=== PATIENT | female | born 1955 | race Two or more races ===

== ENCOUNTER → 2024-01-10 | Outpatient (CLI) | payer OTHER, SELFPAY ==
[2024-01-10 11:25] LABS: Basophils % (Auto) 0 % (0-2.5); Eosinophils # (Auto) 0.1 Thou/mm3 (0.0-0.5); Eosinophils % (Auto) 1 % (0-10); Hematocrit 33.3 % (36.0-46.0); Hemoglobin 10.6 g/dL (12.0-16.0); Immature Granulocytes % (Auto) 0 % (0-0); Immature Granulocytes Auto 0.02 Thou/mm3 (0.00-0.00); Lymphocytes # (Auto) 2.1 Thou/mm3 (1.0-4.8); Lymphocytes % (Auto) 28 % (10-50); Mean Corpuscular HGB Conc 31.8 g/dl (31.0-37.0); Mean Corpuscular Volume 94 fL (80-100); Monocytes # (Auto) 0.5 Thou/mm3 (0.0-0.8); Monocytes % (Auto) 7 % (0-12); Neutrophils # (Auto) 4.8 Thou/mm3 (1.8-7.7); Neutrophils % (Auto) 64 % (37-80); Nucleated Red Blood Cell % 0 /100 WBC (0); Platelet Count 327 Thou/mm3 (140-440); RDW Standard Deviation 46.3 fL (36.4-46.3); Red Blood Count 3.53 Miln/mm3 (4.00-5.20); White Blood Count 7.5 Thou/mm3 (3.6-11.0)
[2024-01-10 11:33] LABS: Glucose Estimated Average 123 mg/dL (80-131); Hemoglobin A1C 5.9 % Hgb (4.8-6.0)
== END | disposition home or self-care (01) ==
LOC: COPL 10:07
PROVIDERS: PCP Family Medicine; Referring Provider Family Medicine; Visit Provider Family Medicine
DX: E11.9 Type 2 diabetes mellitus without complications (principal)
CPT/HCPCS: 36415; 83036; 85025

== ENCOUNTER 2024-03-04 10:50 | Inpatient (IN) | payer OTHER, MEDICARE, SELFPAY ==
[2024-03-04 12:02] VITALS: BP 102/69; PULSE 106; RESP 18; TEMP 36.5; O2SAT 99; BMI 33.4
--- NOTE | 2024-03-04 12:08 | XR_ITS ---
Examination: CT abdomen and pelvis without contrast. Coronal 3-D reconstructions. Sagittal 2-D reconstructions. Date and time of exam:March 04, 2024 at 1234 hrs. Indications: Onset generalized abdominal pain beginning 3 days ago CTDI: vol (mGy): 9.53 DLP: (mGycm): 186 Technique: Axial images of the abdomen have been obtained, 3 mm slice thickness Intravenous contrast material has not been administered. Low dose protocols were performed. One or more of the following dose reduction techniques were used; automated exposure control, adjustment of the mA and/or KV according to patient size, use of iterative reconstruction technique. Findings: No focal liver or splenic lesions No gallstones No pancreatic or adrenal mass Bilateral renal parenchymal scar formation No renal or ureteral calculi, no hydronephrosis Aortic calcification no aneurysmal dilatation 10 mm fat-containing umbilical hernia Scattered colonic diverticulosis, no diverticulitis Contracted urinary bladder No pelvic mass Normal appendix Prominent osteopenia with chronic osteoporotic compression L2 Mild rectal wall thickening Impression: Negative for gallstones, negative for pancreatitis Moderate bilateral renal parenchymal scar formation, no renal or ureteral calculi, no hydronephrosis Normal appendix Mild rectal wall thickening, differential would include proctitis, early rectal tumor not excluded, recommend elective colonoscopy follow-up
--- NOTE | 2024-03-04 12:08 | PD.EDRME ---
Rapid Medical Screening Exam RME Arrival date/time: 03/04/24 10:50 68-year-old female presents emergency department complains of generalized abdominal pain nausea vomiting and diarrhea Chief Complaint: Nausea/Vomiting/Diarrhea Time Seen by Provider: 03/04/24 10:53 Vital signs: Vital Signs Temperature 97.7 F 03/04/24 12:02 Pulse Rate 106 H 03/04/24 12:02 Respiratory Rate 18 03/04/24 12:02 Blood Pressure 102/69 03/04/24 12:02 Pulse Oximetry (%) 99 03/04/24 12:02 Oxygen Delivery Method Room Air 03/04/24 12:02
[2024-03-04] MEDS: MG HYD/AL HYD/SIME (Maalox Reg) SUSP 30 ML UDC PO (12:22)
[2024-03-04] MEDS: FAMOTIDINE 20 MG TABLET PO (12:22)
[2024-03-04] MEDS: ONDANSETRON ODT 4 MG TABRAP PO (12:22)
[2024-03-04] MEDS: LIDOCAINE VISCOUS 2% 15 ML UDC PO (12:22)
[2024-03-04 12:31] LABS: Basophils % (Auto) 0 % (0-2.5); Eosinophils # (Auto) 0.1 Thou/mm3 (0.0-0.5); Eosinophils % (Auto) 1 % (0-10); Hematocrit 34.7 % (36.0-46.0); Hemoglobin 11.8 g/dL (12.0-16.0); Immature Granulocytes % (Auto) 0 % (0-0); Immature Granulocytes Auto 0.04 Thou/mm3 (0.00-0.00); Lymphocytes # (Auto) 1.4 Thou/mm3 (1.0-4.8); Lymphocytes % (Auto) 13 % (10-50); Mean Corpuscular Hemoglobin 29.9 pg (25.0-35.0); Mean Corpuscular Volume 88 fL (80-100); Monocytes # (Auto) 0.5 Thou/mm3 (0.0-0.8); Monocytes % (Auto) 5 % (0-12); Neutrophils # (Auto) 8.5 Thou/mm3 (1.8-7.7); Neutrophils % (Auto) 81 % (37-80); Nucleated Red Blood Cell % 0 /100 WBC (0); Platelet Count 293 Thou/mm3 (140-440); Red Blood Count 3.94 Miln/mm3 (4.00-5.20); White Blood Count 10.5 Thou/mm3 (3.6-11.0)
[2024-03-04 12:50] LABS: Alanine Aminotransferase 23 U/L (10-49); Albumin, Serum 4.7 gm/dL (3.4-4.8); Albumin/Globulin Ratio 1.6 (1.2-2.2); Alkaline Phosphatase 113 U/L (46-116); Anion Gap 11 (7-16); Aspartate Amino Transferase 21 U/L (0-34); BUN/Creatinine Ratio 17 Ratio (12-20); Bilirubin,Total 0.7 mg/dL (0.3-1.2); Blood Urea Nitrogen 39 mg/dL (9-23); Carbon Dioxide 16.3 mMol/L (20.0-31.0); Chloride 100 mMol/L (98-107); Creatinine (Component) 2.3 mg/dL (0.6-1.3); Estimated Creatinine Clearance 19.8 mL/min (>60); Globulin 2.9 gm/dL (2.3-3.5); Glucose 137 mg/dL (74-106); Lipase 36 U/L (12-53); Osmolality,Calculated 266 (275-295); Potassium 4.4 mMol/L (3.4-5.1); Sodium 127 mMol/L (136-145); Total Protein 7.6 gm/dL (5.7-8.2); eGFR 23 See Note
--- NOTE | 2024-03-04 14:15 | EDNOTE_ITS ---
Nausea/Vomit./Diarrhea-RME/HPI General Chief complaint: Nausea/Vomiting/Diarrhea Stated complaint: DIARRHEA AND VOMITING X3 DAYS Time Seen by Provider: 03/04/24 10:53 Arrival date/time: 03/04/24 10:50 RME / HPI RME / HPI Narrative: 03/04/24 10:50 68-year-old female presents emergency department complains of generalized abdominal pain nausea vomiting and diarrhea DR. POSEY MAIN ED EVALUATION: 68 year old female presents to the Emergency Department with complaints of nausea, vomiting, and diarrhea onset 3 days. Symptoms are moderate to severe, about 3-4 episodes of both vomiting and diarrhea a day. Patient also reports epigastric pain; described as aching, rated moderate; no modifying factors or radiation reported at this time. Last oral intake was yesterday at 7 PM, because she states that everything she eats she vomits. 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 Hypertension and diabetes. Social Hx: No tobacco, alcohol, or substance use. Related Data Previous Rx's ?Medication ?Instructions ?Recorded diazepam 10 mg tablet (Valium) 10 mg PO BID PRN muscle spasm #20 08/07/20 tabs hydrocodone 5 mg-acetaminophen 325 1 tab PO BID PRN pain #10 tabs 11/07/21 mg tablet ibuprofen 800 mg tablet 800 mg PO TID PRN pain #30 tabs 11/07/21 Allergies Allergy/AdvReac Type Severity Reaction Status Date / Time No Known Allergies Allergy Verified 03/04/24 10:52 Review of Systems Review of Systems Systems Reviewed: All systems reviewed, normal except as documented Narrative Review of Systems: GEN: No fever, no chills, no weight loss EYES: No discharge, no visual changes, no pain HEENT: No ear pain, no congestion, no sore throat PULM: No shortness of breath, no cough, no congestion CV: No chest pain, no dyspnea on exertion, no palpitations GI: + nausea, + vomiting, + diarrhea, + epigastric pain, no constipation : No frequency, no urgency and no dysuria MUSC/SKEL: No joint pain, no back pain SKIN: No rash PSYCH: No hallucinations, no depression HEME/LYMPH: No easy bleeding or bruising tendencies NEURO: No weakness, no headache Past Medical History Past Medical History CARDIAC: Positive Hypertension ENDOCRINE: Positive Diabetes Mellitus Type 2 Social History SMOKING STATUS: Never smoker ED Exam Narrative Physical exam: GENERAL APPEARANCE: Well hydrated, well nourished, in no acute distress. VITALS: All vitals were reviewed and the pulse ox is 99% on room air which is normal according to my interpretation. HEENT: Normocephalic, atramatic, EOMI, EACs are patent. There is no bulge or retraction. Throat without erythema or exudate. Moist oromucosa. No jaundice NECK: Supple, no JVD or bruits. CARDIOVASCULAR: Heart regular without S3-S4 or murmur. No rubs or gallops. LUNGS/CHEST: Clear to auscultation bilaterally. No rales, rhonchi, or wheezing. Normal inspection. ABDOMEN: Left upper tenderness on palpation. Normal bowel sounds. No pulsatile masses. No rebound, rigidity, or guarding. No McBurney tenderness. No Mckeon's tenderness. No incarcerated hernia. EXTREMITIES: No edema, clubbing, or cyanosis. Intact CSM. Normal inspection and palpation. SKIN: Warm and dry without rashes. Normal inspection. MUSCULOSKELETAL: No gross deformity, full ROM all extremities. Normal inspection. NEURO: Alert and oriented x3. Cranial nerves II through XII grossly intact. There are no other motor or sensory deficits noted. PSYCHIATRIC: Normal mood and affect. No psychosis. Course Quality Measures none Orders Category Date Time Status Consult to Gastroenterology Stat Cons 03/04/24 14:[address] abdomen pelvis wo con Stat Exams 03/04/24 12:08 Completed CBC Stat Lab 03/04/24 12:19 Completed Comprehensive Metabolic Panel Stat Lab 03/04/24 12:19 Completed Lipase Stat Lab 03/04/24 12:19 Completed UA, C/S IF [Urinalysis, C/S if Indicated] Stat Lab 03/04/24 14:00 Received Famotidine [Pepcid] Med 03/04/24 12:08 Discontinued 20 mg PO X1 ONE Lidocaine 2% Viscous [Xylocaine 2% Viscous] Med 03/04/24 12:08 Discontinued 15 ml PO X1 ONE Ondansetron Odt [Zofran Odt] Med 03/04/24 12:08 Discontinued 4 mg PO X1 ONE Sodium Chloride 0.9% 1000 ml [Ns] 1,000 ml Med 03/04/24 14:22 Active IV 999 mls/hr mg Hyd/Al Hyd/Leeanna Susp [Maalox Susp] Med 03/04/24 12:08 Discontinued 30 ml PO X1 ONE Vital Signs Vital signs: Vital Signs Temperature 97.7 F 03/04/24 12:02 Pulse Rate 106 H 03/04/24 12:02 Respiratory Rate 18 03/04/24 12:02 Blood Pressure 102/69 03/04/24 12:02 Pulse Oximetry (%) 99 03/04/24 12:02 Oxygen Delivery Method Room Air 03/04/24 12:02 Nausea/Vomiting/Diarrhea MDM Narrative MDM Narrative:: I, Indiana Mcpherson, am scribing for and in the presence of Dr. Posey. CBC is unremarkable. Sodium 127. Bicarb of 16. BUN/creatinine 39 and 2.3. No recent BMP to compare with. But blood sugar is okay. Anion gap is negative. Lipase is negative. UA is pending. In the emergency department I gave the patient a liter normal saline bolus. CT abdomen and pelvic was reviewed by and interpreted by me as follow: No free air. No free fluid. No bowel obstruction. No stranding. 2:15 PM, I spoke to and discussed with Dr. Batres, resident on-call for , attending hospitalist on-call. She agrees to assess the patient for admission. But she wants me to call Dr. Hernandes also for consultation. 2:30 PM, I spoke to and discussed with Dr. Hernandes, GI specialist on-call. He is agreeable to consult on admission. 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 Hypertension and diabetes. How is presenting disease/condition affected by chronic disease/condition?: exacerbated by Evaluation data The following diagnostics were reviewed and interpreted by me:: lab results and radiology exam(s) Lab and/or radiology exams considered but not ordered:: none Interpretation Summary: See above under MDM narrative. RADIOLOGY Procedure(s): CT abdomen pelvis wo con Accession Number(s): [id number] cc: Loyd ([place]),Hero WESTON; Osito Liao MD~ Examination: CT abdomen and pelvis without contrast. Coronal 3-D reconstructions. Sagittal 2-D reconstructions. Date and time of exam:March 04, 2024 at 1234 hrs. Indications: Onset generalized abdominal pain beginning 3 days ago CTDI: vol (mGy): 9.53 DLP: (mGycm): 186 Technique: Axial images of the abdomen have been obtained, 3 mm slice thickness Intravenous contrast material has not been administered. Low dose protocols were performed. One or more of the following dose reduction techniques were used; automated exposure control, adjustment of the mA and/or KV according to patient size, use of iterative reconstruction technique. Findings: No focal liver or splenic lesions No gallstones No pancreatic or adrenal mass Bilateral renal parenchymal scar formation No renal or ureteral calculi, no hydronephrosis Aortic calcification no aneurysmal dilatation 10 mm fat-containing umbilical hernia Scattered colonic diverticulosis, no diverticulitis Contracted urinary bladder No pelvic mass Normal appendix Prominent osteopenia with chronic osteoporotic compression L2 Mild rectal wall thickening Impression: Negative for gallstones, negative for pancreatitis Moderate bilateral renal parenchymal scar formation, no renal or ureteral calculi, no hydronephrosis Normal appendix Mild rectal wall thickening, differential would include proctitis, early rectal tumor not excluded, recommend elective colonoscopy follow-up Dictated By: Osito Liao MD Medications / Prescriptions Medications / Prescriptions considered but not ordered:: none Medication administrations:: Medication Administration History Sodium Chloride (Ns) 1,000 mls @ 999 mls/hr IV .Q1H1M ONE Stop: 03/04/24 15:22 Discontinued Medications Al Hydrox/Mg Hydrox/Simethicone (Mg Hyd/Al Hyd/Leeanna (Maalox Reg) Susp 30 Ml Udc) 30 ml PO X1 ONE Stop: 03/04/24 12:09 Last Admin: 03/04/24 12:22 Dose: 30 ml Documented By: NALLELY Famotidine (Famotidine 20 Mg Tablet) 20 mg PO X1 ONE Stop: 03/04/24 12:09 Last Admin: 03/04/24 12:22 Dose: 20 mg Documented By: NALLELY Lidocaine HCl (Lidocaine Viscous 2% 15 Ml Udc) 15 ml PO X1 ONE Stop: 03/04/24 12:09 Last Admin: 03/04/24 12:22 Dose: 15 ml Documented By: NALLELY Ondansetron HCl (Ondansetron Odt 4 Mg Tabrap) 4 mg PO X1 ONE; Protocol Stop: 03/04/24 12:09 Last Admin: 03/04/24 12:22 Dose: 4 mg Documented By: NALLELY see above Consultations Consultation(s) initiated? (list below): Yes Consultation #1 (Physician, Specialty, Details): Discussed test HPI, PMHx, lab, radiology results and/or management with [facility]. Will admit for further evaluation and management. Accepts patient for admission. Time: 14:24 Consultation #2 (Physician, Specialty, Details): Discussed test HPI, PMHx, lab, radiology results and/or management with Dr. Hernandes. Will consult an admission to the hospitalist. Time: 14:27 Diagnosis Nausea Differential Diagnosis: gastroenteritis, dehydration and other (Acute kidney injury) Most likely diagnosis given after review of the tests above:: Acute kidney injury. Electrolyte abnormality. Metabolic acidosis. Dehydration. Gastroenteritis Admission Indicated Admission indicated?: indicated Admission Request Was there a request for admission?: Yes Admission Attestation Admission request attestation: Discussed case with [] from Hospitalist service regarding admission. Discussed patients ED course, exam findings, labs, and radiology results. The Hospitalist [agrees,declines] to accept the patient for admission. Disposition Plan Disposition Plan: Admit Discharge Plan Plan Patient Disposition: Admit Acute Care w/in Hospital Disposition Comment: Stable for admit Prescriptions/Referrals Prescriptions/Med Rec: No Action diazepam [Valium] 10 mg tablet 10 mg PO BID PRN (Reason: muscle spasm) Qty: 20 0RF ibuprofen 800 mg tablet 800 mg PO TID PRN (Reason: pain) Qty: 30 0RF hydrocodone-acetaminophen 5-325 mg tablet 1 tab PO BID MDD 10 PRN (Reason: pain) Qty: 10 0RF Problem List Clinical Impression: Dehydration, Gastroenteritis, Electrolyte abnormality, Metabolic acidosis, Acute kidney injury Patient/Caregiver Discharge Instructions Print Language: Slovenian Stand Alone Forms: Kay Award Info., Patient Portal Info Letter
[2024-03-04] MEDS: SODIUM CHLORIDE 0.9% 1000 ML 1,000 ML 999 ML IV ×3 (14:25→18:47)
[2024-03-04 14:42] VITALS: BP 95/58; PULSE 85; RESP 18; TEMP 36.7; O2SAT 100
--- NOTE | 2024-03-04 15:10 | PC.NURSE ---
resident at bedside
[2024-03-04 15:23] LABS: Lactate (Lactic Acid) 1.6 mMol/L (0.4-2.0)
--- NOTE | 2024-03-04 16:01 | ESHP_ITS ---
<Statement entered by Zohaib Caballero MD - 03/04/24 18:10> This patient is a 68-year-old female with past medical history of hypertension, hyperlipidemia, type 2 diabetes [id number] presented with chief complaint of diarrhea from past 3 days. She reported that she had food from a leftover meat after which she developed emesis. She was also complaining of pain in her abdomen and eventually ended up having intractable vomiting. She is admitted for intractable abdominal pain with vomiting with possible GI infection. In the ED patient's blood pressure was slightly soft she was tachycardic and afebrile saturating well on room air. Labs were significant for hyponatremia with DREA BUN 39 creatinine 2.3 with baseline at 1.1. White count within normal limits. CT abdomen was significant for rectal wall thickening. Patient received lidocaine patch famotidine and zofran. We Will continue with IV ciprofloxacin and Flagyl, ordered stool analysis and IV fluid resuscitation for hyponatremia. Continuing antiemetics for vomiting. Consulted Dr. Hernandes for possible rectal wall thickening. Starting her on insulin sliding scale. Home medications were reconciled. All labs and orders were reviewed. I saw and examined the patient, and I agree with current management stated by Dr Tomasa MD,PGY1. Plan of care was discussed with the attending physician and resident physician. Disclaimer: Despite multiple revisions, due to the dictation software being used, the document bellow may not be free of grammatical errors including phonetic/typographic errors. However, this does not deter from our commitment to providing health care in the patient's best interest in mind. Dr. Ada MD, PGY 2 Documentation for date of: 03/04/24 HPI History of Present Illness History of present illness: CC: diarrhea Patient is a 68-year-old female with a past medical history of hypertension, hyperlipidemia, diabetes mellitus type 2 [id number] who presented to the emergency room with a chief complaint of diarrhea over the past 3 days. Patient stated diarrhea started shortly after eating leftover meat that was left infiltrated and subsequently developed emesis several hours after consuming. Patient stated this is never happened to her before. Diarrhea has been present over the past 3 days, no change in color. Patient denied melena or hematochezia in stool. Abdominal pain 10 out of 10. Patient denied fever or chills. Patient decided to come into the emergency room because decreased urine output and abdominal pain that worsened with consumption of food. Patient was unable to keep anything down. Patient's primary doctor Dr. Calderon. Patient was scheduled with a colonoscopy with Dr. Hernandes, on March 12, 2024. Admitted on 03/04/2024 for DREA and Intractable abdominal pain w/ vomiting. ER Course: In the emergency room, patient blood pressure recorded at 102/69, heart rate tacky 106, temperature within normal limits and saturating well on room air. Noted to have hyponatremia 127. Renal function illustrating DREA BUN 39 and creatinine 2.3 elevated from previous baseline at 1.1. WBC count 10.5. Glucose 137. Osmolarity 266. CT abdomen obtained showing rectal wall thickening, 10 mm fat-containing umbilical hernia and diverticulosis negative for diverticulitis. Moderate bilateral renal parenchymal scar formation, no hydronephrosis. Lidocaine patch given, famotidine 20 mg p.o., ondansetron 40 mg p.o. x 1. 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 (patient stated beginin) Home Medication: Lisinopril 40 mg Qday Atorvastatin 10 mg qday Metformin 500 mg BID Social History: Never smoked Deneid illicit drug use or alcohol Allergies: None Code Status: Full Code Review of Systems Review of Systems Narrative Review of Systems: General appearance: NO weight change, NO fatigue, NO weakness, NO fever, NO chills, NO night sweats, No cough Skin: NO rash, NO itching, NO sores, NO moles HEENT: NO Trauma, NO nausea, NO vomiting, NO visual changes, NO blurry vision, NO double vision, NO tinnitus, NO vertigo, NO ear discharge, NO rhinorrhea, NO stuffiness, NO sneezing, NO allergy, NO epistaxis. NO Hoarseness, NO sore throat, NO swollen neck. Cardiac: NO Palpitations, NO dyspnea on exertion, NO orthopnea, NO paroxysmal nocturnal dyspnea, NO edema Respiratory: NO Shortness of Breath, NO Wheezing, NO Cough, NO Sputum, NO hemoptysis GI:decrease appetite, Yes nausea, Yes vomiting, NO dysphagia, Yes changes in bowel frequency, NO stool color, yes diarrhea, NO constipation, NO hemetemesis, NO hemorrhoids, NO melena, NO hematechezia, yes abdominal pain, NO jaundice Renal: NO frequency, NO hesitancy, NO urgency, NO hematuria, NO nocturia, NO incontinence, decrease urine output MSK: NO muscle weakness, NO gout, NO arthritis, NO muscle stiffness Neuro: NO headaches, NO tremors, NO weakness, NO paralysis, NO seizures, NO loss of consciousness, NO numbness. Hem: NO anemia, NO easy bruising/bleeding, NO petechiae, NO purpura Endo: NO heat/cold intolerance, NO excessive sweating, NO polyuria, NO polydipsia, NO polyphagia, NO thyroid problems, NO diabetes Pysch: NO mood, NO anxiety, NO depression Exam Vital Signs Temp Pulse Resp BP Pulse Ox O2 Del Method 98.0 F 85 18 95/58 L 100 Room Air 03/04/24 14:42 03/04/24 14:42 03/04/24 14:42 03/04/24 14:42 03/04/24 14:42 03/04/24 14:42 Narrative Exam General Appearance: Alert & Oriented X3, well-nourished female who is lying in bed in mild discomfort HEENT: Skull symmetrical and atraumatic. Conjunctivae pink and moist. Pupils equal, round, reactive to light and accommodation (PERRL). External ear without lesion or discharge. Straight, nares patient, mucosa pink, no discharge. No thyroid nodule appreciated. No cervical lymphadenopathy. Cardio: Normal Rate and Rhythm with S1 and S2 heart sounds.possible holosystolic murmur. No bruits on carotid auscultation. No peripheral edema or cyanosis. Lungs: Symmetric with good expansion. Chest and back non-tender. Breath sounds vesicular without crackles, wheezing or rhonchi Abdomen: diffuse tenderness, Non-distended, Normal Reactive Bowel Sounds Neuro: Alert, cooperative, oriented to person, place, and time. Speech clear. CN grossly intact. Upper motor strength 5/5 and Lower motor strength 5/5. Sensation intact. Results: Labs 03/04/24 12:19 03/04/24 12:19 Labs: Short CBC 03/04/24 Range/Units 12:19 WBC 10.5 (3.6-11.0) Thou/mm3 Hgb 11.8 L (12.0-16.0) g/dL Hct 34.7 L (36.0-46.0) % Plt Count 293 (140-440) Thou/mm3 BMP 03/04/24 12:19 Sodium 127 L Potassium 4.4 Chloride 100 Carbon Dioxide 16.3 L BUN 39 H Creatinine 2.3 H Glucose 137 H Calcium 10.0 Liver Function 03/04/24 Range/Units 12:19 Total Bilirubin 0.7 (0.3-1.2) mg/dL AST 21 (0-34) U/L ALT 23 (10-49) U/L Alkaline Phosphatase 113 (46-116) U/L Albumin 4.7 (3.4-4.8) gm/dL Urine 03/04/24 Range/Units 14:00 Urine Color Cancelled Urine Clarity Cancelled Urine pH Cancelled Ur Specific [place] Cancelled Urine Protein Cancelled Urine Glucose (UA) Cancelled Quality Measures Quality Measures none Advance care planning discussed with:: patient Medications Home Medications and Allergies Allergies Allergy/AdvReac Type Severity Reaction Status Date / Time No Known Allergies Allergy Verified 03/04/24 10:52 Visit Medications Acetaminophen (Acetaminophen 325 Mg Tablet) 650 mg PO Q6H PRN PRN Reason: Mild Pain 1-3 or Fever >100.4 Stop: 04/03/24 15:26 Hydrocodone Bitart/Acetaminophen (Hydrocodone/Apap 5/325 Tablet) 1 tab PO Q4HR PRN PRN Reason: PAIN SCALE 4-10(Mod-Sev Stop: 03/09/24 15:26 Dextrose (Dextrose 50%-Water Inj 50 Ml Syringe) 25 ml IV Q15MIN PRN PRN Reason: BG 50-70 responsive npo pt Stop: 04/03/24 15:31 Dextrose (Dextrose 50%-Water Inj 50 Ml Syringe) 50 ml IV Q15MIN PRN PRN Reason: BG <50 OR BG <70 & pt unresponsive Stop: 04/03/24 15:31 Glucagon (Glucagon Inj 1 Mg Vial) 1 mg IM Q15MIN PRN PRN Reason: BG <70, and no IV access Heparin Sodium (Porcine) (Heparin Sod Inj 5000 Unit/Ml Vial) 5,000 unit SC Q12HR SHEN Stop: 03/18/24 20:59 Hydromorphone HCl (Hydromorphone Inj 2 Mg/Ml Vial) 0.5 mg IVP Q4HR PRN PRN Reason: Pain 7-10 Stop: 03/09/24 15:46 Sodium Chloride (Ns) 1,000 mls @ 999 mls/hr IV .Q1H1M ONE Stop: 03/04/24 16:46 Sodium Chloride (Ns) 1,000 mls @ 100 mls/hr IV .Q10H [facility] Stop: 03/05/24 11:50 Ciprofloxacin/Dextrose (Cipro Ivpb) 400 mg in 200 mls @ 200 mls/hr IV QDAY [facility] Stop: 03/11/24 15:59 Metronidazole (Flagyl 500 Mg Iv) 500 mg in 100 mls @ 200 mls/hr IV Q12HR [facility] Stop: 03/11/24 20:59 Insulin Human Lispro (Insulin Lispro (Admelog) 1 Unit/0.01 Ml Unit) 0 unit SC ACHS [facility]; Protocol Stop: 04/03/24 16:59 Ondansetron HCl (Ondansetron Inj 2 Mg/Ml Inj 2 Ml) 4 mg IV Q6H PRN; Protocol PRN Reason: NAUSEA OR VOMITING Stop: 04/03/24 15:26 Pantoprazole Sodium (Pantoprazole Inj 40 Mg Vial) 40 mg IVP QDAY [facility] Stop: 04/04/24 08:59 Discontinued Medications Al Hydrox/Mg Hydrox/Simethicone (Mg Hyd/Al Hyd/Leeanna (Maalox Reg) Susp 30 Ml Udc) 30 ml PO X1 ONE Stop: 03/04/24 12:09 Last Admin: 03/04/24 12:22 Dose: 30 ml Famotidine (Famotidine 20 Mg Tablet) 20 mg PO X1 ONE Stop: 03/04/24 12:09 Last Admin: 03/04/24 12:22 Dose: 20 mg Sodium Chloride (Ns) 1,000 mls @ 999 mls/hr IV .Q1H1M ONE Stop: 03/04/24 15:22 Last Infusion: 03/04/24 15:37 Dose: Infused Sodium Chloride (Ns) 1,000 mls @ 80 mls/hr IV .[id number] [facility] Stop: 03/05/24 15:46 Lidocaine HCl (Lidocaine Viscous 2% 15 Ml Udc) 15 ml PO X1 ONE Stop: 03/04/24 12:09 Last Admin: 03/04/24 12:22 Dose: 15 ml Ondansetron HCl (Ondansetron Odt 4 Mg Tabrap) 4 mg PO X1 ONE; Protocol Stop: 03/04/24 12:09 Last Admin: 03/04/24 12:22 Dose: 4 mg Assessment & Plan Plan #Intractable Nausea and Vomiting #Diarrhea Patient reported intractable nausea and emesis over the past 3 days. Nothing seems to make symptoms better. Denied hematemesis or hemoptysis. Emesis noted to be food content mostly. Patient unable to keep food down. Diarrhea for the past 3 days denied hematochezia or melena. CT abdomen wall showed rectal wall thickening and a 10 mm fat-containing umbilical hernia and diverticulosis. Given history of consuming unrefrigerated me and then shortly after developing diarrhea and vomiting Staph aureus bacterial cannot be ruled out such as gastroenteritis. 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 pylori versus hernia. Diagnostics WBC 10.5, lipase 36, 6.1 A1c (2023), Plan -Ciprofloxacin 400 mg daily (renal dosing) 03/04/2024 -Metronidazole 500 mg every 12 hours 03/04/2024 -Pain management (Tylenol, [place], Dilaudid as needed) -Protonix 40 IV daily -Zofran as needed -Stool studies including H. pylori Legionella and norovirus stool culture WBCs and stool, Giardia, calprotectin stool, C. difficile -WBC CMP -TSH -Follow-up with electrolytes mag and phosphorus given diarrhea -Consult Dr. Hernandes, appreciate recommendations #Moderate Hyponatremia Hypo-osmolar #DREA On arrival, patient was noted to have an DREA creatinine 2.3, BUN 39. Creatinine change greater than 0.3 from previous baseline of 1. GFR 23. BUN/creatinine ratio 17 likely prerenal given loss of volume from emesis and diarrhea. DDx: Considered intrinsic failure given BUN/creatinine ratio less than 20 versus obstructive given low urine output. Diagnsotic -NS 1 X bolus -NS 1 liter 100 cc per hour -bladder scan -Renally dose medication -Avoid nephrotoxin #Diabetes Mellitus Non Insulin Dependent Past medical history of diabetes mellitus A1c on admission 6.2 with a blood glucose of 137. Home medication metformin. Currently holding given DREA and and hospitalization Plan Sliding scale Hold metformin Follow-up with morning fasting glucose #Nonanion Gap Metabolic Acidosis Non-anion gap likely secondary to RTA given negative lactic acidosis and glucose within normal range, less likely metabolic acidosis with an anion gap. Plan Treat underlying cause, diarrhea and emesis Urine electrolytes. #Essetntial Hyptertension #Hyperlipidemia Given soft blood pressure on admission and DREA currently holding home medication of lisinopril. Plan Resume atorvastatin 10 mg at bedtime Lipid panel Hold lisinopril Health Maintenance: Disp: Pt is currently admitted to floors for further management of diarrhea, awaiting improvement of sodium. FEN: Clear liquid diet DVT: on subQ heparin Code: Full code - The patient's plan was discussed with attending Dr. Cash and senior residents Dr. Ada Randolph MD PGY1 Internal Medicine Attending Provider Attestation/Addendum I attest that I was physically present for the evaluation, physical examination, lab and imaging review of the patient with the residents. I discussed the case with the residents and agree with the findings and plans of care as documented above. Patient is a 68 years old female with past medical history of hypertension and diabetes mellitus who presents to the ED with complaint of diarrhea, nausea and vomiting. Patient has been having the symptoms for 3 days. She has been having more than 4-5 episodes of loose stool and vomiting daily. She has not been able to keep food down. Today, she noticed decreased urine output, abdominal pain despite drinking water and decided to visit the ED. In the ED, she was found to have hyponatremia, hypomagnesemia, DREA and non-anion gap metabolic acidosis. Her blood pressure has been soft. Abdomen/pelvis CT shows possible proctitis. We will admit the patient for management of acute gastroenteritis, DREA, electrolyte imbalances and acidosis secondary to GI loss. We will restart her on antibiotics, aggressive IV hydration. GI on board. Teagan Godwin MD
[2024-03-04 16:02] LABS: Glucose Estimated Average 131 mg/dL (80-131); Hemoglobin A1C 6.2 % Hgb (4.8-6.0)
[2024-03-04 16:09] LABS: Magnesium 1.4 mg/dL (1.6-2.6)
[2024-03-04] MEDS: ACETAMINOPHEN 325 MG TABLET 650 MG PO (16:24)
[2024-03-04 16:28] VITALS: PULSE 87; RESP 100; RESP 18
[2024-03-04] MEDS: CIPROFLOXACIN/D5w 400 MG IVPB 400 MG/200 ML BAG 200 MG IV (16:29)
[2024-03-04 16:52] LABS: Amphetamine/Methamp Scrn,U Negative (Negative); Barbiturate Screen,Urine Negative (Negative); Benzodiazepines Screen,Urine Negative (Negative); Benzoylecgonine Screen, Ur Negative (Negative); Fentanyl Screen,Urine Negative (Negative); Opiate Screen,Urine Negative (Negative); THC Screen,Urine Negative (Negative)
[2024-03-04 17:13] LABS: Chloride,Urine Random 38.6 mMol/L (55.0-125.0); Creatinine,Random Urine 50 mg/dL (30-125); Potassium,Urine Random 12 mMol/L (12-62); Sodium,Urine Random 39.6 mMol/L (20.0-110.0)
[2024-03-04] MEDS: SODIUM CHLORIDE 0.9% 1000 ML 1,000 ML 100 ML IV (17:44)
[2024-03-04] MEDS: ONDANSETRON INJ 2 MG/ML INJ 2 ML 4 MG IV (17:47)
[2024-03-04] MEDS: HYDROmorphone INJ 2 MG/ML VIAL 0.5 MG IVP (17:52)
[2024-03-04] MEDS: Magnesium Sulfate 2 GM Ivpb 2 GM/50 ML BAG IV ×2 (17:52→20:23)
--- NOTE | 2024-03-04 17:55 | PC.CC ---
Pt Nurys Preston is a 68 yr old female admitted to hospitalist services for intractable N/V and diarrhea. Moderate hyponatremia and DREA. ASW met with pt and her Guillermo Preston [phone] at bedside to complete initial assessment. At time of encounter pt is noted to be alert and oriented to person, place and situation. Pt confirmed understanding admission orders. Pt confirmed all demographic information. Pt is from home [address] [place] [address], where she lives with her . Pt identifies her as surrogate DM. At baseline pt reports being independent with ambulation and with completing her ADLs. Pt is diabetic on oral medication for management. Pt is not on dialysis. Pt does not require supplemental O2 in the home. Pt is followed by Dr. Xena Li for primary care. At time of D/c pt will return home with family providing transport for pt. Pt expressed no further needs at this time.
[2024-03-04 18:26] VITALS: BP 98/53; PULSE 81; RESP 16; TEMP 35.6; O2SAT 93; BMI 39.3
--- NOTE | 2024-03-04 19:11 | PD.IMCONS ---
HPI Data of Consult Requesting Physician: Teagan Godwin MD Primary Care Provider: Xena Li MD Consult Narrative Reason for consult: Nausea vomiting diarrhea abnormal CTAP History of present illness: 68-year-old female presented to the emergency room with 3-day history of nausea vomiting and diarrhea started after radiating a piece of meat and eating a The diarrhea and vomiting has progressively gotten worse to a point where she has a sodium of 127 CO2 of 16.3 BUN/creatinine [address] scan of the abdomen pelvis without contrast shows rectal wall thickening no gallstones ER physician called me and patient after discussion was subsequently admitted most likely as a case of infectious enterocolitis with gross electrolyte abnormalities hyponatremia metabolic acidosis and DREA No blood in the stool Patient does have a history of essential hypertension hyperlipidemia and diabetes mellitus type 2 cc:: cc: Teagan Godwin MD Review of Systems Review of Systems Systems Reviewed: All systems reviewed, normal except as documented Past Medical History Surgical History OTHER SURGICAL HX: As in the history of present illness Meds Home Medications and Allergies Allergies Allergy/AdvReac Type Severity Reaction Status Date / Time No Known Allergies Allergy Verified 03/04/24 10:52 Exam Vital Signs Temp Pulse Resp BP Pulse Ox O2 Del Method 96.0 F L 81 16 98/53 L 93 L Room Air 03/04/24 18:26 03/04/24 18:26 03/04/24 18:26 03/04/24 18:26 03/04/24 18:26 03/04/24 18:26 Constitutional Comments: Alert oriented Routine Respiratory Exam Comments: Normal to auscultation Routine Abdominal Exam Comments: Soft generalized tenderness positive bowel sounds Results Labs 03/04/24 12:19 03/04/24 12:19 Labs: Short CBC 03/04/24 Range/Units 12:19 WBC 10.5 (3.6-11.0) Thou/mm3 Hgb 11.8 L (12.0-16.0) g/dL Hct 34.7 L (36.0-46.0) % Plt Count 293 (140-440) Thou/mm3 BMP 03/04/24 12:19 Sodium 127 L Potassium 4.4 Chloride 100 Carbon Dioxide 16.3 L BUN 39 H Creatinine 2.3 H Glucose 137 H Calcium 10.0 Liver Function 03/04/24 Range/Units 12:19 Total Bilirubin 0.7 (0.3-1.2) mg/dL AST 21 (0-34) U/L ALT 23 (10-49) U/L Alkaline Phosphatase 113 (46-116) U/L Albumin 4.7 (3.4-4.8) gm/dL Urine 03/04/24 Range/Units 14:00 Urine Color Cancelled Urine Clarity Cancelled Urine pH Cancelled Ur Specific [place] Cancelled Urine Protein Cancelled Urine Glucose (UA) Cancelled Assessment and Plan Additional Assessment & Plan Additional Plan: # Nausea vomiting # Diarrhea # Abnormal CT scan of the abdomen pelvis showing thickening of the rectal wall # Hyponatremia # Metabolic acidosis # DREA This is most likely a case of acute infectious enterocolitis unlikely inflammatory bowel disease leading to gross electrolyte abnormalities along with hyponatremia metabolic acidosis due to volume contraction and DREA Agree with getting a stool culture and IV Cipro and Flagyl Thickening of the rectal wall can be seen in infectious enterocolitis underlying proctitis and inflammatory bowel disease unlikely If the stool panel is negative I will consider doing a fibrotic colonoscopy prior to discharge if the symptoms persist Other medical problems include # Essential hypertension # Diabetes mellitus type 2 # Hyperlipidemia Thank you very much for the opportunity to participate in the care of this patient
[2024-03-04 19:30] VITALS: PULSE 81; RESP 18; RESP 98
[2024-03-04 20:00] VITALS: BP 104/60; PULSE 74; RESP 20; TEMP 36.4; O2SAT 95
[2024-03-04] MEDS: HEPARIN SOD INJ 5000 UNIT/ML VIAL SC (20:24)
[2024-03-04] MEDS: metroNIDAZOLE/NS 500 MG IVPB 500 MG/100 ML BAG 200 MG IV (21:01)
[2024-03-05] VITALS (7 sets, daily range): BP systolic 98–110; BP diastolic 55–65; PULSE 70–84; RESP 16–20; TEMP 36.2–37.1; O2SAT 96–98
[2024-03-05 05:15] LABS: Basophils % (Auto) 0 % (0-2.5); Eosinophils # (Auto) 0.1 Thou/mm3 (0.0-0.5); Eosinophils % (Auto) 2 % (0-10); Hematocrit 28.1 % (36.0-46.0); Hemoglobin 9.3 g/dL (12.0-16.0); Immature Granulocytes % (Auto) 0 % (0-0); Immature Granulocytes Auto 0.02 Thou/mm3 (0.00-0.00); Lymphocytes % (Auto) 16 % (10-50); Mean Corpuscular HGB Conc 33.1 g/dl (31.0-37.0); Mean Corpuscular Volume 91 fL (80-100); Monocytes # (Auto) 0.5 Thou/mm3 (0.0-0.8); Monocytes % (Auto) 8 % (0-12); Neutrophils # (Auto) 4.6 Thou/mm3 (1.8-7.7); Neutrophils % (Auto) 74 % (37-80); Nucleated Red Blood Cell % 0 /100 WBC (0); Platelet Count 204 Thou/mm3 (140-440); RDW Standard Deviation 43.6 fL (36.4-46.3); White Blood Count 6.2 Thou/mm3 (3.6-11.0)
[2024-03-05] MEDS: metroNIDAZOLE/NS 500 MG IVPB 500 MG/100 ML BAG 200 MG IV ×3 (05:19→21:26)
[2024-03-05] MEDS: ACETAMINOPHEN 325 MG TABLET 650 MG PO (05:19)
[2024-03-05 06:05] LABS: Alanine Aminotransferase 18 U/L (10-49); Albumin, Serum 3.6 gm/dL (3.4-4.8); Albumin/Globulin Ratio 1.6 (1.2-2.2); Alkaline Phosphatase 80 U/L (46-116); Anion Gap 9 (7-16); Aspartate Amino Transferase 16 U/L (0-34); BUN/Creatinine Ratio 18 Ratio (12-20); Bilirubin,Total 0.4 mg/dL (0.3-1.2); Blood Urea Nitrogen 22 mg/dL (9-23); Calcium 8.8 mg/dL (8.3-10.6); Calcium (Corrected) 9.1 mg/dL (8.5-10.1); Carbon Dioxide 15.9 mMol/L (20.0-31.0); Cardiac Risk Estimate 3.4 RATIO (3.7-5.6); Chloride 109 mMol/L (98-107); Cholesterol 129 mg/dL (132-200); Creatinine (Component) 1.2 mg/dL (0.6-1.3); Estimated Creatinine Clearance 37.4 mL/min (>60); Globulin 2.2 gm/dL (2.3-3.5); Glucose 100 mg/dL (74-106); HDL Cholesterol 38 mg/dL (40-60); LDL Cholesterol,Calculated 66 mg/dL (0-130); Magnesium 2.4 mg/dL (1.6-2.6); Osmolality,Calculated 271 (275-295); Phosphorous 3.1 mg/dL (2.4-5.1); Potassium 4.7 mMol/L (3.4-5.1); Sodium 134 mMol/L (136-145); Thyroid Stimulating Hormone 1.45 uIU/mL (0.55-4.78); Total Protein 5.8 gm/dL (5.7-8.2); Triglycerides 127 mg/dL (30-150); eGFR 49 See Note
[2024-03-05] MEDS: RINGERS LACTATED 1000 ML 1,000 ML 125 ML IV (08:14)
[2024-03-05] MEDS: HYDROcodone/APAP 5/325 TABLET 1 TAB PO (08:15)
[2024-03-05] MEDS: PANTOPRAZOLE INJ 40 MG VIAL IVP (08:15)
[2024-03-05] MEDS: CIPROFLOXACIN/D5w 400 MG IVPB 400 MG/200 ML BAG 200 MG IV (08:15)
[2024-03-05] MEDS: SODIUM BICARBONATE 650 MG TABLET PO ×2 (08:15→21:25)
[2024-03-05] MEDS: HEPARIN SOD INJ 5000 UNIT/ML VIAL SC ×2 (08:15→21:37)
--- NOTE | 2024-03-05 10:05 | PC.SS ---
SS follow up note; Patient is pending Stool cultures and GI Rec's.
--- NOTE | 2024-03-05 10:30 | ESPR_ITS ---
<Statement entered by Zohaib Caballero MD - 03/05/24 13:51> Patient was seen and examined at the bedside this morning. Patient reported that her diarrhea has improved. Will consult GI with they are no plans for colonoscopy. However he will evaluate the patient during hospital stay. He recommended to continue IV ciprofloxacin and Flagyl and Protonix as well. Will likely follow-up on stool culture results tomorrow. Patient's diet was advanced to low carb consistent as she is not having nausea vomiting now. A1c came at 6.2. Kidney functions are improving on fluid resuscitation. She had non-anion gap metabolic acidosis therefore bicarb was given once in the morning and once at the night. Hemoglobin remained stable. Electrolytes were unremarkable. Will continue to monitor and evaluate tomorrow morning and possible discharge her if patient remains stable. All labs and orders were reviewed. I saw and examined the patient, and I agree with current management stated by Dr Tomasa MD,PGY1. Plan of care was discussed with the attending physician and resident physician. Disclaimer: Despite multiple revisions, due to the dictation software being used, the document bellow may not be free of grammatical errors including phonetic/typographic errors. However, this does not deter from our commitment to providing health care in the patient's best interest in mind. Dr. Ada MD, PGY 2 Documentation for date of: 03/05/24 Subjective Subjective Interval history: No overnight events reported for patient. No pleuritic splint reported. Patient's diarrhea improved and last recorded episode occurred 03/04/2024 at approximately 11 PM. Clarified with the nurse this morning and FOBT has not been collected. FOBT still pending please follow-up tomorrow. Patient denied hematochezia or melena today and on admission. Patient stated symptoms improved. Pending cultures. Patient's diet advanced. Patient denied nausea or vomiting. Pending Dr. Hernandes's recommendation but patient has colonoscopy scheduled for 03/12/2024. Exam Vital Signs Temp Pulse Resp BP Pulse Ox O2 Del Method 97.8 F 75 16 99/56 L 97 Room Air 03/05/24 07:55 03/05/24 07:55 03/05/24 07:55 03/05/24 07:55 03/05/24 07:55 03/05/24 07:55 Narrative Exam General Appearance: Alert & Oriented X3, well-nourished female who is lying in bed in improved distress. HEENT: Skull symmetrical and atraumatic. Conjunctivae pin and moist. Pupils equal, round, reactive to light and accommodation (PERRL). External ear without lesion or discharge. Straight, nares patient, mucosa pink, no discharge. No thyroid nodule appreciated. No cervical lymphadenopathy. Cardio: Normal Rate and Rhythm with S1 and S2 heart sounds. No murmurs or extra heart sounds auscultated. No bruits on carotid auscultation. No peripheral edema or cyanosis. Lungs: Symmetric with good expansion. Chest and back non-tender. Breath sounds vesicular without crackles, wheezing or rhonchi Abdomen: improved tenderness, Non-distended, Normal Reactive Bowel Sounds Neuro: Alert, cooperative, oriented to person, place, and time. Speech clear. CN grossly intact. Upper motor strength 5/5 and Lower motor strength 5/5. Sensation intact. Objective Labs 03/05/24 04:22 03/05/24 04:22 Labs: Laboratory Results - last 24 hr 03/04/24 03/04/24 03/04/24 12:14 12:19 14:00 WBC 10.5 RBC 3.94 L Hgb 11.8 L Hct 34.7 L MCV 88 MCH 29.9 MCHC 34.0 RDW Std Deviation 42.0 Plt Count 293 Neut % (Auto) 81 H Lymph % (Auto) 13 [place] % (Auto) 5 Eos % (Auto) 1 Baso % (Auto) 0 Neut # (Auto) 8.5 H Lymph # (Auto) 1.4 [place] # (Auto) 0.5 Eos # (Auto) 0.1 Baso # (Auto) 0.0 Immature Gran # (Auto) 0.04 H Absolute Nucleated RBC 0.00 Immature Gran % 0 Nucleated RBC % 0 Sodium 127 L Potassium 4.4 Chloride 100 Carbon Dioxide 16.3 L Anion Gap 11 BUN 39 H Creatinine 2.3 H Estim Creat Clear Calc 19.8 L eGFR 23 L BUN/Creatinine Ratio 17 [address]ucose [address] Glu mg/dL 131 Hemoglobin A1c 6.2 H Calculated Osmolality 266 L Lactic Acid Calcium 10.0 Corrected Calcium 10.0 Phosphorus Magnesium 1.4 L Total Bilirubin 0.7 AST 21 ALT 23 Alkaline Phosphatase 113 Total Protein 7.6 Albumin 4.7 Globulin 2.9 Albumin/Globulin Ratio 1.6 Triglycerides Cholesterol LDL Cholesterol, Calc HDL Cholesterol Cholesterol/HDL Ratio Lipase 36 TSH Ur Collection Type Cancelled Urine Color Cancelled Urine Clarity Cancelled Urine pH Cancelled Ur Specific [place] Cancelled Urine Protein Cancelled Urine Glucose (UA) Cancelled Urine Ketones Cancelled Urine Blood Cancelled Urine Nitrite Cancelled Urine Bilirubin Cancelled Urine Urobilinogen (Auto) Cancelled Ur Leukocyte Esterase Cancelled Urine RBC Cancelled Urine WBC Cancelled Ur Squamous Epith Cells Cancelled Ur Transition Epith Cell Cancelled Ur Renal Epithelial Cell Cancelled Calcium Carbonate Cryst Cancelled Calcium Phosphate Cryst Cancelled Calcium Oxalate Crystal Cancelled Leucine Crystals Cancelled Cystine Crystals Cancelled Uric Acid Crystals Cancelled Triple Phos Crystals Cancelled Tyrosine Crystals Cancelled Amorphous Crystals Cancelled Urine Bacteria Cancelled Cellular Casts Cancelled Epithelial Casts Cancelled Fatty Casts Cancelled Hyaline Casts Cancelled Granular Casts Cancelled Waxy Casts Cancelled Broad Casts Cancelled RBC Casts Cancelled Urine Mucus Cancelled Urine Trichomonas Cancelled Ur Yeast w Hyphae Cancelled Urine Yeast (Budding) Cancelled Urine Sperm Cancelled Ur Oval Fat Bodies Cancelled Ur Culture Indicated? Cancelled Ur Random Creatinine Ur Random Sodium Ur Random Potassium Ur Random Chloride Urine Opiates Screen Urine Fentanyl Screen Ur Barbiturates Screen U Amphetamin/Meth Scrn U Benzodiazepines Scrn U Cocaine Metab Screen U Marijuana (THC) Screen 03/04/24 03/04/24 03/04/24 15:03 16:24 16:32 WBC RBC Hgb Hct MCV MCH MCHC RDW Std Deviation Plt Count Neut % (Auto) Lymph % (Auto) [place] % (Auto) Eos % (Auto) Baso % (Auto) Neut # (Auto) Lymph # (Auto) [place] # (Auto) Eos # (Auto) Baso # (Auto) Immature Gran # (Auto) Absolute Nucleated RBC Immature Gran % Nucleated RBC % Sodium Potassium Chloride Carbon Dioxide Anion Gap BUN Creatinine Estim Creat Clear Calc eGFR BUN/Creatinine Ratio Glucose Estimated Ave Glu mg/dL Hemoglobin A1c Calculated Osmolality Lactic Acid 1.6 Calcium Corrected Calcium Phosphorus Magnesium Total Bilirubin AST ALT Alkaline Phosphatase Total Protein Albumin Globulin Albumin/Globulin Ratio Triglycerides Cholesterol LDL Cholesterol, Calc HDL Cholesterol Cholesterol/HDL Ratio Lipase TSH Ur Collection Type Urine Color Urine Clarity Urine pH Ur Specific [place] Urine Protein Urine Glucose (UA) Urine Ketones Urine Blood Urine Nitrite Urine Bilirubin Urine Urobilinogen (Auto) Ur Leukocyte Esterase Urine RBC Urine WBC Ur Squamous Epith Cells Ur Transition Epith Cell Ur Renal Epithelial Cell Calcium Carbonate Cryst Calcium Phosphate Cryst Calcium Oxalate Crystal Leucine Crystals Cystine Crystals Uric Acid Crystals Triple Phos Crystals Tyrosine Crystals Amorphous Crystals Urine Bacteria Cellular Casts Epithelial Casts Fatty Casts Hyaline Casts Granular Casts Waxy Casts Broad Casts RBC Casts Urine Mucus Urine Trichomonas Ur Yeast w Hyphae Urine Yeast (Budding) Urine Sperm Ur Oval Fat Bodies Ur Culture Indicated? Ur Random Creatinine 50 Ur Random Sodium 39.6 Ur Random Potassium 12 Ur Random Chloride 38.6 L Urine Opiates Screen Negative Urine Fentanyl Screen Negative Ur Barbiturates Screen Negative U Amphetamin/Meth Scrn Negative U Benzodiazepines Scrn Negative U Cocaine Metab Screen Negative U Marijuana (THC) Screen Negative 03/05/24 04:22 WBC 6.2 D RBC 3.10 L Hgb 9.3 L D Hct 28.1 L MCV 91 MCH 30.0 MCHC 33.1 RDW Std Deviation 43.6 Plt Count 204 D Neut % (Auto) 74 Lymph % (Auto) 16 [place] % (Auto) 8 Eos % (Auto) 2 Baso % (Auto) 0 Neut # (Auto) 4.6 Lymph # (Auto) 1.0 [place] # (Auto) 0.5 Eos # (Auto) 0.1 Baso # (Auto) 0.0 Immature Gran # (Auto) 0.02 H Absolute Nucleated RBC 0.00 Immature Gran % 0 Nucleated RBC % 0 Sodium 134 L Potassium 4.7 Chloride 109 H Carbon Dioxide 15.9 L Anion Gap 9 BUN 22 Creatinine 1.2 D Estim Creat Clear Calc 37.4 L eGFR 49 L BUN/Creatinine Ratio [address] Glu mg/dL Hemoglobin A1c Calculated Osmolality 271 L Lactic Acid Calcium 8.8 Corrected Calcium 9.1 Phosphorus 3.1 Magnesium 2.4 Total Bilirubin 0.4 AST 16 ALT 18 Alkaline Phosphatase 80 D Total Protein 5.8 Albumin 3.6 D Globulin 2.2 L Albumin/Globulin Ratio 1.6 Triglycerides 127 Cholesterol 129 L LDL Cholesterol, Calc 66 HDL Cholesterol 38 L Cholesterol/HDL Ratio 3.4 L Lipase TSH 1.45 Ur Collection Type Urine Color Urine Clarity Urine pH Ur Specific [place] Urine Protein Urine Glucose (UA) Urine Ketones Urine Blood Urine Nitrite Urine Bilirubin Urine Urobilinogen (Auto) Ur Leukocyte Esterase Urine RBC Urine WBC Ur Squamous Epith Cells Ur Transition Epith Cell Ur Renal Epithelial Cell Calcium Carbonate Cryst Calcium Phosphate Cryst Calcium Oxalate Crystal Leucine Crystals Cystine Crystals Uric Acid Crystals Triple Phos Crystals Tyrosine Crystals Amorphous Crystals Urine Bacteria Cellular Casts Epithelial Casts Fatty Casts Hyaline Casts Granular Casts Waxy Casts Broad Casts RBC Casts Urine Mucus Urine Trichomonas Ur Yeast w Hyphae Urine Yeast (Budding) Urine Sperm Ur Oval Fat Bodies Ur Culture Indicated? Ur Random Creatinine Ur Random Sodium Ur Random Potassium Ur Random Chloride Urine Opiates Screen Urine Fentanyl Screen Ur Barbiturates Screen U Amphetamin/Meth Scrn U Benzodiazepines Scrn U Cocaine Metab Screen U Marijuana (THC) Screen Quality Measures Quality Measures none Advance care planning discussed with:: other Assessment & Plan Assessment Current Active Medications: Generic Name Dose Route Start Last Admin Trade Name Freq PRN Reason Stop Dose Admin Acetaminophen 650 mg 03/04/24 15:27 03/05/24 05:19 Acetaminophen 325 Mg Tablet PO 04/03/24 15:26 650 mg Q6H PRN Administration Mild Pain 1-3 or Fever >100.4 Hydrocodone Bitart/Acetaminophen 1 tab 03/04/24 15:27 03/05/24 08:15 Hydrocodone/Apap 5/325 Tablet PO 03/09/24 15:26 1 tab Q4HR PRN Administration PAIN SCALE 4-10(Mod-Sev Dextrose 25 ml 03/04/24 15:32 Dextrose 50%-Water Inj 50 Ml Syringe IV 04/03/24 15:31 Q15MIN PRN BG 50-70 responsive npo pt Dextrose 50 ml 03/04/24 15:32 Dextrose 50%-Water Inj 50 Ml Syringe IV 04/03/24 15:31 Q15MIN PRN BG <50 OR BG <70 & pt unresponsive Glucagon 1 mg 03/04/24 15:32 Glucagon Inj 1 Mg Vial IM Q15MIN PRN BG <70, and no IV access Heparin Sodium (Porcine) 5,000 unit 03/04/24 21:00 03/05/24 08:15 Heparin Sod Inj 5000 Unit/Ml Vial SC 03/18/24 20:59 5,000 unit Q12HR SHEN Administration Hydromorphone HCl 0.5 mg 03/04/24 15:47 03/04/24 17:52 Hydromorphone Inj 2 Mg/Ml Vial IVP 03/09/24 15:46 0.5 mg Q4HR PRN Administration Pain 7-10 Ciprofloxacin/Dextrose 400 mg in 200 mls @ 200 mls/hr 03/04/24 16:00 03/05/24 08:15 Cipro Ivpb IV 03/11/24 15:59 200 mls/hr QDAY SHEN Administration Metronidazole 500 mg in 100 mls @ 200 mls/hr 03/04/24 22:00 03/05/24 05:19 Flagyl 500 Mg Iv IV 03/11/24 21:59 200 mls/hr TID SHEN Administration Lactated Ringer's 1,000 mls @ 125 mls/hr 03/05/24 07:43 03/05/24 08:14 Lactated Ringers IV 03/05/24 15:42 125 mls/hr .Q8H ONE Administration Lactated Ringer's 1,000 mls @ 100 mls/hr 03/05/24 09:55 03/05/24 10:16 Lactated Ringers IV 04/04/24 09:54 Not Given .Q10H SHEN Insulin Human Lispro 0 unit 03/04/24 17:00 03/05/24 07:47 Insulin Lispro (Admelog) 1 Unit/0.01 Ml Unit SC 04/03/24 16:59 Not Given ACHS [facility] Protocol Ondansetron HCl 4 mg 03/04/24 15:27 03/04/24 17:47 Ondansetron Inj 2 Mg/Ml Inj 2 Ml IV 04/03/24 15:26 4 mg Q6H PRN Administration NAUSEA OR VOMITING Protocol Pantoprazole Sodium 40 mg 03/05/24 09:00 03/05/24 08:15 Pantoprazole Inj 40 Mg Vial IVP 04/04/24 08:59 40 mg QDAY SHEN Administration Sodium Bicarbonate 650 mg 03/05/24 21:00 Sodium Bicarbonate 650 Mg Tablet PO 03/05/24 21:01 X1 ONE Plan Patient is a 68-year-old female with a past medical history of hypertension, hyperlipidemia, diabetes mellitus type 2 [id number] who was admitted for intractable abdominal pain w/ emesis. #Intractable Nausea and Vomiting #Diarrhea Patient reported intractable nausea and emesis over the past 3 days. Nothing seems to make symptoms better. Denied hematemesis or hemoptysis. Emesis noted to be food content mostly. Patient unable to keep food down. Diarrhea for the past 3 days denied hematochezia or melena. CT abdomen wall showed rectal wall thickening and a 10 mm fat-containing umbilical hernia and diverticulosis. Given history of consuming unrefrigerated me and then shortly after developing diarrhea and vomiting Staph aureus bacterial cannot be ruled out such as gastroenteritis vs enterocolitis. 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 pylori versus hernia. Diagnostics WBC 10.5, lipase 36, 6.1 A1c (2023), Plan -Ciprofloxacin 400 mg daily (renal dosing) 03/04/2024 -Metronidazole 500 mg every 12 hours 03/04/2024 -Pain management (Tylenol, [place], Dilaudid as needed) -Protonix 40 IV daily -Zofran as needed -Stool studies including H. pylori Legionella and norovirus stool culture WBCs and stool, Giardia, calprotectin stool, C. difficile -WBC CMP -Follow-up with electrolytes mag and phosphorus given diarrhea -Consult Dr. Hernandes, appreciate recommendations #Moderate Hyponatremia Hypo-osmolar #DREA On arrival, patient was noted to have an DREA creatinine 2.3, BUN 39. Creatinine change greater than 0.3 from previous baseline of 1. GFR 23. BUN/creatinine ratio 17 likely prerenal given loss of volume from emesis and diarrhea. DDx: Considered intrinsic failure given BUN/creatinine ratio less than 20 versus obstructive given low urine output. Diagnsotic -LR 1 L @125 cc -bladder scan -Renally dose medication -Avoid nephrotoxin #Diabetes Mellitus Non Insulin Dependent Past medical history of diabetes mellitus A1c on admission 6.2 with a blood glucose of 137. Home medication metformin. Currently holding given DREA and and hospitalization Plan Sliding scale Hold metformin Follow-up with morning fasting glucose #Nonanion Gap Metabolic Acidosis Non-anion gap likely secondary to RTA given negative lactic acidosis and glucose within normal range, less likely metabolic acidosis with an anion gap. RTA likely, positive urine gap. Bicarbo x2 (03/05/2024). Plan Treat underlying cause, diarrhea and emesis Bicarbo X 2 #Essetntial Hyptertension #Hyperlipidemia Given soft blood pressure on admission and DREA currently holding home medication of lisinopril. Plan Resume atorvastatin 10 mg at bedtime Lipid panel Hold lisinopril Health Maintenance: Disp: Pt is currently admitted to floors for further management of diarrhea, awaiting improvement of sodium. FEN: Clear liquid diet DVT: on subQ heparin Code: Full code - The patient's plan was discussed with attending Dr. Cash and senior residents Dr. Ada Randolph MD PGY1 Internal Medicine Attending Provider Attestation/Addendum I attest that I was physically present for the evaluation, physical examination, lab and imaging review of the patient with the residents. I discussed the case with the residents and agree with the findings and plans of care as documented above. At bedside today, patient states she is feeling much better. Her abdominal pain has resolved. She did have some nausea in the morning but denies any at the time of examination. Vital signs are stable. She has stopped having loose stools. We will start her on diet and advance as tolerated. We will continue with IV antibiotics. Kidney function and electrolytes are improving. We will decrease her fluid rate. Hemoglobin dropped to 9.3 from 11.8 yesterday, patient denied any obvious bleeding, we will obtain a FOBT. Teagan Godwin MD
[2024-03-05] MEDS: INSULIN LISPRO (AdmeLOG) 1 UNIT/0.01 ML UNIT SC (17:04)
[2024-03-05 18:02] LABS: Phosphorous 2.2 mg/dL (2.4-5.1)
--- NOTE | 2024-03-05 20:12 | PD.IMPROG ---
Documentation for date of: 03/05/24 Subjective Subjective Interval history: Nausea vomiting improved diarrhea improved still has metabolic acidosis with a CO2 of 15.4. BUN/creatinine improving to 22 and 1.2 stool sample could not be obtained for [employer] Exam Vital Signs Temp Pulse Resp BP Pulse Ox O2 Del Method 98.8 F 71 16 102/64 97 Room Air 03/05/24 16:00 03/05/24 16:00 03/05/24 16:00 03/05/24 16:00 03/05/24 16:00 03/05/24 16:00 Objective Labs 03/05/24 04:22 03/05/24 04:22 Labs: Laboratory Results - last 24 hr 03/05/24 03/05/24 04:22 17:24 WBC 6.2 D RBC 3.10 L Hgb 9.3 L D Hct 28.1 L MCV 91 MCH 30.0 MCHC 33.1 RDW Std Deviation 43.6 Plt Count 204 D Neut % (Auto) 74 Lymph % (Auto) 16 [place] % (Auto) 8 Eos % (Auto) 2 Baso % (Auto) 0 Neut # (Auto) 4.6 Lymph # (Auto) 1.0 [place] # (Auto) 0.5 Eos # (Auto) 0.1 Baso # (Auto) 0.0 Immature Gran # (Auto) 0.02 H Absolute Nucleated RBC 0.00 Immature Gran % 0 Nucleated RBC % 0 Sodium 134 L Potassium 4.7 Chloride 109 H Carbon Dioxide 15.9 L Anion Gap 9 BUN 22 Creatinine 1.2 D Estim Creat Clear Calc 37.4 L eGFR 49 L BUN/Creatinine Ratio 18 Glucose 100 Calculated Osmolality 271 L Calcium 8.8 Corrected Calcium 9.1 Phosphorus 3.1 2.2 L Magnesium 2.4 Total Bilirubin 0.4 AST 16 ALT 18 Alkaline Phosphatase 80 D Total Protein 5.8 Albumin 3.6 D Globulin 2.2 L Albumin/Globulin Ratio 1.6 Triglycerides 127 Cholesterol 129 L LDL Cholesterol, Calc 66 HDL Cholesterol 38 L Cholesterol/HDL Ratio 3.4 L TSH 1.45 Impressions Impression: # Infectious enterocolitis # diarrhea improved location # nausea vomiting improved Continue current management colonoscopy as an outpatient Assessment & Plan A&P Narrative # Nausea vomiting # Diarrhea # Abnormal CT scan of the abdomen pelvis showing thickening of the rectal wall # Hyponatremia # Metabolic acidosis # DREA This is most likely a case of acute infectious enterocolitis unlikely inflammatory bowel disease leading to gross electrolyte abnormalities along with hyponatremia metabolic acidosis due to volume contraction and DREA Agree with getting a stool culture and IV Cipro and Flagyl Thickening of the rectal wall can be seen in infectious enterocolitis underlying proctitis and inflammatory bowel disease unlikely If the stool panel is negative I will consider doing a fibrotic colonoscopy prior to discharge if the symptoms persist Other medical problems include # Essential hypertension # Diabetes mellitus type 2 # Hyperlipidemia Thank you very much for the opportunity to participate in the care of this patient Time Spent With Patient Time: Total time spent is greater than 50% in coordination of care (as documented) at patient's floor/unit and/or counseling patient:
[2024-03-05] MEDS: RINGERS LACTATED 1000 ML 1,000 ML 100 ML IV (21:28)
[2024-03-06] VITALS: BP 107/71; PULSE 76; RESP 18; TEMP 36.9; O2SAT 96
[2024-03-06 03:59] VITALS: PULSE 83; RESP 16; RESP 96
[2024-03-06 04:00] VITALS: BP 121/68; PULSE 75; RESP 18; TEMP 36.8; O2SAT 96
[2024-03-06] MEDS: metroNIDAZOLE/NS 500 MG IVPB 500 MG/100 ML BAG 200 MG IV (05:31)
[2024-03-06 06:13] LABS: Basophils % (Auto) 0 % (0-2.5); Eosinophils # (Auto) 0.2 Thou/mm3 (0.0-0.5); Eosinophils % (Auto) 4 % (0-10); Hematocrit 27.5 % (36.0-46.0); Hemoglobin 9.1 g/dL (12.0-16.0); Immature Granulocytes % (Auto) 0 % (0-0); Immature Granulocytes Auto 0.01 Thou/mm3 (0.00-0.00); Lymphocytes # (Auto) 1.2 Thou/mm3 (1.0-4.8); Lymphocytes % (Auto) 27 % (10-50); Mean Corpuscular HGB Conc 33.1 g/dl (31.0-37.0); Mean Corpuscular Hemoglobin 29.4 pg (25.0-35.0); Mean Corpuscular Volume 89 fL (80-100); Monocytes # (Auto) 0.5 Thou/mm3 (0.0-0.8); Monocytes % (Auto) 10 % (0-12); Neutrophils # (Auto) 2.6 Thou/mm3 (1.8-7.7); Neutrophils % (Auto) 59 % (37-80); Nucleated Red Blood Cell % 0 /100 WBC (0); Platelet Count 228 Thou/mm3 (140-440); RDW Standard Deviation 43.2 fL (36.4-46.3); Red Blood Count 3.09 Miln/mm3 (4.00-5.20); White Blood Count 4.5 Thou/mm3 (3.6-11.0)
[2024-03-06 06:52] LABS: Alanine Aminotransferase 20 U/L (10-49); Albumin, Serum 3.7 gm/dL (3.4-4.8); Albumin/Globulin Ratio 1.7 (1.2-2.2); Alkaline Phosphatase 74 U/L (46-116); Anion Gap 10 (7-16); Aspartate Amino Transferase 16 U/L (0-34); BUN/Creatinine Ratio 10 Ratio (12-20); Bilirubin,Total 0.4 mg/dL (0.3-1.2); Blood Urea Nitrogen 9 mg/dL (9-23); Calcium 9.2 mg/dL (8.3-10.6); Calcium (Corrected) 9.4 mg/dL (8.5-10.1); Carbon Dioxide 19.3 mMol/L (20.0-31.0); Chloride 110 mMol/L (98-107); Creatinine (Component) 0.9 mg/dL (0.6-1.3); Estimated Creatinine Clearance 49.8 mL/min (>60); Globulin 2.2 gm/dL (2.3-3.5); Glucose 99 mg/dL (74-106); Magnesium 1.7 mg/dL (1.6-2.6); Osmolality,Calculated 276 (275-295); Phosphorous 2.3 mg/dL (2.4-5.1); Potassium 4.2 mMol/L (3.4-5.1); Sodium 139 mMol/L (136-145); Total Protein 5.9 gm/dL (5.7-8.2); eGFR > 60 See Note
[2024-03-06 07:58] VITALS: BP 119/78; PULSE 71; RESP 18; TEMP 36.4; O2SAT 94
[2024-03-06] MEDS: CIPROFLOXACIN/D5w 400 MG IVPB 400 MG/200 ML BAG 200 MG IV (08:09)
[2024-03-06] MEDS: HEPARIN SOD INJ 5000 UNIT/ML VIAL SC (08:09)
[2024-03-06] MEDS: PANTOPRAZOLE INJ 40 MG VIAL IVP (08:09)
[2024-03-06] MEDS: NAPH,KPH MBDB 1 PACKET (1.5 GM) PO (09:26)
[2024-03-06] MEDS: SODIUM BICARBONATE 650 MG TABLET PO (09:26)
[2024-03-06] MEDS: Magnesium Sulfate 2 GM Ivpb 2 GM/50 ML BAG IV (09:32)
[2024-03-06 11:39] VITALS: BP 134/74; PULSE 76; RESP 19; TEMP 36.3; O2SAT 96
--- NOTE | 2024-03-06 17:00 | ESDS_ITS ---
<Statement entered by Zohaib Caballero MD - 03/07/24 07:26> I saw and examined the patient, and I agree with current management stated by Dr Tomasa MD,PGY1. Plan of care was discussed with the attending physician and resident physician. Disclaimer: Despite multiple revisions, due to the dictation software being used, the document bellow may not be free of grammatical errors including phonetic/typographic errors. However, this does not deter from our commitment to providing health care in the patient's best interest in mind. Dr. Ada MD, PGY 2 Planned Discharge Date 03/06/24 DS: Providers Provider Date of admission: 03/04/24 15:25 Primary care physician: Xena Li MD Admitting Provider: Teagan Godwin MD Attending Provider on Admission: Teagan Godwin MD Consults: 03/04/24 14:27 Consult to Gastroenterology Stat Comment: Consulting Provider: Maria Esther Hernandes Attending Provider on DC: Kim Randolph MD Discharging Provider: Kim Randolph MD DS: Diagnosis Problem List Completed Was Problem List Reviewed/Reconciled?: Yes Hospital Course Hospital Course Hospital course: Summary: Patient is a 68-year-old female with a past medical history of hypertension, hyperlipidemia, diabetes mellitus type 2 [id number] who was admitted for intractable abdominal pain w/ emesis likely secondary to gastroenteritis. Continue Antibiotics for 5 additional days as outpatient. ER Course: In the emergency room, patient blood pressure recorded at 102/69, heart rate tacky 106, temperature within normal limits and saturating well on room air. Noted to have hyponatremia 127. Renal function illustrating DREA BUN 39 and creatinine 2.3 elevated from previous baseline at 1.1. WBC count 10.5. Glucose 137. Osmolarity 266. CT abdomen obtained showing rectal wall thickening, 10 mm fat-containing umbilical hernia and diverticulosis negative for diverticulitis. Moderate bilateral renal parenchymal scar formation, no hydronephrosis. Lidocaine patch given, famotidine 20 mg p.o., ondansetron 40 mg p.o. x 1. Hospital Course: In the hospital, patient was treated with protonix, zofran, and antibiotics of Ciprofloxacin and metronidazole for intractable diarrhea that was persistent 3 days prior to hospitalization. Patient was treated with Normal saline maintence fluid for DREA, likely pre-renal that improved as patient diet was advanced. GI consulted, follow up as outpatient for Colonoscopy with Dr. Hernandes. Patient's diarrhea resolved overnight after admission and patient's diet was advance. Instructions: Please continue Ciprofloxacin 500 mg oral twice daily for 5 more days for intestinal infection please continue Metronidazole 500 mg oral three times a day for 5 more days for intestinal infection Please continue 40 mg as needed for acid reflex Continue Atorvastatin 10 mg once a day for cholesterol Please hold lisinopril 10 mg take previously for blood pressure control Please stop metformin 500 mg once a day for diabetes, please follow up with your primary care provider. -Please follow up with your primary care provider within one week of discharge -If your symptoms worsen,please seek immediate medical attention and return to your nearest emergency room -If you do not have a primary care provider, you may follow up at the [facility] at [address] [place] [address] [address], [place] [address], #Intractable nasusea and vomiting, resolved #Diarrhea, resolved #Gastroenteritis, resolved #DREA, improved #Moderate Hyponatremia hypoosmolar, improved #Nonanion gap, Metabolic Acidosis, resolved #Essential Hypertension #Hyperlipidemia #DM type 2 non-insulin dependent #incidential 10 mm fat containing umbilical hernia #diverticulosis Disposition: Home - The patient's plan was discussed with attending Dr. Godwin and senior residents Dr. Ada Randolph MD PGY1 Internal Medicine Time Spent with Patient Time attestation: Total time spent providing and/or coordinating discharge services: at least 35 minutes of time and coordination Exam Vital Signs Temp Pulse Resp BP Pulse Ox O2 Del Method 97.4 F 76 19 134/74 H 96 Room Air 03/06/24 11:39 03/06/24 11:39 03/06/24 11:39 03/06/24 11:39 03/06/24 11:39 03/06/24 11:39 Narrative Exam General Appearance: Alert & Oriented X3, well-nourished female who is lying in bed in improved distress. HEENT: Skull symmetrical and atraumatic. Conjunctivae pink and moist. Pupils equal, round, reactive to light and accommodation (PERRL). External ear without lesion or discharge. Straight, nares patient, mucosa pink, no discharge. No thyroid nodule appreciated. No cervical lymphadenopathy. Cardio: Normal Rate and Rhythm with S1 and S2 heart sounds. No murmurs or extra heart sounds auscultated. No bruits on carotid auscultation. No peripheral edema or cyanosis. Lungs: Symmetric with good expansion. Chest and back non-tender. Breath sounds vesicular without crackles, wheezing or rhonchi Abdomen: resolved tenderness, Non-distended, Normal Reactive Bowel Sounds Neuro: Alert, cooperative, oriented to person, place, and time. Speech clear. CN grossly intact. Upper motor strength 5/5 and Lower motor strength 5/5. Sensation intact. Discharge Plan Plan Patient Disposition: HOME (Self Care) Disposition Comment: Stable for admit Care Plan Goals: Instrucciones: Contin?e con ciprofloxacina 500 mg por v?a oral dos veces al d?a roberth 5 d?as m?s para la nfecci?n intestinal. contin?e con metronidazol 500 mg por v?a oral sanjeev veces al d?a roberth 5 d?as m?s para la infecci?n intestinal Contin?e con 40 mg seg?n sea necesario para el reflejo ?cido. Continuar con Atorvastatina 10 mg nas vez al d?a para el colesterol. Por favor, tome lisinopril 10 mg previamente para controlar la presi?n arterial. Deje de ricco metformina 500 mg nas vez al d?a para la diabetes y niyah un seguimiento con mcleod proveedor de atenci?n primaria. -Niyah un seguimiento con mcleod proveedor de atenci?n primaria dentro de nas semana despu?s del sherman. -Si lalita s?ntomas empeoran, busque atenci?n m?dica inmediata y regrese a la kimberley de emergencias m?s cercana. -Si no tiene un proveedor de atenci?n primaria, puede realizar un seguimiento en el [facility] en [address], [place] [address], tel?fono Instructions: Please continue Ciprofloxacin 500 mg oral twice daily for 5 more days for intestinal infection please continue Metronidazole 500 mg oral three times a day for 5 more days for intestinal infection Please continue 40 mg as needed for acid reflex Continue Atorvastatin 10 mg once a day for cholesterol Please hold lisinopril 10 mg take previously for blood pressure control Please stop metformin 500 mg once a day for diabetes, please follow up with your primary care provider. -Please follow up with your primary care provider within one week of discharge -If your symptoms worsen,please seek immediate medical attention and return to your nearest emergency room -If you do not have a primary care provider, you may follow up at the [facility] at [facility] [address], [place] [address], Prescriptions/Referrals Prescriptions/Med Rec: New ciprofloxacin HCl 500 mg tablet 500 mg PO BID 5 Days Qty: 10 0RF metronidazole 500 mg tablet 500 mg PO TID 5 Days Qty: 15 0RF pantoprazole [Protonix] 40 mg tablet,delayed release (DR/EC) 40 mg PO QDAY Qty: 14 0RF Tradjenta 5 mg tablet 5 mg PO QAM Qty: 30 0RF Continued atorvastatin 10 mg Tablet 10 mg PO QDAY ferrous sulfate 325 mg (65 mg iron) Tablet 325 mg PO BID Held lisinopril 40 mg Tablet 40 mg PO QDAY Hold Instructions: Resume on 03/05/24. hold until you see your pcp Discontinued diazepam [Valium] 10 mg tablet 10 mg PO BID PRN (Reason: muscle spasm) Qty: 20 0RF ibuprofen 800 mg tablet 800 mg PO TID PRN (Reason: pain) Qty: 30 0RF hydrocodone-acetaminophen 5-325 mg tablet 1 tab PO BID MDD 10 PRN (Reason: pain) Qty: 10 0RF metformin 500 mg Tablet 500 mg PO QDAY Referrals: Xena Li MD [Primary Care Provider] - Patient/Caregiver Discharge Instructions Discharge Activity: activity as tolerated Education Materials: ED Gastroenteritis, Noninfectious Print Language: Maltese Stand Alone Forms: Kay Award Info., Patient Portal Info Letter Discharge Order Discharge Orders: Discharge (Routine); Ordered 03/06/24 Ordered By: Zohaib Caballero Quality Discharge Quality Measures VTE prophylaxis Attestestation Attestation I attest that I was physically present for the evaluation, physical examination, lab and imaging review of the patient with the residents. I discussed the case with the residents and agree with the findings and plans of care as documented above. Teagan Godwin MD
== END 2024-03-06 12:31 | disposition home or self-care (01) | DRG 392 ==
LOC: SERX 14:59 → SERHOLD 15:39 → S3NX 03-05 06:41
PROVIDERS: Nurse Practitioner Primary Care; Student in an Organized Health Care Education/Training Program; Admitting Provider Student in an Organized Health Care Education/Training Program; Emergency Provider Emergency Medicine; PCP Family Medicine; Visit Provider Student in an Organized Health Care Education/Training Program
DX: A09 Infectious gastroenteritis and colitis, unspecified (principal); E87.1 Hypo-osmolality and hyponatremia; N17.9 Acute kidney failure, unspecified; E87.20 Acidosis, unspecified; E83.42 Hypomagnesemia; K42.9 Umbilical hernia without obstruction or gangrene; K57.30 Diverticulosis of large intestine without perforation or abscess without bleeding; I10 Essential (primary) hypertension; E78.5 Hyperlipidemia, unspecified; E11.9 Type 2 diabetes mellitus without complications; Z90.49 Acquired absence of other specified parts of digestive tract; Z79.84 Long term (current) use of oral hypoglycemic drugs; Z79.899 Other long term (current) drug therapy
CPT/HCPCS: 36415; 74176; 80053; 80061; 80307; 81001; 82436; 82570; 83036; 83605; 83690; 83735; 83993; 84100; 84133; 84300; 84443; 85025; 87015; 87045; 87046; 87205; 87329; 87338; 87400; 87449; 87493; 87811; 87899; 93005; 96361; 96365; 96375; 99285; J0744; J1643; J1815; J2405; J2470; J3475; J3490; J7030; J7120; Q0162; A9270; J1836

== ENCOUNTER 2024-03-12 09:45 | Day surgery (SDC) | payer OTHER, SELFPAY ==
[2024-03-12] VITALS (8 sets, daily range): BP systolic 118–168; BP diastolic 79–103; PULSE 90–100; RESP 13–19; TEMP 36.6–37.2; O2SAT 97–100; BMI 32.1
[2024-03-12] MEDS: ONDANSETRON INJ 2 MG/ML INJ 2 ML 4 MG IV (11:44)
[2024-03-12] MEDS: DiphenhydrAMINE INJ 50 MG/ML VIAL 25 MG IV (11:45)
[2024-03-12] MEDS: MIDAZOLAM INJ 1 MG/ML VIAL 2 ML (ASD USE ONLY) 2 MG IV (11:50)
[2024-03-12] MEDS: fentaNYL CIT INJ 50 mCg/ML AMP 2ML (ASD USE ONLY) IV (11:50)
--- NOTE | 2024-03-12 12:20 | SUR.PHASEII ---
1159: Pt received for recovery. Report from Nafisa RODRÍGUEZ. Pt sleepy. Easily aroused. Resp even, unlabored. VS stable. No c/o pain, discomfort.
--- NOTE | 2024-03-12 15:06 | SUR.PHASEII ---
1230: Pt more awake, alert. VS stable. Denies pain. Sitting up tolerating po fluid with no difficulty swallowing and no n/v. 1300: Pt fully awake, oriented x3. Pt assisted to restroom. Ambulation steady. Pt and stated understanding of discharge instructions via outpatient coding specialist Ghada NELSON. Pt discharged from [facility] in stable condition.
== END 2024-03-12 13:00 | disposition home or self-care (01) ==
PROVIDERS: PCP Family Medicine; Referring Provider Specialist; Visit Provider Specialist
PROC: 0DBE8ZX Excision of Large Intestine, Via Natural or Artificial Opening Endoscopic, Diagnostic (ICD-10-PCS; CPT 45380; principal; 2024-03-12 09:30)
DX: D12.5 Benign neoplasm of sigmoid colon (principal); K64.9 Unspecified hemorrhoids; K57.30 Diverticulosis of large intestine without perforation or abscess without bleeding
CPT/HCPCS: 45385; J1200; J2250; J2405; J3010

== ENCOUNTER 2024-03-28 11:28 | Inpatient (IN) | payer OTHER, MEDICARE, SELFPAY ==
[2024-03-28 12:01] VITALS: BP 134/83; PULSE 115; RESP 18; TEMP 36.6; O2SAT 97; BMI 38.0
--- NOTE | 2024-03-28 12:12 | EKG_ITS ---
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
--- NOTE | 2024-03-28 12:12 | XR_ITS ---
Examination: Abdomen sonogram, Limited Date and time of exam: March 28, 2024 1329 hours INDICATIONS: Epigastric pain beginning 3 weeks ago Technique: Real-time snyder scale transabdominal sonographic images of the upper abdomen obtained. Findings: Normal gallbladder Normal common bile duct 0.4 cm Pancreatic head 2.5 cm Liver 13 cm fatty infiltration smooth contour no focal liver lesions Normal hepatopedal portal venous flow Patent IVC IMPRESSION: Normal gallbladder Fatty liver
--- NOTE | 2024-03-28 12:12 | XR_ITS ---
Examination: PA chest single view TECHNIQUE: Upright PA chest single view Exam date and time: March 28, 2024 1249 hours INDICATIONS: Epigastric pain today. FINDINGS: Normal heart size Lungs are clear. The osseous structures are intact IMPRESSION: No active disease
--- NOTE | 2024-03-28 12:13 | EDNOTE_ITS ---
<Statement entered by Rylie Strange MD - 03/28/24 17:30> As co-signing physician, I was present and available for consult prn. I concur with the plan and care as documented by the midlevel provider. ED Abdominal Pain RME/HPI General Chief Complaint: Abdominal Pain Stated complaint: UPPER ABD PAIN, NAUSEA, PAIN TO BACK OF NECK Time seen by provider: 03/28/24 12:02 Arrival date/time: 03/28/24 11:28 RME / HPI RME / HPI narrative: 68-year-old female patient with significant history of hypertension diabetes mellitus hypercholesterolemia, came in for evaluation regarding epigastric pain. Patient's been having epigastric pain for several weeks, pain radiates to the back, associated with nausea. Patient denies any vomiting. Patient also complained of posterior neck pain earlier this morning. Patient denies any fever denies any diarrhea denies any constipation denies any other complaints. Patient is concerned about her kidney function. Related Data Home Medications ?Medication ?Instructions ?Recorded ?Confirmed atorvastatin 10 mg tablet 10 mg PO QDAY 03/05/2403/12 ferrous sulfate 325 mg (65 mg 325 mg PO BID 03/05/24 0 03/12/24 iron) tablet lisinopril 40 mg tablet 40 mg PO QDAY 03/05/2403/12 levothyroxine 50 mcg tablet 50 mcg PO QDAY 03/12/24 meloxicam 7.5 mg tablet 7.5 mg PO QDAY 03/12/2402/15 metformin 500 mg tablet 500 mg PO QDAY 03/12/2402/15 Previous Rx's ?Medication ?Instructions ?Recorded pantoprazole 40 mg tablet,delayed 40 mg PO QDAY #14 ta bs 03/06/24 release (Protonix) Allergies Allergy/AdvReac Type Severity Reaction Status Date / Time No Known Allergies Allergy Verified 03/12/24 12:11 Review of Systems Review of Systems Narrative Review of Systems: Review of system reviewed and within normal limits except mentioned in HPI ED Exam Narrative Physical exam: VITAL SIGNS: Reviewed. GENERAL APPEARANCE: Alert and interactive, follows commands, no acute distress, HEAD AND FACE: Non-traumatic. ENT: PERRL, pink conjunctivitis, eyelid no trauma, Mucous membrane moist. NECK: Supple, nontender, no nuchal rigidity. CHEST: No tenderness, no crepitus, no paradoxical movement, no retractions. LUNGS: Clear, well ventilated, symmetric, no rales, no wheezing, no ronchi, no stridor, good breath sounds bilaterally. HEART: Regular rate, regular rhythm, no murmur, no gallops. ABDOMEN: Soft, positive bowel sounds, nondistended, no guarding, nontender, no rebound, no masses, RECTAL: Deferred. GENITAL: Deferred. NEUROLOGICAL: Gross motor function intact sensory function intact, Appropriate for age. MUSCULOSKELETAL: low back nontender, full range of motion. EXTREMITIES: Nontender, full range of motion. SKIN: Color pink, dry, no rash, no lacerations, no abrasions, no contusions. LYMPHATICS: Deferred. Course Quality Measures none Orders Category Date Time Status Admit to Inpatient Status Routine Admission 03/28/24 15:16 Active Patient Condition Routine Admission 03/28/24 15:16 Ordered Activity as Tolerated Routine Care 03/28/24 15:17 Ordered COVID-19 Screening Questionnaire NOW Care 03/28/24 13:17 Active COVID-19 Screening Questionnaire NOW Care 03/28/24 14:36 Active Decision to Admit X1 Care 03/28/24 14:36 Completed EKG (ED ONLY) *Do not use* NOW Care 03/28/24 12:12 Completed Intake and Output QSHIFT Care 03/28/24 15:30 Ordered Neuro Check Q4H Care 03/28/24 15:15 Active Notify provider NEEDED Care 03/28/24 15:16 Active Strict Intake and Output Routine Care 03/28/24 15:30 Ordered Vital Signs, Non-Routine Q2H Care 03/28/24 15:30 Ordered Vital Signs, Non-Routine Q2H Care 03/28/24 17:30 Ordered Vital Signs, Non-Routine Q2H Care 03/28/24 19:30 Ordered Vital Signs, Non-Routine Q2H Care 03/28/24 21:30 Ordered Vital Signs, Non-Routine Q2H Care 03/28/24 23:30 Ordered Consult to Nephrology Stat Cons 03/28/24 15:27 Ordered Diet Cardiac Diet 03/28/24 Dinner Active EKG (ED Only) Stat Exams 03/28/24 12:12 Draft US gall bladder Stat Exams 03/28/24 12:12 Completed XR chest 1V Stat Exams 03/28/24 12:12 Completed B-Type Natriuretic Peptide Stat Lab 03/28/24 12:32 Completed BMP [Basic Metabolic Panel] Q4HR Lab 03/28/24 15:23 Ordered BMP [Basic Metabolic Panel] Q4HR Lab 03/29/24 15:23 Ordered BMP [Basic Metabolic Panel] Q4HR Lab 03/30/24 15:23 Ordered BMP [Basic Metabolic Panel] Q4HR Lab 03/31/24 15:23 Ordered BMP [Basic Metabolic Panel] Q4HR Lab 04/01/24 15:23 Ordered BMP [Basic Metabolic Panel] Q4HR Lab 04/02/24 15:23 Ordered BMP [Basic Metabolic Panel] Q4HR Lab 04/03/24 15:23 Ordered BMP [Basic Metabolic Panel] Q4HR Lab 04/04/24 15:23 Ordered CBC AM DRAW Lab 03/29/24 05:00 Ordered CBC Stat Lab 03/28/24 12:32 Completed Comprehensive Metabolic Panel Stat Lab 03/28/24 12:32 Completed Lipase Stat Lab 03/28/24 12:32 Completed Magnesium AM DRAW Lab 03/29/24 05:00 Ordered Magnesium AM DRAW Lab 03/30/24 05:00 Ordered Magnesium AM DRAW Lab 03/31/24 05:00 Ordered Partial Thromboplastin Time Stat Lab 03/28/24 12:32 Completed Phosphorous AM DRAW Lab 03/29/24 05:00 Ordered Phosphorous AM DRAW Lab 03/30/24 05:00 Ordered Phosphorous AM DRAW Lab 03/31/24 05:00 Ordered Prothrombin Time with INR Stat Lab 03/28/24 12:32 Completed Thyroid Stimulating Hormone AM DRAW Lab 03/29/24 05:00 Ordered Troponin I Stat Lab 03/28/24 12:32 Completed Urinalysis, C/S if Indicated Stat Lab 03/28/24 12:12 Ordered Acetaminophen Tab [Tylenol Tab] Med 03/28/24 15:15 Active 650 mg PO Q6H PRN Atorvastatin Calcium [Lipitor] Med 03/29/24 21:00 Active 10 mg PO HS Enoxaparin [Lovenox] Med 03/29/24 09:00 Active 40 mg SC QDAY Ferrous Sulfate Med 03/29/24 09:00 Active 325 mg PO QDAY Levothyroxine Sodium [Synthroid] Med 03/29/24 06:00 Active 50 mcg PO ACBR Lisinopril [Prinivil] Med 03/29/24 09:00 Once 40 mg PO X1 ONE Meloxicam [Mobic] Med 03/28/24 15:24 Active 7.5 mg PO X1 PRN Metoclopramide [Reglan] Med 03/28/24 12:12 Discontinued 10 mg PO X1 ONE Ondansetron Inj [Zofran Inj] Med 03/28/24 15:15 Active 4 mg IV Q6H PRN Pantoprazole [Protonix] Med 03/28/24 12:12 Discontinued 40 mg PO X1 ONE SODIUM CHLORIDE 3%(Hypertonic) [Hypertonic Saline 3%] Med 03/28/24 15:29 Active 500 ml Pre-Mixed [Pre-mixed Bag] 1 bag IV X1 Sodium Chloride 0.9% 1000 ml [Ns] 1,000 ml Med 03/28/24 13:25 Discontinued IV 999 mls/hr Code Status Routine Oth 03/28/24 15:15 Ordered Vital Signs Vital signs: Vital Signs Temperature 97.9 F 03/28/24 12:01 Pulse Rate 115 H 03/28/24 12:01 Respiratory Rate 18 03/28/24 12:01 Blood Pressure 134/83 H 03/28/24 12:01 Pulse Oximetry (%) 97 03/28/24 12:01 Oxygen Delivery Method Room Air 03/28/24 12:01 Abdominal Pain MDM MDM Narrative MDM Narrative:: 68-year-old female patient with significant history of hypertension diabetes mellitus hypercholesterolemia, came in for evaluation regarding epigastric pain. Patient's been having epigastric pain for several weeks, getting worse for the last few days pain radiates to the back, associated with nausea and dizziness. Patient denies any vomiting. Patient also complained of posterior neck pain earlier this morning. Patient denies any fever denies any diarrhea denies any constipation denies any other complaints. Patient is concerned about her kidney function. Patient's workup today significant for hyponatremia of 121, the rest of the labs unremarkable. Ultrasound of the gallbladder came back unremarkable I personally reviewed and interpreted the x-ray of this patient. There is no acute abnormalities found, no infiltrates no pneumothorax no hemothorax normal chest x-ray. Review of other structures was without significant abnormal findings also. I additionally reviewed the radiologist report and agree with the interpretation. EKG showed sinus tachycardia, ventricular rate of 113 bpm, no ST segment elevation depression noted. Patient received IV fluids for hydration, Reglan and Protonix. Spoke with hospitalist, who admitted the patient Patient data External records reviewed:: [facility] previous records Clinical information provided by:: patient and family Social determinants that could affect healthcare access:: none Patient has the following chronic illnesses:: Diabetes hypertension How is presenting disease/condition affected by chronic disease/condition?: exacerbated by Evaluation data The following diagnostics were reviewed and interpreted by me:: lab results, radiology exam(s) and EKG tracing(s) Lab and/or radiology exams considered but not ordered:: None Interpretation Summary: See results in [facility] Medications / Prescriptions Medications or Prescriptions considered but not ordered:: None Medication administrations:: Medication Administration History Acetaminophen (Acetaminophen 325 Mg Tablet) 650 mg PO Q6H PRN PRN Reason: Fever >101.5 Stop: 04/27/24 15:14 Atorvastatin Calcium (Atorvastatin Calcium 10 Mg Tablet) 10 mg PO HS SHEN Stop: 04/28/24 20:59 Enoxaparin Sodium (Enoxaparin Sod Inj 40 Mg/0.4 Ml Syringe) 40 mg SC QDAY SHEN Stop: 04/12/24 08:59 Ferrous Sulfate (Ferrous Sulf 325 Mg Tablet) 325 mg PO QDAY SHEN Stop: 04/28/24 08:59 Sodium Chloride 500 ml/ IV (Miscellaneous Supplies) 500 mls @ 15 mls/hr IV X1 ONE Stop: 03/28/24 16:28 Levothyroxine Sodium (Levothyroxine Sodium 25 Mcg Tablet) 50 mcg PO ACBR SHEN Stop: 04/28/24 05:59 Lisinopril (Lisinopril 20 Mg Tablet) 40 mg PO X1 ONE Stop: 03/29/24 09:01 Meloxicam (Meloxicam 7.5 Mg Tablet) 7.5 mg PO X1 PRN PRN Reason: other Stop: 04/27/24 15:23 Ondansetron HCl (Ondansetron Inj 2 Mg/Ml Inj 2 Ml) 4 mg IV Q6H PRN; Protocol PRN Reason: NAUSEA OR VOMITING Stop: 04/27/24 15:14 Discontinued Medications Sodium Chloride (Ns) 1,000 mls @ 999 mls/hr IV .Q1H1M ONE Stop: 03/28/24 14:25 Last Admin: 03/28/24 15:35 Dose: 999 mls/hr Documented By: AIME Metoclopramide HCl (Metoclopramide 5 Mg Tablet) 10 mg PO X1 ONE Stop: 03/28/24 12:13 Last Admin: 03/28/24 13:08 Dose: 10 mg Documented By: ARMANDO Pantoprazole Sodium (Pantoprazole 40 Mg Tablet) 40 mg PO X1 ONE Stop: 03/28/24 12:13 Last Admin: 03/28/24 13:08 Dose: 40 mg Documented By: ARMANDO IV fluids for hydration, Reglan and Protonix Consultations Consultation(s) initiated? (list below): No Diagnosis Differential diagnosis abdominal pain: abdominal pain and other (Dizziness, neck pain, nausea, acute hyponatremia) Most likely diagnosis given after review of the tests above:: Acute hyponatremia Admission Indicated Admission indicated?: indicated Admission Request Was there a request for admission?: Yes Admission Attestation Admission request attestation: Discussed case with [Dr. Huffman] from Hospitalist service regarding admission. Discussed patients ED course, exam findings, labs, and radiology results. The Hospitalist [agrees] to accept the patient for admission. Disposition Plan Disposition Plan: Admit Discharge Plan Plan Patient Disposition: Admit Acute Care w/in Hospital Prescriptions/Referrals Prescriptions/Med Rec: No Action metformin 500 mg Tablet 500 mg PO QDAY meloxicam 7.5 mg Tablet 7.5 mg PO QDAY levothyroxine 50 mcg Tablet 50 mcg PO QDAY atorvastatin 10 mg Tablet 10 mg PO QDAY lisinopril 40 mg Tablet 40 mg PO QDAY ferrous sulfate 325 mg (65 mg iron) Tablet 325 mg PO BID pantoprazole [Protonix] 40 mg tablet,delayed release (DR/EC) 40 mg PO QDAY Qty: 14 0RF Referrals: No Primary/Family,Physician [Primary Care Provider] - In 1 week Problem List Clinical Impression: Acute hyponatremia Patient/Caregiver Discharge Instructions Print Language: Costa Rican Stand Alone Forms: Kay Award Info., Patient Portal Info Letter
[2024-03-28 12:48] LABS: Basophils % (Auto) 1 % (0-2.5); Eosinophils # (Auto) 0.1 Thou/mm3 (0.0-0.5); Eosinophils % (Auto) 1 % (0-10); Hematocrit 33.1 % (36.0-46.0); Hemoglobin 11.4 g/dL (12.0-16.0); Immature Granulocytes % (Auto) 1 % (0-0); Immature Granulocytes Auto 0.04 Thou/mm3 (0.00-0.00); Lymphocytes # (Auto) 1.8 Thou/mm3 (1.0-4.8); Lymphocytes % (Auto) 22 % (10-50); Mean Corpuscular HGB Conc 34.4 g/dl (31.0-37.0); Mean Corpuscular Hemoglobin 29.6 pg (25.0-35.0); Mean Corpuscular Volume 86 fL (80-100); Monocytes # (Auto) 0.9 Thou/mm3 (0.0-0.8); Monocytes % (Auto) 10 % (0-12); Neutrophils # (Auto) 5.7 Thou/mm3 (1.8-7.7); Neutrophils % (Auto) 66 % (37-80); Nucleated Red Blood Cell % 0 /100 WBC (0); Platelet Count 356 Thou/mm3 (140-440); RDW Standard Deviation 38.9 fL (36.4-46.3); Red Blood Count 3.85 Miln/mm3 (4.00-5.20); White Blood Count 8.5 Thou/mm3 (3.6-11.0)
[2024-03-28 13:00] LABS: Partial Thromboplastin Time 28.7 Seconds (22.0-36.0); Prothrombin Time 11.3 Seconds (9.0-12.2)
[2024-03-28 13:01] LABS: B-Type Natriuretic Peptide < 20 pg/mL (0-100)
[2024-03-28 13:03] LABS: Alanine Aminotransferase 26 U/L (10-49); Albumin, Serum 4.5 gm/dL (3.4-4.8); Albumin/Globulin Ratio 1.8 (1.2-2.2); Alkaline Phosphatase 112 U/L (46-116); Anion Gap 6 (7-16); Aspartate Amino Transferase 24 U/L (0-34); BUN/Creatinine Ratio 12 Ratio (12-20); Bilirubin,Total 0.6 mg/dL (0.3-1.2); Blood Urea Nitrogen 12 mg/dL (9-23); Carbon Dioxide 22.3 mMol/L (20.0-31.0); Chloride 93 mMol/L (98-107); Estimated Creatinine Clearance 44.1 mL/min (>60); Globulin 2.5 gm/dL (2.3-3.5); Glucose 124 mg/dL (74-106); Lipase 39 U/L (12-53); Osmolality,Calculated 244 (275-295); Potassium 4.3 mMol/L (3.4-5.1); Sodium 121 mMol/L (136-145); Troponin I < 0.020 ng/mL (0.0-0.045); eGFR > 60 See Note
[2024-03-28] MEDS: METOCLOPRAMIDE 5 MG TABLET 10 MG PO (13:08)
[2024-03-28] MEDS: PANTOPRAZOLE 40 MG TABLET PO (13:08)
--- NOTE | 2024-03-28 15:29 | ESHP_ITS ---
<Statement entered by Azul Nixon MD - 03/28/24 17:21> I discussed with and supervised my co-resident involved in the care of this patient. I agree with the assessment and plan as documented above. Patient is a 68 year old female with PMH of HTN, HLD, DM2 who presents to the ER for dizziness, nausea, vomiting and admitted for symptomatic hypo-osmolar hyponatremia. Sodium was at 122. Patient was recently discharged [address] [facility] for acute gastroenteritis with a normal sodium at that time. Patient endorses poor appetite and epigastric pain. Suspect hyponatremia due to to poor oral intake from nausea, vomiting, tea and toast diet. We will give 3% hypertonic saline and monitor sodium every 4 hours, with goal sodium 127. Urine electrolytes have been ordered. Nephrology following. For her nausea, vomiting, and epigastric pain - this is a recurrent problem as patient was recently admitted for these symptoms. Will consult manufacturing intern for their recommendations. Azul Nixon MD PGY-3 Documentation for date of: 03/28/24 HPI History of Present Illness Chief complaint: Dizziness, nausea, vomiting, abdominal pain History of present illness: This patient is a 68-year-old female with past medical history of hypertension, hyperlipidemia, type 2 diabetes [id number] presented to the ED with a complaint of dizziness, nausea, vomiting and was admitted for further treatment of acute symptomatic hypovolemic hyponatremia. Of note patient was recently discharged from hospital on 03/06 for intractable nausea and vomiting which they diagnosed as gastroenteritis. At the time she was found to have hyponatremia at 127. Since discharge patient notes she has had intractable nausea and vomiting. At first had diarrhea for 2 days but that is now resolved. She recently began experiencing abdominal pain and dizziness and has had poor p.o. intake. Presented to the ED today due to worsening symptoms. Denies fevers, chills, chest pain or shortness of breath. No one at home with the same symptoms. In the ED glucose of 110, sodium of 122, serum osmolality of 246 and negative UA. Chest x-ray negative. Abdominal ultrasound shows fatty liver. EKG shows sinus tachycardia at a rate of 113. Patient was given 1 L bolus, metoclopramide and pantoprazole. Medical history: DM type II non insulin dependent, HTN, HLD Past Surgical History:s/p colectomy secondary to tumor (patient stated beginin) Home Medication:Lisinopril 40 mg Qday, Atorvastatin 10 mg qday, Metformin 500 mg BID Social History: Never smoked, Denied illicit drug use or alcohol Allergies: None Code Status: Full Code Patient was evaluated and seen with my attending Dr. Huffman, Charles Naranjo, DO, PGY1 Review of Systems Constitutional Constitutional: Reports as per HPI Exam Vital Signs Temp Pulse Resp BP Pulse Ox O2 Del Method 97.9 F 115 H 18 134/83 H 97 Room Air 03/28/24 12:01 03/28/24 12:01 03/28/24 12:01 03/28/24 12:01 03/28/24 12:03/28/24 12:01 Narrative Exam Constitutional: Well nourished and in no acute distress Head: Normocephalic Eyes: PERRL , no conjunctival injection , symmetrical lids. ENMT: Moist Mucous Membranes CVS: RRR, S1 and S2 present, no murmurs, rubs or gallops . RESP: CTAB, no increased work of breathing, no rales, rhonchi or wheezing GI: Soft, nondistended, nontender throughout Skin: Warm to touch, Dry. No rashes or lesions. Neuro: Alert and oriented x 3, GCS 15, without difficulty, moves all limbs spontaneously Psych: Appropriate mood and affect. Results: Labs 03/29/24 04:08 03/29/24 11:40 Labs: Short CBC 03/28/24 Range/Units 12:32 WBC 8.5 (3.6-11.0) Thou/mm3 Hgb 11.4 L (12.0-16.0) g/dL Hct 33.1 L (36.0-46.0) % Plt Count 356 D (140-440) Thou/mm3 BMP 03/28/24 12:32 Sodium 121 L Potassium 4.3 Chloride 93 L Carbon Dioxide 22.3 BUN 12 Creatinine 1.0 Glucose 124 H Calcium 10.0 Cardiac Enzymes 03/28/24 Range/Units 12:32 Troponin I < 0.020 (0.0-0.045) ng/mL Liver Function 03/28/24 Range/Units 12:32 Total Bilirubin 0.6 (0.3-1.2) mg/dL AST 24 (0-34) U/L ALT 26 (10-49) U/L Alkaline Phosphatase 112 (46-116) U/L Albumin 4.5 (3.4-4.8) gm/dL Quality Measures Quality Measures VTE prophylaxis Advance care planning discussed with:: patient Medications Home Medications and Allergies Home Medications ?Medication ?Instructions ?Recorded ?Confirmed ?Type atorvastatin 10 mg tablet 10 mg PO QDAY 03/05/2403/28 History ferrous sulfate 325 mg (65 mg 325 mg PO BID 03/05/24 0 03/28/24 History iron) tablet lisinopril 40 mg tablet 40 mg PO QDAY 03/05/2403/28 History levothyroxine 50 mcg tablet 50 mcg PO QDAY 03/12/24 History meloxicam 7.5 mg tablet 7.5 mg PO QDAY 03/12/2403/17 History metformin 500 mg tablet 500 mg PO QDAY 03/12/2403/17 History Allergies Allergy/AdvReac Type Severity Reaction Status Date / Time No Known Allergies Allergy Verified 03/12/24 12:11 Visit Medications Acetaminophen (Acetaminophen 325 Mg Tablet) 650 mg PO Q6H PRN PRN Reason: Fever >101.5 Stop: 04/27/24 15:14 Atorvastatin Calcium (Atorvastatin Calcium 10 Mg Tablet) 10 mg PO QDAY [facility] Stop: 04/28/24 08:59 Enoxaparin Sodium (Enoxaparin Sod Inj 40 Mg/0.4 Ml Syringe) 40 mg SC QDAY [facility] Stop: 04/12/24 08:59 Ferrous Sulfate (Ferrous Sulf 325 Mg Tablet) 325 mg PO QDAY [facility] Stop: 04/28/24 08:59 Levothyroxine Sodium (Levothyroxine Sodium 25 Mcg Tablet) 50 mcg PO ACBR [facility] Stop: 04/28/24 05:59 Lisinopril (Lisinopril 20 Mg Tablet) 40 mg PO X1 ONE Stop: 03/29/24 09:01 Meloxicam (Meloxicam 7.5 Mg Tablet) 7.5 mg PO X1 PRN PRN Reason: other Stop: 04/27/24 15:23 Ondansetron HCl (Ondansetron Inj 2 Mg/Ml Inj 2 Ml) 4 mg IV Q6H PRN; Protocol PRN Reason: NAUSEA OR VOMITING Stop: 04/27/24 15:14 Discontinued Medications Sodium Chloride (Ns) 1,000 mls @ 999 mls/hr IV .Q1H1M ONE Stop: 03/28/24 14:25 Metoclopramide HCl (Metoclopramide 5 Mg Tablet) 10 mg PO X1 ONE Stop: 03/28/24 12:13 Last Admin: 03/28/24 13:08 Dose: 10 mg Pantoprazole Sodium (Pantoprazole 40 Mg Tablet) 40 mg PO X1 ONE Stop: 03/28/24 12:13 Last Admin: 03/28/24 13:08 Dose: 40 mg Assessment & Plan Plan This patient is a 68-year-old female with past medical history of hypertension, hyperlipidemia, type 2 diabetes [id number] presented to the ED with a complaint of dizziness, nausea, vomiting and was admitted for further treatment of acute symptomatic hyponatremia. #Dizziness #Nausea #Intractable vomiting #Abdominal pain #Acute hypovolemic symptomatic hyponatremia Sodium in the ED of 121. Per chart review previous sodium on 03/06 at 139. Serum osmolality of 246. Patient had recent admission to the hospital on 03/06 for nausea vomiting and diarrhea and at that time had a sodium of 127. Was diagnosed with gastroenteritis and followed up and had a colonoscopy done outpatient with Dr. Hernandes. Colonoscopy showed hemorrhoids and diverticulosis. Unclear at this time the etiology of patient's intractable vomiting. DDx gastroparesis, gastric outlet obstruction, hyponatremia secondary to poor p.o. intake Plan: ?BMP every 4 hours ?Strict I's and O's ?Sodium restriction ?Hypertonic saline drip at 15 cc/hr ?Neurochecks every 4 hours ?Goal sodium 127 for the next 24 hours ?Nephrology and GI consulted ?Urine electrolytes ?Reglan as needed #Diabetes Mellitus Non Insulin Dependent Past medical history of diabetes mellitus A1c on previous admission 6.2. Home medication metformin. -Sliding scale # Essential hypertension # Hyperlipidemia Resume home lisinopril 40 mg daily and atorvastatin 10 mg daily #Hypothyroidism Resume home levothyroxine 50 mcg #GERD Resume home pantoprazole 40 mg daily #Anemia Resume home ferrous sulfate 325 mg daily Health Maintenance: Disp: Admitted for treatment of acute symptomatic hyponatremia Diet: Cardiac and diabetic DVT: Lovenox 40 daily Code: Full code Patient was seen and evaluated with attending Dr. Huffman, Charles Naranjo DO, PGY1 Attending Provider Attestation/Addendum I have discussed and was present for the essential components of the history, physical examination, diagnosis, and treatment plan with the resident. I agree with the patient's care as documented by the resident and amended herein by me. Antwan Huffman DO. Although this document has been carefully reviewed, there may still be some phonetic and other typographical errors. These errors are purely grammatical due to imperfections in the software program and should not be construed in any way to compromise the substance of the patient's medical care during this visit.
[2024-03-28] MEDS: SODIUM CHLORIDE 0.9% 1000 ML 1,000 ML 999 ML IV (15:35)
[2024-03-28 15:48] LABS: Collection Type, Urine Clean Catch
[2024-03-28 16:09] LABS: Anion Gap 6 (7-16); BUN/Creatinine Ratio 13 Ratio (12-20); Blood Urea Nitrogen 12 mg/dL (9-23); Calcium 9.8 mg/dL (8.3-10.6); Carbon Dioxide 22.4 mMol/L (20.0-31.0); Chloride 94 mMol/L (98-107); Creatinine (Component) 0.9 mg/dL (0.6-1.3); Estimated Creatinine Clearance 48.9 mL/min (>60); Glucose 110 mg/dL (74-106); Osmolality,Calculated 246 (275-295); Potassium 4.2 mMol/L (3.4-5.1); Sodium 122 mMol/L (136-145); eGFR > 60 See Note
[2024-03-28 16:10] LABS: Bilirubin,Urine Negative (Negative); Blood,Urine Negative (Negative); Clarity,Urine Clear (Clear/Hazy); Color,Urine Lt-Yellow (Lt Yel-Yel); Culture Indicated,Urine Not Indicated; Glucose, Urine Negative (Negative); Hyaline Casts,Urine < 1 /hpf (0-1); Ketones,Urine Negative (Negative); Leukocyte Esterase,Urine Negative (Negative); Nitrite,Urine Negative (Negative); PH,Urine 5.5 (5.0-7.0); Protein,Urine Negative (Neg - Trace); RBC,Urine 1 /hpf (0-3); Specific Gravity,Urine 1.015 (1.001-1.035); Squamous Epithelial Cell,Urine 2 /hpf (0-5); Urobilinogen,Urine Negative mg/dL (0.0-1.0); WBC,Urine 2 /hpf (0-5)
[2024-03-28 17:03] LABS: Chloride,Urine Random 75.1 mMol/L (55.0-125.0); Potassium,Urine Random 36 mMol/L (12-62); Sodium,Urine Random 53.6 mMol/L (20.0-110.0)
[2024-03-28 18:35] VITALS: BP 131/63; PULSE 83; RESP 22; TEMP 36.7; O2SAT 97
[2024-03-28] MEDS: SODIUM CHLORIDE 3%(Hypertonic) 500 ML in PRE-MIXED 1 BAG 15 ML IV (18:48)
--- NOTE | 2024-03-28 19:31 | PC.NURSE ---
Report called by Sary. Pt taken to on monitor by RN.
[2024-03-28 19:44] VITALS: BMI 39.5
[2024-03-28 20:00] VITALS: BP 106/63; PULSE 83; RESP 18; TEMP 36.6; O2SAT 97
[2024-03-28 20:57] LABS: Sodium 124 mMol/L (136-145)
[2024-03-28 22:29] VITALS: PULSE 82
--- NOTE | 2024-03-28 23:16 | PD.IMCONS ---
HPI Data of Consult Requesting Physician: Gabe Huffman DO Primary Care Provider: Physician No Primary/Family Consult Narrative Reason for consult: Nausea vomiting History of present illness: 68 years old female being asked to evaluate for persistent nausea vomiting She presented with hyponatremia sodium 124 Initial admitting hemoglobin hematocrit 11.4 and 33.1 with a BUN 19 and creatinine of 0.9 Hemoglobin has gone down to 10.4 and 30.0 with a platelet count of 308,000 Patient was in the hospital couple weeks ago and had nausea vomiting diarrhea clinical presentation resolved on its own and no invasive GI workup was done She had diarrhea for couple of days which already according to her has resolved cc:: cc: Gabe Huffman DO Review of Systems Review of Systems Systems Reviewed: All systems reviewed, normal except as documented Past Medical History Surgical History OTHER SURGICAL HX: Essential hypertension Hypothyroidism Diabetes mellitus type 2 Meds Home Medications and Allergies Home Medications ?Medication ?Instructions ?Recorded ?Confirmed ?Type atorvastatin 10 mg tablet 10 mg PO QDAY 03/05/24 03/28/24 History ferrous sulfate 325 mg (65 mg 325 mg PO BID 03/05/24 03/28/24 History iron) tablet lisinopril 40 mg tablet 40 mg PO QDAY 03/05/24 03/28/24 History levothyroxine 50 mcg tablet 50 mcg PO QDAY 03/12/24 03/28/24 History meloxicam 7.5 mg tablet 7.5 mg PO QDAY 03/12/24 03/28/24 History metformin 500 mg tablet 500 mg PO QDAY 03/12/24 03/28/24 History Allergies Allergy/AdvReac Type Severity Reaction Status Date / Time No Known Allergies Allergy Verified 03/12/24 12:11 Exam Vital Signs Temp Pulse Resp BP Pulse Ox O2 Del Method 97.8 F 82 18 106/63 97 Room Air 03/28/24 20:00 03/28/24 22:29 03/28/24 20:00 03/28/24 20:00 03/28/24 20:00 03/28/24 20:00 Constitutional Comments: Alert oriented Routine Respiratory Exam Comments: Normal to auscultation Routine Abdominal Exam Comments: Soft nontender Results Labs 03/29/24 04:08 03/29/24 11:40 Labs: Short CBC 03/28/24 Range/Units 12:32 WBC 8.5 (3.6-11.0) Thou/mm3 Hgb 11.4 L (12.0-16.0) g/dL Hct 33.1 L (36.0-46.0) % Plt Count 356 D (140-440) Thou/mm3 BMP 03/28/24 03/28/24 03/28/24 12:32 15:42 20:31 Sodium 121 L 122 L 124 L Potassium 4.3 4.2 Chloride 93 L 94 L Carbon Dioxide 22.3 22.4 BUN 12 12 Creatinine 1.0 0.9 Glucose 124 H 110 H Calcium 10.0 9.8 Cardiac Enzymes 03/28/24 Range/Units 12:32 Troponin I < 0.020 (0.0-0.045) ng/mL Liver Function 03/28/24 Range/Units 12:32 Total Bilirubin 0.6 (0.3-1.2) mg/dL AST 24 (0-34) U/L ALT 26 (10-49) U/L Alkaline Phosphatase 112 (46-116) U/L Albumin 4.5 (3.4-4.8) gm/dL Urine 03/28/24 Range/Units 15:40 Urine Color Lt-Yellow (Lt Yel-Yel) Urine Clarity Clear (Clear/Hazy) Urine pH 5.5 (5.0-7.0) Ur Specific [place] 1.015 (1.001-1.035) Urine Protein Negative (Neg - Trace) Urine Glucose (UA) Negative (Negative) Assessment and Plan Additional Assessment & Plan Additional Plan: # Intractable nausea vomiting etiology uncertain but could be due to underlying gastric due to disorder due to diabetes mellitus Possible gastric outlet obstruction peptic ulcer disease # Hyponatremia # Diabetes mellitus type 2 # Essential hypertension # Hyperlipidemia Plan Fiberoptic esophagogastroduodenoscopy with possible biopsy possible therapeutic intervention under intravenous moderate sedation Informed consent obtained Procedure scheduled Further evaluation after above Thank you very much for the opportunity to participate in the care of this patient
[2024-03-29] VITALS (15 sets, daily range): BP systolic 99–158; BP diastolic 58–95; PULSE 76–112; RESP 15–24; TEMP 36.2–37.2; O2SAT 93–100
[2024-03-29 00:55] LABS: Sodium 126 mMol/L (136-145)
[2024-03-29 04:41] LABS: Basophils % (Auto) 0 % (0-2.5); Eosinophils # (Auto) 0.1 Thou/mm3 (0.0-0.5); Eosinophils % (Auto) 1 % (0-10); Hemoglobin 10.4 g/dL (12.0-16.0); Immature Granulocytes % (Auto) 0 % (0-0); Immature Granulocytes Auto 0.03 Thou/mm3 (0.00-0.00); Lymphocytes # (Auto) 1.9 Thou/mm3 (1.0-4.8); Lymphocytes % (Auto) 27 % (10-50); Mean Corpuscular HGB Conc 34.7 g/dl (31.0-37.0); Mean Corpuscular Hemoglobin 29.8 pg (25.0-35.0); Mean Corpuscular Volume 86 fL (80-100); Monocytes # (Auto) 0.6 Thou/mm3 (0.0-0.8); Monocytes % (Auto) 9 % (0-12); Neutrophils # (Auto) 4.3 Thou/mm3 (1.8-7.7); Neutrophils % (Auto) 63 % (37-80); Nucleated Red Blood Cell % 0 /100 WBC (0); Platelet Count 308 Thou/mm3 (140-440); RDW Standard Deviation 39.1 fL (36.4-46.3); Red Blood Count 3.49 Miln/mm3 (4.00-5.20); White Blood Count 6.9 Thou/mm3 (3.6-11.0)
[2024-03-29 05:03] LABS: Magnesium 1.3 mg/dL (1.6-2.6); Phosphorous 3.9 mg/dL (2.4-5.1); Sodium 130 mMol/L (136-145); Thyroid Stimulating Hormone 3.86 uIU/mL (0.55-4.78)
[2024-03-29] MEDS: LEVOTHYROXINE SODIUM 25 MCG TABLET 50 MCG PO (05:12)
[2024-03-29] MEDS: DEXTROSE 5%-WATER 1,000 ML 100 ML IV (06:02)
[2024-03-29 06:05] LABS: Sodium 129 mMol/L (136-145)
--- NOTE | 2024-03-29 08:46 | ESCONSULT_ITS ---
HPI Data of Consult Consult date: 03/30/24 Requesting Physician: Gabe Huffman DO Admitting Provider: Gabe Huffman DO Attending Provider: Gabe Huffman DO Primary Care Provider: Physician No Primary/Family Consult Narrative Reason for consult: Hyponatremia History of present illness: Ms. Potts is a 68-year-old female with significant past medical history Of hypertension, hyperlipidemia, type 2 diabetes mellitus presented to ED with chief complaint of dizziness, nausea and vomiting. Patient was recently discharged from hospital on 03/06/2024 for intractable nausea and vomiting secondary to gastroenteritis. During discharge her sodium level was 127. She continued to have intractable nausea and vomiting, associated with diarrhea for 2 days and recently experiencing abdominal pain and poor oral intake. She denies any fever or chills, chest pain or SOB, any leg swelling. During our evaluation, the patient's sodium level had improved from 121-129 in 18 hours, after being started on 3% hypertonic normal saline as the patient was decreased mental status, and was started on D5W by primary team, after being aggressively corrected with sodium level. Her vitals were stable, other labs were significant for hemoglobin 10.4, BUN 9, creatinine 0.9, blood sugar 120, magnesium 1.3. 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 cc:: cc: Gabe Huffman DO Review of Systems Review of Systems Systems Reviewed: All systems reviewed, normal except as documented Past Medical History Past Medical History NEUROLOGIC: Negative Neurological Disorders or Seizures CARDIAC: Positive Cardiac Disorders, Hypercholesterolemia and Hypertension; Negative Congestive Heart Failure RESPIRATORY: Negative Chronic Obstructive Pulmonary Disease (COPD) GASTROINTESTINAL: Positive Gastrointestinal Disorders ([facility] LAST WEEK) and Gastroesophageal Reflux Disease GENITOURINARY: Negative Renal Disease REPRODUCTIVE: Positive Previous Pregnancies MUSCULOSKELETAL: Positive Musculoskeletal Disorders and Arthritis ENDOCRINE: Positive Endocrine Disorders, Diabetes Mellitus Type 2 and Hypothyroidism; Negative Diabetes Mellitus Type 1 HEMATOLOGIC: Negative Blood Disorders PSYCHO/SOCIAL: Positive Anxiety OTHER HISTORY: Positive Hospitalization (february 2024 - [facility] AND VOMITING); Negative Down Syndrome, Developmental Delay, Falls, Blood Transfusions, Blood Transfusion Reaction, Anesthesia Reactions, Chicken Pox, Measles, Mumps or Cancer Surgical History SURGICAL: Positive Abdominal Surgery (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) OTHER SURGICAL HX: Essential hypertension Hypothyroidism Diabetes mellitus type 2 Social History SMOKING STATUS: Never smoker Exam Vital Signs Temp Pulse Resp BP Pulse Ox O2 Del Method 97.2 F 76 18 120/72 97 Room Air 03/29/24 04:00 03/29/24 04:00 03/29/24 04:00 03/29/24 04:00 03/29/24 04:00 03/29/24 04:00 Narrative Exam General: No acute distress, Alert and Oriented x 3 HEENT: Moist mucous membranes, oropharynx clear Neck: Supple, No masses, No JVD CVS: S1S2 Regular rate and rhythm, No murmurs, rubs or gallops Lungs: Clear to auscultation with no accessory use, no wheeze no rhonchi Abd: Soft, NT/ND, +BS, no organomegaly Ext: No edema, warm and well perfused Skin: No rash Psych: Appropriate mood and affect Results Labs 03/30/24 04:15 03/30/24 11:50 Labs: Short CBC 03/28/24 03/29/24 Range/Units 12:32 04:08 WBC 8.5 6.9 (3.6-11.0) Thou/mm3 Hgb 11.4 L 10.4 L (12.0-16.0) g/dL Hct 33.1 L 30.0 L (36.0-46.0) % Plt Count 356 D 308 D (140-440) Thou/mm3 BMP 03/28/24 03/28/24 03/28/24 12:32 15:42 20:31 Sodium 121 L 122 L 124 L Potassium 4.3 4.2 Chloride 93 L 94 L Carbon Dioxide 22.3 22.4 BUN 12 12 Creatinine 1.0 0.9 Glucose 124 H 110 H Calcium 10.0 9.8 03/29/24 03/29/24 03/29/24 00:15 04:08 05:26 Sodium 126 L 130 L 129 L Potassium Chloride Carbon Dioxide BUN Creatinine Glucose Calcium Cardiac Enzymes 03/28/24 Range/Units 12:32 Troponin I < 0.020 (0.0-0.045) ng/mL Liver Function 03/28/24 Range/Units 12:32 Total Bilirubin 0.6 (0.3-1.2) mg/dL AST 24 (0-34) U/L ALT 26 (10-49) U/L Alkaline Phosphatase 112 (46-116) U/L Albumin 4.5 (3.4-4.8) gm/dL Urine 03/28/24 Range/Units 15:40 Urine Color Lt-Yellow (Lt Yel-Yel) Urine Clarity Clear (Clear/Hazy) Urine pH 5.5 (5.0-7.0) Ur Specific [place] 1.015 (1.001-1.035) Urine Protein Negative (Neg - Trace) Urine Glucose (UA) Negative (Negative) Quality Measures Quality Measures VTE prophylaxis Advance care planning discussed with:: patient Medications Home Medications and Allergies Home Medications ?Medication ?Instructions ?Recorded ?Confirmed ?Type atorvastatin 10 mg tablet 10 mg PO QDAY 03/05/2403/28 History ferrous sulfate 325 mg (65 mg 325 mg PO BID 03/05/24 0 03/28/24 History iron) tablet lisinopril 40 mg tablet 40 mg PO QDAY 03/05/2403/28 History levothyroxine 50 mcg tablet 50 mcg PO QDAY 03/12/24 History meloxicam 7.5 mg tablet 7.5 mg PO QDAY 03/12/2403/17 History metformin 500 mg tablet 500 mg PO QDAY 03/12/2403/17 History Allergies Allergy/AdvReac Type Severity Reaction Status Date / Time No Known Allergies Allergy Verified 03/12/24 12:11 Visit Medications Acetaminophen (Acetaminophen 325 Mg Tablet) 650 mg PO Q6H PRN PRN Reason: Fever >101.5 Stop: 04/27/24 15:14 Atorvastatin Calcium (Atorvastatin Calcium 10 Mg Tablet) 10 mg PO HS SHEN Stop: 04/28/24 20:59 Dextrose (Dextrose 50%-Water Inj 50 Ml Syringe) 25 ml IV Q15MIN PRN PRN Reason: BG 50-70 responsive npo pt Stop: 04/27/24 15:48 Dextrose (Dextrose 50%-Water Inj 50 Ml Syringe) 50 ml IV Q15MIN PRN PRN Reason: BG <50 OR BG <70 & pt unresponsive Stop: 04/27/24 15:48 Enoxaparin Sodium (Enoxaparin Sod Inj 40 Mg/0.4 Ml Syringe) 40 mg SC QDAY COUNT INCLUDES [facility] Stop: 04/12/24 08:59 Ferrous Sulfate (Ferrous Sulf 325 Mg Tablet) 325 mg PO QDAY COUNT INCLUDES THE [facility] Stop: 04/28/24 08:59 Glucagon (Glucagon Inj 1 Mg Vial) 1 mg IM Q15MIN PRN PRN Reason: BG <70, and no IV access Sodium Chloride 500 ml/ IV (Miscellaneous Supplies) 500 mls @ 15 mls/hr IV X1 SHEN Stop: 04/27/24 15:28 Dextrose (D5w) 1,000 mls @ 100 mls/hr IV .Q10H SHEN Stop: 04/28/24 05:44 Last Admin: 03/29/24 06:02 Dose: 100 mls/hr Magnesium Sulfate (Magnesium Sulfate Ivpb) 4 gm in 50 mls @ 12.5 mls/hr IV X1 ONE Stop: 03/29/24 12:07 Insulin Human Lispro (Insulin Lispro (Admelog) 1 Unit/0.01 Ml Unit) 0 unit SC AC COUNT INCLUDES THE [facility]; Protocol Stop: 04/28/24 08:59 Levothyroxine Sodium (Levothyroxine Sodium 25 Mcg Tablet) 50 mcg PO ACBR [facility]EN Stop: 04/28/24 05:59 Last Admin: 03/29/24 05:12 Dose: 50 mcg Lisinopril (Lisinopril 20 Mg Tablet) 40 mg PO X1 ONE Stop: 03/29/24 09:01 Meloxicam (Meloxicam 7.5 Mg Tablet) 7.5 mg PO X1 PRN PRN Reason: other Stop: 04/27/24 15:23 Metoclopramide HCl (Metoclopramide Inj 5 Mg/Ml Vial 2 Ml) 5 mg IVP Q8HR PRN; Protocol PRN Reason: NAUSEA Stop: 04/01/24 21:59 Pantoprazole Sodium (Pantoprazole Inj 40 Mg Vial) 40 mg IV QDAY COUNT INCLUDES THE [facility] Stop: 04/28/24 08:59 Discontinued Medications Sodium Chloride (Ns) 1,000 mls @ 999 mls/hr IV .Q1H1M ONE Stop: 03/28/24 14:25 Last Infusion: 03/28/24 16:30 Dose: Infused Sodium Chloride 500 ml/ IV (Miscellaneous Supplies) 500 mls @ 15 mls/hr IV X1 ONE Stop: 03/28/24 16:28 Last Admin: 03/28/24 18:48 Dose: 15 mls/hr Insulin Glargine (Insulin Glargine (Lantus) 5 Unit/0.05 Ml (Per 5 Units)) 10 unit SC QDAY COUNT INCLUDES THE [facility] Stop: 04/28/24 08:59 Insulin Human Lispro (Insulin Lispro (Admelog) 1 Unit/0.01 Ml Unit) 0 unit SC AC SHEN; Protocol Stop: 04/27/24 16:59 Insulin Human Lispro (Insulin Lispro (Admelog) 1 Unit/0.01 Ml Unit) 3 unit SC ACHS COUNT INCLUDES THE [facility] Stop: 04/27/24 16:59 Metoclopramide HCl (Metoclopramide 5 Mg Tablet) 10 mg PO X1 ONE Stop: 03/28/24 12:13 Last Admin: 03/28/24 13:08 Dose: 10 mg Ondansetron HCl (Ondansetron Inj 2 Mg/Ml Inj 2 Ml) 4 mg IV Q6H PRN; Protocol PRN Reason: NAUSEA OR VOMITING Stop: 04/27/24 15:14 Pantoprazole Sodium (Pantoprazole 40 Mg Tablet) 40 mg PO X1 ONE Stop: 03/28/24 12:13 Last Admin: 03/28/24 13:08 Dose: 40 mg Assessment & Plan Plan The patient is a 68-year-old female with significant past medical history Of hypertension, hyperlipidemia, type 2 diabetes mellitus presented to ED with chief complaint of dizziness, nausea and vomiting. Patient was recently discharged from hospital on 03/06/2024 for intractable nausea and vomiting secondary to gastroenteritis. Nephrology consultation was done for further management of moderate symptomatic hyponatremia. #Moderate symptomatic hypovolemic hypoosmolar hyponatremia 2/2 #Intractable nausea and vomiting Further complicated by diarrhea and poor oral intake Patient was started on 3% hypertonic saline, and during our evaluation the patient's sodium level was 129 and she was started on [id number] to overcorrection. -Repeat sodium level every 4 hourly, and maintain a goal range of sodium correction up to 127 within 24-hour. -Recommended to stop D5W after sodium level is 127 and later the sodium level AutoCorrect itself #Hypomagnesemia Secondary to nutritional deficiency secondary to poor oral intake -Repleted with 4 g IV magnesium sulfate -Monitor daily a.m. magnesium level #Essential hypertension -Continue with lisinopril 40 Mg daily #Abdominal pain #Diabetes Mellitus Non Insulin Dependent # Hyperlipidemia #Hypothyroidism #GERD #Anemia -Management deferred to primary hospitalist team Thank you for your opportunity to participate nephrology team in this patient care. The patient's management plan was discussed with my attending physician MD Rancho Ham MD, PGY2 Attending Provider Attestation/Addendum Patient seen and examined with resident physician Dr. Estes. Note reviewed, agree with findings and recommendations. Patient with hyponatremia secondary to hypovolemia-decreased p.o. intake and increased appropriate ADH response from intractable nausea and vomiting. Due to her dizziness and PUBLISHING DIRECTOR changes team started the patient on 3% hypertonic saline and got overcorrected. Currently on D5W. No neurological symptoms. Agree with D5W. Close monitoring of serum sodium no more than 4 to 6 mEq in 24 hours. GI was consulted for intractable nausea, vomiting. Thank you Antwan for allowing me to participate in the care of Ms. Nuno
[2024-03-29] MEDS: Magnesium Sulfate 4 GM Ivpb 4 GM/50 ML BAG IV (09:00)
[2024-03-29 09:18] LABS: Anion Gap 8 (7-16); BUN/Creatinine Ratio 10 Ratio (12-20); Blood Urea Nitrogen 9 mg/dL (9-23); Calcium 9.7 mg/dL (8.3-10.6); Carbon Dioxide 22.9 mMol/L (20.0-31.0); Chloride 98 mMol/L (98-107); Creatinine (Component) 0.9 mg/dL (0.6-1.3); Glucose 120 mg/dL (74-106); Osmolality,Calculated 258 (275-295); Sodium 129 mMol/L (136-145); eGFR > 60 See Note
[2024-03-29] MEDS: FERROUS SULF 325 MG TABLET PO (09:50)
[2024-03-29] MEDS: Lisinopril 20 MG TABLET 40 MG PO (09:54)
[2024-03-29] MEDS: PANTOPRAZOLE INJ 40 MG VIAL IV (09:54)
--- NOTE | 2024-03-29 11:51 | ESPR_ITS ---
<Statement entered by Azul Nixon MD - 03/29/24 15:22> I discussed with and supervised my co-resident involved in the care of this patient. I agree with the assessment and plan as documented above. Patient seen and examined at bedside. Overnight, sodium improved to 127 and hypertonic saline was discontinued. Will continue to monitor sodium q4H no more than 133. Patient with some mild nausea. GI consulted, anticipate EGD. Azul Nixon MD PGY-3 Documentation for date of: 03/29/24 Subjective Subjective Interval history: Patient is doing well. No longer having dizziness, nausea or vomiting. Is able to tolerate p.o. However she is still having some mild pain in the epigastric region after eating. Dr. Hernandes will plan for EGD tonight. Exam Vital Signs Temp Pulse Resp BP Pulse Ox O2 Del Method 97.3 F 83 19 113/66 96 Room Air 03/29/24 08:00 03/29/24 09:54 03/29/24 08:00 03/29/24 09:54 03/29/24 08:00 03/29/24 08:00 Narrative Exam Constitutional: Well nourished and in no acute distress, resting in bed comfortably Head: Normocephalic Eyes: PERRL , no conjunctival injection , symmetrical lids. ENMT: Moist Mucous Membranes CVS: Regular rate and rhythm. RESP:no increased work of breathing, equal chest rise and fall, resting comfortably on room air GI: Soft, nondistended, nontender throughout Skin: Warm to touch, Dry. No rashes or lesions. Neuro: Alert and oriented x 3, GCS 15, without difficulty, moves all limbs spontaneously Psych: Appropriate mood and affect. Objective Labs 03/29/24 04:08 03/29/24 11:40 Labs: Laboratory Results - last 24 hr 03/28/24 03/28/24 03/28/24 12:32 15:40 15:42 WBC 8.5 RBC 3.85 L Hgb 11.4 L Hct 33.1 L MCV 86 MCH 29.6 MCHC 34.4 RDW Std Deviation 38.9 Plt Count 356 D Neut % (Auto) 66 Lymph % (Auto) 22 Lee % (Auto) 10 Eos % (Auto) 1 Baso % (Auto) 1 Neut # (Auto) 5.7 Lymph # (Auto) 1.8 Lee # (Auto) 0.9 H Eos # (Auto) 0.1 Baso # (Auto) 0.0 Immature Gran # (Auto) 0.04 H Absolute Nucleated RBC 0.00 Immature Gran % 1 H Nucleated RBC % 0 PT 11.3 INR 1.0 APTT 28.7 Sodium 121 L 122 L Potassium 4.3 4.2 Chloride 93 L 94 L Carbon Dioxide 22.3 22.4 Anion Gap 6 L 6 L BUN 12 12 Creatinine 1.0 0.9 Estim Creat Clear Calc 44.1 L 48.9 L eGFR > 60 > 60 BUN/Creatinine Ratio 12 13 Glucose 124 H 110 H Calculated Osmolality 244 L 246 L Calcium 10.0 9.8 Corrected Calcium 10.0 Phosphorus Magnesium Total Bilirubin 0.6 AST 24 ALT 26 Alkaline Phosphatase 112 Troponin I < 0.020 B-Natriuretic Peptide < 20 Total Protein 7.0 Albumin 4.5 Globulin 2.5 Albumin/Globulin Ratio 1.8 Lipase 39 TSH Ur Collection Type Clean Catch Urine Color Lt-Yellow Urine Clarity Clear Urine pH 5.5 Ur Specific [place] 1.015 Urine Protein Negative Urine Glucose (UA) Negative Urine Ketones Negative Urine Blood Negative Urine Nitrite Negative Urine Bilirubin Negative Urine Urobilinogen (Auto) Negative Ur Leukocyte Esterase Negative Urine RBC 1 Urine WBC 2 Ur Squamous Epith Cells 2 Urine Bacteria None Hyaline Casts < 1 Ur Culture Indicated? Not Indicated Ur Random Sodium 53.6 Ur Random Potassium 36 Ur Random Chloride 75.1 03/28/24 03/29/24 03/29/24 20:31 00:15 04:08 WBC 6.9 RBC 3.49 L Hgb 10.4 L Hct 30.0 L MCV 86 MCH 29.8 MCHC 34.7 RDW Std Deviation 39.1 Plt Count 308 D Neut % (Auto) 63 Lymph % (Auto) 27 [place] % (Auto) 9 Eos % (Auto) 1 Baso % (Auto) 0 Neut # (Auto) 4.3 Lymph # (Auto) 1.9 Lee # (Auto) 0.6 Eos # (Auto) 0.1 Baso # (Auto) 0.0 Immature Gran # (Auto) 0.03 H Absolute Nucleated RBC 0.00 Immature Gran % 0 Nucleated RBC % 0 PT INR APTT Sodium 124 L 126 L 130 L Potassium Chloride Carbon Dioxide Anion Gap BUN Creatinine Estim Creat Clear Calc eGFR BUN/Creatinine Ratio Glucose Calculated Osmolality Calcium Corrected Calcium Phosphorus 3.9 Magnesium 1.3 L Total Bilirubin AST ALT Alkaline Phosphatase Troponin I B-Natriuretic Peptide Total Protein Albumin Globulin Albumin/Globulin Ratio Lipase TSH 3.86 D Ur Collection Type Urine Color Urine Clarity Urine pH Ur Specific [place] Urine Protein Urine Glucose (UA) Urine Ketones Urine Blood Urine Nitrite Urine Bilirubin Urine Urobilinogen (Auto) Ur Leukocyte Esterase Urine RBC Urine WBC Ur Squamous Epith Cells Urine Bacteria Hyaline Casts Ur Culture Indicated? Ur Random Sodium Ur Random Potassium Ur Random Chloride 03/29/24 03/29/24 05:26 08:05 WBC RBC Hgb Hct MCV MCH MCHC RDW Std Deviation Plt Count Neut % (Auto) Lymph % (Auto) Lee % (Auto) Eos % (Auto) Baso % (Auto) Neut # (Auto) Lymph # (Auto) Lee # (Auto) Eos # (Auto) Baso # (Auto) Immature Gran # (Auto) Absolute Nucleated RBC Immature Gran % Nucleated RBC % PT INR APTT Sodium 129 L 129 L Potassium 4.0 Chloride 98 Carbon Dioxide 22.9 Anion Gap 8 BUN 9 Creatinine 0.9 Estim Creat Clear Calc 50.0 L eGFR > 60 BUN/Creatinine Ratio 10 L Glucose 120 H Calculated Osmolality 258 L Calcium 9.7 Corrected Calcium Phosphorus Magnesium Total Bilirubin AST ALT Alkaline Phosphatase Troponin I B-Natriuretic Peptide Total Protein Albumin Globulin Albumin/Globulin Ratio Lipase TSH Ur Collection Type Urine Color Urine Clarity Urine pH Ur Specific [place] Urine Protein Urine Glucose (UA) Urine Ketones Urine Blood Urine Nitrite Urine Bilirubin Urine Urobilinogen (Auto) Ur Leukocyte Esterase Urine RBC Urine WBC Ur Squamous Epith Cells Urine Bacteria Hyaline Casts Ur Culture Indicated? Ur Random Sodium Ur Random Potassium Ur Random Chloride Quality Measures Quality Measures VTE prophylaxis Advance care planning discussed with:: patient Assessment & Plan Assessment Current Active Medications: Generic Name Dose Route Start Last Admin Trade Name Freq PRN Reason Stop Dose Admin Acetaminophen 650 mg 03/28/24 15:15 Acetaminophen 325 Mg Tablet PO 04/27/24 15:14 Q6H PRN Fever >101.5 Atorvastatin Calcium 10 mg 03/29/24 21:00 Atorvastatin Calcium 10 Mg Tablet PO 04/28/24 20:59 HS SHEN Dextrose 25 ml 03/28/24 15:49 Dextrose 50%-Water Inj 50 Ml Syringe IV 04/27/24 15:48 Q15MIN PRN BG 50-70 responsive npo pt Dextrose 50 ml 03/28/24 15:49 Dextrose 50%-Water Inj 50 Ml Syringe IV 04/27/24 15:48 Q15MIN PRN BG <50 OR BG <70 & pt unresponsive Enoxaparin Sodium 40 mg 03/29/24 09:00 03/29/24 09:50 Enoxaparin Sod Inj 40 Mg/0.4 Ml Syringe SC 04/12/24 08:59 Not Given QDAY SHEN Ferrous Sulfate 325 mg 03/29/24 09:00 03/29/24 09:50 Ferrous Sulf 325 Mg Tablet PO 04/28/24 08:59 325 mg QDAY SHEN Administration Glucagon 1 mg 03/28/24 15:49 Glucagon Inj 1 Mg Vial IM Q15MIN PRN BG <70, and no IV access Dextrose 1,000 mls @ 100 mls/hr 03/29/24 05:45 03/29/24 06:02 D5w IV 04/28/24 05:44 100 mls/hr .Q10H SHEN Administration Magnesium Sulfate 4 gm in 50 mls @ 12.5 mls/hr 03/29/24 08:08 03/29/24 09:00 Magnesium Sulfate Ivpb IV 03/29/24 12:07 12.5 mls/hr X1 ONE Administration Insulin Human Lispro 0 unit 03/29/24 09:00 Insulin Lispro (Admelog) 1 Unit/0.01 Ml Unit SC 04/28/24 08:59 AC SHEN Protocol Levothyroxine Sodium 50 mcg 03/29/24 06:00 03/29/24 05:12 Levothyroxine Sodium 25 Mcg Tablet PO 04/28/24 05:59 50 mcg ACBR SHEN Administration Meloxicam 7.5 mg 03/29/24 10:14 Meloxicam 7.5 Mg Tablet PO 04/28/24 15:23 X1 PRN PAIN SCALE 4-6 (Moderate Metoclopramide HCl 5 mg 03/28/24 16:50 Metoclopramide Inj 5 Mg/Ml Vial 2 Ml IVP 04/01/24 21:59 Q8HR PRN NAUSEA Protocol Pantoprazole Sodium 40 mg 03/29/24 09:00 03/29/24 09:54 Pantoprazole Inj 40 Mg Vial IV 04/28/24 08:59 40 mg QDAY SHEN Administration Plan This patient is a 68-year-old female with past medical history of hypertension, hyperlipidemia, type 2 diabetes [id number] presented to the ED with a complaint of dizziness, nausea, vomiting and was admitted for further treatment of acute symptomatic hyponatremia. #Dizziness #Nausea #Intractable vomiting #Abdominal pain #Acute hypovolemic symptomatic hyponatremia Sodium in the ED of 121. Per chart review previous sodium on 03/06 at 139. Serum osmolality of 246. Patient had recent admission to the hospital on 03/06 for nausea vomiting and diarrhea and at that time had a sodium of 127. Was diagnosed with gastroenteritis and followed up and had a colonoscopy done outpatient with Dr. Hernandes. Colonoscopy showed hemorrhoids and diverticulosis. Unclear at this time the etiology of patient's intractable vomiting. DDx gastroparesis, gastric outlet obstruction, hyponatremia secondary to poor p.o. intake Urine electrolytes: Na 53.6, K+ 36, Cl 75.1 Sodium up trended to 129 overnight. Discontinue hypertonic saline drip at 15 cc/hr. Patient was then started on dextrose drip. Na now 128. Currently off both drips. Currently NPO for EGD this afternoon. Plan: ?BMP every 4 hours ?Strict I's and O's ?Sodium restriction ?Neurochecks every 4 hours ?Goal sodium 127 at 4pm today, 133 by 4pm 03/30 ?Nephrology and GI consulted -EGD this afternoon -Pending nephrology recommendations ?Reglan as needed #Diabetes Mellitus Non Insulin Dependent Past medical history of diabetes mellitus A1c on previous admission 6.2. Home medication metformin. -Sliding scale # Essential hypertension # Hyperlipidemia Resume home lisinopril 40 mg daily and atorvastatin 10 mg daily #Hypothyroidism Resume home levothyroxine 50 mcg #GERD Resume home pantoprazole 40 mg daily #Anemia Resume home ferrous sulfate 325 mg daily Health Maintenance: Disp: Admitted for treatment of acute symptomatic hyponatremia Diet: NPO DVT: Lovenox 40 daily Code: Full code Patient was seen and evaluated with attending Dr. Huffman, Charles Naranjo DO, PGY1 Attending Provider Attestation/Addendum I have discussed and was present for the essential components of the history, physical examination, diagnosis, and treatment plan with the resident. I agree with the patient's care as documented by the resident and amended herein by me. Antwan Huffman DO. Although this document has been carefully reviewed, there may still be some phonetic and other typographical errors. These errors are purely grammatical due to imperfections in the software program and should not be construed in any way to compromise the substance of the patient's medical care during this visit.
[2024-03-29 11:55] LABS: Sodium 128 mMol/L (136-145)
--- NOTE | 2024-03-29 13:20 | PC.SS ---
Patient Nurys Preston is a 68 yr old female admitted for Hyponatremia.SS met with pt at bedside to complete initial assessment. At time of encounter pt is noted to be alert and oriented to person, place and situation. patient confirmed all demographic information.patient identifies her as surrogate [id number]. Patient reports being independent with ambulation and with completing her ADL's. Pt is followed by Dr. Xena Li for primary care. Choice of pharmacy is [facility]. At time of discharge patient will return home, family will provide transportation. Discharge plan: Home Next of Kin: , Guillermo Preston
[2024-03-29 21:07] LABS: Sodium 131 mMol/L (136-145)
[2024-03-29] MEDS: ATORVASTATIN CALCIUM 10 MG TABLET PO (21:08)
[2024-03-30] VITALS (7 sets, daily range): BP systolic 95–149; BP diastolic 59–77; PULSE 80–97; RESP 14–18; TEMP 36.1–37.3; O2SAT 90–97
[2024-03-30] MEDS: PROMETHAZINE INJ 12.5 MG in SODIUM CHLORIDE 0.9% 50 ML 2.5 MG IV ×4 (00:09→19:00)
[2024-03-30 00:58] LABS: Sodium 130 mMol/L (136-145)
[2024-03-30] MEDS: LEVOTHYROXINE SODIUM 25 MCG TABLET 50 MCG PO (05:20)
[2024-03-30 05:46] LABS: Basophils % (Auto) 0 % (0-2.5); Eosinophils # (Auto) 0.2 Thou/mm3 (0.0-0.5); Eosinophils % (Auto) 3 % (0-10); Hematocrit 30.7 % (36.0-46.0); Hemoglobin 10.3 g/dL (12.0-16.0); Immature Granulocytes % (Auto) 1 % (0-0); Immature Granulocytes Auto 0.03 Thou/mm3 (0.00-0.00); Lymphocytes # (Auto) 1.6 Thou/mm3 (1.0-4.8); Lymphocytes % (Auto) 25 % (10-50); Mean Corpuscular HGB Conc 33.6 g/dl (31.0-37.0); Mean Corpuscular Hemoglobin 29.1 pg (25.0-35.0); Mean Corpuscular Volume 87 fL (80-100); Monocytes # (Auto) 0.8 Thou/mm3 (0.0-0.8); Monocytes % (Auto) 12 % (0-12); Neutrophils # (Auto) 3.9 Thou/mm3 (1.8-7.7); Neutrophils % (Auto) 60 % (37-80); Nucleated Red Blood Cell % 0 /100 WBC (0); Platelet Count 307 Thou/mm3 (140-440); RDW Standard Deviation 40.1 fL (36.4-46.3); Red Blood Count 3.54 Miln/mm3 (4.00-5.20); White Blood Count 6.5 Thou/mm3 (3.6-11.0)
[2024-03-30 06:23] LABS: Anion Gap 8 (7-16); BUN/Creatinine Ratio 8 Ratio (12-20); Blood Urea Nitrogen 9 mg/dL (9-23); Calcium 9.9 mg/dL (8.3-10.6); Carbon Dioxide 25.2 mMol/L (20.0-31.0); Chloride 98 mMol/L (98-107); Creatinine (Component) 1.1 mg/dL (0.6-1.3); Estimated Creatinine Clearance 40.9 mL/min (>60); Glucose 96 mg/dL (74-106); Magnesium 2.2 mg/dL (1.6-2.6); Osmolality,Calculated 261 (275-295); Phosphorous 4.2 mg/dL (2.4-5.1); Potassium 4.6 mMol/L (3.4-5.1); Sodium 131 mMol/L (136-145); eGFR 55 See Note
[2024-03-30 07:56] LABS: Sodium 130 mMol/L (136-145)
[2024-03-30] MEDS: ENOXAPARIN SOD INJ 40 MG/0.4 ML SYRINGE SC (09:28)
[2024-03-30] MEDS: Lisinopril 20 MG TABLET 40 MG PO (09:29)
[2024-03-30] MEDS: PANTOPRAZOLE INJ 40 MG VIAL IV (09:29)
[2024-03-30] MEDS: FERROUS SULF 325 MG TABLET PO (09:30)
[2024-03-30 12:49] LABS: Sodium 127 mMol/L (136-145)
[2024-03-30] MEDS: METOCLOPRAMIDE INJ 5 MG/ML VIAL 2 ML IVP ×2 (13:50→22:13)
--- NOTE | 2024-03-30 14:45 | PD.RESPRO ---
Documentation for date of: 03/30/24 Subjective Subjective Interval history: The patient is a 68-year-old female with significant past medical history Of hypertension, hyperlipidemia, type 2 diabetes mellitus presented to ED with chief complaint of dizziness, nausea and vomiting. Patient was recently discharged from hospital on 03/06/2024 for intractable nausea and vomiting secondary to gastroenteritis. During discharge her sodium level was 127. She continued to have intractable nausea and vomiting, associated with diarrhea for 2 days and recently experiencing abdominal pain and poor oral intake. She denies any fever or chills, chest pain or SOB, any leg swelling. During our evaluation, the patient's sodium level had improved from 121-129 in 18 hours, after being started on 3% hypertonic normal saline as the patient was decreased mental status, and was started on D5W by primary team, after being aggressively corrected with sodium level. Her vitals were stable, other labs were significant for hemoglobin 10.4, BUN 9, creatinine 0.9, blood sugar 120, magnesium 1.3. 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 03/30/2024: The patient was interviewed and examined at the bedside this morning. She is [place]ian speaker, and reported that she does not she has any headache, lightheadedness, chest pain, any abdominal pain, or any leg swelling. Her vitals were stable with soft blood pressure, CBC fairly at baseline, chemistry panel revealed sodium 130 this morning, that trended down to 127 around noon. We will start the patient on normal saline 70 cc/h as there is possibility of appropriate antidiuretic hormone secretion secondary to vomiting. We will continue to treat underlying intractable nausea and vomiting-which seems to be better today. Exam Vital Signs Temp Pulse Resp BP Pulse Ox O2 Del Method O2 Flow Rate 97.0 F 87 18 99/73 95 Room Air 3 03/30/24 12:00 03/30/24 12:03/30/24 12:03/30/24 12:03/30/24 12:03/30/24 12:03/29/24 19:55 Narrative Exam General: No acute distress, Alert and Oriented x 3 HEENT: Moist mucous membranes, oropharynx clear Neck: Supple, No masses, No JVD CVS: S1S2 Regular rate and rhythm, No murmurs, rubs or gallops Lungs: Clear to auscultation with no accessory use, no wheeze no rhonchi Abd: Soft, NT/ND, +BS, no organomegaly Ext: No edema, warm and well perfused Skin: No rash Psych: Appropriate mood and affect Objective Labs 03/30/24 04:15 03/30/24 11:50 Labs: Laboratory Results - last 24 hr 03/29/24 03/30/24 03/30/24 20:28 00:25 04:15 WBC 6.5 RBC 3.54 L Hgb 10.3 L Hct 30.7 L MCV 87 MCH 29.1 MCHC 33.6 RDW Std Deviation 40.1 Plt Count 307 Neut % (Auto) 60 Lymph % (Auto) 25 [place] % (Auto) 12 Eos % (Auto) 3 Baso % (Auto) 0 Neut # (Auto) 3.9 Lymph # (Auto) 1.6 [place] # (Auto) 0.8 Eos # (Auto) 0.2 Baso # (Auto) 0.0 Immature Gran # (Auto) 0.03 H Absolute Nucleated RBC 0.00 Immature Gran % 1 H Nucleated RBC % 0 Sodium 131 L 130 L 131 L Potassium 4.6 D Chloride 98 Carbon Dioxide 25.2 Anion Gap 8 BUN 9 Creatinine 1.1 Estim Creat Clear Calc 40.9 L eGFR 55 L BUN/Creatinine Ratio 8 L Glucose 96 Calculated Osmolality 261 L Calcium 9.9 Phosphorus 4.2 Magnesium 2.2 03/30/24 03/30/24 07:40 11:50 WBC RBC Hgb Hct MCV MCH MCHC RDW Std Deviation Plt Count Neut % (Auto) Lymph % (Auto) [place] % (Auto) Eos % (Auto) Baso % (Auto) Neut # (Auto) Lymph # (Auto) [place] # (Auto) Eos # (Auto) Baso # (Auto) Immature Gran # (Auto) Absolute Nucleated RBC Immature Gran % Nucleated RBC % Sodium 130 L 127 L Potassium Chloride Carbon Dioxide Anion Gap BUN Creatinine Estim Creat Clear Calc eGFR BUN/Creatinine Ratio Glucose Calculated Osmolality Calcium Phosphorus Magnesium Quality Measures Quality Measures VTE prophylaxis Advance care planning discussed with:: patient Assessment & Plan Assessment Current Active Medications: Generic Name Dose Route Start Last Admin Trade Name Edmarq PRN Reason Stop Dose Admin Acetaminophen 650 mg 03/28/24 15:15 Acetaminophen 325 Mg Tablet PO 04/27/24 15:14 Q6H PRN Fever >101.5 Atorvastatin Calcium 10 mg 03/29/24 21:00 03/29/24 21:08 Atorvastatin Calcium 10 Mg Tablet PO 04/28/24 20:59 10 mg HS SHEN Administration Dextrose 25 ml 03/28/24 15:49 Dextrose 50%-Water Inj 50 Ml Syringe IV 04/27/24 15:48 Q15MIN PRN BG 50-70 responsive npo pt Dextrose 50 ml 03/28/24 15:49 Dextrose 50%-Water Inj 50 Ml Syringe IV 04/27/24 15:48 Q15MIN PRN BG <50 OR BG <70 & pt unresponsive Enoxaparin Sodium 40 mg 03/29/24 09:00 03/30/24 09:28 Enoxaparin Sod Inj 40 Mg/0.4 Ml Syringe SC 04/12/24 08:59 40 mg QDAY SHEN Administration Ferrous Sulfate 325 mg 03/29/24 09:00 03/30/24 09:30 Ferrous Sulf 325 Mg Tablet PO 04/28/24 08:59 325 mg QDAY SHEN Administration Glucagon 1 mg 03/28/24 15:49 Glucagon Inj 1 Mg Vial IM Q15MIN PRN BG <70, and no IV access Dextrose 1,000 mls @ 100 mls/hr 03/29/24 05:45 03/29/24 06:02 D5w IV 04/28/24 05:44 100 mls/hr .Q10H SHEN Administration Promethazine HCl 12.5 mg/ 50.5 mls @ 2.5 mls/min 03/30/24 00:00 03/30/24 12:59 Sodium Chloride IV 04/29/24 00:00 2.5 mls/min Q6HR SHEN Administration Insulin Human Lispro 0 unit 03/29/24 09:00 03/30/24 11:30 Insulin Lispro (Admelog) 1 Unit/0.01 Ml Unit SC 04/28/24 08:59 Not Given AC [facility] Protocol Levothyroxine Sodium 50 mcg 03/29/24 06:00 03/30/24 05:20 Levothyroxine Sodium 25 Mcg Tablet PO 04/28/24 05:59 50 mcg ACBR SHEN Administration Lisinopril 40 mg 03/30/24 09:00 03/30/24 09:29 Lisinopril 20 Mg Tablet PO 04/29/24 08:59 40 mg QDAY SHEN Administration Meloxicam 7.5 mg 03/29/24 10:14 Meloxicam 7.5 Mg Tablet PO 04/28/24 15:23 X1 PRN PAIN SCALE 4-6 (Moderate Metoclopramide HCl 5 mg 03/30/24 14:00 03/30/24 13:50 Metoclopramide Inj 5 Mg/Ml Vial 2 Ml IVP 04/29/24 13:59 5 mg Q8HR SHEN Administration Protocol Pantoprazole Sodium 40 mg 03/29/24 09:00 03/30/24 09:29 Pantoprazole Inj 40 Mg Vial IV 04/28/24 08:59 40 mg QDAY SHEN Administration Plan The patient is a 68-year-old female with significant past medical history Of hypertension, hyperlipidemia, type 2 diabetes mellitus presented to ED with chief complaint of dizziness, nausea and vomiting. Patient was recently discharged from hospital on 03/06/2024 for intractable nausea and vomiting secondary to gastroenteritis. Nephrology consultation was done for further management of moderate symptomatic hyponatremia. #Moderate symptomatic hypovolemic hypoosmolar hyponatremia 03/18 #Intractable nausea and vomiting Further complicated by diarrhea and poor oral intake Patient was started on 3% hypertonic saline, and during our evaluation the patient's sodium level was 129 and she was started on D5W. 03/30/2024: Sodium level 130 this morning that trended down to 127. -Repeat sodium level every 4 hourly, and maintain a goal range of sodium correction up to 133 within 24-hour. #Hypomagnesemia, resolved Secondary to nutritional deficiency secondary to poor oral intake -Repleted with 4 g IV magnesium sulfate -Monitor daily a.m. magnesium level #Essential hypertension -Decreased lisinopril dose to 20 Mg daily #Abdominal pain #Diabetes Mellitus Non Insulin Dependent # Hyperlipidemia #Hypothyroidism #GERD #Anemia -Management deferred to primary hospitalist team Thank you for your opportunity to participate nephrology team in this patient care. The patient's management plan was discussed with my attending physician MD Rancho Ham MD, PGY2 Attending Provider Attestation/Addendum Patient seen and examined with resident physician Dr. Estes. Note reviewed, agree with findings and recommendations. Patient with hyponatremia secondary to hypovolemia-decreased p.o. intake and increased appropriate ADH response from intractable nausea and vomiting. Due to her dizziness and [employer]ORD[employer]ATOR changes team started the patient on 3% hypertonic saline and got overcorrected. Currently on D5W. No neurological symptoms. Agree with D5W. Close monitoring of serum sodium no more than 4 to 6 mEq in 24 hours. GI was consulted for intractable nausea, vomiting. 03/30/2024 patient currently seen in medical floor. She is feeling much better. Nausea vomiting improved. Sodium dropped to 127 from D5W. Switch to normal saline for 1 bag. If stable can be discharged (serum sodium greater than 127) Thank you Antwan for allowing me to participate in the care of Ms. Nuno
[2024-03-30] MEDS: SODIUM CHLORIDE 0.9% 500 ML 500 ML 70 ML IV (17:22)
[2024-03-30 17:36] LABS: Sodium 122 mMol/L (136-145)
--- NOTE | 2024-03-30 18:54 | ESPR_ITS ---
Documentation for date of: 03/30/24 Subjective Subjective Interval history: Patient doing well. Still having some epigastric pain. Tolerating p.o. well. Exam Vital Signs Temp Pulse Resp BP Pulse Ox O2 Del Method O2 Flow Rate 99.0 F 84 18 149/77 H 97 Room Air 3 03/30/24 16:00 03/30/24 16:00 03/30/24 16:00 03/30/24 16:00 03/30/24 16:00 03/30/24 16:03/29/24 19:55 Narrative Exam Constitutional: Well nourished and in no acute distress, resting in bed comfortably Head: Normocephalic Eyes: PERRL , no conjunctival injection , symmetrical lids. ENMT: Moist Mucous Membranes CVS: Regular rate and rhythm. RESP:no increased work of breathing, equal chest rise and fall, resting comfortably on room air GI: Soft, nondistended, nontender throughout Skin: Warm to touch, Dry. No rashes or lesions. Neuro: Alert and oriented x 3, GCS 15, without difficulty, moves all limbs spontaneously Psych: Appropriate mood and affect. Objective Labs 03/31/24 04:52 03/31/24 11:50 Labs: Laboratory Results - last 24 hr 03/29/24 03/30/24 03/30/24 20:28 00:25 04:15 WBC 6.5 RBC 3.54 L Hgb 10.3 L Hct 30.7 L MCV 87 MCH 29.1 MCHC 33.6 RDW Std Deviation 40.1 Plt Count 307 Neut % (Auto) 60 Lymph % (Auto) 25 [place] % (Auto) 12 Eos % (Auto) 3 Baso % (Auto) 0 Neut # (Auto) 3.9 Lymph # (Auto) 1.6 [place] # (Auto) 0.8 Eos # (Auto) 0.2 Baso # (Auto) 0.0 Immature Gran # (Auto) 0.03 H Absolute Nucleated RBC 0.00 Immature Gran % 1 H Nucleated RBC % 0 Sodium 131 L 130 L 131 L Potassium 4.6 D Chloride 98 Carbon Dioxide 25.2 Anion Gap 8 BUN 9 Creatinine 1.1 Estim Creat Clear Calc 40.9 L eGFR 55 L BUN/Creatinine Ratio 8 L Glucose 96 Calculated Osmolality 261 L Calcium 9.9 Phosphorus 4.2 Magnesium 2.2 03/30/24 03/30/2403/30/25 07:40 11:50 16:24 WBC RBC Hgb Hct MCV MCH MCHC RDW Std Deviation Plt Count Neut % (Auto) Lymph % (Auto) [place] % (Auto) Eos % (Auto) Baso % (Auto) Neut # (Auto) Lymph # (Auto) [place] # (Auto) Eos # (Auto) Baso # (Auto) Immature Gran # (Auto) Absolute Nucleated RBC Immature Gran % Nucleated RBC % Sodium 130 L 127 L 122 L Potassium Chloride Carbon Dioxide Anion Gap BUN Creatinine Estim Creat Clear Calc eGFR BUN/Creatinine Ratio Glucose Calculated Osmolality Calcium Phosphorus Magnesium Quality Measures Quality Measures VTE prophylaxis Advance care planning discussed with:: patient Assessment & Plan Assessment Current Active Medications: Generic Name Dose Route Start Last Admin Trade Name Freq PRN Reason Stop Dose Admin Acetaminophen 650 mg 03/28/24 15:15 Acetaminophen 325 Mg Tablet PO 04/27/24 15:14 Q6H PRN Fever >101.5 Atorvastatin Calcium 10 mg 03/29/24 21:00 03/29/24 21:08 Atorvastatin Calcium 10 Mg Tablet PO 04/28/24 20:59 10 mg HS SHEN Administration Dextrose 25 ml 03/28/24 15:49 Dextrose 50%-Water Inj 50 Ml Syringe IV 04/27/24 15:48 Q15MIN PRN BG 50-70 responsive npo pt Dextrose 50 ml 03/28/24 15:49 Dextrose 50%-Water Inj 50 Ml Syringe IV 04/27/24 15:48 Q15MIN PRN BG <50 OR BG <70 & pt unresponsive Enoxaparin Sodium 40 mg 03/29/24 09:00 03/30/24 09:28 Enoxaparin Sod Inj 40 Mg/0.4 Ml Syringe SC 04/12/24 08:59 40 mg QDAY SHEN Administration Ferrous Sulfate 325 mg 03/29/24 09:00 03/30/24 09:30 Ferrous Sulf 325 Mg Tablet PO 04/28/24 08:59 325 mg QDAY SHEN Administration Glucagon 1 mg 03/28/24 15:49 Glucagon Inj 1 Mg Vial IM Q15MIN PRN BG <70, and no IV access Dextrose 1,000 mls @ 100 mls/hr 03/29/24 05:45 03/29/24 06:02 D5w IV 04/28/24 05:44 100 mls/hr .Q10H SHEN Administration Promethazine HCl 12.5 mg/ 50.5 mls @ 2.5 mls/min 03/30/24 00:00 03/30/24 12:59 Sodium Chloride IV 04/29/24 00:00 2.5 mls/min Q6HR SHEN Administration Sodium Chloride 500 mls @ 70 mls/hr 03/30/24 15:31 03/30/24 17:22 Ns IV 03/30/24 22:39 70 mls/hr .Q7H9M ONE Administration Insulin Human Lispro 0 unit 03/29/24 09:00 03/30/24 17:00 Insulin Lispro (Admelog) 1 Unit/0.01 Ml Unit SC 04/28/24 08:59 Not Given AC SHEN Protocol Levothyroxine Sodium 50 mcg 03/29/24 06:00 03/30/24 05:20 Levothyroxine Sodium 25 Mcg Tablet PO 04/28/24 05:59 50 mcg ACBR SHEN Administration Lisinopril 20 mg 03/31/24 09:00 Lisinopril 20 Mg Tablet PO 04/30/24 08:59 QDAY SHEN Meloxicam 7.5 mg 03/29/24 10:14 Meloxicam 7.5 Mg Tablet PO 04/28/24 15:23 X1 PRN PAIN SCALE 4-6 (Moderate Metoclopramide HCl 5 mg 03/30/24 14:00 03/30/24 13:50 Metoclopramide Inj 5 Mg/Ml Vial 2 Ml IVP 04/29/24 13:59 5 mg Q8HR SHEN Administration Protocol Pantoprazole Sodium 40 mg 03/29/24 09:00 03/30/24 09:29 Pantoprazole Inj 40 Mg Vial IV 04/28/24 08:59 40 mg QDAY SHEN Administration Sodium Chloride 1 gm 03/30/24 21:00 Sodium Chloride 1 Gm Tablet PO 04/29/24 20:59 BID SHEN Plan This patient is a 68-year-old female with past medical history of hypertension, hyperlipidemia, type 2 diabetes [id number] presented to the ED with a complaint of dizziness, nausea, vomiting and was admitted for further treatment of acute symptomatic hyponatremia. #Dizziness #Nausea #Intractable vomiting #Abdominal pain #Acute hypovolemic symptomatic hyponatremia Sodium in the ED of 121. Per chart review previous sodium on 03/06 at 139. Serum osmolality of 246. Patient had recent admission to the hospital on 03/06 for nausea vomiting and diarrhea and at that time had a sodium of 127. Was diagnosed with gastroenteritis and followed up and had a colonoscopy done outpatient with Dr. Hernandes. Colonoscopy showed hemorrhoids and diverticulosis. Unclear at this time the etiology of patient's intractable vomiting. DDx gastroparesis, gastric outlet obstruction, hyponatremia secondary to poor p.o. intake Urine electrolytes: Na 53.6, K+ 36, Cl 75.1 Status post hypertonic saline drip. EGD on 03/29 shows esophagitis and gastritis. Biopsies were taken. Plan: ?BMP every 4 hours ?Strict I's and O's ?Sodium restriction ? Goal normal sodium. Sodium down trended 122 today. Started on salt tablets. ?Nephrology and GI consulted: -If stable can be discharged (serum sodium greater than 127) -Status post EGD. Giving promethazine 12.5 mg IV push every 6 hours. Continuing Reglan #Diabetes Mellitus Non Insulin Dependent Past medical history of diabetes mellitus A1c on previous admission 6.2. Home medication metformin. -Sliding scale # Essential hypertension # Hyperlipidemia Resume home lisinopril 40 mg daily and atorvastatin 10 mg daily #Hypothyroidism Resume home levothyroxine 50 mcg #GERD Resume home pantoprazole 40 mg daily #Anemia Resume home ferrous sulfate 325 mg daily Health Maintenance: Disp: Admitted for treatment of acute symptomatic hyponatremia Diet: NPO DVT: Lovenox 40 daily Code: Full code Patient was seen and evaluated with attending Charles Woodruff DO, PGY1 Attending Provider Attestation/Addendum I have discussed and was present for the essential components of the history, physical examination, diagnosis, and treatment plan with the resident. I agree with the patient's care as documented by the resident and amended herein by me. Antwan Huffman DO. Although this document has been carefully reviewed, there may still be some phonetic and other typographical errors. These errors are purely grammatical due to imperfections in the software program and should not be construed in any way to compromise the substance of the patient's medical care during this visit.
[2024-03-30] MEDS: ATORVASTATIN CALCIUM 10 MG TABLET PO (20:27)
[2024-03-30] MEDS: SODIUM CHLORIDE 1 GM TABLET PO (20:27)
--- NOTE | 2024-03-30 20:55 | ESPR_ITS ---
Documentation for date of: 03/30/24 Subjective Subjective Interval history: Patient evaluated upper endoscopy showed gastritis and esophagitis Exam Vital Signs Temp Pulse Resp BP Pulse Ox O2 Del Method O2 Flow Rate 99.0 F 84 18 149/77 H 97 Room Air 3 03/30/24 16:00 03/30/24 16:00 03/30/24 16:00 03/30/24 16:00 03/30/24 16:00 03/30/24 16:00 03/29/24 19:55 Objective Labs 03/30/24 04:15 03/30/24 16:24 Labs: Laboratory Results - last 24 hr 03/29/24 03/30/24 03/30/24 20:28 00:25 04:15 WBC 6.5 RBC 3.54 L Hgb 10.3 L Hct 30.7 L MCV 87 MCH 29.1 MCHC 33.6 RDW Std Deviation 40.1 Plt Count 307 Neut % (Auto) 60 Lymph % (Auto) 25 [place] % (Auto) 12 Eos % (Auto) 3 Baso % (Auto) 0 Neut # (Auto) 3.9 Lymph # (Auto) 1.6 [place] # (Auto) 0.8 Eos # (Auto) 0.2 Baso # (Auto) 0.0 Immature Gran # (Auto) 0.03 H Absolute Nucleated RBC 0.00 Immature Gran % 1 H Nucleated RBC % 0 Sodium 131 L 130 L 131 L Potassium 4.6 D Chloride 98 Carbon Dioxide 25.2 Anion Gap 8 BUN 9 Creatinine 1.1 Estim Creat Clear Calc 40.9 L eGFR 55 L BUN/Creatinine Ratio 8 L Glucose 96 Calculated Osmolality 261 L Calcium 9.9 Phosphorus 4.2 Magnesium 2.2 03/30/24 03/30/24 03/30/24 07:40 11:50 16:24 WBC RBC Hgb Hct MCV MCH MCHC RDW Std Deviation Plt Count Neut % (Auto) Lymph % (Auto) [place] % (Auto) Eos % (Auto) Baso % (Auto) Neut # (Auto) Lymph # (Auto) [place] # (Auto) Eos # (Auto) Baso # (Auto) Immature Gran # (Auto) Absolute Nucleated RBC Immature Gran % Nucleated RBC % Sodium 130 L 127 L 122 L Potassium Chloride Carbon Dioxide Anion Gap BUN Creatinine Estim Creat Clear Calc eGFR BUN/Creatinine Ratio Glucose Calculated Osmolality Calcium Phosphorus Magnesium Impressions Impression: Gastritis Esophagitis continue current management Assessment & Plan A&P Narrative # Intractable nausea vomiting etiology uncertain but could be due to underlying gastric due to disorder due to diabetes mellitus Possible gastric outlet obstruction peptic ulcer disease # Hyponatremia # Diabetes mellitus type 2 # Essential hypertension # Hyperlipidemia Plan Fiberoptic esophagogastroduodenoscopy with possible biopsy possible therapeutic intervention under intravenous moderate sedation Informed consent obtained Procedure scheduled Further evaluation after above Thank you very much for the opportunity to participate in the care of this patient Time Spent With Patient Time: Total time spent is greater than 50% in coordination of care (as documented) at patient's floor/unit and/or counseling patient:
[2024-03-30 22:16] LABS: Sodium 126 mMol/L (136-145)
[2024-03-31] VITALS: BP 113/76; PULSE 95; PULSE 96; RESP 18; TEMP 36.1; O2SAT 95
[2024-03-31] MEDS: PROMETHAZINE INJ 12.5 MG in SODIUM CHLORIDE 0.9% 50 ML 2.5 MG IV ×2 (00:24→05:12)
[2024-03-31 01:10] LABS: Sodium 127 mMol/L (136-145)
[2024-03-31 04:00] VITALS: BP 104/71; PULSE 77; PULSE 88; RESP 18; TEMP 36.7; O2SAT 98
[2024-03-31] MEDS: LEVOTHYROXINE SODIUM 25 MCG TABLET 50 MCG PO (05:10)
[2024-03-31] MEDS: METOCLOPRAMIDE INJ 5 MG/ML VIAL 2 ML IVP (05:11)
[2024-03-31 05:49] LABS: Basophils % (Auto) 1 % (0-2.5); Eosinophils # (Auto) 0.2 Thou/mm3 (0.0-0.5); Eosinophils % (Auto) 3 % (0-10); Hematocrit 27.8 % (36.0-46.0); Hemoglobin 9.5 g/dL (12.0-16.0); Immature Granulocytes % (Auto) 1 % (0-0); Immature Granulocytes Auto 0.03 Thou/mm3 (0.00-0.00); Lymphocytes # (Auto) 1.5 Thou/mm3 (1.0-4.8); Lymphocytes % (Auto) 30 % (10-50); Mean Corpuscular HGB Conc 34.2 g/dl (31.0-37.0); Mean Corpuscular Hemoglobin 29.6 pg (25.0-35.0); Mean Corpuscular Volume 87 fL (80-100); Monocytes # (Auto) 0.6 Thou/mm3 (0.0-0.8); Monocytes % (Auto) 11 % (0-12); Neutrophils # (Auto) 2.8 Thou/mm3 (1.8-7.7); Neutrophils % (Auto) 55 % (37-80); Nucleated Red Blood Cell % 0 /100 WBC (0); Platelet Count 264 Thou/mm3 (140-440); RDW Standard Deviation 39.6 fL (36.4-46.3); Red Blood Count 3.21 Miln/mm3 (4.00-5.20)
[2024-03-31 06:29] LABS: Anion Gap 6 (7-16); BUN/Creatinine Ratio 5 Ratio (12-20); Blood Urea Nitrogen 5 mg/dL (9-23); Calcium 9.5 mg/dL (8.3-10.6); Chloride 98 mMol/L (98-107); Glucose 100 mg/dL (74-106); Magnesium 1.6 mg/dL (1.6-2.6); Osmolality,Calculated 250 (275-295); Phosphorous 3.7 mg/dL (2.4-5.1); Potassium 3.9 mMol/L (3.4-5.1); Sodium 126 mMol/L (136-145); eGFR > 60 See Note
[2024-03-31 08:00] VITALS: BP 114/62; PULSE 82; RESP 18; TEMP 36.6; O2SAT 98
[2024-03-31 08:20] LABS: Sodium 127 mMol/L (136-145)
[2024-03-31 09:25] VITALS: BP 114/62; PULSE 82
[2024-03-31] MEDS: Lisinopril 20 MG TABLET PO (09:25)
[2024-03-31] MEDS: ENOXAPARIN SOD INJ 40 MG/0.4 ML SYRINGE SC (09:25)
[2024-03-31] MEDS: SODIUM CHLORIDE 1 GM TABLET PO (09:26)
[2024-03-31] MEDS: FERROUS SULF 325 MG TABLET PO (09:26)
[2024-03-31] MEDS: PANTOPRAZOLE INJ 40 MG VIAL IV (09:27)
[2024-03-31] MEDS: MELOXICAM 7.5 MG TABLET PO (10:22)
--- NOTE | 2024-03-31 10:58 | ESDS_ITS ---
Planned Discharge Date 03/31/24 DS: Providers Provider Date of admission: 03/28/24 15:16 Primary care physician: Physician No Primary/Family Admitting Provider: Gabe Huffman DO Attending Provider on Admission: Gabe Huffman DO Consults: 03/28/24 15:27 Consult to Nephrology Stat Comment: Consulting Provider: Lonnie Benson 03/28/24 16:26 Consult to Gastroenterology Routine Comment: Consulting Provider: Maria Esther Hernandes 03/28/24 19:58 [facility] Referral - Knowledge Deficit Routine Comment: Positive screening for knowledge deficit needs. [facility] Referral - Nutrition Routine Comment: Positive screening for nutrition needs. [facility] Referral - Transportation Routine Comment: Positive screening for transportation needs. [facility] Referral - Utilities Routine Comment: Positive screening for utility assistance needs. Attending Provider on DC: Gabe Huffman DO Discharging Provider: Charles Naranjo DO DS: Diagnosis Problem List Completed Was Problem List Reviewed/Reconciled?: Yes Hospital Course Hospital Course Hospital course: Discharge summary: Patient is a 68 year old female with PMH of HTN, HLD, DM2 who presents to the ER for dizziness, nausea, vomiting and admitted for symptomatic hypo-osmolar hyponatremia. Sodium was at 122. Of note patient was recently discharged 3 weeks ago from [facility] for acute gastroenteritis with a normal sodium at that time. Patient endorses poor appetite and epigastric pain. Suspect hyponatremia due to to poor oral intake from nausea, vomiting, tea and toast diet. S/p 3% hypertonic saline, repeat serial sodiums every 4 hours. Discharge sodium of 127, patient feeling well and without symptoms at that time. Nephrology followed. Patient was placed on salt tablets twice daily for 2 weeks and will follow-up with nephrology outpatient with repeat renal panel. For her nausea, vomiting, and epigastric pain GI was consulted and patient had endoscopy which showed gastritis and esophagitis. Biopsies taken. Patient was continued on her home pantoprazole. At time of discharge patient was tolerating p.o. well and symptoms have improved. Discharge instructions: We have prescribed you salt tablets please take these twice a day for 2 weeks. Follow-up with your primary care in the next week and have a renal panel (complete metabolic panel) done outpatient Follow-up with Dr. Lazcano (director counseling bureau) in 1 to 2 weeks once you have your blood work done. Please call their clinic at to schedule an appointment. Discharge diagnosis: #Dizziness #Nausea #Intractable vomiting #Abdominal pain #Acute hypovolemic symptomatic hyponatremia #Diabetes Mellitus Non Insulin Dependent # Essential hypertension # Hyperlipidemia #Hypothyroidism #GERD #Anemia Patient was evaluated and seen by my attending Dr. Huffman, Charles Naranjo, DO, PGY1 Time Spent with Patient Time attestation: Total time spent providing and/or coordinating discharge services: Exam Vital Signs Temp Pulse Resp BP Pulse Ox O2 Del Method O2 Flow Rate 97.8 F 82 18 114/62 98 Room Air 3 03/31/24 08:00 03/31/24 09:25 03/31/24 08:00 03/31/24 09:25 03/31/24 08:00 03/31/24 08:00 03/29/24 19:55 Narrative Exam Constitutional: Well nourished and in no acute distress, resting in bed comfortably Head: Normocephalic Eyes: PERRL , no conjunctival injection , symmetrical lids. ENMT: Moist Mucous Membranes CVS: Regular rate and rhythm. RESP:no increased work of breathing, equal chest rise and fall, resting comfortably on room air GI: Soft, nondistended, nontender throughout Skin: Warm to touch, Dry. No rashes or lesions. Neuro: Alert and oriented x 3, GCS 15, without difficulty, moves all limbs spontaneously Psych: Appropriate mood and affect. Discharge Plan Plan Patient Disposition: HOME (Self Care) Prescriptions/Referrals Prescriptions/Med Rec: New sodium chloride 1,000 mg Tablet,Soluble 1,000 mg PO BID Qty: 60 0RF No Action metformin 500 mg Tablet 500 mg PO QDAY meloxicam 7.5 mg Tablet 7.5 mg PO QDAY levothyroxine 50 mcg Tablet 50 mcg PO QDAY atorvastatin 10 mg Tablet 10 mg PO QDAY lisinopril 40 mg Tablet 40 mg PO QDAY ferrous sulfate 325 mg (65 mg iron) Tablet 325 mg PO BID pantoprazole [Protonix] 40 mg tablet,delayed release (DR/EC) 40 mg PO QDAY Qty: 14 0RF Referrals: No Primary/Family,Physician [Primary Care Provider] - Patient/Caregiver Discharge Instructions Other Discharge Activity Instructions:: We have prescribed you salt tablets please take these twice a day for 2 weeks. Follow-up with your primary care in the next week and have a renal panel (complete metabolic panel) done outpatient Please take half tablets of lisinopril 40mg until you see Dr. Benson in 1-2 weeks. Follow-up with Dr. Lazcano (director counseling bureau) in 1 to 2 weeks once you have your blood work done. Please call their clinic at to schedule an appointment. Education Materials: Hyponatremia Dc Print Language: Yoruba Stand Alone Forms: Kay Award Info., Patient Portal Info Letter Discharge Order Discharge Orders: Discharge (Routine); Ordered 03/31/24 Ordered By: Gabe Huffman Quality Discharge Quality Measures VTE prophylaxis Attestestation Attestation I have discussed and was present for the essential components of the discharge history, physical examination, diagnosis, and discharge treatment plan with the resident. I agree with the patient's discharge care as documented by the resident and amended herein by me. Antwan Huffman, DO. The patient understood all discharge instructions, all questions were answered satisfactorily. The patient was instructed to return to the Emergency Department is symptoms worsened or persisted. Per nephrology, patient cleared for discharge, will discharge on sodium chloride tablets, 1 g twice daily. Patient will need to follow-up closely with her primary care provider and with director counseling bureau, Dr. Anguiano within 1 to 2 weeks of discharge. Patient was stable, afebrile, tolerating p.o. intake and ambulatory at time of discharge. Although this document has been carefully reviewed, there may still be some phonetic and other typographical errors. These errors are purely grammatical due to imperfections in the software program and should not be construed in any way to compromise the substance of the patient's medical care during this visit.
--- NOTE | 2024-03-31 11:06 | PC.NURSE ---
Patient has discharge order. MD notified as patient still on full liquid diet. Regular diet ordered for lunch, if able to tolerate will discharge patient. MD aware.
[2024-03-31 12:00] VITALS: BP 116/78; PULSE 80; PULSE 81; RESP 17; TEMP 36.1; O2SAT 95
[2024-03-31 12:27] LABS: Sodium 127 mMol/L (136-145)
--- NOTE | 2024-03-31 13:49 | PD.RESPRO ---
Documentation for date of: 03/31/24 Subjective Subjective Interval history: The patient is a 68-year-old female with significant past medical history Of hypertension, hyperlipidemia, type 2 diabetes mellitus presented to ED with chief complaint of dizziness, nausea and vomiting. Patient was recently discharged from hospital on 03/06/2024 for intractable nausea and vomiting secondary to gastroenteritis. During discharge her sodium level was 127. She continued to have intractable nausea and vomiting, associated with diarrhea for 2 days and recently experiencing abdominal pain and poor oral intake. She denies any fever or chills, chest pain or SOB, any leg swelling. During our evaluation, the patient's sodium level had improved from 121-129 in 18 hours, after being started on 3% hypertonic normal saline as the patient was decreased mental status, and was started on D5W by primary team, after being aggressively corrected with sodium level. Her vitals were stable, other labs were significant for hemoglobin 10.4, BUN 9, creatinine 0.9, blood sugar 120, magnesium 1.3. 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 03/30/2024: The patient was interviewed and examined at the bedside this morning. She is [place] speaker, and reported that she does not she has any headache, lightheadedness, chest pain, any abdominal pain, or any leg swelling. Her vitals were stable with soft blood pressure, CBC fairly at baseline, chemistry panel revealed sodium 130 this morning, that trended down to 127 around noon. We will start the patient on normal saline 70 cc/h as there is possibility of appropriate antidiuretic hormone secretion secondary to vomiting. We will continue to treat underlying intractable nausea and vomiting-which seems to be better today. 03/31/2024: The patient was interviewed and examined at the bedside this morning. She reported doing well. She denied any chest pain, SOB, and reported that her nausea and vomiting has been improved. Her vitals were fairly stable, sodium level trended down to 127, and was started on 1 g sodium tablet twice daily. The patient is okay to be discharged home with 1 g twice daily sodium tablets, with further treatment for intractable nausea and vomiting as recommended by GI Dr. Hernandes. Recommended to follow-up with junior account manager Dr. Benson within 1 to 2-week of discharge with renal panel. Exam Vital Signs Temp Pulse Resp BP Pulse Ox O2 Del Method O2 Flow Rate 96.9 F 80 17 116/78 95 Room Air 3 03/31/24 12:00 03/31/24 12:00 03/31/24 12:00 03/31/24 12:00 03/31/24 12:03/31/24 12:03/29/24 19:55 Narrative Exam General: No acute distress, Alert and Oriented x 3 HEENT: Moist mucous membranes, oropharynx clear Neck: Supple, No masses, No JVD CVS: S1S2 Regular rate and rhythm, No murmurs, rubs or gallops Lungs: Clear to auscultation with no accessory use, no wheeze no rhonchi Abd: Soft, NT/ND, +BS, no organomegaly Ext: No edema, warm and well perfused Skin: No rash Psych: Appropriate mood and affect Objective Labs 03/31/24 04:52 03/31/24 11:50 Labs: Laboratory Results - last 24 hr 03/30/24 03/30/24 03/31/24 16:24 21:23 00:34 WBC RBC Hgb Hct MCV MCH MCHC RDW Std Deviation Plt Count Neut % (Auto) Lymph % (Auto) [place] % (Auto) Eos % (Auto) Baso % (Auto) Neut # (Auto) Lymph # (Auto) [place] # (Auto) Eos # (Auto) Baso # (Auto) Immature Gran # (Auto) Absolute Nucleated RBC Immature Gran % Nucleated RBC % Sodium 122 L 126 L 127 L Potassium Chloride Carbon Dioxide Anion Gap BUN Creatinine Estim Creat Clear Calc eGFR BUN/Creatinine Ratio Glucose Calculated Osmolality Calcium Phosphorus Magnesium 03/31/24 03/31/24 03/31/24 04:52 07:40 11:50 WBC 5.0 RBC 3.21 L Hgb 9.5 L Hct 27.8 L MCV 87 MCH 29.6 MCHC 34.2 RDW Std Deviation 39.6 Plt Count 264 D Neut % (Auto) 55 Lymph % (Auto) 30 [place] % (Auto) 11 Eos % (Auto) 3 Baso % (Auto) 1 Neut # (Auto) 2.8 Lymph # (Auto) 1.5 [place] # (Auto) 0.6 Eos # (Auto) 0.2 Baso # (Auto) 0.0 Immature Gran # (Auto) 0.03 H Absolute Nucleated RBC 0.00 Immature Gran % 1 H Nucleated RBC % 0 Sodium 126 L 127 L 127 L Potassium 3.9 D Chloride 98 Carbon Dioxide 22.0 Anion Gap 6 L BUN 5 L Creatinine 1.0 Estim Creat Clear Calc 45.0 L eGFR > 60 BUN/Creatinine Ratio 5 L Glucose 100 Calculated Osmolality 250 L Calcium 9.5 Phosphorus 3.7 Magnesium 1.6 Quality Measures Quality Measures VTE prophylaxis Advance care planning discussed with:: patient and child Assessment & Plan Assessment Current Active Medications: Generic Name Dose Route Start Last Admin Trade Name Freq PRN Reason Stop Dose Admin Acetaminophen 650 mg 03/28/24 15:15 Acetaminophen 325 Mg Tablet PO 04/27/24 15:14 Q6H PRN Fever >101.5 Atorvastatin Calcium 10 mg 03/29/24 21:00 03/30/24 20:27 Atorvastatin Calcium 10 Mg Tablet PO 04/28/24 20:59 10 mg HS SHEN Administration Dextrose 25 ml 03/28/24 15:49 Dextrose 50%-Water Inj 50 Ml Syringe IV 04/27/24 15:48 Q15MIN PRN BG 50-70 responsive npo pt Dextrose 50 ml 03/28/24 15:49 Dextrose 50%-Water Inj 50 Ml Syringe IV 04/27/24 15:48 Q15MIN PRN BG <50 OR BG <70 & pt unresponsive Enoxaparin Sodium 40 mg 03/29/24 09:00 03/31/24 09:25 Enoxaparin Sod Inj 40 Mg/0.4 Ml Syringe SC 04/12/24 08:59 40 mg QDAY SHEN Administration Ferrous Sulfate 325 mg 03/29/24 09:00 03/31/24 09:26 Ferrous Sulf 325 Mg Tablet PO 04/28/24 08:59 325 mg QDAY SHEN Administration Glucagon 1 mg 03/28/24 15:49 Glucagon Inj 1 Mg Vial IM Q15MIN PRN BG <70, and no IV access Dextrose 1,000 mls @ 100 mls/hr 03/29/24 05:45 03/29/24 06:02 D5w IV 04/28/24 05:44 100 mls/hr .Q10H SHEN Administration Promethazine HCl 12.5 mg/ 50.5 mls @ 2.5 mls/min 03/30/24 00:00 03/31/24 13:09 Sodium Chloride IV 04/29/24 00:00 Not Given Q6HR SHEN Insulin Human Lispro 0 unit 03/29/24 09:00 03/31/24 12:18 Insulin Lispro (Admelog) 1 Unit/0.01 Ml Unit SC 04/28/24 08:59 Not Given AC SHEN Protocol Levothyroxine Sodium 50 mcg 03/29/24 06:00 03/31/24 05:10 Levothyroxine Sodium 25 Mcg Tablet PO 04/28/24 05:59 50 mcg ACBR SHEN Administration Lisinopril 20 mg 03/31/24 09:00 03/31/24 09:25 Lisinopril 20 Mg Tablet PO 04/30/24 08:59 20 mg QDAY SHEN Administration Metoclopramide HCl 5 mg 03/30/24 14:00 03/31/24 13:46 Metoclopramide Inj 5 Mg/Ml Vial 2 Ml IVP 04/29/24 13:59 Not Given Q8HR SHEN Protocol Pantoprazole Sodium 40 mg 03/29/24 09:00 03/31/24 09:27 Pantoprazole Inj 40 Mg Vial IV 04/28/24 08:59 40 mg QDAY SHEN Administration Sodium Chloride 1 gm 03/30/24 21:00 03/31/24 09:26 Sodium Chloride 1 Gm Tablet PO 04/29/24 20:59 1 gm BID SHEN Administration Plan The patient is a 68-year-old female with significant past medical history Of hypertension, hyperlipidemia, type 2 diabetes mellitus presented to ED with chief complaint of dizziness, nausea and vomiting. Patient was recently discharged from hospital on 03/06/2024 for intractable nausea and vomiting secondary to gastroenteritis. Nephrology consultation was done for further management of moderate symptomatic hyponatremia. #Moderate symptomatic hypovolemic hypoosmolar hyponatremia / #Intractable nausea and vomiting Further complicated by diarrhea and poor oral intake Patient was started on 3% hypertonic saline, and during our evaluation the patient's sodium level was 129 and she was started on D5W. 03/30/2024: Sodium level 130 this morning that trended down to 127. 03/31/2024: Sodium level 127 -Sodium level trended down to 127, and was started on 1 g sodium tablet twice daily. The patient is okay to be discharged home with 1 g twice daily sodium tablets, with further treatment for intractable nausea and vomiting as recommended by GI Dr. Hernandes. Recommended to follow-up with junior account manager Dr. Benson within 1 to 2-week of discharge with renal panel. #Hypomagnesemia, resolved Secondary to nutritional deficiency secondary to poor oral intake -Repleted with 4 g IV magnesium sulfate -Monitor daily a.m. magnesium level #Essential hypertension -Decreased lisinopril dose to 20 Mg daily #Abdominal pain #Diabetes Mellitus Non Insulin Dependent # Hyperlipidemia #Hypothyroidism #GERD #Anemia -Management deferred to primary hospitalist team Thank you for your opportunity to participate nephrology team in this patient care. The patient's management plan was discussed with my attending physician MD Rancho Ham MD, PGY2 Attending Provider Attestation/Addendum Patient seen and examined with resident physician Dr. Estes. Note reviewed, agree with findings and recommendations. Sodium seems to be much better. She is going to be discharged on salt tablets for 1 week and follow-up with me in 1 to 2 weeks.
--- NOTE | 2024-03-31 14:53 | PD.IMPROG ---
Documentation for date of: 03/31/24 Subjective Subjective Interval history: Late entry for the note Case discussed with the internal medicine team Okay to discharge the patient home Exam Vital Signs Temp Pulse Resp BP Pulse Ox O2 Del Method O2 Flow Rate 96.9 F 80 17 116/78 95 Room Air 3 03/31/24 12:00 03/31/24 12:00 03/31/24 12:00 03/31/24 12:00 03/31/24 12:00 03/31/24 12:00 03/29/24 19:55 Objective Labs 03/31/24 04:52 03/31/24 11:50 Labs: Laboratory Results - last 24 hr 03/30/24 03/30/24 03/31/24 16:24 21:23 00:34 WBC RBC Hgb Hct MCV MCH MCHC RDW Std Deviation Plt Count Neut % (Auto) Lymph % (Auto) [place] % (Auto) Eos % (Auto) Baso % (Auto) Neut # (Auto) Lymph # (Auto) [place] # (Auto) Eos # (Auto) Baso # (Auto) Immature Gran # (Auto) Absolute Nucleated RBC Immature Gran % Nucleated RBC % Sodium 122 L 126 L 127 L Potassium Chloride Carbon Dioxide Anion Gap BUN Creatinine Estim Creat Clear Calc eGFR BUN/Creatinine Ratio Glucose Calculated Osmolality Calcium Phosphorus Magnesium 03/31/24 03/31/24 03/31/24 04:52 07:40 11:50 WBC 5.0 RBC 3.21 L Hgb 9.5 L Hct 27.8 L MCV 87 MCH 29.6 MCHC 34.2 RDW Std Deviation 39.6 Plt Count 264 D Neut % (Auto) 55 Lymph % (Auto) 30 [place] % (Auto) 11 Eos % (Auto) 3 Baso % (Auto) 1 Neut # (Auto) 2.8 Lymph # (Auto) 1.5 [place] # (Auto) 0.6 Eos # (Auto) 0.2 Baso # (Auto) 0.0 Immature Gran # (Auto) 0.03 H Absolute Nucleated RBC 0.00 Immature Gran % 1 H Nucleated RBC % 0 Sodium 126 L 127 L 127 L Potassium 3.9 D Chloride 98 Carbon Dioxide 22.0 Anion Gap 6 L BUN 5 L Creatinine 1.0 Estim Creat Clear Calc 45.0 L eGFR > 60 BUN/Creatinine Ratio 5 L Glucose 100 Calculated Osmolality 250 L Calcium 9.5 Phosphorus 3.7 Magnesium 1.6 Impressions Impression: # Gastritis # Esophagitis okay to discharge patient home to be followed by The PCP Assessment & Plan A&P Narrative # Intractable nausea vomiting etiology uncertain but could be due to underlying gastric due to disorder due to diabetes mellitus Possible gastric outlet obstruction peptic ulcer disease # Hyponatremia # Diabetes mellitus type 2 # Essential hypertension # Hyperlipidemia Plan Fiberoptic esophagogastroduodenoscopy with possible biopsy possible therapeutic intervention under intravenous moderate sedation Informed consent obtained Procedure scheduled Further evaluation after above Thank you very much for the opportunity to participate in the care of this patient Time Spent With Patient Time: Total time spent is greater than 50% in coordination of care (as documented) at patient's floor/unit and/or counseling patient:
--- NOTE | 2024-03-31 16:19 | PC.SS ---
SS went over medicare information with Jamila, nurse translated; papework provided to pt in [place] language
== END 2024-03-31 14:35 | disposition home or self-care (01) | DRG 392 ==
LOC: SERX 15:46 → SERHOLD 16:06 → S3SX 19:38
PROVIDERS: Nurse Practitioner Family; Specialist; Student in an Organized Health Care Education/Training Program; Admitting Provider Student in an Organized Health Care Education/Training Program; Emergency Provider Emergency Medicine; Visit Provider Student in an Organized Health Care Education/Training Program
PROC: (CPT 43239; principal; 2024-03-29 19:30)
DX: K29.70 Gastritis, unspecified, without bleeding (principal); E87.1 Hypo-osmolality and hyponatremia; I47.20 Ventricular tachycardia, unspecified; K21.00 Gastro-esophageal reflux disease with esophagitis, without bleeding; I10 Essential (primary) hypertension; E78.00 Pure hypercholesterolemia, unspecified; E83.42 Hypomagnesemia; E11.9 Type 2 diabetes mellitus without complications; E03.9 Hypothyroidism, unspecified; E63.9 Nutritional deficiency, unspecified; E86.1 Hypovolemia; D64.9 Anemia, unspecified; K76.0 Fatty (change of) liver, not elsewhere classified; Z90.49 Acquired absence of other specified parts of digestive tract; Z79.84 Long term (current) use of oral hypoglycemic drugs; Z79.899 Other long term (current) drug therapy; Z79.4 Long term (current) use of insulin; M54.2 Cervicalgia
CPT/HCPCS: 36415; 71045; 76705; 80048; 80053; 81001; 82436; 83690; 83735; 83880; 84100; 84133; 84295; 84300; 84443; 84484; 85025; 85610; 85730; 87081; 93005; 93225; 96360; 99285; A4649; J1200; J1650; J2250; J2470; J2550; J2765; J3010; J3475; J7030; J7040; J7070; J7131; A9270

== ENCOUNTER → 2024-04-05 | Outpatient (CLI) | payer OTHER, SELFPAY ==
[2024-04-05 14:36] LABS: Anion Gap 10 (7-16); BUN/Creatinine Ratio 6 Ratio (12-20); Blood Urea Nitrogen 6 mg/dL (9-23); Calcium 9.9 mg/dL (8.3-10.6); Carbon Dioxide 22.7 mMol/L (20.0-31.0); Chloride 87 mMol/L (98-107); Glucose 110 mg/dL (74-106); Osmolality,Calculated 240 (275-295); Sodium 120 mMol/L (136-145); eGFR > 60 See Note
== END | disposition home or self-care (01) ==
PROVIDERS: PCP Family Medicine; Referring Provider Family Medicine; Visit Provider Family Medicine
DX: R11.2 Nausea with vomiting, unspecified (principal)
CPT/HCPCS: 36415; 80048

== ENCOUNTER 2024-04-07 09:34 | Inpatient (IN) | payer OTHER, MEDICARE, SELFPAY ==
[2024-04-07] VITALS (7 sets, daily range): BP systolic 113–137; BP diastolic 57–80; PULSE 76–105; RESP 16–100; TEMP 36.5–36.9; O2SAT 96–100; BMI 31.8
--- NOTE | 2024-04-07 10:13 | PD.EDRME ---
Rapid Medical Screening Exam RME Arrival date/time: 04/07/24 09:34 This is a 68-year-old female who presents to the emergency department with complaints of chronic nausea for 4 days and a headache. She was recently discharged for hyponatremia. I have greeted and performed a focused initial assessment of this patient. Initial appropriate labs ordered at this time. A comprehensive ED assessment and evaluation of the patient and analysis of all test and completion of medical decision making process will be conducted by additional ED provider. Chief Complaint: Nausea/Vomiting/Diarrhea Time Seen by Provider: 04/07/24 09:49 Vital signs: Vital Signs Temperature 98.2 F 04/07/24 09:57 Pulse Rate 105 H 04/07/24 09:57 Respiratory Rate 16 04/07/24 09:57 Blood Pressure 113/63 04/07/24 09:57 Pulse Oximetry (%) 98 04/07/24 09:57 Oxygen Delivery Method Room Air 04/07/24 09:57
[2024-04-07 10:33] LABS: Basophils % (Auto) 0 % (0-2.5); Eosinophils # (Auto) 0.1 Thou/mm3 (0.0-0.5); Eosinophils % (Auto) 2 % (0-10); Hematocrit 31.3 % (36.0-46.0); Hemoglobin 10.8 g/dL (12.0-16.0); Immature Granulocytes % (Auto) 1 % (0-0); Immature Granulocytes Auto 0.03 Thou/mm3 (0.00-0.00); Lymphocytes # (Auto) 1.6 Thou/mm3 (1.0-4.8); Lymphocytes % (Auto) 27 % (10-50); Mean Corpuscular HGB Conc 34.5 g/dl (31.0-37.0); Mean Corpuscular Volume 84 fL (80-100); Monocytes # (Auto) 0.6 Thou/mm3 (0.0-0.8); Monocytes % (Auto) 11 % (0-12); Neutrophils # (Auto) 3.5 Thou/mm3 (1.8-7.7); Neutrophils % (Auto) 60 % (37-80); Nucleated Red Blood Cell % 0 /100 WBC (0); Platelet Count 340 Thou/mm3 (140-440); RDW Standard Deviation 37.7 fL (36.4-46.3); Red Blood Count 3.72 Miln/mm3 (4.00-5.20); White Blood Count 5.9 Thou/mm3 (3.6-11.0)
[2024-04-07] MEDS: METOCLOPRAMIDE 5 MG TABLET 10 MG PO (10:45)
[2024-04-07 10:49] LABS: Alanine Aminotransferase 35 U/L (10-49); Albumin, Serum 4.4 gm/dL (3.4-4.8); Albumin/Globulin Ratio 1.9 (1.2-2.2); Alkaline Phosphatase 93 U/L (46-116); Anion Gap 11 (7-16); Aspartate Amino Transferase 29 U/L (0-34); BUN/Creatinine Ratio 5 Ratio (12-20); Bilirubin,Total 0.4 mg/dL (0.3-1.2); Blood Urea Nitrogen 6 mg/dL (9-23); Calcium 9.8 mg/dL (8.3-10.6); Calcium (Corrected) 9.8 mg/dL (8.5-10.1); Carbon Dioxide 22.2 mMol/L (20.0-31.0); Chloride 86 mMol/L (98-107); Creatinine (Component) 1.1 mg/dL (0.6-1.3); Estimated Creatinine Clearance 42.2 mL/min (>60); Globulin 2.3 gm/dL (2.3-3.5); Glucose 135 mg/dL (74-106); Lipase 42 U/L (12-53); Osmolality,Calculated 239 (275-295); Potassium 4.6 mMol/L (3.4-5.1); Total Protein 6.7 gm/dL (5.7-8.2); eGFR 55 See Note
[2024-04-07 10:57] LABS: Sodium 119 mMol/L (136-145)
--- NOTE | 2024-04-07 13:00 | XR_ITS ---
Examination: CT abdomen with intravenous contrast CT pelvis with intravenous contrast 2-D coronal reconstructions 2-D sagittal reconstructions Date and time of exam:April 07, 2024 1435 hrs. Comparison March 04, 2024 Indications: Generalized abdominal pain and vomiting beginning one week ago. CTDI: vol (mGy) 7.64 DLP: (mGycm) 394 Technique: Multiple axial sections of the abdomen and pelvis have been obtained. 64 slice high-resolution scanner used. 3 mm axial sections have been obtained, post intravenous injection 60 cc [id number] 2-D sagittal, coronal reconstructions obtained. Low dose protocols were performed. One or more of the following dose reduction techniques were used; automated exposure control, adjustment of the mA and/or KV according to patient size, use of iterative reconstruction technique. Findings: Diffuse fatty infiltration throughout the liver No gallstones No pancreatic mass or peripancreatic edema Normal adrenal glands Moderate bilateral renal parenchymal scar formation No renal or ureteral calculi, no hydronephrosis Aorta normal size No pericecal inflammatory change No bowel obstruction Colonic diverticulosis, no diverticulitis Urinary bladder intact Absent uterus No pelvic mass Prominent osteopenia with mild chronic osteoporotic compression L2 Impression: Fatty liver Negative for cholelithiasis, negative for cholecystitis No renal or ureteral calculi, no hydronephrosis No CT findings of appendicitis bowel obstruction or diverticulitis
--- NOTE | 2024-04-07 13:01 | PD.EDNV ---
Nausea/Vomit./Diarrhea-RME/HPI General Chief complaint: Nausea/Vomiting/Diarrhea Stated complaint: NAUSEA FOR THE PAST WEEK Time Seen by Provider: 04/07/24 09:49 Arrival date/time: 04/07/24 09:34 RME / HPI RME / HPI Narrative: 68-year-old female patient with significant history of diabetes mellitus hypertension, came in for evaluation regarding nausea and vomiting. Patient's been having nausea and vomiting since 5 days ago, cannot take anything down due to vomiting, however patient told me that he is still drinking water. Patient was admitted here and discharge 7 days ago for symptomatic hyperosmolar hyponatremia. Was sent home on sodium salt however patient so and follow-up with her PCP last Tuesday, Dr Li, and was advised to stop taking salt. Last intake was Tuesday. Patient denies any chest pain. Denies any cough denies any headache. Patient also complained of epigastric pain. Describes dull ache, severity mild. Related Data Home Medications ?Medication ?Instructions ?Recorded ?Confirmed atorvastatin 10 mg tablet 10 mg PO QDAY 03/05/24 03/28/24 ferrous sulfate 325 mg (65 mg 325 mg PO BID 03/05/24 03/28/24 iron) tablet lisinopril 40 mg tablet 40 mg PO QDAY 03/05/24 03/28/24 levothyroxine 50 mcg tablet 50 mcg PO QDAY 03/12/24 03/28/24 meloxicam 7.5 mg tablet 7.5 mg PO QDAY 03/12/24 03/28/24 metformin 500 mg tablet 500 mg PO QDAY 03/12/24 03/28/24 Previous Rx's ?Medication ?Instructions ?Recorded pantoprazole 40 mg tablet,delayed 40 mg PO QDAY #14 tabs 03/06/24 release (Protonix) sodium chloride 1,000 mg soluble 1,000 mg PO BID #60 tabs 03/31/24 tablet Allergies Allergy/AdvReac Type Severity Reaction Status Date / Time No Known Allergies Allergy Verified 04/07/24 09:35 Review of Systems Review of Systems Narrative Review of Systems: Review of system reviewed and within normal limits except mentioned in HPI ED Exam Narrative Physical exam: VITAL SIGNS: Reviewed. GENERAL APPEARANCE: Alert and interactive, follows commands, no acute distress, HEAD AND FACE: Non-traumatic. ENT: PERRL, pink conjunctivitis, eyelid no trauma, Mucous membrane moist. NECK: Supple, nontender, no nuchal rigidity. CHEST: No tenderness, no crepitus, no paradoxical movement, no retractions. LUNGS: Clear, well ventilated, symmetric, no rales, no wheezing, no ronchi, no stridor, good breath sounds bilaterally. HEART: Regular rate, regular rhythm, no murmur, no gallops. ABDOMEN: Soft, positive bowel sounds, nondistended, no guarding, epigastric tenderness, no rebound, no masses, RECTAL: Deferred. GENITAL: Deferred. NEUROLOGICAL: Gross motor function intact sensory function intact, Appropriate for age. MUSCULOSKELETAL: low back nontender, full range of motion. EXTREMITIES: Nontender, full range of motion. SKIN: Color pink, dry, no rash, no lacerations, no abrasions, no contusions. LYMPHATICS: Deferred. Course Quality Measures none Orders Category Date Time Status COVID-19 Screening Questionnaire NOW Care 04/07/24 16:[address] Screening NOW Care 04/07/24 13:00 Active Decision to Admit X1 Care 04/07/24 16:33 Completed EKG (ED ONLY) *Do not use* NOW Care 04/07/24 12:[address] abdomen pelvis w con Stat Exams 04/07/24 13:[address] head/brain wo con Stat Exams 04/07/24 13:35 Completed EKG (ED Only) Stat Exams 04/07/24 12:48 Ordered CBC Stat Lab 04/07/24 10:18 Completed CMP [Comprehensive Metabolic Panel] Stat Lab 04/07/24 10:18 Completed Lipase Stat Lab 04/07/24 10:18 Completed Magnesium Stat Lab 04/07/24 10:18 Completed Famotidine Inj [Pepcid Inj] Med 04/07/24 13:00 Discontinued 20 mg IVP X1 ONE Magnesium Sulfate 2 GM Ivpb [Magnesium Sulfate Ivpb] Med 04/07/24 13:14 Discontinued 2 gm in 50 ml IV X1 Metoclopramide Inj [Reglan Inj] Med 04/07/24 12:49 Discontinued 10 mg IVP X1 ONE Metoclopramide [Reglan] Med 04/07/24 10:12 Discontinued 10 mg PO X1 ONE Sodium Chloride 0.9% 1000 ml [Ns] 1,000 ml Med 04/07/24 12:49 Discontinued IV 999 mls/hr Vital Signs Vital signs: Vital Signs Temperature 98.2 F 04/07/24 09:57 Pulse Rate 105 H 04/07/24 09:57 Respiratory Rate 16 04/07/24 09:57 Blood Pressure 113/63 04/07/24 09:57 Pulse Oximetry (%) 98 04/07/24 09:57 Oxygen Delivery Method Room Air 04/07/24 09:57 Nausea/Vomiting/Diarrhea MDM Narrative MDM Narrative:: 68-year-old female patient with significant history of diabetes mellitus hypertension, came in for evaluation regarding nausea and vomiting. Patient's been having nausea and vomiting since 5 days ago, cannot take anything down due to vomiting, however patient told me that he is still drinking water. Patient was admitted here and discharge 7 days ago for symptomatic hyperosmolar hyponatremia. Was sent home on sodium salt however patient so and follow-up with her PCP last Tuesday, Dr Li, and was advised to stop taking salt. Last intake was Tuesday. Patient denies any chest pain. Denies any cough denies any headache. Patient also complained of epigastric pain. Describes dull ache, severity mild. Patient sodium today was noted to be 119. Magnesium was also noted to be 1.4 patient chloride 86. Patient received 1 L of IV NS, Pepcid, magnesium sulfate Reglan with significant progress symptoms. Case discussed with hospitalist, who admitted the patient. Patient data External records reviewed:: None Clinical information provided by:: patient Social determinants that could affect healthcare access:: none Patient has the following chronic illnesses:: Hypertension diabetes mellitus How is presenting disease/condition affected by chronic disease/condition?: exacerbated by Evaluation data The following diagnostics were reviewed and interpreted by me:: lab results and radiology exam(s) Lab and/or radiology exams considered but not ordered:: None Interpretation Summary: Laboratory workup was noted to be significant for sodium 119, chloride of 86. The rest of the labs unremarkable. CT scan of the head came back unremarkable CT scan of the abdomen also came back normal. Medications / Prescriptions Medications / Prescriptions considered but not ordered:: None Medication administrations:: Medication Administration History Discontinued Medications Famotidine (Famotidine Inj 10 Mg/Ml Vial 2 Ml) 20 mg IVP X1 ONE Stop: 04/07/24 13:01 Last Admin: 04/07/24 14:17 Dose: 20 mg Documented By: ROZINA Sodium Chloride (Ns) 1,000 mls @ 999 mls/hr IV .Q1H1M ONE Stop: 04/07/24 13:49 Last Infusion: 04/07/24 16:06 Dose: Infused Documented By: Admin: 04/07/24 14:22 Dose: 999 mls/hr Documented By: ROZINA Magnesium Sulfate (Magnesium Sulfate Ivpb) 2 gm in 50 mls @ 25 mls/hr IV X1 ONE Stop: 04/07/24 15:13 Last Admin: 04/07/24 14:58 Dose: 25 mls/hr Documented By: MANUEL Metoclopramide HCl (Metoclopramide 5 Mg Tablet) 10 mg PO X1 ONE Stop: 04/07/24 10:13 Last Admin: 04/07/24 10:45 Dose: 10 mg Documented By: ROZINA Metoclopramide HCl (Metoclopramide Inj 5 Mg/Ml Vial 2 Ml) 10 mg IVP X1 ONE; Protocol Stop: 04/07/24 12:50 Last Admin: 04/07/24 15:50 Dose: Not Given Documented By: ROZINA Non-Admin Reason: Cancelled by Provider IV fluids, Reglan, IV magnesium IV and Pepcid IV Consultations Consultation(s) initiated? (list below): No Diagnosis Nausea Differential Diagnosis: traveler's diarrhea, food poisoning and drug-induced nausea and vomiting Most likely diagnosis given after review of the tests above:: Hyponatremia, nausea vomiting Admission Indicated Admission indicated?: not indicated Admission Request Was there a request for admission?: Yes Admission Attestation Admission request attestation: Discussed case with [Dr. Mccord] from Hospitalist service regarding admission. Discussed patients ED course, exam findings, labs, and radiology results. The Hospitalist [agrees to accept the patient for admission. Disposition Plan Disposition Plan: Admit Discharge Plan Plan Patient Disposition: Admit Acute Care w/in Hospital Prescriptions/Referrals Prescriptions/Med Rec: No Action metformin 500 mg Tablet 500 mg PO QDAY meloxicam 7.5 mg Tablet 7.5 mg PO QDAY levothyroxine 50 mcg Tablet 50 mcg PO QDAY sodium chloride 1,000 mg Tablet,Soluble 1,000 mg PO BID Qty: 60 0RF atorvastatin 10 mg Tablet 10 mg PO QDAY lisinopril 40 mg Tablet 40 mg PO QDAY ferrous sulfate 325 mg (65 mg iron) Tablet 325 mg PO BID pantoprazole [Protonix] 40 mg tablet,delayed release (DR/EC) 40 mg PO QDAY Qty: 14 0RF Referrals: Xena Li MD [Primary Care Provider] - In 1 week Problem List Clinical Impression: Hyponatremia, Nausea & vomiting Patient/Caregiver Discharge Instructions Print Language: Stateless Stand Alone Forms: Kay Award Info., Patient Portal Info Letter
[2024-04-07 13:08] LABS: Magnesium 1.4 mg/dL (1.6-2.6)
--- NOTE | 2024-04-07 13:35 | XR_ITS ---
Examination: CT brain head without contrast. 2-D sagittal coronal reconstructions Date and time of exam:April 07, 2024 1450 hrs. Indications: Onset severe head pain and dizziness today CTDI: vol (mGy):48.6 DLP: (mGycm):940 Technique: Multiple CT axial sections of the brain have been obtained, 5 mm slice thickness. Contrast has not been administered. 2-D sagittal, coronal reconstructions have been obtained Low dose protocols were performed. One or more of the following dose reduction techniques were used; automated exposure control, adjustment of the mA and/or KV according to patient size, use of iterative reconstruction technique. Findings: No significant ventricular enlargement. Intra-axial or extra-axial hemorrhage density is not seen. No mass effect or midline shift Basal cisterns are not remarkable. Fourth ventricle is midline. Cranial vault intact. Impression: Negative for acute hemorrhage, mass effect or midline shift If symptoms persist, consider brain MRI MRA without contrast follow-up
[2024-04-07] MEDS: FAMOTIDINE INJ 10 MG/ML VIAL 2 ML 20 MG IVP (14:17)
[2024-04-07] MEDS: SODIUM CHLORIDE 0.9% 1000 ML 1,000 ML 999 ML IV (14:22)
--- NOTE | 2024-04-07 14:24 | PC.NURSE ---
Patient gone to ct via wheelchair.
[2024-04-07] MEDS: Magnesium Sulfate 2 GM Ivpb 2 GM/50 ML BAG IV (14:58)
--- NOTE | 2024-04-07 18:13 | ESHP_ITS ---
<Statement entered by Anni Garcia MD - 04/14/24 07:43> I reviewed above note and agree with findings and plans. I have also personally examined the patient with medicine team and went over assessment and plan with medical team including athletic training internship and resident physician. Documentation for date of: 04/07/24 HPI History of Present Illness Chief complaint: nausea History of present illness: Nurys Wallace is 68 yr female with PMH of hypertension, hyperlipidemia, iron deficiency, jnv-epsdiij-uenfixsik type 2 diabetes, GERD who is presenting to the ED today due to nausea. Patient was recently discharged on 03/31/2024 due to similar symptoms and labs showing hyponatremia. Patient was discharged with sodium tablets after appropriate correction. She was to follow-up with PCP and repeat labs. However it seems that the sodium tablets were preemptively stopped before getting labs. ED workup showed patient to have reoccurring hyponatremia. She endorses nausea and vomiting with most recent episode last night. States that she has poor oral intake and not able to eat much food. Forces herself to have some sort of nutritional intake. Last thing she had was the oatmeal yesterday before emesis episode. She denies any abdominal pain, diarrhea, constipation, fever, dizziness, hematemesis. Patient is still able to drink some water. In ED, vitals were stable. Labs showed anemia Hb 10.8, sodium 119, potassium 4.6, creatinine 1.1, osmolarity 239, mag 1.4. CT abdomen pelvis negative for gallstones, renal calculi, bowel obstruction. CT head was negative for any hemorrhage, mass effect, midline shift. She received 1 L IV NS, metoclopramide 10 mg x 1, 2 g mag. Patient admitted for management of hypoosmolar hyponatremia. 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 stated benign) Family Hx: Mother and father with history of diabetes and high cholesterol Home Medication:Lisinopril 40 mg Qday, Atorvastatin 10 mg qday, Metformin 500 mg BID Social History: Never smoked, Denied illicit drug use or alcohol Allergies: None Review of Systems Review of Systems Systems Reviewed: All systems reviewed, normal except as documented Exam Vital Signs Temp Pulse Resp BP Pulse Ox O2 Del Method 98.2 F 96 16 120/80 100 Room Air 04/07/24 17:00 04/07/24 17:00 04/07/24 18:07 04/07/24 17:00 04/07/24 17:00 04/07/24 17:00 Narrative Exam General: Elderly lady, obese, no acute distress, cooperative HEENT: NCAT, No JVD noted. Mucosa moist. Pupils are equal and reactive to light bilaterally Cardiovascular: Normal S1 and S2. Regular rate and rhythm. Respiratory: Lungs are clear to auscultation bilaterally. No wheezing or crackles heard. Abdomen: Soft, distended, nontender, hypoactive bowel sounds, no guarding Skin: Warm to touch, dry, no rashes noted Musculoskeletal: No gross injuries. Able to move all 4 extremities. No pitting edema Neuro: Alert and oriented x3. No focal neuro deficits. Psych: Normal affect and mood Results: Labs 04/07/24 10:18 04/07/24 10:18 Labs: Short CBC 04/07/24 Range/Units 10:18 WBC 5.9 (3.6-11.0) Thou/mm3 Hgb 10.8 L (12.0-16.0) g/dL Hct 31.3 L (36.0-46.0) % Plt Count 340 D (140-440) Thou/mm3 BMP 04/07/24 10:18 Sodium 119 L* Potassium 4.6 Chloride 86 L Carbon Dioxide 22.2 BUN 6 L Creatinine 1.1 Glucose 135 H Calcium 9.8 Liver Function 04/07/24 Range/Units 10:18 Total Bilirubin 0.4 (0.3-1.2) mg/dL AST 29 (0-34) U/L ALT 35 (10-49) U/L Alkaline Phosphatase 93 (46-116) U/L Albumin 4.4 (3.4-4.8) gm/dL Quality Measures Quality Measures none Advance care planning discussed with:: patient Medications Home Medications and Allergies Home Medications ?Medication ?Instructions ?Recorded ?Confirmed ?Type atorvastatin 10 mg tablet 10 mg PO QDAY 03/05/2403/28 History ferrous sulfate 325 mg (65 mg 325 mg PO BID 03/05/24 0 03/28/24 History iron) tablet lisinopril 40 mg tablet 40 mg PO QDAY 03/05/2403/28 History levothyroxine 50 mcg tablet 50 mcg PO QDAY 03/12/24 History meloxicam 7.5 mg tablet 7.5 mg PO QDAY 03/12/2403/17 History metformin 500 mg tablet 500 mg PO QDAY 03/12/2403/17 History Allergies Allergy/AdvReac Type Severity Reaction Status Date / Time No Known Allergies Allergy Verified 04/07/24 09:35 Visit Medications Acetaminophen (Acetaminophen 325 Mg Tablet) 650 mg PO Q6H PRN PRN Reason: Fever >100.3 or pain Stop: 05/07/24 18:00 Enoxaparin Sodium (Enoxaparin Sod Inj 40 Mg/0.4 Ml Syringe) 40 mg SC QDAY SHEN Stop: 04/21/24 18:14 Sodium Chloride (Ns) 1,000 mls @ 100 mls/hr IV .Q10H ONE Stop: 04/08/24 04:06 Metoclopramide HCl (Metoclopramide Inj 5 Mg/Ml Vial 2 Ml) 10 mg IVP Q6H PRN; Protocol PRN Reason: NAUSEA OR VOMITING Stop: 05/07/24 18:00 Sennosides (Senna Tablet) 1 tab PO QDAY PRN; Protocol PRN Reason: constipation Stop: 05/07/24 18:00 Discontinued Medications Famotidine (Famotidine Inj 10 Mg/Ml Vial 2 Ml) 20 mg IVP X1 ONE Stop: 04/07/24 13:01 Last Admin: 04/07/24 14:17 Dose: 20 mg Sodium Chloride (Ns) 1,000 mls @ 999 mls/hr IV .Q1H1M ONE Stop: 04/07/24 13:49 Last Infusion: 04/07/24 16:06 Dose: Infused Magnesium Sulfate (Magnesium Sulfate Ivpb) 2 gm in 50 mls @ 25 mls/hr IV X1 ONE Stop: 04/07/24 15:13 Last Infusion: 04/07/24 17:00 Dose: Infused Metoclopramide HCl (Metoclopramide 5 Mg Tablet) 10 mg PO X1 ONE Stop: 04/07/24 10:13 Last Admin: 04/07/24 10:45 Dose: 10 mg Metoclopramide HCl (Metoclopramide Inj 5 Mg/Ml Vial 2 Ml) 10 mg IVP X1 ONE; Protocol Stop: 04/07/24 12:50 Last Admin: 04/07/24 15:50 Dose: Not Given Assessment & Plan Plan Nurys Wallace is 68 yr female with PMH of hypertension, hyperlipidemia, iron deficiency, jtk-hafnkff-qeggmhlln type 2 diabetes, GERD who is presenting to the ED today due to nausea. Patient was recently discharged on 03/31/2024 due to similar symptoms and endings of hyponatremia. Patient was discharged with sodium tablets. However unaware why PCP has discontinued them. Patient admitted for management of hypoosmolar hyponatremia. #Hypoosmolar hyponatremia #Nausea with vomiting #Electrolyte abnormalities Likely due to poor oral intake in setting of her nausea and vomiting. Patient was to continue sodium tablets after previous discharge. She is unaware why her PCP has stopped them. Currently asymptomatic, AOx3. CT abdomen pelvis negative for gallstones, renal calculi, bowel obstruction. CT head was negative for any hemorrhage, mass effect, midline shift. Admission labs sodium 119, osmolarity 239. -Follow-up with stat renal panel -Started patient on normal saline maintenance fluid at 100 cc/h ? [id number] to check sodium ?Goal sodium is 125?126 over next 24 hours -Slow the maintenance rate if sodium over correcting ?Replete other electrolytes as needed -IV Zofran 4 mg as needed -Started clear liquid diet, advance as tolerated #Hx Diabetes Mellitus Non Insulin Dependent On admission initial glucose . Last A1c 6.2 on 03/04/2024. Patient takes metformin 500 mg daily for diabetes at home. -Held home medications -Bedside blood glucose checks ACHS -Insulin lispro sliding scale # Hx Essential hypertension #Hx Hyperlipidemia ?Hold home lisinopril 40 mg daily -resumed atorvastatin 10 mg daily #Hypothyroidism -Resumed home levothyroxine 50 mcg #GERD -Resumed pantoprazole 40 mg daily #Anemia -Resumed home ferrous sulfate 325 mg daily Health Maintenance: Disp: tele, treatment of hyponatremia Diet: NPO DVT: Lovenox 40 daily Code: Full code GI: Pantoprazole 40mg daily The patient's management plan was discussed with my attending physician Dr. Garcia. Kaelyn De La Garza, PGY-1
[2024-04-07] MEDS: SODIUM CHLORIDE 0.9% 1000 ML 1,000 ML 100 ML IV (18:24)
[2024-04-07] MEDS: ENOXAPARIN SOD INJ 40 MG/0.4 ML SYRINGE SC (18:29)
[2024-04-07 18:57] LABS: Anion Gap 10 (7-16); BUN/Creatinine Ratio 6 Ratio (12-20); Blood Urea Nitrogen 5 mg/dL (9-23); Calcium 9.4 mg/dL (8.3-10.6); Calcium (Corrected) 9.4 mg/dL (8.5-10.1); Carbon Dioxide 21.1 mMol/L (20.0-31.0); Chloride 91 mMol/L (98-107); Creatinine (Component) 0.9 mg/dL (0.6-1.3); Estimated Creatinine Clearance 51.6 mL/min (>60); Glucose 105 mg/dL (74-106); Osmolality,Calculated 243 (275-295); Phosphorous 3.1 mg/dL (2.4-5.1); Potassium 4.7 mMol/L (3.4-5.1); Sodium 122 mMol/L (136-145); eGFR > 60 See Note
[2024-04-07 20:37] LABS: Sodium 122 mMol/L (136-145)
[2024-04-08] VITALS (8 sets, daily range): BP systolic 105–126; BP diastolic 59–74; PULSE 71–96; RESP 14–100; TEMP 36.3–36.8; O2SAT 96–99; BMI 31.4
[2024-04-08 00:51] LABS: Sodium 124 mMol/L (136-145)
[2024-04-08 05:56] LABS: Basophils % (Auto) 0 % (0-2.5); Eosinophils # (Auto) 0.1 Thou/mm3 (0.0-0.5); Eosinophils % (Auto) 1 % (0-10); Hematocrit 26.8 % (36.0-46.0); Hemoglobin 9.3 g/dL (12.0-16.0); Immature Granulocytes % (Auto) 0 % (0-0); Immature Granulocytes Auto 0.02 Thou/mm3 (0.00-0.00); Lymphocytes # (Auto) 1.2 Thou/mm3 (1.0-4.8); Lymphocytes % (Auto) 23 % (10-50); Mean Corpuscular HGB Conc 34.7 g/dl (31.0-37.0); Mean Corpuscular Hemoglobin 29.2 pg (25.0-35.0); Mean Corpuscular Volume 84 fL (80-100); Monocytes # (Auto) 0.6 Thou/mm3 (0.0-0.8); Monocytes % (Auto) 11 % (0-12); Neutrophils # (Auto) 3.2 Thou/mm3 (1.8-7.7); Neutrophils % (Auto) 64 % (37-80); Nucleated Red Blood Cell % 0 /100 WBC (0); Platelet Count 305 Thou/mm3 (140-440); RDW Standard Deviation 38.5 fL (36.4-46.3); Red Blood Count 3.18 Miln/mm3 (4.00-5.20); White Blood Count 5.1 Thou/mm3 (3.6-11.0)
[2024-04-08 06:26] LABS: Alanine Aminotransferase 29 U/L (10-49); Albumin, Serum 3.7 gm/dL (3.4-4.8); Albumin/Globulin Ratio 1.9 (1.2-2.2); Alkaline Phosphatase 75 U/L (46-116); Anion Gap 9 (7-16); Aspartate Amino Transferase 31 U/L (0-34); BUN/Creatinine Ratio 6 Ratio (12-20); Bilirubin,Total 0.3 mg/dL (0.3-1.2); Blood Urea Nitrogen < 5 mg/dL (9-23); Calcium 9.1 mg/dL (8.3-10.6); Calcium (Corrected) 9.3 mg/dL (8.5-10.1); Carbon Dioxide 22.4 mMol/L (20.0-31.0); Chloride 96 mMol/L (98-107); Creatinine (Component) 0.9 mg/dL (0.6-1.3); Estimated Creatinine Clearance 51.2 mL/min (>60); Globulin 1.9 gm/dL (2.3-3.5); Glucose 91 mg/dL (74-106); Osmolality,Calculated 252 (275-295); Phosphorous 3.7 mg/dL (2.4-5.1); Potassium 4.7 mMol/L (3.4-5.1); Sodium 127 mMol/L (136-145); Total Protein 5.6 gm/dL (5.7-8.2); eGFR > 60 See Note
[2024-04-08] MEDS: FERROUS SULF 325 MG TABLET PO (08:39)
[2024-04-08] MEDS: LEVOTHYROXINE SODIUM 25 MCG TABLET 50 MCG PO (08:39)
[2024-04-08] MEDS: SODIUM CHLORIDE 1 GM TABLET PO (08:39)
[2024-04-08] MEDS: ENOXAPARIN SOD INJ 40 MG/0.4 ML SYRINGE SC (08:39)
[2024-04-08] MEDS: ATORVASTATIN CALCIUM 10 MG TABLET PO (08:40)
[2024-04-08] MEDS: PANTOPRAZOLE 40 MG TABLET PO (08:40)
[2024-04-08 08:41] LABS: Sodium 126 mMol/L (136-145)
[2024-04-08] MEDS: ERYTHROMYCIN E-SUCC SUSP 200 MG/5 ML PO ×3 (10:00→22:10)
--- NOTE | 2024-04-08 10:40 | PC.SS ---
This is 68-year-old, , female who presented to the ED due to suffering from nausea and vomiting. Patient appeared alert and oriented to self, place and situation. Patient was pleasant, her mood and behavior were ordinary. Patient's thought process was logical and linear. Patient reported that she resides at home with her . Patient is independent with all ADLs, no DME use. Patient assigned her , Guillermo as her emergency contact. Patient's PCP is Dr. Li. When medically clear, patient will return home, no transportation needed. Discharge plan: return home, no transportation is needed.
[2024-04-08 11:17] LABS: Sodium 127 mMol/L (136-145)
--- NOTE | 2024-04-08 12:40 | ESPR_ITS ---
<Statement entered by Anni Garcia MD - 04/14/24 07:44> I reviewed above note and agree with findings and plans. I have also personally examined the patient with medicine team and went over assessment and plan with medical team including information technology internship and resident physician. Documentation for date of: 04/08/24 Subjective Subjective Interval history: Patient was seen at bedside this morning. No overnight events. Patient's sodium last night was 124 therefore discontinue IV fluids. This morning patient is sodium was 126 and was = 127 at 11 AM. Goal correction of the first 24 hours was achieved. Will continue to monitor sodium closely. Start patient on sodium tablets daily. Concerning the patient's nausea, vomiting signing erythromycin as there can be a component of gastroparesis given her history of diabetes. Also start the patient on clear liquid diet today and will advance the diet as tolerated. No other complaints at this time. Exam Vital Signs Temp Pulse Resp BP Pulse Ox O2 Del Method 98.1 F 81 20 111/70 97 Room Air 04/08/24 12:00 04/08/24 12:00 04/08/24 12:00 04/08/24 12:00 04/08/24 12:00 04/08/24 12:00 Narrative Exam General: A/O x3, no acute distress, well-nourished, well-developed Eyes: PERRL, EOMI. Anicteric, vision grossly intact. Ears: No ear pain, no ear discharge, Hearing grossly intact. Nose: No nasal discharge. Mouth/Throat: Moist mucous membranes, no redness, no lesions. Neck: Neck supple, non-tender, no cervical lymphadenopathy. Lungs: Clear JORGE to auscultation and percussion, No accessory muscle use. Cardio: Normal S1/S2, regular rhythm, no murmurs, no JVD Abdomen: Soft, non-tender, no palpable masses, peristalsis present, no guarding or rebound. Extremities: Symmetrical, no significant deformities, no peripheral edema , non-tender, peripheral pulses presents. Skin: No rashes, no lesions, warm to touch. Neuro: No focal neurological deficits. motor and sensory intact Psych: Cooperative, appropriate mood and effect. Objective Labs 04/08/24 04:58 04/08/24 12:10 Labs: Laboratory Results - last 24 hr 04/07/24 04/07/24 04/07/24 10:18 18:13 20:03 WBC RBC Hgb Hct MCV MCH MCHC RDW Std Deviation Plt Count Neut % (Auto) Lymph % (Auto) [place] % (Auto) Eos % (Auto) Baso % (Auto) Neut # (Auto) Lymph # (Auto) [place] # (Auto) Eos # (Auto) Baso # (Auto) Immature Gran # (Auto) Absolute Nucleated RBC Immature Gran % Nucleated RBC % Sodium 122 L 122 L Potassium 4.7 Chloride 91 L Carbon Dioxide 21.1 Anion Gap 10 BUN 5 L Creatinine 0.9 Estim Creat Clear Calc 51.6 L eGFR > 60 BUN/Creatinine Ratio 6 L Glucose 105 Calculated Osmolality 243 L Calcium 9.4 Corrected Calcium 9.4 Phosphorus 3.1 Magnesium 1.4 L Total Bilirubin AST ALT Alkaline Phosphatase Total Protein Albumin 4.0 Globulin Albumin/Globulin Ratio 04/08/24 04/08/24 04/08/24 00:24 04:58 07:54 WBC 5.1 RBC 3.18 L Hgb 9.3 L Hct 26.8 L MCV 84 MCH 29.2 MCHC 34.7 RDW Std Deviation 38.5 Plt Count 305 D Neut % (Auto) 64 Lymph % (Auto) 23 [place] % (Auto) 11 Eos % (Auto) 1 Baso % (Auto) 0 Neut # (Auto) 3.2 Lymph # (Auto) 1.2 [place] # (Auto) 0.6 Eos # (Auto) 0.1 Baso # (Auto) 0.0 Immature Gran # (Auto) 0.02 H Absolute Nucleated RBC 0.00 Immature Gran % 0 Nucleated RBC % 0 Sodium 124 L 127 L 126 L Potassium 4.7 Chloride 96 L Carbon Dioxide 22.4 Anion Gap 9 BUN < 5 L Creatinine 0.9 Estim Creat Clear Calc 51.2 L eGFR > 60 BUN/Creatinine Ratio 6 L Glucose 91 Calculated Osmolality 252 L Calcium 9.1 Corrected Calcium 9.3 Phosphorus 3.7 Magnesium 2.0 Total Bilirubin 0.3 AST 31 ALT 29 Alkaline Phosphatase 75 Total Protein 5.6 L Albumin 3.7 Globulin 1.9 L Albumin/Globulin Ratio 1.9 04/08/24 10:56 WBC RBC Hgb Hct MCV MCH MCHC RDW Std Deviation Plt Count Neut % (Auto) Lymph % (Auto) [place] % (Auto) Eos % (Auto) Baso % (Auto) Neut # (Auto) Lymph # (Auto) [place] # (Auto) Eos # (Auto) Baso # (Auto) Immature Gran # (Auto) Absolute Nucleated RBC Immature Gran % Nucleated RBC % Sodium 127 L Potassium Chloride Carbon Dioxide Anion Gap BUN Creatinine Estim Creat Clear Calc eGFR BUN/Creatinine Ratio Glucose Calculated Osmolality Calcium Corrected Calcium Phosphorus Magnesium Total Bilirubin AST ALT Alkaline Phosphatase Total Protein Albumin Globulin Albumin/Globulin Ratio Quality Measures Quality Measures none Advance care planning discussed with:: patient Assessment & Plan Assessment Current Active Medications: Generic Name Dose Route Start Last Admin Trade Name Freq PRN Reason Stop Dose Admin Acetaminophen 650 mg 04/07/24 18:01 Acetaminophen 325 Mg Tablet PO 05/07/24 18:00 Q6H PRN Fever >100.3 or pain Atorvastatin Calcium 10 mg 04/08/24 09:00 04/08/24 08:40 Atorvastatin Calcium 10 Mg Tablet PO 05/08/24 08:59 10 mg DAILY SHEN Administration Dextrose 25 ml 04/07/24 18:08 Dextrose 50%-Water Inj 50 Ml Syringe IV 05/07/24 18:07 Q15MIN PRN BG 50-70 responsive npo pt Dextrose 50 ml 04/07/24 18:08 Dextrose 50%-Water Inj 50 Ml Syringe IV 05/07/24 18:07 Q15MIN PRN BG <50 OR BG <70 & pt unresponsive Enoxaparin Sodium 40 mg 04/07/24 18:15 04/08/24 08:39 Enoxaparin Sod Inj 40 Mg/0.4 Ml Syringe SC 04/21/24 18:14 40 mg QDAY SHEN Administration Erythromycin Ethylsuccinate 200 mg 04/08/24 15:00 Erythromycin E-Succ Susp 200 Mg/5 Ml PO 04/15/24 14:59 Q8H SHEN Ferrous Sulfate 325 mg 04/08/24 09:00 04/08/24 08:39 Ferrous Sulf 325 Mg Tablet PO 05/08/24 08:59 325 mg DAILY SHEN Administration Glucagon 1 mg 04/07/24 18:08 Glucagon Inj 1 Mg Vial IM Q15MIN PRN BG <70, and no IV access Insulin Human Lispro 0 unit 04/08/24 07:30 04/08/24 08:41 Insulin Lispro (Admelog) 1 Unit/0.01 Ml Unit SC 05/08/24 07:29 Not Given AC [facility] Protocol Levothyroxine Sodium 50 mcg 04/08/24 07:30 04/08/24 08:39 Levothyroxine Sodium 25 Mcg Tablet PO 05/08/24 08:59 50 mcg ACBR SHEN Administration Metoclopramide HCl 10 mg 04/07/24 18:01 Metoclopramide Inj 5 Mg/Ml Vial 2 Ml IVP 05/07/24 18:00 Q6H PRN NAUSEA OR VOMITING Protocol Pantoprazole Sodium 40 mg 04/08/24 09:00 04/08/24 08:40 Pantoprazole 40 Mg Tablet PO 05/08/24 08:59 40 mg DAILY SHEN Administration Sennosides 1 tab 04/07/24 18:01 Senna Tablet PO 05/07/24 18:00 QDAY PRN constipation Protocol Sodium Chloride 1 gm 04/08/24 09:00 04/08/24 08:39 Sodium Chloride 1 Gm Tablet PO 05/08/24 08:59 1 gm QDAY SHEN Administration Plan 68-year-old female with past medical history hypertension, hyperlipidemia, iron deficiency anemia, NIDDM, and GERD was admitted to the hospital on 04/07/2024 due to nausea and vomiting as well as hyponatremia. #Hypoosmolar hyponatremia #Nausea with vomiting #Gastroparesis? #Electrolyte imbalance Likely due to poor oral intake in setting of her nausea and vomiting. Patient was to continue sodium tablets after previous discharge. She is unaware why her PCP has stopped them. Currently asymptomatic, AOx3. CT abdomen pelvis negative for gallstones, renal calculi, bowel obstruction. CT head was negative for any hemorrhage, mass effect, midline shift. Admission labs sodium 119, osmolarity 239. -Sodium checks q2hr -Discontinue IV fluids ? Na tablets 1gm qday ?Goal sodium is 133-134 in next 24 hrs ?Replete other electrolytes as needed -Started Erythromycin 200mg TID before meals -IV Reglan 4 mg as needed -Started clear liquid diet, advance as tolerated #Hx Diabetes Mellitus Non Insulin Dependent On admission initial glucose . Last A1c 6.2 on 03/04/2024. Patient takes metformin 500 mg daily for diabetes at home. -Bedside blood glucose checks ACHS -Insulin lispro sliding scale # Hx Essential hypertension #Hx Hyperlipidemia ?Hold home lisinopril 40 mg daily -continue atorvastatin 10 mg daily #Hypothyroidism -continune home levothyroxine 50 mcg #GERD -Continue pantoprazole 40 mg daily #Iron deficiency Anemia -Continue home ferrous sulfate 325 mg daily Disposition: Patient admitted to telemetry. Diet: Carb consistent low GI prophylaxis: protonix DVT prophylaxis: Lovenox Code: full code Case disclosed with Attending Dr. Jose Decker PGY1
[2024-04-08 12:54] LABS: Sodium 127 mMol/L (136-145)
[2024-04-08 14:34] LABS: Sodium 126 mMol/L (136-145)
[2024-04-08] MEDS: MELATONIN 3 MG TABLET 6 MG PO (22:26)
[2024-04-09] VITALS: BP 121/57; PULSE 69; PULSE 89; RESP 19; TEMP 36.2; O2SAT 97
[2024-04-09 04:00] VITALS: BP 148/74; PULSE 105; PULSE 74; RESP 18; TEMP 36.5; O2SAT 98
[2024-04-09] MEDS: LEVOTHYROXINE SODIUM 25 MCG TABLET 50 MCG PO (05:28)
[2024-04-09 05:56] VITALS: BMI 31.8
[2024-04-09 06:10] LABS: Basophils % (Auto) 0 % (0-2.5); Eosinophils # (Auto) 0.1 Thou/mm3 (0.0-0.5); Eosinophils % (Auto) 3 % (0-10); Hematocrit 28.7 % (36.0-46.0); Immature Granulocytes % (Auto) 0 % (0-0); Immature Granulocytes Auto 0.02 Thou/mm3 (0.00-0.00); Lymphocytes # (Auto) 1.6 Thou/mm3 (1.0-4.8); Lymphocytes % (Auto) 32 % (10-50); Mean Corpuscular HGB Conc 34.8 g/dl (31.0-37.0); Mean Corpuscular Hemoglobin 29.7 pg (25.0-35.0); Mean Corpuscular Volume 85 fL (80-100); Monocytes # (Auto) 0.7 Thou/mm3 (0.0-0.8); Monocytes % (Auto) 14 % (0-12); Neutrophils # (Auto) 2.5 Thou/mm3 (1.8-7.7); Neutrophils % (Auto) 50 % (37-80); Nucleated Red Blood Cell % 0 /100 WBC (0); Platelet Count 321 Thou/mm3 (140-440); Red Blood Count 3.37 Miln/mm3 (4.00-5.20)
[2024-04-09 06:26] LABS: Alanine Aminotransferase 30 U/L (10-49); Albumin/Globulin Ratio 1.9 (1.2-2.2); Alkaline Phosphatase 84 U/L (46-116); Anion Gap 10 (7-16); Aspartate Amino Transferase 30 U/L (0-34); BUN/Creatinine Ratio 6 Ratio (12-20); Bilirubin,Total 0.5 mg/dL (0.3-1.2); Blood Urea Nitrogen < 5 mg/dL (9-23); Calcium 9.5 mg/dL (8.3-10.6); Calcium (Corrected) 9.5 mg/dL (8.5-10.1); Carbon Dioxide 21.5 mMol/L (20.0-31.0); Chloride 95 mMol/L (98-107); Creatinine (Component) 0.8 mg/dL (0.6-1.3); Estimated Creatinine Clearance 57.9 mL/min (>60); Globulin 2.1 gm/dL (2.3-3.5); Glucose 106 mg/dL (74-106); Osmolality,Calculated 250 (275-295); Potassium 4.2 mMol/L (3.4-5.1); Sodium 126 mMol/L (136-145); Total Protein 6.1 gm/dL (5.7-8.2); eGFR > 60 See Note
[2024-04-09] MEDS: ERYTHROMYCIN E-SUCC SUSP 200 MG/5 ML PO ×2 (06:28→13:44)
[2024-04-09 07:41] VITALS: PULSE 87; RESP 21; RESP 97
[2024-04-09 08:00] VITALS: BP 130/78; PULSE 67; PULSE 96; RESP 15; TEMP 36.1; O2SAT 97
[2024-04-09] MEDS: ENOXAPARIN SOD INJ 40 MG/0.4 ML SYRINGE SC (09:13)
[2024-04-09] MEDS: ATORVASTATIN CALCIUM 10 MG TABLET PO (09:13)
[2024-04-09] MEDS: SODIUM CHLORIDE 1 GM TABLET PO (09:14)
[2024-04-09] MEDS: FERROUS SULF 325 MG TABLET PO (09:14)
[2024-04-09] MEDS: PANTOPRAZOLE 40 MG TABLET PO (09:14)
[2024-04-09] MEDS: ACETAMINOPHEN 325 MG TABLET 650 MG PO (09:21)
--- NOTE | 2024-04-09 11:35 | ESDS_ITS ---
<Statement entered by Anni Garcia MD - 04/14/24 07:46> I reviewed above note and agree with findings and plans. I have also personally examined the patient with medicine team and went over assessment and plan with medical team including architecture internship and resident physician. Planned Discharge Date 04/09/24 DS: Providers Provider Date of admission: 04/07/24 18:01 Primary care physician: Xena Li MD Admitting Provider: Anni Garcia MD Attending Provider on Admission: Anni Garcia MD Attending Provider on DC: Anni Garcia MD Discharging Provider: Anni Garcia MD DS: Diagnosis Problem List Completed Was Problem List Reviewed/Reconciled?: Yes Hospital Course Hospital Course Hospital course: Reason for hospitalization: nausea, vomiting, hyponatremia Nurys Wallace is 68 yr female with PMH of hypertension, hyperlipidemia, iron deficiency, vrb-uumasth-vswswliqo type 2 diabetes, GERD who presented to [facility] ED on 04/07/24 due to nausea. Further workup in the ED showed sodium to be 119, osmolarity 239. Patient was admitted for management of nausea, vomiting, and hyponatremia. She was recently discharged from [facility] on 03/31/2024 due to similar symptoms. She was discharged with sodium tablets which were to be continued until follow-up with PCP. However it seems that the sodium tablets were preemptively stopped before getting any labs. She continues to have poor oral intake not able to eat much food but still able to drink some water. CT abdomen pelvis negative for gallstones, renal calculi, bowel obstruction. CT head was negative for any hemorrhage, mass effect, midline shift. Patient remained asymptomatic otherwise during hospitalization. Sodium was corrected at a proper rate with fluids. Sodium before discharge is now 126. She is to continue sodium tablets 1 g twice a day until renal panel is repeated with PCP. Patient was also started on erythromycin as a promotility agent along with Reglan for antinausea. Patient's symptoms did improve and was able to advance diet. She was encouraged to continue these medications outpatient as well. Patient is now in stable condition and ready for discharge. Recommendations were given as below. Discharge Recommendations: Continue taking sodium chloride tablets 1 g twice a day. Continue erythromycin ethyl succinate 3 times a day to promote stomach motility. Continue metoclopramide 5 mg once a day to prevent nausea. Follow-up with your PCP in 1-2 weeks to repeat renal panel to check for sodium levels. Do not stop taking sodium tablets ahead of time. Patient would benefit from gastric emptying study due to longstanding nausea and vomiting. Return to ED if symptoms worsen. Hospital Diagnoses: #Hypoosmolar hyponatremia #Nausea with vomiting #Gastroparesis? #Electrolyte imbalance #Hx Diabetes Mellitus Non Insulin Dependent # Hx Essential hypertension #Hx Hyperlipidemia #Hypothyroidism #GERD #Iron deficiency Anemia The patient's management plan was discussed with my attending physician Dr. Garcia. Kaelyn De La Garza MD, PGY-1 Time Spent with Patient Time attestation: Total time spent providing and/or coordinating discharge services: Time spent: Greater than 30 minutes Exam Vital Signs Temp Pulse Resp BP Pulse Ox O2 Del Method 97.0 F 67 15 130/78 97 Room Air 04/09/24 08:00 04/09/24 08:00 04/09/24 08:00 04/09/24 08:00 04/09/24 08:00 04/09/24 08:00 Narrative Exam General: Elderly lady, obese, no acute distress, cooperative HEENT: NCAT, No JVD noted. Mucosa moist. Pupils are equal and reactive to light bilaterally Cardiovascular: Normal S1 and S2. Regular rate and rhythm. Respiratory: Lungs are clear to auscultation bilaterally. No wheezing or crackles heard. Abdomen: Soft, distended, nontender, hypoactive bowel sounds, no guarding Skin: Warm to touch, dry, no rashes noted Musculoskeletal: No gross injuries. Able to move all 4 extremities. No pitting edema Neuro: Alert and oriented x3. No focal neuro deficits. Psych: Normal affect and mood Discharge Plan Plan Patient Disposition: HOME (Self Care) Patient condition on transfer: Stable Prescriptions/Referrals Prescriptions/Med Rec: New erythromycin ethylsuccinate 200 mg/5 mL Suspension For Reconstitution 200 mg PO TID@0700,1400,2200 Qty: 200 0RF metoclopramide HCl 5 mg tablet 5 mg PO QDAY Qty: 30 0RF Continued metformin 500 mg Tablet 500 mg PO QDAY levothyroxine 50 mcg Tablet 50 mcg PO QDAY sodium chloride 1,000 mg Tablet,Soluble 1,000 mg PO BID Qty: 60 0RF atorvastatin 10 mg Tablet 10 mg PO QDAY lisinopril 40 mg Tablet 40 mg PO QDAY ferrous sulfate 325 mg (65 mg iron) Tablet 325 mg PO BID pantoprazole [Protonix] 40 mg tablet,delayed release (DR/EC) 40 mg PO QDAY Qty: 14 0RF No Action meloxicam 7.5 mg Tablet 7.5 mg PO QDAY Referrals: Xena Li MD [Primary Care Provider] - Patient/Caregiver Discharge Instructions Other Discharge Activity Instructions:: Continue taking sodium chloride tablets 1 g twice a day. Continue erythromycin ethyl succinate 3 times a day to promote stomach motility. Continue metoclopramide 5 mg once a day to prevent nausea. Follow-up with your PCP in 1-2 weeks to repeat renal panel to check for sodium levels. Do not stop taking sodium tablets ahead of time. Patient would benefit from gastric emptying study due to longstanding nausea and vomiting. Return to ED if symptoms worsen. Education Materials: Gastroparesis Print Language: Wolof Stand Alone Forms: Kay Award Info., Patient Portal Info Letter Discharge Order Discharge Orders: Discharge (Routine); Ordered 04/09/24 Ordered By: Azul Nixon Quality Discharge Quality Measures VTE prophylaxis
[2024-04-09 12:00] VITALS: BP 120/71; PULSE 79; PULSE 92; RESP 17; TEMP 36.2; O2SAT 98
--- NOTE | 2024-04-10 09:08 | PC.CC ---
PA approved for erythromycin suspension. Updated [employer] @ [employer] who received paid claim. PA uploaded to EMR.
== END 2024-04-09 13:45 | disposition home or self-care (01) | DRG 641 ==
LOC: SERX 16:36 → SERHOLD 18:28 → S2NX 22:05
PROVIDERS: Nurse Practitioner Family; Nurse Practitioner Primary Care; Admitting Provider Internal Medicine; Emergency Provider Emergency Medicine; PCP Family Medicine; Visit Provider Internal Medicine
DX: E87.1 Hypo-osmolality and hyponatremia (principal); E78.5 Hyperlipidemia, unspecified; I10 Essential (primary) hypertension; D50.9 Iron deficiency anemia, unspecified; K21.9 Gastro-esophageal reflux disease without esophagitis; E03.9 Hypothyroidism, unspecified; E11.43 Type 2 diabetes mellitus with diabetic autonomic (poly)neuropathy; K31.84 Gastroparesis; Z79.84 Long term (current) use of oral hypoglycemic drugs; Z90.49 Acquired absence of other specified parts of digestive tract; Z79.899 Other long term (current) drug therapy
CPT/HCPCS: 36415; 70450; 74177; 80048; 80053; 80069; 83690; 83735; 84100; 84295; 85025; 87081; 93005; 96361; 96365; 96366; 96375; 99285; A4649; J1650; J3475; J3490; J7030; Q9967; A9270

== ENCOUNTER → 2024-04-20 | Outpatient (CLI) | payer OTHER, SELFPAY ==
[2024-04-20 12:15] LABS: Anion Gap 10 (7-16); BUN/Creatinine Ratio 8 Ratio (12-20); Blood Urea Nitrogen 8 mg/dL (9-23); Calcium 10.6 mg/dL (8.3-10.6); Chloride 104 mMol/L (98-107); Glucose 97 mg/dL (74-106); Osmolality,Calculated 275 (275-295); Potassium 4.9 mMol/L (3.4-5.1); Sodium 139 mMol/L (136-145); eGFR > 60 See Note
== END | disposition home or self-care (01) ==
LOC: COPL 11:01
PROVIDERS: PCP Family Medicine; Referring Provider Family Medicine; Visit Provider Family Medicine
DX: E87.1 Hypo-osmolality and hyponatremia (principal)
CPT/HCPCS: 36415; 80048

== ENCOUNTER → 2024-05-10 | Outpatient (CLI) | payer OTHER, SELFPAY ==
--- NOTE | 2024-05-10 | XR_ITS ---
Examination: Knee, left , 3 views Technique: Knee AP, lateral, oblique 3 views Date and time of exam: May 10, 2024 1124 hours INDICATIONS: Left knee pain beginning 3 months ago. FINDINGS: Significant osteopenia Moderate tricompartment osteoarthritis,. No fracture No dislocation IMPRESSION: Moderate tricompartment osteoarthritis
[2024-05-10 12:28] LABS: Anion Gap 10 (7-16); BUN/Creatinine Ratio 18 Ratio (12-20); Blood Urea Nitrogen 20 mg/dL (9-23); Calcium 10.2 mg/dL (8.3-10.6); Carbon Dioxide 22.8 mMol/L (20.0-31.0); Chloride 105 mMol/L (98-107); Creatinine (Component) 1.1 mg/dL (0.6-1.3); Glucose 93 mg/dL (74-106); Osmolality,Calculated 278 (275-295); Potassium 5.4 mMol/L (3.4-5.1); Sodium 138 mMol/L (136-145); eGFR 55 See Note
== END | disposition home or self-care (01) ==
LOC: CDIM 10:48 → COPL 11:40
PROVIDERS: PCP Family Medicine; Referring Provider Family Medicine; Visit Provider Family Medicine
DX: M17.12 Unilateral primary osteoarthritis, left knee (principal); E87.1 Hypo-osmolality and hyponatremia
CPT/HCPCS: 36415; 73562; 80048

== ENCOUNTER → 2024-06-18 | Outpatient (CLI) | payer OTHER, SELFPAY ==
[2024-06-18 11:18] LABS: Basophils % (Auto) 0 % (0-2.5); Eosinophils # (Auto) 0.1 Thou/mm3 (0.0-0.5); Eosinophils % (Auto) 2 % (0-10); Immature Granulocytes % (Auto) 0 % (0-0); Immature Granulocytes Auto 0.02 Thou/mm3 (0.00-0.00); Lymphocytes # (Auto) 2.7 Thou/mm3 (1.0-4.8); Lymphocytes % (Auto) 39 % (10-50); Mean Corpuscular HGB Conc 33.3 g/dl (31.0-37.0); Mean Corpuscular Hemoglobin 29.6 pg (25.0-35.0); Mean Corpuscular Volume 89 fL (80-100); Monocytes # (Auto) 0.5 Thou/mm3 (0.0-0.8); Monocytes % (Auto) 7 % (0-12); Neutrophils # (Auto) 3.5 Thou/mm3 (1.8-7.7); Neutrophils % (Auto) 51 % (37-80); Nucleated Red Blood Cell % 0 /100 WBC (0); Platelet Count 346 Thou/mm3 (140-440); RDW Standard Deviation 46.8 fL (36.4-46.3); Red Blood Count 3.71 Miln/mm3 (4.00-5.20); White Blood Count 6.8 Thou/mm3 (3.6-11.0)
[2024-06-18 11:41] LABS: Vitamin B12 424 pg/mL (211-911)
[2024-06-18 11:42] LABS: Iron 48 mcg/dL (50-170)
== END | disposition home or self-care (01) ==
LOC: COPL 10:14
PROVIDERS: PCP Family Medicine; Referring Provider Family Medicine; Visit Provider Family Medicine
DX: D50.8 Other iron deficiency anemias (principal)
CPT/HCPCS: 36415; 82607; 83540; 85025

== ENCOUNTER → 2024-08-10 | Outpatient (CLI) | payer OTHER, SELFPAY ==
[2024-08-10 10:28] LABS: Glucose Estimated Average 123 mg/dL (80-131); Hemoglobin A1C 5.9 % Hgb (4.8-6.0)
[2024-08-10 10:38] LABS: Anion Gap 8 (7-16); BUN/Creatinine Ratio 20 Ratio (12-20); Blood Urea Nitrogen 20 mg/dL (9-23); Calcium 9.3 mg/dL (8.3-10.6); Carbon Dioxide 22.8 mMol/L (20.0-31.0); Chloride 110 mMol/L (98-107); Glucose 85 mg/dL (74-106); Osmolality,Calculated 282 (275-295); Potassium 4.8 mMol/L (3.4-5.1); Sodium 141 mMol/L (136-145); eGFR > 60 See Note
== END | disposition home or self-care (01) ==
LOC: COPL 08:51
PROVIDERS: PCP Family Medicine; Referring Provider Family Medicine; Visit Provider Family Medicine
DX: E11.9 Type 2 diabetes mellitus without complications (principal)
CPT/HCPCS: 36415; 80048; 83036

== ENCOUNTER 2024-11-09 13:37 | Observation (INO) | payer OTHER, SELFPAY ==
[2024-11-09] VITALS (10 sets, daily range): BP systolic 109–141; BP diastolic 61–82; PULSE 79–106; RESP 18–95; TEMP 36.2–36.9; O2SAT 95–100; BMI 26.1
--- NOTE | 2024-11-09 13:56 | XR_ITS ---
Examination: Abdomen sonogram, Limited Date and time of exam: November 09, 2024, 1523 hours INDICATIONS: Epigastric pain beginning 4 days ago Technique: Real-time snyder scale transabdominal sonographic images of the upper abdomen obtained. Findings: Normal gallbladder Normal common bile duct 0.4 cm Pancreatic head 2.5 cm Liver 13.7 cm with fatty infiltration Normal hepatopedal portal venous venous flow, Patent IVC IMPRESSION: Normal gallbladder Normal common bile duct
--- NOTE | 2024-11-09 14:24 | PD.EDRME ---
Rapid Medical Screening Exam RME Arrival date/time: 11/09/24 13:37 69-year-old female with a history of hyperlipidemia, hypothyroidism, hypertension, type 2 diabetes, presents to the emergency room with a chief complaint of 7 out of 10 epigastric pain and dysuria x 3 days I have greeted and performed a focused initial assessment of this patient. A comprehensive ED assessment and evaluation of the patient, analysis of all test results, and completion of the medical decision making process will be conducted by additional ED providers. Chief Complaint: Urogenital-Female Time Seen by Provider: 11/09/24 13:46 Vital signs: Vital Signs Temperature 98.3 F 11/09/24 13:46 Pulse Rate 106 H 11/09/24 13:46 Respiratory Rate 18 11/09/24 13:46 Blood Pressure 118/77 11/09/24 13:46 Pulse Oximetry (%) 97 11/09/24 13:46 Oxygen Delivery Method Room Air 11/09/24 13:46 Vital signs reviewed by provider: Yes
[2024-11-09 15:01] LABS: Basophils # (Auto) 0.0 Thou/mm3 (0.0-0.2); Basophils % (Auto) 0 % (0-2.5); Eosinophils # (Auto) 0.2 Thou/mm3 (0.0-0.5); Eosinophils % (Auto) 3 % (0-10); Hematocrit 35.5 % (36.0-46.0); Hemoglobin 11.5 g/dL (12.0-16.0); Immature Granulocytes Auto 0.02 Thou/mm3 (0.00-0.00); Lymphocytes # (Auto) 1.0 Thou/mm3 (1.0-4.8); Lymphocytes % (Auto) 11 % (10-50); Mean Corpuscular HGB Conc 32.4 g/dl (31.0-37.0); Mean Corpuscular Hemoglobin 30.2 pg (25.0-35.0); Mean Corpuscular Volume 93 fL (80-100); Monocytes # (Auto) 0.7 Thou/mm3 (0.0-0.8); Monocytes % (Auto) 8 % (0-12); Neutrophils # (Auto) 6.7 Thou/mm3 (1.8-7.7); Neutrophils % (Auto) 78 % (37-80); Nucleated Red Blood Cell # 0.00 Thou/mm3 (0.00-0.00); Nucleated Red Blood Cell % 0 /100 WBC (0); Platelet Count 305 Thou/mm3 (140-440); RDW Standard Deviation 44.6 fL (36.4-46.3); Red Blood Count 3.81 Miln/mm3 (4.00-5.20); White Blood Count 8.5 Thou/mm3 (3.6-11.0)
[2024-11-09 15:23] LABS: Alanine Aminotransferase 32 U/L (10-49); Albumin, Serum 4.6 gm/dL (3.4-4.8); Albumin/Globulin Ratio 1.9 (1.2-2.2); Alkaline Phosphatase 108 U/L (46-116); Anion Gap 7 (7-16); Aspartate Amino Transferase 28 U/L (0-34); BUN/Creatinine Ratio 12 Ratio (12-20); Bilirubin,Total 0.4 mg/dL (0.3-1.2); Blood Urea Nitrogen 15 mg/dL (9-23); Calcium 10.4 mg/dL (8.3-10.6); Calcium (Corrected) 10.4 mg/dL (8.5-10.1); Carbon Dioxide 25.9 mMol/L (20.0-31.0); Chloride 100 mMol/L (98-107); Creatinine (Component) 1.3 mg/dL (0.6-1.3); Estimated Creatinine Clearance 40.4 mL/min (>60); Globulin 2.4 gm/dL (2.3-3.5); Glucose 112 mg/dL (74-106); Lipase 32 U/L (12-53); Osmolality,Calculated 268 (275-295); Sodium 133 mMol/L (136-145); Total Protein 7.0 gm/dL (5.7-8.2); eGFR 45 See Note
[2024-11-09 15:26] LABS: Potassium 6.2 mMol/L (3.4-5.1)
--- NOTE | 2024-11-09 15:47 | PD.EDFMALE ---
ED Female Urogenital RME/HPI General Chief complaint: Urogenital-Female Stated complaint: VICENTE, can't eat, nausea, burning with urination Time Seen by Provider: 11/09/24 13:46 Arrival date/time: 11/09/24 13:37 Limitations: no limitations RME / HPI RME / HPI Narrative: 11/09/24 13:37 69-year-old female with a history of hyperlipidemia, hypothyroidism, hypertension, type 2 diabetes, presents to the emergency room with a chief complaint of 7 out of 10 epigastric pain and dysuria x 3 days I have greeted and performed a focused initial assessment of this patient. A comprehensive ED assessment and evaluation of the patient, analysis of all test results, and completion of the medical decision making process will be conducted by additional ED providers. DR. ROSA MAIN ED EVALUATION 69 year old female with history of hypertension, diabetes, hyperlipidemia, hypothyroidism presents to the ED for evaluation of epigastric abdominal pain and nausea that began yesterday. She describes the pain as a dull, aching sensation rated 7/10 in severity. She reports associated nausea that has persisted for the past three days. Vomiting occurred initially but resolved yesterday; however, the nausea remains. Denies chest pain, shortness of breath, cough, diarrhea, constipation, or urinary symptoms. No fevers, chills, or recent dietary changes reported. Related Data Home Medications ?Medication ?Instructions ?Recorded ?Confirmed atorvastatin 10 mg tablet 10 mg PO QDAY 03/05/24 11/09/24 ferrous sulfate 325 mg (65 mg 325 mg PO BID 03/05/24 11/09/24 iron) tablet lisinopril 40 mg tablet 40 mg PO QDAY 03/05/24 11/09/24 levothyroxine 50 mcg tablet 50 mcg PO QDAY 03/12/24 11/09/24 metformin 500 mg tablet 500 mg PO QDAY 03/12/24 11/09/24 Previous Rx's ?Medication ?Instructions ?Recorded pantoprazole 40 mg tablet,delayed 40 mg PO QDAY #14 tabs 03/06/24 release (Protonix) metoclopramide HCl 5 mg tablet 5 mg PO QDAY #30 tabs 04/09/24 Allergies Allergy/AdvReac Type Severity Reaction Status Date / Time No Known Allergies Allergy Verified 11/09/24 13:42 Review of Systems Review of Systems Systems Reviewed: All systems reviewed, normal except as documented Past Medical History Past Medical History CARDIAC: Positive Hypercholesterolemia and Hypertension GASTROINTESTINAL: Positive Gastrointestinal Disorders and Gastroesophageal Reflux Disease REPRODUCTIVE: Positive Previous Pregnancies MUSCULOSKELETAL: Positive Musculoskeletal Disorders and Arthritis ENDOCRINE: Positive Endocrine Disorders, Diabetes Mellitus Type 2 and Hypothyroidism PSYCHO/SOCIAL: Positive Anxiety OTHER HISTORY: Positive Hospitalization Surgical History SURGICAL: Positive Abdominal Surgery Social History SMOKING STATUS: Never smoker ED Exam General Limitations: Present no limitations General appearance: Present alert and in no apparent distress Head Head exam: Present atraumatic Eye Eye exam: Present normal appearance, PERRL and EOMI ENT ENT exam: Present normal exam, normal oropharynx and mucous membranes moist Neck Neck exam: Present normal inspection, full ROM and trachea midline Chest Chest inspection: Present normal inspection and symmetric chest wall rise Respiratory Respiratory exam: Present normal lung sounds bilaterally Cardiovascular Cardiovascular exam: Present regular rate, normal rhythm and normal heart sounds Abdominal Exam Abdominal exam: Present soft, tenderness (mild epigastric ttp) and normal bowel sounds; Absent guarding, rebound or rigidity Extremities Exam Extremities exam: Present normal inspection and full ROM Back Exam Back exam: Present normal inspection and full ROM Neurological Exam Neurological exam: Present alert, oriented X3 and CN II-XII intact Psychiatric Psychiatric exam: Present normal affect and normal mood Skin Skin exam: Present warm, dry, intact and normal color Course Quality Measures none Orders Category Date Time Status Patient Condition Routine Admission 11/09/24 17:[address] in Observation Status Routine Admission 11/09/24 17:49 Active Activity as Tolerated Routine Care 11/09/24 17:49 Ordered EKG (ED ONLY) *Do not use* NOW Care 11/09/24 15:49 Completed Insert IV NOW Care 11/09/24 17:09 Active Intake and Output QSHIFT Care 11/09/24 18:00 Ordered Notify provider NEEDED Care 11/09/24 17:49 Active Obtain weight X1 Care 11/09/24 17:49 Active Vital Signs, Non-Routine Q4H Care 11/09/24 18:00 Ordered Vital Signs, Non-Routine Q4H Care 11/09/24 22:00 Ordered Consult to Nephrology Stat Cons 11/09/24 17:18 Ordered Diet Regular Diet 11/09/24 Dinner Active EKG (ED Only) Stat Exams 11/09/24 15:49 Draft US gall bladder Stat Exams 11/09/24 13:56 Completed A1C [Glycohemoglobin w (eAG)] Stat Lab 11/09/24 14:32 Completed Basic Metabolic Panel AM DRAW Lab 11/10/24 05:00 Ordered Basic Metabolic Panel AM DRAW Lab 11/11/24 05:00 Ordered Basic Metabolic Panel AM DRAW Lab 11/12/24 05:00 Ordered CBC AM DRAW Lab 11/10/24 05:00 Ordered CBC AM DRAW Lab 11/11/24 05:00 Ordered CBC AM DRAW Lab 11/12/24 05:00 Ordered CBC Stat Lab 11/09/24 14:28 Completed CMP [Comprehensive Metabolic Panel] Stat Lab 11/09/24 14:28 Completed CMP [Comprehensive Metabolic Panel] Stat Lab 11/09/24 16:08 Completed Creatinine,Random Urine Stat Lab 11/09/24 16:57 Completed Electrolytes, Urine Random Stat Lab 11/09/24 16:57 Completed Lipase Stat Lab 11/09/24 14:28 Completed PTH [Parathyroid Hormone Intact] Stat Lab 11/09/24 14:32 Completed Potassium Q4HR Lab 11/09/24 20:00 Ordered Potassium Q4HR Lab 11/10/24 20:00 Ordered Protein Total, Random Urine Stat Lab 11/09/24 16:57 Completed Thyroid Stimulating Hormone AM DRAW Lab 11/10/24 05:00 Ordered Troponin I Stat Lab 11/09/24 16:08 Completed UA, C/S IF [Urinalysis, C/S if Indicated] Stat Lab 11/09/24 16:57 Completed Urine Culture Stat Lab 11/09/24 16:57 Received ALBUTEROL RT 0.5ml [Proventil Rt 0.5ml] Med 11/09/24 17:14 Discontinued 2.5 mg INH X1 ONE Acetaminophen Tab [Tylenol Tab] Med 11/09/24 17:49 Active 650 mg PO Q6H PRN Acetaminophen Tab [Tylenol Tab] Med 11/09/24 17:49 Active 650 mg PO Q6H PRN Calcium Gluconate 10% Inj Med 11/09/24 15:48 Discontinued 1 gm IV X1 ONE Dextrose 50% Syr [D50w Syringe Abboject] Med 11/09/24 17:14 Discontinued 50 ml IVP X1 ONE Docusate Sod [Colace] Med 11/09/24 17:49 Active 100 mg PO QDAY PRN Furosemide [Lasix Inj] Med 11/09/24 17:14 Discontinued 20 mg IVP X1 ONE Heparin Inj Med 11/09/24 21:00 Active 5,000 unit SC Q12HR Insulin Regular Med 11/09/24 17:14 Discontinued 5 unit IV X1 ONE Levothyroxine Sodium [Synthroid] Med 11/10/24 06:00 Active 50 mcg PO ACBR Metoclopramide [Reglan] Med 11/09/24 17:49 Active 10 mg PO Q6H PRN Pantoprazole Inj [Protonix Inj] Med 11/10/24 09:00 Active 40 mg IVP QDAY Sodium Chloride 0.9% 1000 ml [Ns] 1,000 ml Med 11/09/24 18:28 Active IV 75 mls/hr Sodium Chloride Rt Leslie 0.9% [NS Rt Leslie 0.9%] Med 11/09/24 17:14 Active 3 ml INH PRN PRN Code Status Routine Oth 11/09/24 17:49 Ordered Oxygen Delivery DAILY RT 11/09/24 17:50 Active Vital Signs Vital signs: Vital Signs Temperature 98.3 F 11/09/24 13:46 Pulse Rate 106 H 11/09/24 13:46 Respiratory Rate 18 11/09/24 13:46 Blood Pressure 118/77 11/09/24 13:46 Pulse Oximetry (%) 97 11/09/24 13:46 Oxygen Delivery Method Room Air 11/09/24 13:46 Pulse ox is 97% on room air which is adequate. Urogenital - Female MDM Narrative MDM Narrative:: Labs with evidence of microcytic anemia hemoglobin 11.5. Patient's sodium 133 potassium 6.2 chloride normal, normal creatinine normal anion gap no other transaminitis. 5:16p I spoke with forms examiner Dr. Ordonez and recommends giving the patient Albuterol, Calcium gluconate, D50, Docusate, and Lasix. I spoke with hospitalist Dr. Huffman. Discussed patients PMHx, HPI, ED course, exam findings, labs, and radiology results. The hospitalist agree to accept the patient for admission. Patient data External records reviewed:: [facility] previous records Clinical information provided by:: patient Social determinants that could affect healthcare access:: none Patient has the following chronic illnesses:: HTN, DM. HLD, hypothyroidism How is presenting disease/condition affected by chronic disease/condition?: exacerbated by Evaluation data The following diagnostics were reviewed and interpreted by me:: lab results, radiology exam(s) and EKG tracing(s) Lab and/or radiology exams considered but not ordered:: None Interpretation Summary: See MDM Medications / Prescriptions Medications or Prescriptions considered but not ordered:: None Medication administrations:: Medication Administration History Acetaminophen (Acetaminophen 325 Mg Tablet) 650 mg PO Q6H PRN PRN Reason: Fever >101.5 Stop: 12/09/24 17:48 Acetaminophen (Acetaminophen 325 Mg Tablet) 650 mg PO Q6H PRN PRN Reason: PAIN SCALE 1-3 (mild Stop: 12/09/24 17:48 Docusate Sodium (Docusate Sod 100 Mg Capsule) 100 mg PO QDAY PRN; Protocol PRN Reason: CONSTIPATION Stop: 12/09/24 17:48 Heparin Sodium (Porcine) (Heparin Sod Inj 5000 Unit/Ml Vial) 5,000 unit SC Q12HR SHEN Stop: 11/23/24 20:59 Sodium Chloride (Ns) 1,000 mls @ 75 mls/hr IV .[id number] SHEN Stop: 12/09/24 18:27 Last Admin: 11/09/24 18:52 Dose: 75 mls/hr Documented By: ARMANDO Levothyroxine Sodium (Levothyroxine Sodium 25 Mcg Tablet) 50 mcg PO ACBR SHEN Stop: 12/10/24 05:59 Metoclopramide HCl (Metoclopramide 5 Mg Tablet) 10 mg PO Q6H PRN PRN Reason: NAUSEA OR VOMITING Stop: 12/09/24 17:48 Pantoprazole Sodium (Pantoprazole Inj 40 Mg Vial) 40 mg IVP QDAY SHEN Stop: 12/10/24 08:59 Sodium Chloride (Sodium Chloride Rt Leslie 0.9% 3 Ml Nebu) 3 ml INH PRN PRN PRN Reason: SOLN Stop: 12/09/24 17:13 Last Admin: 11/09/24 17:33 Dose: 3 ml Documented By: DAX Discontinued Medications Albuterol (Albuterol Rt 2.5 Mg/0.5 Ml Nebu) 2.5 mg INH X1 ONE Stop: 11/09/24 17:15 Last Admin: 11/09/24 17:33 Dose: 2.5 mg Documented By: DAX Calcium Gluconate (Calcium Gluconate 10% Inj 1 Gm/10 Ml Vial) 1 gm IV X1 ONE Stop: 11/09/24 15:49 Last Admin: 11/09/24 17:09 Dose: 1 gm Documented By: ARMANDO Dextrose (Dextrose 50%-Water Inj 50 Ml Syringe) 50 ml IVP X1 ONE Stop: 11/09/24 17:15 Last Admin: 11/09/24 17:27 Dose: 50 ml Documented By: ARMANDO Furosemide (Furosemide Inj 10 Mg/Ml Vial 2 Ml) 20 mg IVP X1 ONE Stop: 11/09/24 17:15 Last Admin: 11/09/24 17:25 Dose: 20 mg Documented By: ARMANDO Insulin Human Regular (Insulin Hum Regular 1 Unit/0.01 Ml (Per Unit)) 5 unit IV X1 ONE Stop: 11/09/24 17:15 Last Admin: 11/09/24 17:28 Dose: 5 unit Documented By: ARMANDO Co-signed By: NALLELY See above Consultations Consultation(s) initiated? (list below): Yes Consultation #1 (Physician, Specialty, Details): see mdm Diagnosis Urogenital Female Differential Diagnosis: other (see mdm ) Admission Indicated Admission indicated?: indicated Admission Request Was there a request for admission?: Yes Admission Attestation Admission request attestation: Discussed case with [] from Hospitalist service regarding admission. Discussed patients ED course, exam findings, labs, and radiology results. The Hospitalist [agrees,declines] to accept the patient for admission. Disposition Plan Disposition Plan: Admit Critical Care Time Critical Care Time Critical Care Time: Yes Total Critical Care Time (min.): 35 Attestation: The high probability of sudden, clinically significant deterioration in the patient's condition required the highest level of my preparedness to intervene urgently. The services I provided to this patient were to treat and/or prevent clinically significant deterioration. Services included the following: chart data review, reviewing nursing notes and/or old charts, documentation time, business process consultant collaboration regarding findings and treatment options, medication orders and management, direct patient care, vital sign assessments and ordering, interpreting and reviewing diagnostic studies and lab tests. Aggregate critical care time includes only time during which I was engaged in work directly related to the patient's care, as described above, whether at bedside or elsewhere in the Emergency Department. It did not include time spent performing other reported procedures or the services of residents, students, nurses or physician assistants. Discharge Plan Prescriptions/Referrals Prescriptions/Med Rec: No Action metformin 500 mg Tablet 500 mg PO QDAY levothyroxine 50 mcg Tablet 50 mcg PO QDAY atorvastatin 10 mg Tablet 10 mg PO QDAY lisinopril 40 mg Tablet 40 mg PO QDAY ferrous sulfate 325 mg (65 mg iron) Tablet 325 mg PO BID pantoprazole [Protonix] 40 mg tablet,delayed release (DR/EC) 40 mg PO QDAY Qty: 14 0RF metoclopramide HCl 5 mg tablet 5 mg PO QDAY Qty: 30 0RF Referrals: Xena Li MD [Primary Care Provider, Family Practice] - In 1 week Patient/Caregiver Discharge Instructions Print Language: Indian
--- NOTE | 2024-11-09 15:49 | EKG_ITS ---
[facility] Test Date: 2024-11-09 Pat Name: JADE DIAZ Department: Room: - Gender: Female Ophthalmic Pathologist: : 1955 Requested By: Xena Johnson Order Number: [id number] Reading MD: Xena Johnson Measurements Intervals Nora Rate: 83 P: 48 [place]: 166 QRS: -35 QRSD: 77 T: 44 QT: 360 QTc: 423 Interpretive Statements SINUS RHYTHM LEFT AXIS DEVIATION [QRS AXIS < -30] PATTERN CONSISTENT WITH PULMONARY DISEASE Compared to ECG 03/28/2024 12:20:09 Sinus tachycardia no longer present Myocardial infarct finding no longer present /store/S0/[id number]/ecg/[id number].pdf
[2024-11-09 16:50] LABS: Alanine Aminotransferase 34 U/L (10-49); Albumin, Serum 4.7 gm/dL (3.4-4.8); Albumin/Globulin Ratio 1.9 (1.2-2.2); Alkaline Phosphatase 109 U/L (46-116); Anion Gap 8 (7-16); Aspartate Amino Transferase 34 U/L (0-34); BUN/Creatinine Ratio 17 Ratio (12-20); Bilirubin,Total 0.4 mg/dL (0.3-1.2); Blood Urea Nitrogen 15 mg/dL (9-23); Calcium 10.4 mg/dL (8.3-10.6); Calcium (Corrected) 10.4 mg/dL (8.5-10.1); Carbon Dioxide 23.6 mMol/L (20.0-31.0); Chloride 101 mMol/L (98-107); Creatinine (Component) 0.9 mg/dL (0.6-1.3); Estimated Creatinine Clearance 58.4 mL/min (>60); Globulin 2.5 gm/dL (2.3-3.5); Glucose 108 mg/dL (74-106); Osmolality,Calculated 268 (275-295); Potassium 6.0 mMol/L (3.4-5.1); Sodium 133 mMol/L (136-145); Total Protein 7.2 gm/dL (5.7-8.2); Troponin I < 0.020 ng/mL (0.0-0.045); eGFR > 60 See Note
[2024-11-09 17:09] LABS: Collection Type, Urine Clean Catch
[2024-11-09] MEDS: CALCIUM GLUCONATE 10% INJ 1 GM/10 ML VIAL IV (17:09)
[2024-11-09 17:19] LABS: Bilirubin,Urine Negative (Negative); Blood,Urine Negative (Negative); Clarity,Urine Clear (Clear/Hazy); Color,Urine Lt-Yellow (Lt Yel-Yel); Culture Indicated,Urine Not Indicated; Glucose, Urine Negative (Negative); Ketones,Urine Negative (Negative); Leukocyte Esterase,Urine Positive (Negative); Nitrite,Urine Negative (Negative); PH,Urine 5.5 (5.0-7.0); Protein,Urine Negative (Neg - Trace); RBC,Urine 1 /hpf (0-3); Specific Gravity,Urine 1.009 (1.001-1.035); Squamous Epithelial Cell,Urine 1 /hpf (0-5); Urobilinogen,Urine Negative mg/dL (0.0-1.0); WBC,Urine 2 /hpf (0-5)
[2024-11-09] MEDS: FUROSEMIDE INJ 10 MG/ML VIAL 2 ML 20 MG IVP (17:25)
[2024-11-09] MEDS: DEXTROSE 50%-WATER INJ 50 ML SYRINGE IVP (17:27)
[2024-11-09] MEDS: INSULIN HUM REGULAR 1 UNIT/0.01 ML (PER UNIT) 5 UNIT IV (17:28)
[2024-11-09] MEDS: SODIUM CHLORIDE RT SOL 0.9% 3 ML NEBU INH (17:33)
[2024-11-09] MEDS: ALBUTEROL RT 2.5 MG/0.5 ML NEBU INH (17:33)
--- NOTE | 2024-11-09 18:15 | PD.HHHP ---
Documentation for date of: 11/09/24 HPI - Hospitalist History of Present Illness History of present illness: CC: Nausea, vomiting and abdominal pain HPI: The patient is a 69-year-old female with a past medical history as listed below, presented to the ED with complaints of abdominal pain, rated as a 6 out of 10, dysuria for the past 3 to 4 days, nausea and vomiting also for the past several days prior to admission. The patient has had similar episodes of abdominal pain, nausea and vomiting during previous admission earlier this year, thought to be possibly secondary to gastroparesis. On arrival, the patient's potassium was also shown to be elevated to 6.2 however the patient denied any chest pain or palpitations. She also denied any episodes of diarrhea. Subjectively at time of bedside visit she endorsed headache however stated her abdominal pain had subsided, she also denied any nausea at time of bedside visit. In the ED,, vital signs were stable, the patient was afebrile, significant labs include a hemoglobin of 11.5, sodium 133, potassium 6.2 initially however did downtrend to 6.0, corrected calcium 10.4. All other labs largely unremarkable. A gallbladder ultrasound was also ordered and unremarkable, EKG demonstrated NSR with no signs of peaked T waves. For the patient's hyperkalemia she was given albuterol, insulin, D50, Lasix and calcium gluconate. ROS: As stated in HPI PAST MEDICAL HISTORY: Essential hypertension Iron deficiency anemia GERD Hypothyroidism on Synthroid Hyperlipidemia NIDDM Possible gastroparesis Hyponatremia on salt tabs in the past Esophagitis/gastritis Hemorrhoids Diverticulosis Fatty liver disease Osteopenia PAST SURGICAL HISTORY: Osteopenia ALLERGIES NKDA, food or seasonal allergies reported MEDICATIONS: Lisinopril 40 mg daily Ferrous sulfate 325 mg p.o. twice daily Atorvastatin 10 mg p.o. daily Levothyroxine 50 mcg daily Metformin 500 mg daily Pantoprazole 40 mg p.o. daily FAMILY HISTORY: Noncontributory SOCIAL HISTORY: Denies any EtOH, drug or tobacco use Meds Home Medications and Allergies Home Medications ?Medication ?Instructions ?Recorded ?Confirmed ?Type atorvastatin 10 mg tablet 10 mg PO QDAY 03/05/24 11/09/24 History ferrous sulfate 325 mg (65 mg 325 mg PO BID 03/05/24 11/09/24 History iron) tablet lisinopril 40 mg tablet 40 mg PO QDAY 03/05/24 11/09/24 History levothyroxine 50 mcg tablet 50 mcg PO QDAY 03/12/24 11/09/24 History metformin 500 mg tablet 500 mg PO QDAY 03/12/24 11/09/24 History Allergies Allergy/AdvReac Type Severity Reaction Status Date / Time No Known Allergies Allergy Verified 11/09/24 13:42 Exam Vital Signs Temp Pulse Resp BP Pulse Ox O2 Del Method 98.5 F 84 19 141/74 H 100 Room Air 11/09/24 17:05 11/09/24 17:34 11/09/24 17:34 11/09/24 17:25 11/09/24 17:34 11/09/24 17:05 Narrative GENERAL APPEARANCE: NAD, resting comfortably HEENT: Normocephalic, atraumatic, extraocular movements intact. Pupils: Equal reacting to light and accommodation NECK: Supple, no JVD or bruits. CARDIOVASULAR: NSR, S1, S2 heard without S3-S4 or murmur no rubs or gallops. LUNGS/CHEST: CTA bilaterally, no wheezing, rhonchi or rales heard ABDOMEN: Soft, nontender, with normal bowel sounds. No pulsatile masses. No rebound, rigidity, or guarding. EXTREMITIES: Normal inspection and palpation. No edema, clubbing or cyanosis. SKIN: Warm and dry without rashes. Normal inspection. MUSCULOSKELETAL: No cervical, thoracic, lumbar or midline bony tenderness. Normal inspection. NEURO: Alert, awake and oriented x3. Cranial nerves: II through XII grossly intact. Moves all 4 extremities, no focal deficit noted PSYCHIATRIC: Mood and affect normal Results - Hospitalist Labs Diagrams: 11/09/24 14:28 11/09/24 16:08 Labs: Short CBC 11/09/24 Range/Units 14:28 WBC 8.5 (3.6-11.0) Thou/mm3 Hgb 11.5 L (12.0-16.0) g/dL Hct 35.5 L (36.0-46.0) % Plt Count 305 (140-440) Thou/mm3 [facility] 11/09/24 11/09/24 14:28 16:08 Sodium 133 L 133 L Potassium 6.2 H* 6.0 H Chloride 100 101 Carbon Dioxide 25.9 23.6 BUN 15 15 Creatinine 1.3 0.9 Glucose 112 H 108 H Calcium 10.4 10.4 Cardiac Enzymes 11/09/24 Range/Units 16:08 Troponin I < 0.020 (0.0-0.045) ng/mL Liver Function 11/09/24 11/09/24 Range/Units 14:28 16:08 Total Bilirubin 0.4 0.4 (0.3-1.2) mg/dL AST 28 34 (0-34) U/L ALT 32 34 (10-49) U/L Alkaline Phosphatase 108 109 (46-116) U/L Albumin 4.6 4.7 (3.4-4.8) gm/dL Urine 11/09/24 Range/Units 16:57 Urine Color Lt-Yellow (Lt Yel-Yel) Urine Clarity Clear (Clear/Hazy) Urine pH 5.5 (5.0-7.0) Ur Specific [place] 1.009 (1.001-1.035) Urine Protein Negative (Neg - Trace) Urine Glucose (UA) Negative (Negative) Assessment & Plan -Hospitalist Patient Synopsis In short, patient is a 69-year-old female with a significant past medical history of possible gastroparesis, hypertension, EMEKA, GERD, hypothyroidism, HLD, NIDDM, hyponatremia who presented to the ED with complaints of abdominal pain, nausea and vomiting which presented approximately 3 to 4 days prior to admission. ASSESSMENT: #Hyperkalemia, potassium 6.2 at admission, no T wave changes on EKG, unknown etiology. #Hyponatremia, mild sodium 133 on arrival #Hypercalcemia, calcium 10.4 on arrival may be secondary to dehydration in setting of vomiting #?Gastroparesis likely secondary to diabetes #Abdominal pain likely secondary to vomiting #Nausea, vomiting, possibly secondary to gastroparesis Chronic: #Iron deficiency anemia #GERD on PPI #Essential hypertension on lisinopril 40 mg daily #HLD on atorvastatin 10 mg daily #NIDDM on metformin 500 mg daily #History of possible gastroparesis as documented #History of hyponatremia previously on salt tabs #Esophagitis/gastritis per EGD performed in 2024 #Hemorrhoids #Diverticulosis #Fatty liver disease PLAN: - Potassium checks every 4 hours for now, will continue to temporize as necessary - Nephrology consulted, appreciate recommendations - Urine electrolytes ordered - A1c, TSH ordered - Urine culture ordered in the ED, will follow-up - PTH ordered in setting of hypercalcemia although likely from dehydration - Daily labs - Reglan on board - Replete electrolytes as needed - Will restart levothyroxine for now and hold other home meds in setting of possible vomiting Antimicrobials: None Fluids: NS 75 mL/h Feeding: Regular Analgesic: Tylenol Sedation: None Thromboprophylaxis: Heparin 5000u q12 Ulcer PPx: Protonix 40 mg daily Glycemic Cntrl: None Bowel Regime: Colace Indwelling Catheter: None CODE STAUS: FULL DISPO: Likely discharge home in 1 to 2 days pending clinical improvement and specialist recommendations Quality Measures Quality Measures VTE prophylaxis Advance care planning discussed with:: patient
[2024-11-09] MEDS: SODIUM CHLORIDE 0.9% 1000 ML 1,000 ML 75 ML IV (18:52)
[2024-11-09 18:57] LABS: Glucose Estimated Average 126 mg/dL (80-131); Hemoglobin A1C 6.0 % Hgb (4.8-6.0); Parathyroid Hormone Intact 61.8 pg/ml (18.5-88.0)
[2024-11-09 19:02] LABS: Chloride,Urine Random 52.4 mMol/L (55.0-125.0); Creatinine,Random Urine 70 mg/dL (30-125); Potassium,Urine Random 47 mMol/L (12-62); Protein Total, Random Urine < 6 mg/dL (1-14); Sodium,Urine Random 27.1 mMol/L (20.0-110.0)
[2024-11-09 20:14] LABS: Potassium 5.4 mMol/L (3.4-5.1)
--- NOTE | 2024-11-09 20:15 | PC.NURSE ---
REPORT GIVEN TO FLOOR NURSE MIKE
[2024-11-10] VITALS: BP 118/72; PULSE 100; PULSE 92; RESP 22; TEMP 36.3; O2SAT 96
[2024-11-10 04:00] VITALS: BP 111/69; PULSE 88; PULSE 92; RESP 24; TEMP 36.2; O2SAT 96
[2024-11-10] MEDS: LEVOTHYROXINE SODIUM 25 MCG TABLET 50 MCG PO (05:11)
[2024-11-10 06:10] LABS: Basophils # (Auto) 0.0 Thou/mm3 (0.0-0.2); Basophils % (Auto) 1 % (0-2.5); Eosinophils # (Auto) 0.2 Thou/mm3 (0.0-0.5); Eosinophils % (Auto) 3 % (0-10); Hematocrit 32.9 % (36.0-46.0); Hemoglobin 10.6 g/dL (12.0-16.0); Immature Granulocytes Auto 0.02 Thou/mm3 (0.00-0.00); Lymphocytes # (Auto) 1.5 Thou/mm3 (1.0-4.8); Lymphocytes % (Auto) 25 % (10-50); Mean Corpuscular HGB Conc 32.2 g/dl (31.0-37.0); Mean Corpuscular Hemoglobin 30.5 pg (25.0-35.0); Mean Corpuscular Volume 95 fL (80-100); Monocytes # (Auto) 0.6 Thou/mm3 (0.0-0.8); Monocytes % (Auto) 10 % (0-12); Neutrophils # (Auto) 3.6 Thou/mm3 (1.8-7.7); Neutrophils % (Auto) 61 % (37-80); Nucleated Red Blood Cell # 0.00 Thou/mm3 (0.00-0.00); Nucleated Red Blood Cell % 0 /100 WBC (0); Platelet Count 253 Thou/mm3 (140-440); RDW Standard Deviation 45.3 fL (36.4-46.3); Red Blood Count 3.47 Miln/mm3 (4.00-5.20); White Blood Count 5.9 Thou/mm3 (3.6-11.0)
[2024-11-10 06:12] VITALS: PULSE 89; RESP 14; RESP 99
[2024-11-10 06:59] LABS: Anion Gap 7 (7-16); Calcium 9.9 mg/dL (8.3-10.6); Carbon Dioxide 23.3 mMol/L (20.0-31.0); Chloride 105 mMol/L (98-107); Potassium 5.2 mMol/L (3.4-5.1); Sodium 135 mMol/L (136-145); Thyroid Stimulating Hormone 3.08 uIU/mL (0.55-4.78)
[2024-11-10 07:03] LABS: BUN/Creatinine Ratio 9 Ratio (12-20); Blood Urea Nitrogen 9 mg/dL (9-23); Creatinine (Component) 1.0 mg/dL (0.6-1.3); Estimated Creatinine Clearance 52.2 mL/min (>60); Glucose 99 mg/dL (74-106); Osmolality,Calculated 268 (275-295); eGFR > 60 See Note
[2024-11-10 08:00] VITALS: BP 109/66; PULSE 83; PULSE 89; RESP 21; TEMP 36.2; O2SAT 96
[2024-11-10] MEDS: SODIUM CHLORIDE 0.9% 1000 ML 1,000 ML 75 ML IV (09:23)
[2024-11-10] MEDS: HEPARIN SOD INJ 5000 UNIT/ML VIAL SC (09:23)
[2024-11-10 12:00] VITALS: BP 125/69; PULSE 86; PULSE 90; RESP 19; TEMP 36.8; O2SAT 96
--- NOTE | 2024-11-10 12:08 | ESDS_ITS ---
Planned Discharge Date 11/10/24 DS: Providers Provider Date of admission: 11/09/24 17:49 Primary care physician: Xena Li MD Admitting Provider: Gabe Huffman DO Attending Provider on Admission: Gabe Huffman DO Consults: 11/09/24 17:18 Consult to Nephrology Stat Comment: Consulting Provider: Omar Ordonez Attending Provider on DC: Reynold Moreno MD Discharging Provider: Reynold Moreno MD DS: Diagnosis Problem List Completed Was Problem List Reviewed/Reconciled?: Yes Hospital Course Hospital Course Hospital course: 69-year-old female with past medical history of hypertension, hypothyroidism, fvk-xdyejor-zfoubvyqu type 2 diabetes presenting to the ED on 11/09 with intractable nausea/vomiting associated with abdominal pain. In the ED, patient's vitals were stable and pertinent lab findings include a potassium of 6.2 which downtrended on repeat laboratory. Patient was admitted and treated for symptomatic and intractable nausea/vomiting along with nephrology consultation for the patient's hyperkalemia. Patient was also started on IV antiemetics and prokinetics which improved patient's symptomology; moreover, nephrology recommended discontinuing lisinopril which is believed to be likely agent causing patient's hyperkalemia. Patient symptomatically improved and will be discharged with the following strict instructions. Please take metoclopramide 5 mg tablet three times a day with meals for delayed gastric emptying/gastroparesis Stop taking lisinopril as this medication can cause your potassium to be high Continue all other home medications as prescribed Please follow-up with Dr. Ordonez (nephrology) in 2 weeks for high potassium Please follow-up with your PCP within 1 week after discharge or follow-up at the [facility] [address] [place] [address] If your symptoms worsen or if you develop new chest pain, shortness of breath, diarrhea or severe abdominal pain - please come back to the ED immediately Hospital Diagnosis: #Intractable nausea, vomiting, possibly secondary to gastroparesis #Hyperkalemia, potassium 6.2 at admission, no T wave changes on EKG, unknown etiology. #Fci-uvpsdtj-ydgegbzlj type 2 diabetes #Hypothyroidism #GERD #Hyponatremia, mild sodium 133 on arrival #Hypercalcemia, calcium 10.4 on arrival may be secondary to dehydration in setting of vomiting #Gastroparesis likely secondary to diabetes #Abdominal pain likely secondary to vomiting Reynold Moreno DO PGY-2 Internal Medicine - [facility] Status at Discharge Overall status at discharge: patient is progressing back to baseline Time Spent with Patient Time attestation: Total time spent providing and/or coordinating discharge services: 45 minutes Time spent: Greater than 30 minutes Exam Vital Signs Temp Pulse Resp BP Pulse Ox O2 Del Method 97.1 F 90 21 H 109/66 96 Room Air 11/10/24 08:00 11/10/24 12:00 11/10/24 08:00 11/10/24 08:00 11/10/24 08:00 11/10/24 08:00 Narrative Exam Physical exam: GENERAL: NAD, resting comfortably HEENT: Normocephalic, atraumatic, extraocular movements intact. Pupils: Equal reacting to light and accommodation NECK: Supple, no JVD or bruits. CARDIOVASULAR: NSR, S1, S2 heard without S3-S4 or murmur no rubs or gallops. LUNGS/CHEST: CTA bilaterally, no wheezing, rhonchi or rales heard ABDOMEN: Soft, nontender, with normal bowel sounds. No pulsatile masses. No rebound, rigidity, or guarding. EXTREMITIES: Normal inspection and palpation. No edema, clubbing or cyanosis. SKIN: Warm and dry without rashes. Normal inspection. MUSCULOSKELETAL: No cervical, thoracic, lumbar or midline bony tenderness. Normal inspection. NEURO: Alert, awake and oriented x3. Cranial nerves: II through XII grossly intact. Moves all 4 extremities, no focal deficit noted Discharge Plan Plan Patient Disposition: HOME (Self Care) Patient condition on transfer: Stable Care Plan Goals: Please take metoclopramide 5 mg tablet three times a day with meals for delayed gastric emptying/gastroparesis Stop taking lisinopril as this medication can cause your potassium to be high Continue all other home medications as prescribed Please follow-up with Dr. Ordonez (nephrology) in 2 weeks for high potassium Please follow-up with your PCP within 1 week after discharge or follow-up at the [facility] [address] [place] [address] If your symptoms worsen or if you develop new chest pain, shortness of breath, diarrhea or severe abdominal pain - please come back to the ED immediately Prescriptions/Referrals Prescriptions/Med Rec: New metoclopramide HCl 5 mg tablet 5 mg PO TIDWM 30 Days Qty: 90 0RF Continued metformin 500 mg Tablet 500 mg PO QDAY levothyroxine 50 mcg Tablet 50 mcg PO QDAY atorvastatin 10 mg Tablet 10 mg PO QDAY ferrous sulfate 325 mg (65 mg iron) Tablet 325 mg PO BID pantoprazole [Protonix] 40 mg tablet,delayed release (DR/EC) 40 mg PO QDAY Qty: 14 0RF Discontinued lisinopril 40 mg Tablet 40 mg PO QDAY Referrals: Omar Ordonez MD [Physician, Nephrology] Xena Li MD [Primary Care Provider, Family Practice] Patient/Caregiver Discharge Instructions Education Materials: Gastroparesis, Diabetes: The Benefits of Exercise, Delayed Gastric Emptying Print Language: Setswana Stand Alone Forms: Kay Award Info., Patient Portal Info Letter, Work/Release Restrictions Discharge Order Discharge Orders: Discharge (Routine); Ordered 11/10/24 Ordered By: Reynold Moreno Quality Discharge Quality Measures VTE prophylaxis MD Attestestation MD Attestation I have discussed and was present for the essential components of the discharge history, physical examination, diagnosis, and discharge treatment plan with the resident. I agree with the patient's discharge care as documented by the resident and amended herein by me. Antwan Huffman DO. The patient understood all discharge instructions, all questions were answered satisfactorily. The patient was instructed to return to the Emergency Department is symptoms worsened or persisted. Patient's potassium had down so trended satisfactorily, per nephrology, will discontinue the patient's lisinopril for now until follow-up appointments. Patient also discharged with Reglan for nausea and possible gastroparesis, however was stable, afebrile, tolerating p.o. intake and ambulatory times discharge home. Her symptoms were resolved at time of discharge. Although this document has been carefully reviewed, there may still be some phonetic and other typographical errors. These errors are purely grammatical due to imperfections in the software program and should not be construed in any way to compromise the substance of the patient's medical care during this visit.
--- NOTE | 2024-11-10 12:19 | PC.NURSE ---
MD ORDER ERYTHROMYCIN 200 MG PO X1, COORDINATED CARE WITH PHARMACY THEY WILL BRING UP MEDICATION. DISCHARGE ORDER PLACED AND STILL PENDING D/T ON GOING MD ORDERS.
[2024-11-10] MEDS: ERYTHROMYCIN E-SUCC SUSP 200 MG/5 ML PO (12:28)
--- NOTE | 2024-11-10 13:00 | PC.SS ---
69YO female, reason for visit: TYPE 2 DIABETES MELLITUS. ? SS met with patient at bedside to complete initial assessment. Role and purpose of today?s contact was explained to patient. Patient is Bulgarian speaking. Patient confirmed her demographic information. Patient stated her son Ruperto Preston [phone] is her surrogate medical decision maker. Patient stated she is independent with both ADL completion and ambulation as well. PHAMACY: Laila. PCP: Dr. Li, last appt. was September 2024. Discharge plan discussed with patient, she is requesting to discharge home when medically clear. Next of Kin: Son Ruperto Preston [phone] ?Discharge plan: Home, spouse to provide transportation. ???
--- NOTE | 2024-11-10 13:39 | PC.NURSE ---
PATIENT WAITING FOR HER RIDE.
== END 2024-11-10 14:54 | disposition home or self-care (01) ==
LOC: SERX 15:53 → SERHOLD 20:40 → S3NX 21:45 → SERHOLD 11-13 08:23
PROVIDERS: Nurse Practitioner Family; Admitting Provider Student in an Organized Health Care Education/Training Program; Emergency Provider Emergency Medicine; PCP Family Medicine; Visit Provider Student in an Organized Health Care Education/Training Program
DX: E11.43 Type 2 diabetes mellitus with diabetic autonomic (poly)neuropathy (principal); R11.2 Nausea with vomiting, unspecified; E03.9 Hypothyroidism, unspecified; E87.5 Hyperkalemia; E87.1 Hypo-osmolality and hyponatremia; E83.52 Hypercalcemia; K31.84 Gastroparesis; I10 Essential (primary) hypertension; K21.9 Gastro-esophageal reflux disease without esophagitis; E78.5 Hyperlipidemia, unspecified
CPT/HCPCS: 36415; 76705; 80048; 80053; 81001; 82436; 82570; 83036; 83690; 83970; 84132; 84133; 84156; 84300; 84443; 84484; 85025; 87086; 93005; 94640; 96361; 96372; 96374; 96375; 99284; G0378; J0612; J1644; J1815; J1938; J2470; J7030; A9270

== ENCOUNTER → 2024-11-12 | Outpatient (CLI) | payer OTHER, SELFPAY ==
[2024-11-12 10:38] LABS: Cardiac Risk Estimate 4.1 RATIO (3.7-5.6); Cholesterol 194 mg/dL (132-200); Free T4 (Free Thyroxine) 1.56 ng/dL (0.89-1.76); HDL Cholesterol 47 mg/dL (40-60); LDL Cholesterol,Calculated 106 mg/dL (0-130); Thyroid Stimulating Hormone 3.74 uIU/mL (0.55-4.78); Triglycerides 205 mg/dL (30-150)
[2024-11-12 11:24] LABS: Glucose Estimated Average 126 mg/dL (80-131); Hemoglobin A1C 6.0 % Hgb (4.8-6.0)
== END | disposition home or self-care (01) ==
LOC: COPL 09:17
PROVIDERS: PCP Family Medicine; Referring Provider Family Medicine; Visit Provider Family Medicine
DX: E03.9 Hypothyroidism, unspecified (principal); E11.9 Type 2 diabetes mellitus without complications; I10 Essential (primary) hypertension
CPT/HCPCS: 36415; 80061; 83036; 84439; 84443

== ENCOUNTER 2024-11-16 18:54 | Emergency (ER) | payer OTHER, SELFPAY ==
--- NOTE | 2024-11-16 19:07 | PD.EDADULT ---
ED General RME/HPI General Chief complaint: Headache Stated complaint: HEADACHE AND NAUSEA Time Seen by Provider: 11/16/24 19:07 Arrival date/time: 11/16/24 18:54 RME / HPI RME / HPI narrative: 69 y/o female with PMHx hypertension, hypothyroidism, qur-lltlzfh-zeulosmzb type 2 diabetes who comes to the ED for an evaluation of a worsening headache that started on Tuesday and has been progressively worsening with no associated photophobia, nausea or vomiting, rated as 10 out of pain. Patient reports that she was recently discharged from hospital for nausea and vomiting, and notes that she has been developing a headache shortly thereafter since. She denies no changes to dietary habits, no recent travel or anyone around her feeling like this. She denies a history of strokes, migraines. Denies a family history of strokes. Says that she has been trying to use Tylenol but has not helped her much. Does not take any blood thinners at home. She has not been sick recently. No other complaints at this time. Related Data Home Medications ?Medication ?Instructions ?Recorded ?Confirmed atorvastatin 10 mg tablet 10 mg PO QDAY 03/05/24 11/09/24 ferrous sulfate 325 mg (65 mg 325 mg PO BID 03/05/24 11/09/24 iron) tablet levothyroxine 50 mcg tablet 50 mcg PO QDAY 03/12/24 11/09/24 metformin 500 mg tablet 500 mg PO QDAY 03/12/24 11/09/24 Previous Rx's ?Medication ?Instructions ?Recorded pantoprazole 40 mg tablet,delayed 40 mg PO QDAY #14 tabs 03/06/24 release (Protonix) metoclopramide HCl 5 mg tablet 5 mg PO TIDWM 1 month #90 tabs 11/10/24 ciprofloxacin HCl 250 mg tablet 250 mg PO BID 2 days #4 tabs 11/16/24 Allergies Allergy/AdvReac Type Severity Reaction Status Date / Time No Known Allergies Allergy Verified 11/16/24 18:55 Review of Systems Review of Systems Narrative Review of Systems: Constitutional: No fever, chills, fatigue, weakness, weight loss HEENT: No eye pain, vision loss, ear pain, hearing loss, dysphagia, Cardiovascular: No chest pain, palpitations, edema, pain with walking Respiratory: No cough, shortness of breath, wheezing GI: No NVD, abdominal pain, constipation, blood in stool, loss of appetite, heartburn Extremities: No presence of pitting edema MSK: No back pain, joint pain, joint swelling Neuro: No dizziness, numbness, weakness, +headache, no seizures, tremors Psych: No anxiety, depression ED Exam Narrative Physical exam: General: AAOx3, NAD, tajik speaking female, obese, wearing glasses HEENT: Moist mucous membranes, conjunctiva clear, EOMI, PERRLA, Cardiovascular: S1, S2, radial pulses +2 bilat, RRR Pulmonary: CTAB bilat no cough, no wheezing GI: No tenderness to light or deep palpitation, no guarding, rigidity, rebound tenderness or distension Extremities: No presence of trace or pitting edema in lower extremities bilaterally, dorsalis pedis pulses +2 bilaterally Neuro: AAOx3, no focal motor or sensory deficits in the UE or LE bilat Psych: Good judgement, thought and behavior Course Quality Measures none Orders Category Date Time Status Bedside COVID-19 Antigen Test NOW Care 11/16/24 19:28 Active Bedside Influenza A&B Antigen Test NOW Care 11/16/24 19:28 Completed EKG (ED ONLY) *Do not use* NOW Care 11/16/24 19:28 Completed Insert IV NOW Care 11/16/24 19:28 Active Vital Signs, Non-Routine Q4H Care 11/16/24 19:15 Ordered Vital Signs, Non-Routine Q4H Care 11/16/24 23:[address] head/brain wo con Stat Exams 11/16/24 19:27 Completed EKG (ED Only) Stat Exams 11/16/24 19:28 Draft CBC Stat Lab 11/16/24 19:48 Completed CMP [Comprehensive Metabolic Panel] Stat Lab 11/16/24 19:48 Completed Drug Screen,Urine Stat Lab 11/16/24 20:30 Completed Mag [Magnesium] Stat Lab 11/16/24 19:48 Completed TSH [Thyroid Stimulating Hormone] Stat Lab 11/16/24 19:48 Completed Troponin I Stat Lab 11/16/24 19:48 Completed UA, C/S IF [Urinalysis, C/S if Indicated] Stat Lab 11/16/24 20:30 Completed Urine Culture Stat Lab 11/16/24 20:30 Received DiphenhydrAMINE INJ [Benadryl Inj] Med 11/16/24 19:27 Discontinued 25 mg IVP X1 ONE Magnesium Sulfate 1 gm Ivpb [Magnesium Sulfate Ivpb] Med 11/16/24 21:10 Active 1 gm in 100 ml IV X1 Metoclopramide Inj [Reglan Inj] Med 11/16/24 19:27 Discontinued 10 mg IVP X1 ONE cefTRIAXone/D5w 1gm IV premix [Rocephin/D5w 1gm IV Med 11/16/24 21:20 Active premix] 1 gm in 50 ml IV X1 Vital Signs Vital signs: Vital Signs Temperature 97.8 F 11/16/24 19:09 Pulse Rate 79 11/16/24 19:09 Respiratory Rate 19 11/16/24 19:09 Blood Pressure 190/19 H 11/16/24 19:09 Pulse Oximetry (%) 100 11/16/24 19:09 Oxygen Delivery Method Room Air 11/16/24 19:09 Discharge Plan Plan Patient Disposition: HOME (Self Care) Patient condition on transfer: Stable Health Concerns: Discharge instructions Follow-up with your PCP within 1 week Take your antibiotic, Ciprofloxacin, as prescribed Use Metoclopramide as needed for headache, this was previously prescribed to you on last visit Return to ED if your symptoms worsen or return Instrucciones para el sherman: Visite [facility] m?dico de cabecera dentro de nas semana. [place] [facility] antibi?lawanda, ciprofloxacino, seg?n lo prescrito. Use metoclopramida seg?n sea necesario para el dolor de altagracia; se lo recetaron en [facility] ?ltima visita. Regrese a urgencias si lalita s?ntomas empeoran o regresan. Prescriptions/Referrals Prescriptions/Med Rec: New ciprofloxacin HCl 250 mg tablet 250 mg PO BID 2 Days Qty: 4 0RF Rx Instructions: Take one tablet by mouth twice a day No Action metformin 500 mg Tablet 500 mg PO QDAY levothyroxine 50 mcg Tablet 50 mcg PO QDAY atorvastatin 10 mg Tablet 10 mg PO QDAY ferrous sulfate 325 mg (65 mg iron) Tablet 325 mg PO BID pantoprazole [Protonix] 40 mg tablet,delayed release (DR/EC) 40 mg PO QDAY Qty: 14 0RF metoclopramide HCl 5 mg tablet 5 mg PO TIDWM 30 Days Qty: 90 0RF Referrals: Xena Li MD [Primary Care Provider, [facility]] - In 1 week Problem List Clinical Impression: Migraine, Cystitis Patient/Caregiver Discharge Instructions Discharge Activity: activity as tolerated Print Language: Cook Islander Stand Alone Forms: Kay Award Info., Patient Portal Info Letter [facility] Medical Records reviewed Medical Records additional comments: 1926: Ordered migraine cocktail including Benadryl and Reglan, ordered head CT, and ordered basic labs and urine analysis 2126: Reevaluated patient who reports that her headache has improved with the migraine cocktail, magnesium level reviewed at 1.4. Low suspicion for stroke at this time, will hold off on further stroke workup at this time. Patient found to have urinary tract infection in which she received 1 dose of Rocephin for and will be discharged with outpatient antibiotic. Patient medically cleared for discharge. EKG Interpretation EKG #1: EKG Interpretation: Sinus rhythm, heart rate 70, no STEMI, QTc 388, no QRS widening Medication Administration(s) Medication Administration History Magnesium Sulfate/Dextrose (Magnesium Sulfate Ivpb) 1 gm in 100 mls @ 100 mls/hr IV X1 ONE Stop: 11/16/24 22:09 Ceftriaxone Sodium/Dextrose (Rocephin/D5w 1gm Iv Premix) 1 gm in 50 mls @ 100 mls/hr IV X1 ONE Stop: 11/16/24 21:49 Discontinued Medications Diphenhydramine HCl (Diphenhydramine Inj 50 Mg/Ml Vial) 25 mg IVP X1 ONE Stop: 11/16/24 19:28 Last Admin: 11/16/24 20:38 Dose: 25 mg Documented By: ROBERTO Metoclopramide HCl (Metoclopramide Inj 5 Mg/Ml Vial 2 Ml) 10 mg IVP X1 ONE; Protocol Stop: 11/16/24 19:28 Last Admin: 11/16/24 20:36 Dose: 10 mg Documented By: ROBERTO
[2024-11-16 19:09] VITALS: BP 190/19; PULSE 79; RESP 19; TEMP 36.6; O2SAT 100
[2024-11-16 19:25] VITALS: BP 175/80
--- NOTE | 2024-11-16 19:27 | XR_ITS ---
Examination: CT brain head without contrast. 2-D sagittal coronal reconstructions Date and time of exam:November 16, 2024, 2014 hrs., Comparison April 07, 2024 Indications: Onset headache today CTDI: vol (mGy):52.80 DLP: (mGycm):1019 Technique: Multiple CT axial sections of the brain have been obtained, 5 mm slice thickness. Contrast has not been administered. 2-D sagittal, coronal reconstructions have been obtained Low dose protocols were performed. One or more of the following dose reduction techniques were used; automated exposure control, adjustment of the mA and/or KV according to patient size, use of iterative reconstruction technique. Findings: No significant ventricular enlargement. Intra-axial or extra-axial hemorrhage density is not seen. No mass effect or midline shift Basal cisterns are not remarkable. Fourth ventricle is midline. Cranial vault intact. Impression: Negative for acute hemorrhage, mass effect or midline shift Advise clinical correlation follow-up accordingly
[2024-11-16 19:28] VITALS: BMI 38.0
--- NOTE | 2024-11-16 19:28 | EKG_ITS ---
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
[2024-11-16 19:54] LABS: Basophils # (Auto) 0.0 Thou/mm3 (0.0-0.2); Basophils % (Auto) 1 % (0-2.5); Eosinophils # (Auto) 0.2 Thou/mm3 (0.0-0.5); Eosinophils % (Auto) 4 % (0-10); Hematocrit 31.1 % (36.0-46.0); Hemoglobin 10.5 g/dL (12.0-16.0); Immature Granulocytes Auto 0.02 Thou/mm3 (0.00-0.00); Lymphocytes # (Auto) 1.6 Thou/mm3 (1.0-4.8); Lymphocytes % (Auto) 26 % (10-50); Mean Corpuscular HGB Conc 33.8 g/dl (31.0-37.0); Mean Corpuscular Hemoglobin 29.9 pg (25.0-35.0); Mean Corpuscular Volume 89 fL (80-100); Monocytes # (Auto) 0.9 Thou/mm3 (0.0-0.8); Monocytes % (Auto) 15 % (0-12); Neutrophils # (Auto) 3.3 Thou/mm3 (1.8-7.7); Neutrophils % (Auto) 55 % (37-80); Nucleated Red Blood Cell # 0.00 Thou/mm3 (0.00-0.00); Nucleated Red Blood Cell % 0 /100 WBC (0); Platelet Count 264 Thou/mm3 (140-440); RDW Standard Deviation 39.6 fL (36.4-46.3); Red Blood Count 3.51 Miln/mm3 (4.00-5.20); White Blood Count 6.0 Thou/mm3 (3.6-11.0)
[2024-11-16 20:16] LABS: Alanine Aminotransferase 29 U/L (10-49); Albumin, Serum 4.0 gm/dL (3.4-4.8); Albumin/Globulin Ratio 1.8 (1.2-2.2); Alkaline Phosphatase 86 U/L (46-116); Anion Gap 11 (7-16); Aspartate Amino Transferase 25 U/L (0-34); BUN/Creatinine Ratio 5 Ratio (12-20); Bilirubin,Total 0.4 mg/dL (0.3-1.2); Blood Urea Nitrogen < 5 mg/dL (9-23); Calcium 9.3 mg/dL (8.3-10.6); Calcium (Corrected) 9.3 mg/dL (8.5-10.1); Carbon Dioxide 22.3 mMol/L (20.0-31.0); Chloride 93 mMol/L (98-107); Creatinine (Component) 1.1 mg/dL (0.6-1.3); Estimated Creatinine Clearance 39.5 mL/min (>60); Globulin 2.2 gm/dL (2.3-3.5); Glucose 135 mg/dL (74-106); Magnesium 1.4 mg/dL (1.6-2.6); Osmolality,Calculated 252 (275-295); Potassium 4.1 mMol/L (3.4-5.1); Sodium 126 mMol/L (136-145); Thyroid Stimulating Hormone 2.40 uIU/mL (0.55-4.78); Total Protein 6.2 gm/dL (5.7-8.2); Troponin I < 0.020 ng/mL (0.0-0.045); eGFR 54 See Note
[2024-11-16] MEDS: METOCLOPRAMIDE INJ 5 MG/ML VIAL 2 ML 10 MG IVP (20:36)
[2024-11-16 20:37] LABS: Collection Type, Urine Clean Catch
[2024-11-16 20:40] VITALS: BP 171/86; PULSE 79; RESP 20; O2SAT 99
[2024-11-16 20:58] LABS: Bilirubin,Urine Negative (Negative); Blood,Urine Negative (Negative); Clarity,Urine Clear (Clear/Hazy); Color,Urine Lt-Yellow (Lt Yel-Yel); Culture Indicated,Urine Yes; Glucose, Urine Negative (Negative); Hyaline Casts,Urine < 1 /hpf (0-1); Ketones,Urine Negative (Negative); Leukocyte Esterase,Urine Positive (Negative); Nitrite,Urine Negative (Negative); PH,Urine 5.0 (5.0-7.0); Protein,Urine Negative (Neg - Trace); RBC,Urine 4 /hpf (0-3); Specific Gravity,Urine 1.017 (1.001-1.035); Squamous Epithelial Cell,Urine 8 /hpf (0-5); Urobilinogen,Urine Negative mg/dL (0.0-1.0); WBC,Urine 24 /hpf (0-5)
[2024-11-16 21:15] LABS: Amphetamine/Methamp Scrn,U Negative (Negative); Barbiturate Screen,Urine Negative (Negative); Benzodiazepines Screen,Urine Negative (Negative); Benzoylecgonine Screen, Ur Negative (Negative); Fentanyl Screen,Urine Negative (Negative); Opiate Screen,Urine Negative (Negative); THC Screen,Urine Negative (Negative)
[2024-11-16] MEDS: cefTRIAXone/D5w 1gm IV premix 1 GM/50 ML BAG IV (21:31)
[2024-11-16 23:02] VITALS: BP 112/70; PULSE 75; RESP 20; TEMP 36.9; O2SAT 99
== END 2024-11-16 23:03 | disposition home or self-care (01) ==
PROVIDERS: PCP Family Medicine
DX: N30.90 Cystitis, unspecified without hematuria (principal); E03.9 Hypothyroidism, unspecified; E11.9 Type 2 diabetes mellitus without complications; G43.909 Migraine, unspecified, not intractable, without status migrainosus; I10 Essential (primary) hypertension
CPT/HCPCS: 36415; 70450; 80053; 80307; 81001; 83735; 84443; 84484; 85025; 87086; 87400; 87811; 93005; 96365; 96375; 99284; J0696; J1200; J2765; J3475

== ENCOUNTER → 2024-11-19 | Outpatient (CLI) | payer OTHER, SELFPAY ==
[2024-11-19 10:33] LABS: Albumin, Serum 4.5 gm/dL (3.4-4.8); Anion Gap 12 (7-16); BUN/Creatinine Ratio 5 Ratio (12-20); Blood Urea Nitrogen < 5 mg/dL (9-23); Calcium 10.0 mg/dL (8.3-10.6); Calcium (Corrected) 10.0 mg/dL (8.5-10.1); Carbon Dioxide 24.4 mMol/L (20.0-31.0); Chloride 92 mMol/L (98-107); Creatinine (Component) 1.0 mg/dL (0.6-1.3); Glucose 108 mg/dL (74-106); Osmolality,Calculated 255 (275-295); Phosphorous 3.6 mg/dL (2.4-5.1); Potassium 4.6 mMol/L (3.4-5.1); Sodium 128 mMol/L (136-145); eGFR > 60 See Note
== END | disposition home or self-care (01) ==
LOC: COPL 09:33
PROVIDERS: PCP Family Medicine; Referring Provider Family Medicine; Visit Provider Family Medicine
DX: I10 Essential (primary) hypertension (principal)
CPT/HCPCS: 36415; 80069

== ENCOUNTER 2024-11-20 15:13 | Inpatient (IN) | payer OTHER, MEDICARE, SELFPAY ==
[2024-11-20] VITALS (9 sets, daily range): BP systolic 115–150; BP diastolic 66–82; PULSE 77–98; RESP 16–100; TEMP 36.8–37; O2SAT 96–98; BMI 31.4
--- NOTE | 2024-11-20 15:40 | PD.EDRME ---
Rapid Medical Screening Exam RME Arrival date/time: 11/20/24 15:13 Chief Complaint: Headache Time Seen by Provider: 11/20/24 15:17 Vital signs: Vital Signs Temperature 98.6 F 11/20/24 15:35 Pulse Rate 98 11/20/24 15:35 Respiratory Rate 18 11/20/24 15:35 Blood Pressure 147/81 H 11/20/24 15:35 Pulse Oximetry (%) 96 11/20/24 15:35 Oxygen Delivery Method Room Air 11/20/24 15:35 RME Narrative: Persistent headache with intermittent nausea/vomiting. Evaluated and treated in ED 11/16 for same.
[2024-11-20 16:10] LABS: Basophils # (Auto) 0.0 Thou/mm3 (0.0-0.2); Basophils % (Auto) 0 % (0-2.5); Eosinophils # (Auto) 0.2 Thou/mm3 (0.0-0.5); Eosinophils % (Auto) 3 % (0-10); Hematocrit 30.9 % (36.0-46.0); Hemoglobin 10.7 g/dL (12.0-16.0); Immature Granulocytes Auto 0.02 Thou/mm3 (0.00-0.00); Lymphocytes # (Auto) 1.7 Thou/mm3 (1.0-4.8); Lymphocytes % (Auto) 30 % (10-50); Mean Corpuscular HGB Conc 34.6 g/dl (31.0-37.0); Mean Corpuscular Hemoglobin 30.0 pg (25.0-35.0); Mean Corpuscular Volume 87 fL (80-100); Monocytes # (Auto) 0.8 Thou/mm3 (0.0-0.8); Monocytes % (Auto) 13 % (0-12); Neutrophils # (Auto) 3.1 Thou/mm3 (1.8-7.7); Neutrophils % (Auto) 54 % (37-80); Nucleated Red Blood Cell # 0.00 Thou/mm3 (0.00-0.00); Nucleated Red Blood Cell % 0 /100 WBC (0); Platelet Count 338 Thou/mm3 (140-440); RDW Standard Deviation 38.3 fL (36.4-46.3); Red Blood Count 3.57 Miln/mm3 (4.00-5.20); White Blood Count 5.8 Thou/mm3 (3.6-11.0)
--- NOTE | 2024-11-20 16:21 | EDNOTE_ITS ---
ED General RME/HPI General Chief complaint: Headache Stated complaint: HEADACHE FOR TWO WEEKS NAUSEA, WAS HERE TUESDAY Time Seen by Provider: 11/20/24 15:17 Arrival date/time: 11/20/24 15:13 CC: Headache and nausea without vomiting HPI patient has had a headache for the past 2 days. Nausea is been persistent for the past 3 days. Patient was seen here 4 days ago for the same complaint had a complete workup, was discharged pain and nausea free, stated that the following day she was pain and nausea free the second day post visit the headache and nausea returned. Patient denies light sensitivity or noise sensitivity last vomitus was greater than 14 hours ago. Patient denies diarrhea or constipation. Patient denies chest pain shortness of breath difficulty breathing. Prescribed medications include metoclopramide and losartan which patient stated are not helping . RME / HPI RME / HPI narrative: Persistent headache with intermittent nausea/vomiting. Evaluated and treated in ED 11/16 for same. Related Data Home Medications ?Medication ?Instructions ?Recorded ?Confirmed atorvastatin 10 mg tablet 10 mg PO QDAY 03/05/2411/20 ferrous sulfate 325 mg (65 mg 325 mg PO BID 03/05/24 1 iron) tablet levothyroxine 50 mcg tablet 50 mcg PO QDAY 03/12/24 metformin 500 mg tablet 500 mg PO QDAY 03/12/2409/07 amlodipine 5 mg tablet 5 mg PO HS 11/20/24 11/20/24 lisinopril 40 mg tablet 40 mg PO QDAY 11/20/2411/20 meloxicam 7.5 mg tablet 7.5 mg PO BID 11/20/2411/20 Previous Rx's ?Medication ?Instructions ?Recorded pantoprazole 40 mg tablet,delayed 40 mg PO QDAY #14 ta bs 03/06/24 release (Protonix) metoclopramide HCl 5 mg tablet 5 mg PO TIDWM 1 month # 90 tabs 11/10/24 Allergies Allergy/AdvReac Type Severity Reaction Status Date / Time No Known Allergies Allergy Verified 11/20/24 15:17 Review of Systems Review of Systems Narrative Review of Systems: GEN: No fever, no chills, no weight loss EYES: No discharge, no visual changes, no pain HEENT: No ear pain, no congestion, no sore throat PULM: No shortness of breath, no cough, no congestion CV: No chest pain, no dyspnea on exertion, no palpitations GI: No nausea, no vomiting, no diarrhea, no pain, no constipation : No frequency, no urgency, no dysuria MUSC/SKEL: No joint pain, no back pain SKIN: No rash PSYCH: No hallucinations, no depression HEME/LYMPH: No easy bleeding or bruising tendencies NEURO: No weakness, + headache Course Course Course Narrative: Patient's case including the downtrending sodiums was discussed with Dr. Huffman who agrees the patient needs to start on 3% drip, he will start the orders but the mission can go to the night crew. Quality Measures none Orders Category Date Time Status Saline [Insert IV] NOW Care 11/20/24 16:14 Completed CBC Stat Lab 11/20/24 16:02 Completed CMP [Comprehensive Metabolic Panel] Stat Lab 11/20/24 16:02 Completed Urinalysis Stat Lab 11/20/24 19:45 Completed DiphenhydrAMINE INJ [Benadryl Inj] Med 11/20/24 16:19 Discontinued 25 mg IVP X1 ONE Ketorolac Inj [Toradol Inj] Med 11/20/24 16:19 Discontinued 15 mg IVP X1 ONE Ondansetron Inj [Zofran Inj] Med 11/20/24 16:14 Discontinued 4 mg IVP X1 ONE SODIUM CHLORIDE 3%(Hypertonic) [Hypertonic Saline 3%] Med 11/20/24 18:30 Discontinued 100 ml IV 100 mls/hr Vital Signs Vital signs: Vital Signs Temperature 98.6 F 11/20/24 15:35 Pulse Rate 98 11/20/24 15:35 Respiratory Rate 18 11/20/24 15:35 Blood Pressure 147/81 H 11/20/24 15:35 Pulse Oximetry (%) 96 11/20/24 15:35 Oxygen Delivery Method Room Air 11/20/24 15:35 Discharge Plan Plan Patient Disposition: Other Care w/in Hosp ([facility]) Patient condition on transfer: Stable Problem List Clinical Impression: Hyponatremia, Nausea, Headache MDM Clinical Information Provided by: patient Medical Records reviewed [facility] Meds/Rx considered, not ordered None Labs/Rad/Tests considered, not ordered None Chronic Illness/Social Conditions Explain: Hypertension EKG Interpretation EKG #1: EKG Interpretation: EKG performed at 1837 shows a ventricular of 81 CA interval 184 QRS of 84 QTc of 444 shows a sinus rhythm left axis deviation. Medication Administration(s) Medication Administration History Acetaminophen (Acetaminophen 325 Mg Tablet) 650 mg PO Q6H PRN PRN Reason: Fever >101.5 Stop: 12/20/24 19:42 Acetaminophen (Acetaminophen 325 Mg Tablet) 650 mg PO Q6H PRN PRN Reason: PAIN SCALE 1-3 (mild Stop: 12/20/24 19:42 Last Admin: 11/20/24 21:04 Dose: 650 mg Documented By: EE Amlodipine Besylate (Amlodipine Besylate 5 Mg Tablet) 5 mg PO HS [facility] Stop: 12/20/24 20:59 Last Admin: 11/20/24 21:04 Dose: 5 mg Documented By: EE Atorvastatin Calcium (Atorvastatin Calcium 10 Mg Tablet) 10 mg PO QDAY [facility] Stop: 12/21/24 08:59 Dextrose (Dextrose 50%-Water Inj 50 Ml Syringe) 25 ml IV Q15MIN PRN PRN Reason: BG 50-70 responsive npo pt Stop: 12/20/24 20:23 Dextrose (Dextrose 50%-Water Inj 50 Ml Syringe) 50 ml IV Q15MIN PRN PRN Reason: BG <50 OR BG <70 & pt unresponsive Stop: 12/20/24 20:23 Enoxaparin Sodium (Enoxaparin Sod Inj 40 Mg/0.4 Ml Syringe) 40 mg SC QDAY [facility] Stop: 12/05/24 08:59 Glucagon (Glucagon Inj 1 Mg Vial) 1 mg IM Q15MIN PRN PRN Reason: BG <70, and no IV access Insulin Human Lispro (Insulin Lispro (Admelog) 1 Unit/0.01 Ml Unit) 0 unit SC AC [facility]; Protocol Stop: 12/21/24 07:29 Levothyroxine Sodium (Levothyroxine Sodium 25 Mcg Tablet) 50 mcg PO ACBR [facility] Stop: 12/21/24 05:59 Lisinopril (Lisinopril 20 Mg Tablet) 40 mg PO QDAY SHEN Stop: 12/21/24 08:59 Ondansetron HCl (Ondansetron Inj 2 Mg/Ml Inj 2 Ml) 4 mg IVP Q6H PRN; Protocol PRN Reason: NAUSEA OR VOMITING Stop: 12/20/24 19:42 Pantoprazole Sodium (Pantoprazole 40 Mg Tablet) 40 mg PO QDAY SHEN Stop: 12/21/24 08:59 Sennosides (Senna Tablet) 1 tab PO QDAY PRN; Protocol PRN Reason: constipation Stop: 12/20/24 19:42 Discontinued Medications Diphenhydramine HCl (Diphenhydramine Inj 50 Mg/Ml Vial) 25 mg IVP X1 ONE Stop: 11/20/24 16:20 Last Admin: 11/20/24 16:25 Dose: 25 mg Documented By: BY Sodium Chloride (Hypertonic Saline 3%) 100 mls @ 100 mls/hr IV .Q1H ONE Stop: 11/20/24 19:29 Last Infusion: 11/20/24 20:05 Dose: Infused Documented By: Admin: 11/20/24 18:48 Dose: 100 mls/hr Documented By: BY Ketorolac Tromethamine (Ketorolac Inj 30 Mg/Ml Vial) 15 mg IVP X1 ONE Stop: 11/20/24 16:20 Last Admin: 11/20/24 16:27 Dose: 15 mg Documented By: BY Ondansetron HCl (Ondansetron Inj 2 Mg/Ml Inj 2 Ml) 4 mg IVP X1 ONE; Protocol Stop: 11/20/24 16:15 Last Admin: 11/20/24 16:26 Dose: 4 mg Documented By: BY
[2024-11-20] MEDS: ONDANSETRON INJ 2 MG/ML INJ 2 ML 4 MG IVP (16:26)
[2024-11-20] MEDS: KETOROLAC INJ 30 MG/ML VIAL 15 MG IVP (16:27)
[2024-11-20 16:37] LABS: Alanine Aminotransferase 32 U/L (10-49); Albumin, Serum 4.0 gm/dL (3.4-4.8); Albumin/Globulin Ratio 1.8 (1.2-2.2); Alkaline Phosphatase 90 U/L (46-116); Anion Gap 10 (7-16); Aspartate Amino Transferase 31 U/L (0-34); BUN/Creatinine Ratio 5 Ratio (12-20); Bilirubin,Total 0.4 mg/dL (0.3-1.2); Blood Urea Nitrogen < 5 mg/dL (9-23); Calcium 9.0 mg/dL (8.3-10.6); Calcium (Corrected) 9.0 mg/dL (8.5-10.1); Carbon Dioxide 23.6 mMol/L (20.0-31.0); Chloride 87 mMol/L (98-107); Creatinine (Component) 1.0 mg/dL (0.6-1.3); Estimated Creatinine Clearance 47.4 mL/min (>60); Globulin 2.2 gm/dL (2.3-3.5); Glucose 114 mg/dL (74-106); Osmolality,Calculated 242 (275-295); Potassium 4.1 mMol/L (3.4-5.1); Sodium 121 mMol/L (136-145); Total Protein 6.2 gm/dL (5.7-8.2); eGFR > 60 See Note
--- NOTE | 2024-11-20 18:34 | EKG_ITS ---
[facility] Test Date: 2024-11-20 Pat Name: JADE DIAZ Department: Room: - Gender: Female Locator: : 1955 Requested By: Tuan Rodney Order Number: [id number] Reading MD: Tuan Rodney Measurements Intervals [place] Rate: 81 P: 31 FL: 184 QRS: -39 QRSD: 84 T: 15 QT: 407 QTc: 473 Interpretive Statements SINUS RHYTHM LEFT AXIS DEVIATION [QRS AXIS < -30] PATTERN CONSISTENT WITH PULMONARY DISEASE Compared to ECG 11/16/2024 19:36:20 No significant changes /store/S0/[id number].pdf
--- NOTE | 2024-11-20 19:47 | PD.RESHP ---
Documentation for date of: 11/20/24 HPI History of Present Illness Chief complaint: Symptomatic hyponatremia History of present illness: Okgilda 69-year-old female with past medical history of hypertension, diabetes, arthritis, hypothyroidism, GERD, Hyperlipidemia who presented to the ED with headache and nausea. Patient states that each has been having nausea and headache since November 09 for which she was admitted for and later discharge however she states symptoms have continued she came to the ER on November 16 and was discharged. She continues to endorse the same symptoms. She also endorses some mild facial swelling has been going on for the past couple days. She attributes all her symptoms to a pill she took 1 from a friend in [place] on the week of the . Patient denies fever, chills, shortness of breath, chest pressure/pain, abdominal pain, changes in urinary/bowel habits. In the ER she was found to have a sodium of 121 and was started on hypertonic 3% saline. Patient was admitted for workup of symptomatic hyponatremia. ED course: BP 147/81, HR 98, saturating 96% on room air, respiratory rate 18, lab significant for normocytic anemia with hemoglobin 10.7, sodium 121, potassium 4.1, chloride 87, BUN 5, creatinine 1.0, osmolality 242 glucose 114, UA pending at this time. EKG shows normal sinus rhythm. With no QTc prolongation. In the ED patient received Ketorolac, hypertonic saline, zofran, benadryl. PMHx: As above SX Hx: Adhesion removal laparoscopically for SBO Social Hx: Denies alcohol use, deny cigarette use, denies illicits plus including THC FH X: Unknown Review of Systems Review of Systems Systems Reviewed: All systems reviewed, normal except as documented Exam Vital Signs Temp Pulse Resp BP Pulse Ox O2 Del Method 98.6 F 83 18 131/71 H 97 Room Air 11/20/24 19:37 11/20/24 19:37 11/20/24 19:37 11/20/24 19:37 11/20/24 19:37 11/20/24 19:37 Narrative Exam GENERAL: NAD, AAOx3 HEENT: Moist mucosa. Eyes open, symmetrical, & clear CARDIO: Heart RRR, no obvious murmurs PULM: No noted coughing/dyspnea CTA B/L, no R/W/R GI: Abdomen soft, nondistended, no pain on palpation. BSx4 SKIN/MSK/EXT: No wounds/rashes/edema/amputations, no pain on palpation. Pedal pulses present B/L NEURO: AAOx3, no focal neuro deficits, able to move all 4 extremities Results: Labs 11/22/24 04:54 11/22/24 14:08 Labs: Short CBC 11/20/24 Range/Units 16:02 WBC 5.8 (3.6-11.0) Thou/mm3 Hgb 10.7 L (12.0-16.0) g/dL Hct 30.9 L (36.0-46.0) % Plt Count 338 D (140-440) Thou/mm3 BMP 11/20/24 16:02 Sodium 121 L Potassium 4.1 D Chloride 87 L Carbon Dioxide 23.6 BUN < 5 L Creatinine 1.0 Glucose 114 H Calcium 9.0 Liver Function 11/20/24 Range/Units 16:02 Total Bilirubin 0.4 (0.3-1.2) mg/dL AST 31 (0-34) U/L ALT 32 (10-49) U/L Alkaline Phosphatase 90 (46-116) U/L Albumin 4.0 D (3.4-4.8) gm/dL Quality Measures Quality Measures VTE prophylaxis Advance care planning discussed with:: patient Medications Home Medications and Allergies Home Medications ?Medication ?Instructions ?Recorded ?Confirmed ?Type atorvastatin 10 mg tablet 10 mg PO QDAY 03/05/24 11/20/24 History ferrous sulfate 325 mg (65 mg 325 mg PO BID 03/05/24 11/20/24 History iron) tablet levothyroxine 50 mcg tablet 50 mcg PO QDAY 03/12/24 11/20/24 History metformin 500 mg tablet 500 mg PO QDAY 03/12/24 11/20/24 History amlodipine 5 mg tablet 5 mg PO HS 11/20/24 11/20/24 History lisinopril 40 mg tablet 40 mg PO QDAY 11/20/24 11/20/24 History meloxicam 7.5 mg tablet 7.5 mg PO BID 11/20/24 11/20/24 History Allergies Allergy/AdvReac Type Severity Reaction Status Date / Time No Known Allergies Allergy Verified 11/20/24 15:17 Visit Medications Discontinued Medications Diphenhydramine HCl (Diphenhydramine Inj 50 Mg/Ml Vial) 25 mg IVP X1 ONE Stop: 11/20/24 16:20 Last Admin: 11/20/24 16:25 Dose: 25 mg Sodium Chloride (Hypertonic Saline 3%) 100 mls @ 100 mls/hr IV .Q1H ONE Stop: 11/20/24 19:29 Last Admin: 11/20/24 18:48 Dose: 100 mls/hr Ketorolac Tromethamine (Ketorolac Inj 30 Mg/Ml Vial) 15 mg IVP X1 ONE Stop: 11/20/24 16:20 Last Admin: 11/20/24 16:27 Dose: 15 mg Ondansetron HCl (Ondansetron Inj 2 Mg/Ml Inj 2 Ml) 4 mg IVP X1 ONE; Protocol Stop: 11/20/24 16:15 Last Admin: 11/20/24 16:26 Dose: 4 mg Assessment & Plan Plan 69-year-old female with past medical history of hypertension, diabetes, arthritis, hypothyroidism, GERD, Hyperlipidemia who presented to the ED with headache and nausea. Admitted for symptomatic hyponatremia. #Symptomatic hyponatremia Patient came in with nausea, vomiting, headaches Patient has had multiple hospital visits for symptomatic hyponatremia Initial sodium was 121 In the ER patient was started on hypertonic saline. She attributes symptoms to a pill she took from a friend in [place] ? Monitor to not increase more than 4-6 mEq sodium per 24 hours ? Fluid restriction 1800ml ? Sodium checks every 4 hours ? Telemetry admission ? seizure precautions ? Monitor neurological status for any acute changes Chronic problems: #Hypertension #Hyperlipidemia #Hypothyroidism #Diabetes mellitus type 2 #GERD ? Resume mobility pain, lisinopril as taken at home ? Resume levothyroxine 50 mcg as taken at home ? Insulin sliding scale ? Hypoglycemia protocol in place ? Pantoprazole for GI prophylaxis Case discussed with my attending Dr. Armida Cooley MD PGY-2 Disclaimer: Despite multiple revisions, due to the dictation software being used, the document bellow may not be free of grammatical errors including phonetic/typographic errors. However, this does not deter from our commitment to providing health care in the patient's best interest in mind. Attending Provider Attestation/Addendum I have discussed and was present for the essential components of the history, physical examination, diagnosis, and treatment plan with the resident. I agree with the patient's care as documented by the resident and amended herein by me. Antwan Huffman DO. Although this document has been carefully reviewed, there may still be some phonetic and other typographical errors. These errors are purely grammatical due to imperfections in the software program and should not be construed in any way to compromise the substance of the patient's medical care during this visit.
[2024-11-20 19:56] LABS: Collection Type, Urine Clean Catch
[2024-11-20 20:01] LABS: Bilirubin,Urine Negative (Negative); Blood,Urine Negative (Negative); Clarity,Urine Clear (Clear/Hazy); Color,Urine Yellow (Lt Yel-Yel); Glucose, Urine Negative (Negative); Hyaline Casts,Urine < 1 /hpf (0-1); Ketones,Urine Negative (Negative); Leukocyte Esterase,Urine Positive (Negative); Nitrite,Urine Negative (Negative); PH,Urine 5.0 (5.0-7.0); Protein,Urine Negative (Neg - Trace); RBC,Urine 4 /hpf (0-3); Specific Gravity,Urine 1.030 (1.001-1.035); Squamous Epithelial Cell,Urine 3 /hpf (0-5); Urobilinogen,Urine Negative mg/dL (0.0-1.0); WBC,Urine 5 /hpf (0-5)
[2024-11-20 20:36] LABS: Sodium 121 mMol/L (136-145)
[2024-11-20] MEDS: ACETAMINOPHEN 325 MG TABLET 650 MG PO (21:04)
[2024-11-21] VITALS (11 sets, daily range): BP systolic 110–140; BP diastolic 64–84; PULSE 72–103; RESP 13–98; TEMP 36.1–36.5; O2SAT 94–100; BMI 31.6
[2024-11-21] MEDS: ONDANSETRON INJ 2 MG/ML INJ 2 ML 4 MG IVP ×4 (00:11→21:38)
[2024-11-21 00:38] LABS: Sodium 122 mMol/L (136-145)
[2024-11-21] MEDS: ACETAMINOPHEN 325 MG TABLET 650 MG PO ×2 (00:40→14:55)
[2024-11-21] MEDS: LEVOTHYROXINE SODIUM 25 MCG TABLET 50 MCG PO (05:21)
[2024-11-21 05:28] LABS: Basophils # (Auto) 0.0 Thou/mm3 (0.0-0.2); Basophils % (Auto) 1 % (0-2.5); Eosinophils # (Auto) 0.2 Thou/mm3 (0.0-0.5); Eosinophils % (Auto) 4 % (0-10); Hematocrit 27.4 % (36.0-46.0); Hemoglobin 9.5 g/dL (12.0-16.0); Immature Granulocytes Auto 0.01 Thou/mm3 (0.00-0.00); Lymphocytes # (Auto) 1.4 Thou/mm3 (1.0-4.8); Lymphocytes % (Auto) 32 % (10-50); Mean Corpuscular HGB Conc 34.7 g/dl (31.0-37.0); Mean Corpuscular Hemoglobin 29.9 pg (25.0-35.0); Mean Corpuscular Volume 86 fL (80-100); Monocytes # (Auto) 0.6 Thou/mm3 (0.0-0.8); Monocytes % (Auto) 13 % (0-12); Neutrophils # (Auto) 2.2 Thou/mm3 (1.8-7.7); Neutrophils % (Auto) 50 % (37-80); Nucleated Red Blood Cell # 0.00 Thou/mm3 (0.00-0.00); Nucleated Red Blood Cell % 0 /100 WBC (0); Platelet Count 295 Thou/mm3 (140-440); RDW Standard Deviation 37.8 fL (36.4-46.3); Red Blood Count 3.18 Miln/mm3 (4.00-5.20); White Blood Count 4.5 Thou/mm3 (3.6-11.0)
[2024-11-21 05:35] LABS: Glucose Estimated Average 126 mg/dL (80-131); Hemoglobin A1C 6.0 % Hgb (4.8-6.0)
[2024-11-21] MEDS: KETOROLAC 10 MG TABLET PO (05:47)
[2024-11-21 05:51] LABS: Alanine Aminotransferase 26 U/L (10-49); Albumin, Serum 3.5 gm/dL (3.4-4.8); Albumin/Globulin Ratio 1.9 (1.2-2.2); Alkaline Phosphatase 78 U/L (46-116); Anion Gap 8 (7-16); Aspartate Amino Transferase 25 U/L (0-34); BUN/Creatinine Ratio 5 Ratio (12-20); Bilirubin,Total 0.4 mg/dL (0.3-1.2); Blood Urea Nitrogen < 5 mg/dL (9-23); Calcium 8.5 mg/dL (8.3-10.6); Calcium (Corrected) 8.9 mg/dL (8.5-10.1); Carbon Dioxide 24.6 mMol/L (20.0-31.0); Chloride 89 mMol/L (98-107); Creatinine (Component) 1.0 mg/dL (0.6-1.3); Estimated Creatinine Clearance 47.4 mL/min (>60); Globulin 1.8 gm/dL (2.3-3.5); Glucose 94 mg/dL (74-106); Magnesium 1.2 mg/dL (1.6-2.6); Osmolality,Calculated 243 (275-295); Phosphorous 3.3 mg/dL (2.4-5.1); Potassium 4.0 mMol/L (3.4-5.1); Sodium 122 mMol/L (136-145); Thyroid Stimulating Hormone 2.93 uIU/mL (0.55-4.78); Total Protein 5.3 gm/dL (5.7-8.2); eGFR > 60 See Note
[2024-11-21] MEDS: Magnesium Sulfate 4 GM Ivpb 4 GM/50 ML BAG IV (08:48)
[2024-11-21] MEDS: PANTOPRAZOLE 40 MG TABLET PO (08:48)
[2024-11-21] MEDS: ENOXAPARIN SOD INJ 40 MG/0.4 ML SYRINGE SC (08:48)
[2024-11-21] MEDS: ATORVASTATIN CALCIUM 10 MG TABLET PO (08:48)
[2024-11-21 09:09] LABS: Sodium 120 mMol/L (136-145)
--- NOTE | 2024-11-21 09:41 | PC.SS ---
Patient Nurys Wallace is a 69 Year old female admitted for Symptomatic Hyponatremia. SS made contact with patient to discuss discharge plan and verify demographic information. Patient reports she lives at home with family. Patient reports her , Guillermo Preston is her surrogate decision maker, [phone]. Patient reports she does not utilize any source of DME to assist with ambulation. Patient is able to complete All ADL's independently. Choice of pharmacy is [facility]. Patients PCP is Xena Li. At time of discharge patient will return back home. Discharge Plan: Home Next of kin: , Guillermo Preston [phone]
--- NOTE | 2024-11-21 10:12 | PC.SS ---
SS follow up note; Sodium being monitored. Patient will discharge home when medically cleared.
[2024-11-21 12:47] LABS: Albumin, Serum 3.6 gm/dL (3.4-4.8); Anion Gap 9 (7-16); BUN/Creatinine Ratio 6 Ratio (12-20); Blood Urea Nitrogen < 5 mg/dL (9-23); Calcium 8.7 mg/dL (8.3-10.6); Calcium (Corrected) 9.0 mg/dL (8.5-10.1); Carbon Dioxide 22.9 mMol/L (20.0-31.0); Chloride 88 mMol/L (98-107); Creatinine (Component) 0.9 mg/dL (0.6-1.3); Estimated Creatinine Clearance 52.7 mL/min (>60); Glucose 104 mg/dL (74-106); Osmolality,Calculated 239 (275-295); Phosphorous 3.0 mg/dL (2.4-5.1); Potassium 3.5 mMol/L (3.4-5.1); Sodium 120 mMol/L (136-145); eGFR > 60 See Note
--- NOTE | 2024-11-21 13:19 | ESPR_ITS ---
<Statement entered by Anni Garcia MD - 11/25/24 12:13> I reviewed above note and agree with findings and plans. I have also personally examined the patient with medicine team and went over assessment and plan with medical team including business services intern and resident physician. Documentation for date of: 11/21/24 Patient is a 69-year-old female with a past medical history of hypertension, hyperlipidemia diabetes mellitus type 2, hypothyroidism, GERD was admitted overnight on 11/20/2024 secondary to symptomatic hypo-osmolar hyponatremia. Paitnet currently fluid restricted, NO fluids. Continue sodium checks with a goal of 6 meq of NA . GOAL OF 127. Continue q4HR sodium checks. Nephrology consulted. - The patient's plan was discussed with attending Dr. Garcia. Kim Randolph MD PGY2 Internal Medicine Subjective Subjective Interval history: Patient was examined at bedside; she is lying in L lateral decubitus position and looks to be in discomfort. She continues to complain about the same headache and nausea that has been ongoing for 2 weeks and endorses that she last vomited at 3 in the morning, producing liquid, non-bloody emesis. She attributes her current symptoms to a pill for her chronic back pain that she acquired in [place], saying that the N/V she is experiencing happened hours after she had taken the pill (though she endorses that she has taken this pill before and not had this reaction). She also complains of hand swelling, face swelling, and eye swelling that has been ongoing since yesterday. Labs today significant for Hgb 10.7 -> 9.5, sodium 121 -> 122 (s/p hypertonic saline 100 cc and did not correct with fluid restriction of 0 cc), chloride 87 -> 89, calculated osmolality 243, magnesium 1.2, and TSH 2.93. Nephrology (Dr. 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 Patient is also noted to take NSAIDs, which could also cause SIADH. Plan Updates: -Fluid restriction of 0 cc for a few hours (did not correct hyponatremia), then fluid restriction 1000 cc -Per Nephrology recommendations, PO sodium chloride tablet 1 g BID -Ordered urine osmolality -Sodium checks q4HR -NPO status Exam Vital Signs Temp Pulse Resp BP Pulse Ox O2 Del Method 97.0 F 90 13 118/64 95 Room Air 11/21/24 12:00 11/21/24 12:00 11/21/24 12:00 11/21/24 12:00 11/21/24 12:00 11/21/24 12:00 Narrative Exam Physical Exam: General: A/O x4 obese, elderly female in apparent discomfort. Skin: Warm, dry, intact, no obvious rash. Head: Normocephalic, atraumatic. Eyes: EOMI. Anicteric, vision grossly intact. Ears: No ear pain, no ear discharge, Hearing grossly intact. Nose: No nasal discharge. Mouth/Throat: Oral mucosa moist. No obvious lesions in oropharynx. Neck: Neck supple, non-tender, no cervical lymphadenopathy. Cardiovascular: Slightly tachycardic rate and normal rhythm, no murmur, no JVD or carotid bruits. +S1/S2. Respiratory: Bilateral lungs are clear to auscultation, respirations unlabored, no crackles, no wheezing. No accessory muscle use. Gastrointestinal: Soft, nontender, non-distended, no palpable masses. No guarding or rebound tenderness. Peristalsis present. Extremities: Symmetrical, no significant deformities. No edema, no cyanosis, no clubbing. 2+ radial pulse bilaterally, 2+ posterior tibial pulse bilaterally. Neuro: No focal deficits observed. Conversant, moving all extremities. No overt cerebellar signs/incoordination. Psychiatric: Cooperative, appropriate affect. Objective Labs 11/21/24 04:20 11/21/24 14:20 Labs: Laboratory Results - last 24 hr 11/20/24 11/20/24 11/20/24 16:02 19:45 20:08 WBC 5.8 RBC 3.57 L Hgb 10.7 L Hct 30.9 L MCV 87 MCH 30.0 MCHC 34.6 RDW Std Deviation 38.3 Plt Count 338 D Neut % (Auto) 54 Lymph % (Auto) 30 [place] % (Auto) 13 H Eos % (Auto) 3 Baso % (Auto) 0 Neut # (Auto) 3.1 Lymph # (Auto) 1.7 [place] # (Auto) 0.8 Eos # (Auto) 0.2 Baso # (Auto) 0.0 Immature Gran # (Auto) 0.02 H Absolute Nucleated RBC 0.00 Immature Gran % 0 Nucleated RBC % 0 Sodium 121 L 121 L Potassium 4.1 D Chloride 87 L Carbon Dioxide 23.6 Anion Gap 10 BUN < 5 L Creatinine 1.0 Estim Creat Clear Calc 47.4 L eGFR > 60 BUN/Creatinine Ratio 5 L Glucose [address] Glu mg/dL Hemoglobin A1c Calculated Osmolality 242 L Calcium 9.0 Corrected Calcium 9.0 Phosphorus Magnesium Total Bilirubin 0.4 AST 31 ALT 32 Alkaline Phosphatase 90 Total Protein 6.2 Albumin 4.0 D Globulin 2.2 L Albumin/Globulin Ratio 1.8 TSH Ur Collection Type Clean Catch Urine Color Yellow Urine Clarity Clear Urine pH 5.0 Ur Specific [place] 1.030 Urine Protein Negative Urine Glucose (UA) Negative Urine Ketones Negative Urine Blood Negative Urine Nitrite Negative Urine Bilirubin Negative Urine Urobilinogen (Auto) Negative Ur Leukocyte Esterase Positive Urine RBC 4 H Urine WBC 5 Ur Squamous Epith Cells 3 Urine Bacteria None Hyaline Casts < 1 11/20/24 11/21/24 11/21/24 23:50 04:20 08:14 WBC 4.5 RBC 3.18 L Hgb 9.5 L Hct 27.4 L MCV 86 MCH 29.9 MCHC 34.7 RDW Std Deviation 37.8 Plt Count 295 D Neut % (Auto) 50 Lymph % (Auto) 32 [place] % (Auto) 13 H Eos % (Auto) 4 Baso % (Auto) 1 Neut # (Auto) 2.2 Lymph # (Auto) 1.4 [place] # (Auto) 0.6 Eos # (Auto) 0.2 Baso # (Auto) 0.0 Immature Gran # (Auto) 0.01 H Absolute Nucleated RBC 0.00 Immature Gran % 0 Nucleated RBC % 0 Sodium 122 L 122 L 120 L Potassium 4.0 Chloride 89 L Carbon Dioxide 24.6 Anion Gap 8 BUN < 5 L Creatinine 1.0 Estim Creat Clear Calc 47.4 L eGFR > 60 BUN/Creatinine Ratio 5 L Glucose [address] Glu mg/dL 126 Hemoglobin A1c 6.0 Calculated Osmolality 243 L Calcium 8.5 Corrected Calcium 8.9 Phosphorus 3.3 Magnesium 1.2 L Total Bilirubin 0.4 AST 25 ALT 26 Alkaline Phosphatase 78 Total Protein 5.3 L Albumin 3.5 D Globulin 1.8 L Albumin/Globulin Ratio 1.9 TSH 2.93 Ur Collection Type Urine Color Urine Clarity Urine pH Ur Specific [place] Urine Protein Urine Glucose (UA) Urine Ketones Urine Blood Urine Nitrite Urine Bilirubin Urine Urobilinogen (Auto) Ur Leukocyte Esterase Urine RBC Urine WBC Ur Squamous Epith Cells Urine Bacteria Hyaline Casts 11/21/24 12:08 WBC RBC Hgb Hct MCV MCH MCHC RDW Std Deviation Plt Count Neut % (Auto) Lymph % (Auto) [place] % (Auto) Eos % (Auto) Baso % (Auto) Neut # (Auto) Lymph # (Auto) [place] # (Auto) Eos # (Auto) Baso # (Auto) Immature Gran # (Auto) Absolute Nucleated RBC Immature Gran % Nucleated RBC % Sodium 120 L Potassium 3.5 D Chloride 88 L Carbon Dioxide 22.9 Anion Gap 9 BUN < 5 L Creatinine 0.9 Estim Creat Clear Calc 52.7 L eGFR > 60 BUN/Creatinine Ratio 6 L Glucose [address] Glu mg/dL Hemoglobin A1c Calculated Osmolality 239 L Calcium 8.7 Corrected Calcium 9.0 Phosphorus 3.0 Magnesium Total Bilirubin AST ALT Alkaline Phosphatase Total Protein Albumin 3.6 Globulin Albumin/Globulin Ratio TSH Ur Collection Type Urine Color Urine Clarity Urine pH Ur Specific [place] Urine Protein Urine Glucose (UA) Urine Ketones Urine Blood Urine Nitrite Urine Bilirubin Urine Urobilinogen (Auto) Ur Leukocyte Esterase Urine RBC Urine WBC Ur Squamous Epith Cells Urine Bacteria Hyaline Casts Quality Measures Quality Measures none Advance care planning discussed with:: patient Assessment & Plan Assessment Current Active Medications: Generic Name Dose Route Start Last Admin Trade Name Freq PRN Reason Stop Dose Admin Acetaminophen 650 mg 11/21/24 07:57 Acetaminophen 325 Mg Tablet PO 12/20/24 19:42 Q6H PRN Fever >100 or pain 1-3 Amlodipine Besylate 5 mg 11/20/24 21:00 11/20/24 21:04 Amlodipine Besylate 5 Mg Tablet PO 12/20/24 20:59 5 mg HS SHEN Administration Atorvastatin Calcium 10 mg 11/21/24 09:00 11/21/24 08:48 Atorvastatin Calcium 10 Mg Tablet PO 12/21/24 08:59 10 mg QDAY SHEN Administration Dextrose 25 ml 11/20/24 20:24 Dextrose 50%-Water Inj 50 Ml Syringe IV 12/20/24 20:23 Q15MIN PRN BG 50-70 responsive npo pt Dextrose 50 ml 11/20/24 20:24 Dextrose 50%-Water Inj 50 Ml Syringe IV 12/20/24 20:23 Q15MIN PRN BG <50 OR BG <70 & pt unresponsive Enoxaparin Sodium 40 mg 11/21/24 09:00 11/21/24 08:48 Enoxaparin Sod Inj 40 Mg/0.4 Ml Syringe SC 12/05/24 08:59 40 mg QDAY SHEN Administration Glucagon 1 mg 11/20/24 20:24 Glucagon Inj 1 Mg Vial IM Q15MIN PRN BG <70, and no IV access Insulin Human Lispro 0 unit 11/21/24 07:30 11/21/24 11:48 Insulin Lispro (Admelog) 1 Unit/0.01 Ml Unit SC 12/21/24 07:29 Not Given AC SHEN Protocol Levothyroxine Sodium 50 mcg 11/21/24 06:00 11/21/24 05:21 Levothyroxine Sodium 25 Mcg Tablet PO 12/21/24 05:59 50 mcg ACBR SHEN Administration Ondansetron HCl 4 mg 11/20/24 19:43 11/21/24 06:42 Ondansetron Inj 2 Mg/Ml Inj 2 Ml IVP 12/20/24 19:42 4 mg Q6H PRN Administration NAUSEA OR VOMITING Protocol Pantoprazole Sodium 40 mg 11/21/24 09:00 11/21/24 08:48 Pantoprazole 40 Mg Tablet PO 12/21/24 08:59 40 mg QDAY SHEN Administration Sennosides 1 tab 11/20/24 19:43 Senna Tablet PO 12/20/24 19:42 QDAY PRN constipation Protocol Plan 69-year-old female with past medical history of hypertension, diabetes, arthritis, hypothyroidism, GERD, and hyperlipidemia who presented to the ED with headache and nausea and was admitted for severe, hypoosmolar hyponatremia. #Severe, symptomatic hypoosmolar hyponatremia #Acute on chronic hyponatremia Patient presented with headache and nausea i/s/o sodium 121, calculated osmolality 242, and urine specific gravity 1.030 Received IV hypertonic saline 100 cc x 1 in ED which did not improve hyponatremia Fluid restriction of 0 cc for a few hours was also unsuccessful in improving hyponatremia Noted to have had sodium 128 on 11/19/24, just a day prior Thought to be 2/2 SIADH from pain or adverse medication effect (patient reportedly takes NSAIDs) but etiology remains unclear Rx: -Per Nephrology recommendations, PO sodium chloride tablet 1 g BID -Fluid restriction 1000 cc -Sodium checks q4HR (increase sodium no more than 4-6 mEq per 24 hours, next goal sodium 127) -Ordered urine osmolality -Strict I's and O's #Intractable nausea and vomiting Reports nausea, vomiting, and headache that have been ongoing for 2 weeks with last episode of emesis occurring at 03:00 on 11/21 Afebrile, denies constipation or diarrhea Rx: -CTM #Hypertension 11/20 admission BP 130-150s/60-80s, on home PO lisinopril 40 mg qD and PO amlodipine 5 mg HS Rx: -Restarted home PO amlodipine 5 mg HS -Holding home PO lisinopril 40 mg qD #Hyperlipidemia On home PO atorvastatin 10 mg qD Rx: -Restarted home PO atorvastatin 10 mg qD #Hypothyroidism 11/21/24 TSH WNL @ 2.93, on home PO levothyroxine 50 mcg ACBR Rx: -Restarted home PO levothyroxine 50 mcg ACBR #T2DM Per chart review 11/21/24 HgbA1c 6.0 Rx: -Insulin sliding scale #GERD On home PO Protonix 40 mg qD Rx: -Restarted home PO Protonix 40 mg qD Disposition: admitted to [facility] for severe, hypoosmolar hyponatremia Diet: NPO GI Prophylaxis: PO Protonix Bowel Prophylaxis: Senna DVT Prophylaxis: SC Lovenox CODE STATUS: Full Code I have examined the patient and conferred with my attending, Dr. Garcia, and my senior resident, Dr. Randolph, regarding them. Bennett Landin, DO PGY-1 Internal Medicine
[2024-11-21 14:20] LABS: Chloride,Urine Random 47.6 mMol/L (55.0-125.0); Potassium,Urine Random 16 mMol/L (12-62); Sodium,Urine Random 46.6 mMol/L (20.0-110.0)
[2024-11-21 15:16] LABS: Albumin, Serum 3.7 gm/dL (3.4-4.8); Anion Gap 11 (7-16); BUN/Creatinine Ratio 6 Ratio (12-20); Blood Urea Nitrogen < 5 mg/dL (9-23); Calcium 8.7 mg/dL (8.3-10.6); Calcium (Corrected) 8.9 mg/dL (8.5-10.1); Carbon Dioxide 22.3 mMol/L (20.0-31.0); Chloride 88 mMol/L (98-107); Creatinine (Component) 0.9 mg/dL (0.6-1.3); Estimated Creatinine Clearance 52.7 mL/min (>60); Glucose 103 mg/dL (74-106); Osmolality,Calculated 241 (275-295); Phosphorous 3.1 mg/dL (2.4-5.1); Potassium 3.6 mMol/L (3.4-5.1); Sodium 121 mMol/L (136-145); eGFR > 60 See Note
[2024-11-21] MEDS: SODIUM CHLORIDE 1 GM TABLET PO (21:39)
[2024-11-21] MEDS: KETOROLAC INJ 30 MG/ML VIAL 15 MG IVP (22:59)
[2024-11-22] VITALS (10 sets, daily range): BP systolic 108–133; BP diastolic 61–84; PULSE 78–90; RESP 16–97; TEMP 36.1–36.5; O2SAT 95–99; BMI 31.0
[2024-11-22 02:47] LABS: Sodium 123 mMol/L (136-145)
[2024-11-22 05:45] LABS: Basophils # (Auto) 0.0 Thou/mm3 (0.0-0.2); Basophils % (Auto) 1 % (0-2.5); Eosinophils # (Auto) 0.2 Thou/mm3 (0.0-0.5); Eosinophils % (Auto) 4 % (0-10); Hematocrit 28.1 % (36.0-46.0); Hemoglobin 9.7 g/dL (12.0-16.0); Immature Granulocytes Auto 0.01 Thou/mm3 (0.00-0.00); Lymphocytes # (Auto) 1.2 Thou/mm3 (1.0-4.8); Lymphocytes % (Auto) 26 % (10-50); Mean Corpuscular HGB Conc 34.5 g/dl (31.0-37.0); Mean Corpuscular Hemoglobin 29.4 pg (25.0-35.0); Mean Corpuscular Volume 85 fL (80-100); Monocytes # (Auto) 0.6 Thou/mm3 (0.0-0.8); Monocytes % (Auto) 13 % (0-12); Neutrophils # (Auto) 2.5 Thou/mm3 (1.8-7.7); Neutrophils % (Auto) 56 % (37-80); Nucleated Red Blood Cell # 0.00 Thou/mm3 (0.00-0.00); Nucleated Red Blood Cell % 0 /100 WBC (0); Platelet Count 319 Thou/mm3 (140-440); RDW Standard Deviation 36.9 fL (36.4-46.3); Red Blood Count 3.30 Miln/mm3 (4.00-5.20); White Blood Count 4.6 Thou/mm3 (3.6-11.0)
[2024-11-22 06:10] LABS: Alanine Aminotransferase 28 U/L (10-49); Albumin, Serum 3.7 gm/dL (3.4-4.8); Albumin/Globulin Ratio 1.9 (1.2-2.2); Alkaline Phosphatase 84 U/L (46-116); Anion Gap 10 (7-16); Aspartate Amino Transferase 28 U/L (0-34); BUN/Creatinine Ratio 5 Ratio (12-20); Bilirubin,Total 0.5 mg/dL (0.3-1.2); Blood Urea Nitrogen < 5 mg/dL (9-23); Calcium 9.2 mg/dL (8.3-10.6); Calcium (Corrected) 9.4 mg/dL (8.5-10.1); Carbon Dioxide 24.2 mMol/L (20.0-31.0); Chloride 89 mMol/L (98-107); Creatinine (Component) 1.0 mg/dL (0.6-1.3); Estimated Creatinine Clearance 47.1 mL/min (>60); Globulin 1.9 gm/dL (2.3-3.5); Glucose 94 mg/dL (74-106); Magnesium 1.7 mg/dL (1.6-2.6); Osmolality,Calculated 244 (275-295); Phosphorous 3.5 mg/dL (2.4-5.1); Potassium 4.1 mMol/L (3.4-5.1); Sodium 123 mMol/L (136-145); Total Protein 5.6 gm/dL (5.7-8.2); eGFR > 60 See Note
[2024-11-22] MEDS: LEVOTHYROXINE SODIUM 25 MCG TABLET 50 MCG PO (06:15)
[2024-11-22] MEDS: ACETAMINOPHEN 325 MG TABLET 650 MG PO ×2 (06:16→17:04)
--- NOTE | 2024-11-22 07:59 | PC.NURSE ---
Called pt complaining of VICENTE 7
[2024-11-22] MEDS: KETOROLAC INJ 30 MG/ML VIAL 15 MG IVP (08:33)
[2024-11-22] MEDS: ENOXAPARIN SOD INJ 40 MG/0.4 ML SYRINGE SC (08:33)
[2024-11-22] MEDS: PANTOPRAZOLE 40 MG TABLET PO (08:33)
[2024-11-22] MEDS: SODIUM CHLORIDE 1 GM TABLET PO ×2 (08:33→20:21)
[2024-11-22] MEDS: ATORVASTATIN CALCIUM 10 MG TABLET PO (08:33)
[2024-11-22] MEDS: Magnesium Sulfate 4 GM Ivpb 4 GM/50 ML BAG IV (08:33)
[2024-11-22] MEDS: ONDANSETRON INJ 2 MG/ML INJ 2 ML 4 MG IVP (08:34)
[2024-11-22 11:28] LABS: Sodium 122 mMol/L (136-145)
[2024-11-22] MEDS: MECLIZINE HCL 25 MG TABLET PO (13:20)
--- NOTE | 2024-11-22 13:28 | ESCONSULT_ITS ---
RE: JADE DIAZ : 1955 DATE OF CONSULTATION: 11/21/2024 REASON FOR REFERRAL: Hyponatremia. REFERRING PHYSICIAN: Dr. Dhaval Cooley. HISTORY OF PRESENT ILLNESS: This patient is a 69-year-old , Thai- speaking only woman with past medical history significant for type 2 diabetes, hypertension, hypothyroidism, and chronic hyponatremia since at least 02/2024 who presented to the emergency room last night with chief complaint of nausea and weakness. Upon presentation, the patient had lab tests drawn and it revealed serum sodium of 121. The patient was also given 3% hypertonic solution while in the emergency room. She was eventually admitted for treatment of her hyponatremia. It seems like she gets admitted every 2-3 months for the same reason. The patient denies taking any antidepressants and diuretic. Her serum osmolarity is likewise low, which confirms true hyponatremia. The patient is also taking ketorolac and meloxicam for arthritic pains. I was asked to see the patient for management of her persistent hyponatremia. PAST MEDICAL HISTORY: Type 2 diabetes, hypertension, arthritis, hypothyroidism, GERD, hyperlipidemia, chronic hyponatremia. SURGICAL HISTORY: Small bowel obstruction requiring adhesiolysis laparoscopically. SOCIAL HISTORY: Denies alcohol, IV drug abuse or smoking. CURRENT MEDICATIONS: 1. Acetaminophen. 2. Amlodipine 5 mg at bedtime. 3. Atorvastatin 10 mg daily. 4. Diphenhydramine. 5. Ketorolac 10 mg p.o. x1. 6. Lispro. 7. Glucagon. 8. Levothyroxine 50 mcg daily. 9. Magnesium. 10. Ondansetron. 11. Protonix 40 mg p.o. daily. 12. Senna. PHYSICAL EXAMINATION: GENERAL: She is awake, alert, oriented, not in respiratory distress. VITAL SIGNS: Blood pressure 129/77, heart rate of 96. HEENT: Anicteric sclerae. Normocephalic. NECK: Supple. No JVD. CHEST AND LUNGS: Symmetric expansion. Clear breath sounds. CARDIAC: Without murmur. ABDOMEN: Soft and nontender. EXTREMITIES: No edema. LABORATORY DATA: Hemoglobin 9.5, WBC 4500, platelet count 295,000. Sodium 121, potassium 3.6, chloride 88, CO2 of 22.3, BUN less than 5, creatinine 0.9, calcium 8.7, corrected 8.9, phosphorus 3.1, AST 25, ALT 26, alkaline phosphatase 78, albumin 3.7, TSH 2.93. ASSESSMENT: 1. Acute hyponatremia, on chronic hyponatremia, most likely secondary to syndrome of inappropriate antidiuretic hormone. Unlikely due to nausea causing syndrome of inappropriate antidiuretic hormone and pain also causing syndrome of inappropriate antidiuretic hormone. 2. Type 2 diabetes. 3. History of hypertension. 4. Diabetes with possible gastroparesis. 5. Hypothyroidism. PLAN: I really suspect that she has SIADH mainly because specific gravity of her urine seems to be concentrated given that her specific gravity is 1.03. The patient has inability to dilute her urine based on urine specific gravity while hyponatremic. Urine osmolality would confirm SIADH. Urine osmolarity that is high, i.e. more than or equal to 300 mOsm per liter in the presence of hyponatremia usually would point to SIADH as a cause of her hyponatremia. Urine sodium should also be more than 15- 20 to eliminate any cause of hypovolemic hyponatremia. For now, I will start her on salt tablets 1 g p.o. b.i.d. and later on escalate to Tolvaptan 15mg daily, which is a V2 receptor antagonist for water diuresis. Continue to monitor her very closely. I will monitor her serum sodium every 6 hours. Correction should not be more than 4-6 mEq per 24 hours. Should she get over corrected, then we can give D5 water with desmopressin. DT: 21:54:45 TT: 23:01:00 Ref: [id number] - TID: [id number] [facility]
--- NOTE | 2024-11-22 13:37 | ESPR_ITS ---
<Statement entered by Anni Garcia MD - 11/25/24 12:15> I reviewed above note and agree with findings and plans. I have also personally examined the patient with medicine team and went over assessment and plan with medical team including paid internship and resident physician. <Statement entered by Jamil Oliver MD - 11/23/24 15:53> I saw and examined patient personally and supervised PGY 1 resident, Dr. Villafuerte with formulating a management plan. I agree with the documentation with the exceptions as listed below. For patient's hyponatremia, etiology likely secondary to SIADH. Scheduled on sodium chloride 1 tab p.o. twice daily, fluid restriction 1000 cc daily and started on tolvaptan 15 mg p.o. daily by nephrology. Currently NA 123 with a goal of correction of no more than 4-6 mmol in any 24-hour.. Goal for tomorrow is no greater than 129. Plan of care discussed with Attending Dr. Jose Oliver MD PGY 2 Disclaimer: This note was dictated by speech recognition. Minor errors in wink cutter operator may be present due to voice recognition software. Documentation for date of: 11/22/24 Subjective Subjective Interval history: Dr. Zuniga suspects SIADH recommends start her on salt tablets 1 g p.o. b.i.d. and later on escalate to Tolvaptan 15mg daily. Patient examined bedside, labs reviewed. Overnight tele showed sinus rhythm. Patient is AOx4 states her nausea is much improved as well as her headache. Has no more vomiting. Denies feeling tremulous. Wt: 72.121 I/O: +970 net, -200mL urine. Exam Vital Signs Temp Pulse Resp BP Pulse Ox O2 Del Method 97.1 F 82 17 114/79 99 Room Air 11/22/24 12:00 11/22/24 12:00 11/22/24 12:00 11/22/24 12:00 11/22/24 12:00 11/22/24 12:00 Narrative Exam Physical Exam: General: A/O x4 obese, elderly female NAD Skin: Warm, dry, intact, no obvious rash. Head: Normocephalic, atraumatic. Eyes: EOMI. Anicteric, vision grossly intact. Ears: No ear pain, no ear discharge, Hearing grossly intact. Nose: No nasal discharge. Mouth/Throat: Oral mucosa moist. No obvious lesions in oropharynx. Neck: Neck supple, non-tender, no cervical lymphadenopathy. Cardiovascular: Slightly tachycardic rate and normal rhythm, no murmur, no JVD or carotid bruits. +S1/S2. Respiratory: Bilateral lungs are clear to auscultation, respirations unlabored, no crackles, no wheezing. No accessory muscle use. Gastrointestinal: Soft, nontender, non-distended, no palpable masses. No guarding or rebound tenderness. Peristalsis present. Extremities: Symmetrical, no significant deformities. Trace pedal edema no cyanosis, no clubbing. 2+ radial pulse bilaterally, 2+ posterior tibial pulse bilaterally. Neuro: No focal deficits observed. Conversant, moving all extremities. No overt cerebellar signs/incoordination. Psychiatric: Cooperative, appropriate affect. Objective Labs 11/22/24 04:54 11/22/24 17:38 Labs: Laboratory Results - last 24 hr 11/21/24 11/21/24 11/22/24 12:50 14:20 02:13 WBC RBC Hgb Hct MCV MCH MCHC RDW Std Deviation Plt Count Neut % (Auto) Lymph % (Auto) [place] % (Auto) Eos % (Auto) Baso % (Auto) Neut # (Auto) Lymph # (Auto) [place] # (Auto) Eos # (Auto) Baso # (Auto) Immature Gran # (Auto) Absolute Nucleated RBC Immature Gran % Nucleated RBC % Sodium 121 L 123 L Potassium 3.6 Chloride 88 L Carbon Dioxide 22.3 Anion Gap 11 BUN < 5 L Creatinine 0.9 Estim Creat Clear Calc 52.7 L eGFR > 60 BUN/Creatinine Ratio 6 L Glucose 103 Calculated Osmolality 241 L Calcium 8.7 Corrected Calcium 8.9 Phosphorus 3.1 Magnesium Total Bilirubin AST ALT Alkaline Phosphatase Total Protein Albumin 3.7 Globulin Albumin/Globulin Ratio Ur Random Sodium 46.6 Ur Random Potassium 16 Ur Random Chloride 47.6 L 11/22/24 11/22/24 04:54 10:05 WBC 4.6 RBC 3.30 L Hgb 9.7 L Hct 28.1 L MCV 85 MCH 29.4 MCHC 34.5 RDW Std Deviation 36.9 Plt Count 319 Neut % (Auto) 56 Lymph % (Auto) 26 [place] % (Auto) 13 H Eos % (Auto) 4 Baso % (Auto) 1 Neut # (Auto) 2.5 Lymph # (Auto) 1.2 [place] # (Auto) 0.6 Eos # (Auto) 0.2 Baso # (Auto) 0.0 Immature Gran # (Auto) 0.01 H Absolute Nucleated RBC 0.00 Immature Gran % 0 Nucleated RBC % 0 Sodium 123 L 122 L Potassium 4.1 D Chloride 89 L Carbon Dioxide 24.2 Anion Gap 10 BUN < 5 L Creatinine 1.0 Estim Creat Clear Calc 47.1 L eGFR > 60 BUN/Creatinine Ratio 5 L Glucose 94 Calculated Osmolality 244 L Calcium 9.2 Corrected Calcium 9.4 Phosphorus 3.5 Magnesium 1.7 Total Bilirubin 0.5 AST 28 ALT 28 Alkaline Phosphatase 84 Total Protein 5.6 L Albumin 3.7 Globulin 1.9 L Albumin/Globulin Ratio 1.9 Ur Random Sodium Ur Random Potassium Ur Random Chloride Quality Measures Quality Measures none Advance care planning discussed with:: other Assessment & Plan Assessment Current Active Medications: Generic Name Dose Route Start Last Admin Trade Name Freq PRN Reason Stop Dose Admin Acetaminophen 650 mg 11/21/24 07:57 11/22/24 06:16 Acetaminophen 325 Mg Tablet PO 12/20/24 19:42 650 mg Q6H PRN Administration Fever >100 or pain 1-3 Amlodipine Besylate 5 mg 11/20/24 21:00 11/21/24 21:39 Amlodipine Besylate 5 Mg Tablet PO 12/20/24 20:59 5 mg HS SHEN Administration Atorvastatin Calcium 10 mg 11/21/24 09:00 11/22/24 08:33 Atorvastatin Calcium 10 Mg Tablet PO 12/21/24 08:59 10 mg QDAY SHEN Administration Dextrose 25 ml 11/20/24 20:24 Dextrose 50%-Water Inj 50 Ml Syringe IV 12/20/24 20:23 Q15MIN PRN BG 50-70 responsive npo pt Dextrose 50 ml 11/20/24 20:24 Dextrose 50%-Water Inj 50 Ml Syringe IV 12/20/24 20:23 Q15MIN PRN BG <50 OR BG <70 & pt unresponsive Enoxaparin Sodium 40 mg 11/21/24 09:00 11/22/24 08:33 Enoxaparin Sod Inj 40 Mg/0.4 Ml Syringe SC 12/05/24 08:59 40 mg QDAY SHEN Administration Glucagon 1 mg 11/20/24 20:24 Glucagon Inj 1 Mg Vial IM Q15MIN PRN BG <70, and no IV access Insulin Human Lispro 0 unit 11/21/24 07:30 11/22/24 11:36 Insulin Lispro (Admelog) 1 Unit/0.01 Ml Unit SC 12/21/24 07:29 Not Given AC SHEN Protocol Levothyroxine Sodium 50 mcg 11/21/24 06:00 11/22/24 06:15 Levothyroxine Sodium 25 Mcg Tablet PO 12/21/24 05:59 50 mcg ACBR SHEN Administration Meclizine HCl 25 mg 11/22/24 14:00 11/22/24 13:20 Meclizine Hcl 25 Mg Tablet PO 12/22/24 13:59 25 mg TID SHEN Administration Ondansetron HCl 4 mg 11/20/24 19:43 11/22/24 08:34 Ondansetron Inj 2 Mg/Ml Inj 2 Ml IVP 12/20/24 19:42 4 mg Q6H PRN Administration NAUSEA OR VOMITING Protocol Pantoprazole Sodium 40 mg 11/21/24 09:00 11/22/24 08:33 Pantoprazole 40 Mg Tablet PO 12/21/24 08:59 40 mg QDAY SHEN Administration Sennosides 1 tab 11/20/24 19:43 11/22/24 08:55 Senna Tablet PO 12/20/24 19:42 1 tab QDAY PRN Administration constipation Protocol Sodium Chloride 1 gm 11/21/24 21:00 11/22/24 08:33 Sodium Chloride 1 Gm Tablet PO 12/21/24 20:59 1 gm BID SHNE Administration Tolvaptan 15 mg 11/22/24 09:00 11/22/24 09:50 Tolvaptan 15 Mg Tablet (Non-Formulary) PO 12/22/24 08:59 Not Given DAILY SHEN Plan 69-year-old female with past medical history of hypertension, diabetes, arthritis, hypothyroidism, GERD, and hyperlipidemia who presented to the ED with headache and nausea and was admitted for severe, hypoosmolar hyponatremia. #Severe, symptomatic hypoosmolar hyponatremia #Acute on chronic hyponatremia #SIADH Patient presented with headache and nausea i/s/o sodium 121, calculated osmolality 242, and urine specific gravity 1.030 Received IV hypertonic saline 100 cc x 1 in ED which did not improve hyponatremia Fluid restriction of 0 cc for a few hours was also unsuccessful in improving hyponatremia Noted to have had sodium 128 on 11/19/24, just a day prior Thought to be 2/2 SIADH from pain or adverse medication effect (patient reportedly takes NSAIDs) but etiology remains unclear Rx: -Per Nephrology recommendations, PO sodium chloride tablet 1 g BID -Started on tolvaptan -Fluid restriction 1000 cc -Sodium checks q4HR (increase sodium no more than 4-6 mEq per 24 hours, next goal sodium 127) -Ordered urine osmolality -Strict I's and O's #Intractable nausea and vomiting - resolved Reports nausea, vomiting, and headache that have been ongoing for 2 weeks with last episode of emesis occurring at 03:00 on 11/21 Afebrile, denies constipation or diarrhea Rx: -CTM #Hypertension - resolved 11/20 admission BP 130-150s/60-80s, on home PO lisinopril 40 mg qD and PO amlodipine 5 mg HS Rx: -Restarted home PO amlodipine 5 mg HS -Holding home PO lisinopril 40 mg qD #Hyperlipidemia On home PO atorvastatin 10 mg qD Rx: -Restarted home PO atorvastatin 10 mg qD #Hypothyroidism 11/21/24 TSH WNL @ 2.93, on home PO levothyroxine 50 mcg ACBR Rx: -Restarted home PO levothyroxine 50 mcg ACBR #T2DM Per chart review 11/21/24 HgbA1c 6.0 Rx: -Insulin sliding scale #GERD On home PO Protonix 40 mg qD Rx: -Restarted home PO Protonix 40 mg qD Disposition: admitted to [facility] for severe, hypoosmolar hyponatremia Diet: NPO GI Prophylaxis: PO Protonix Bowel Prophylaxis: Senna DVT Prophylaxis: SC Lovenox CODE STATUS: Full Code I have examined the patient and conferred with my attending, Dr. Garcia, and my senior resident, Dr. Oliver, regarding them. Raymond Villafuerte MD PGY-1 Internal Medicine
[2024-11-22 14:32] LABS: Sodium 123 mMol/L (136-145)
[2024-11-22 18:16] LABS: Sodium 123 mMol/L (136-145)
[2024-11-22 21:47] LABS: Sodium 122 mMol/L (136-145)
--- NOTE | 2024-11-22 23:27 | ESPR_ITS ---
RE: JADE DIAZ : 1955 DATE OF SERVICE: 11/22/2024 HISTORY OF PRESENT ILLNESS: Briefly, she is a 69-year-old Tajik- speaking only woman with history of chronic hyponatremia, which seems to be secondary to SIADH, type 2 diabetes, hypertension, and hypothyroidism, whose serum sodium got stuck to 120s despite receiving 3% of hypertonic solution. Urine specific gravity also suggests concentrated urine. Urine osmolality is still pending. Urine sodium of 46.6. CURRENT MEDICATIONS: 1. Acetaminophen. 2. Amlodipine. 3. Atorvastatin. 4. Enoxaparin 40 mcg daily. 5. Ketorolac 10 mg p.r.n. 6. Levothyroxine 50 mcg daily. 7. Ondansetron. 8. Protonix 40 mg daily. 9. Meclizine 25 mg daily. 10. Salt tablets 1 g p.o. b.i.d. PHYSICAL EXAMINATION: General: She is awake, alert, complaining of headache. Vital Signs: Blood pressure of 114/66 and heart rate of 84. HEENT: Anicteric sclerae. Normocephalic. Neck: Supple. JVD. Chest and Lungs: Symmetric expansion. Clear breath sounds. Cardiac: Without murmur. Abdomen: Soft and nontender. Extremities: No edema. LABORATORY DATA: Sodium 122, potassium 4.1, chloride 89, CO2 of 24.2, BUN less than 5, and creatinine 1. ASSESSMENT: 1. Hyponatremia, secondary to syndrome of inappropriate antidiuretic hormone, which is resistant to salt tablets. 2. Type 2 diabetes. 3. Hypertension. 4. Nausea, most likely secondary to gastroparesis due to diabetes. 5. Hypothyroidism. PLAN: The patient was given 3% 100 mL while in the emergency room, which did not do anything to her serum sodium. Salt tablet was also incorporated, but still serum sodium is around 122-123. Fluid restriction was also imposed. At this point, treatments for SIADH was exhausted. The patient was prescribed Tolvaptan 15 mg yesterday; however, pharmacy said that they do not have a stock of the medication. 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 Hopefully, this would help with her SIADH and after that then we can use salt tablets for maintenance. DT: 22:45:05 TT: 23:25:00 Ref: [id number] - TID: [id number] MTDD
[2024-11-23] VITALS (7 sets, daily range): BP systolic 99–130; BP diastolic 57–71; PULSE 74–106; RESP 14–21; TEMP 36.1–36.7; O2SAT 94–98; BMI 32.2
[2024-11-23 01:33] LABS: Sodium 123 mMol/L (136-145)
[2024-11-23] MEDS: LEVOTHYROXINE SODIUM 25 MCG TABLET 50 MCG PO (05:49)
[2024-11-23] MEDS: MECLIZINE HCL 25 MG TABLET PO ×3 (05:49→21:00)
[2024-11-23 06:19] LABS: Basophils # (Auto) 0.0 Thou/mm3 (0.0-0.2); Basophils % (Auto) 1 % (0-2.5); Eosinophils # (Auto) 0.2 Thou/mm3 (0.0-0.5); Eosinophils % (Auto) 5 % (0-10); Hematocrit 25.9 % (36.0-46.0); Hemoglobin 9.3 g/dL (12.0-16.0); Immature Granulocytes Auto 0.01 Thou/mm3 (0.00-0.00); Lymphocytes # (Auto) 1.1 Thou/mm3 (1.0-4.8); Lymphocytes % (Auto) 24 % (10-50); Mean Corpuscular HGB Conc 35.9 g/dl (31.0-37.0); Mean Corpuscular Hemoglobin 31.0 pg (25.0-35.0); Mean Corpuscular Volume 86 fL (80-100); Monocytes # (Auto) 0.6 Thou/mm3 (0.0-0.8); Monocytes % (Auto) 12 % (0-12); Neutrophils # (Auto) 2.7 Thou/mm3 (1.8-7.7); Neutrophils % (Auto) 58 % (37-80); Nucleated Red Blood Cell # 0.00 Thou/mm3 (0.00-0.00); Nucleated Red Blood Cell % 0 /100 WBC (0); Platelet Count 321 Thou/mm3 (140-440); RDW Standard Deviation 38.9 fL (36.4-46.3); Red Blood Count 3.00 Miln/mm3 (4.00-5.20); White Blood Count 4.6 Thou/mm3 (3.6-11.0)
[2024-11-23 06:42] LABS: Alanine Aminotransferase 29 U/L (10-49); Albumin, Serum 3.3 gm/dL (3.4-4.8); Albumin/Globulin Ratio 1.9 (1.2-2.2); Alkaline Phosphatase 76 U/L (46-116); Anion Gap 9 (7-16); Aspartate Amino Transferase 31 U/L (0-34); BUN/Creatinine Ratio 5 Ratio (12-20); Bilirubin,Total 0.4 mg/dL (0.3-1.2); Blood Urea Nitrogen 5 mg/dL (9-23); Calcium 8.5 mg/dL (8.3-10.6); Calcium (Corrected) 9.1 mg/dL (8.5-10.1); Carbon Dioxide 23.6 mMol/L (20.0-31.0); Chloride 91 mMol/L (98-107); Creatinine (Component) 1.0 mg/dL (0.6-1.3); Estimated Creatinine Clearance 48.0 mL/min (>60); Globulin 1.7 gm/dL (2.3-3.5); Glucose 95 mg/dL (74-106); Magnesium 2.3 mg/dL (1.6-2.6); Osmolality,Calculated 246 (275-295); Phosphorous 3.2 mg/dL (2.4-5.1); Potassium 4.0 mMol/L (3.4-5.1); Sodium 124 mMol/L (136-145); Total Protein 5.0 gm/dL (5.7-8.2); eGFR > 60 See Note
[2024-11-23] MEDS: ENOXAPARIN SOD INJ 40 MG/0.4 ML SYRINGE SC (09:12)
[2024-11-23] MEDS: ATORVASTATIN CALCIUM 10 MG TABLET PO (09:12)
[2024-11-23] MEDS: PANTOPRAZOLE 40 MG TABLET PO (09:12)
[2024-11-23] MEDS: SODIUM CHLORIDE 1 GM TABLET PO ×2 (09:12→20:07)
[2024-11-23 09:44] LABS: Sodium 123 mMol/L (136-145)
[2024-11-23] MEDS: TOLVAPTAN 15 MG PO (10:03)
--- NOTE | 2024-11-23 10:45 | PC.SS ---
Update: Sodium Being monitored. Patient will discharge home when medically cleared.
--- NOTE | 2024-11-23 11:40 | XR_ITS ---
Examination: CT chest with intravenous contrast 2-D sagittal and coronal reconstructions Exam date and time: November 23, 2024, 2034 hours INDICATIONS: Hyponatremia today, unknown malignancy source CTDI:vol (mGy) 15.7 DLP: (mGycm) 639 Technique: Multiple axial sections of the thorax have been obtained. Sections have been obtained, 3 mm slice thickness. Mediastinal and lung density settings have been obtained. Intravenous contrast administered, 60 cc Isovue-370. 2-D sagittal, coronal images obtained. Low dose protocols were performed. One or more of the following dose reduction techniques were used; automated exposure control, adjustment of the mA and/or KV according to patient size, use of iterative reconstruction technique. Findings: No thoracic aortic aneurysmal dilatation or dissection No pulmonary artery emboli. No paratracheal, tracheobronchial or bronchopulmonary adenopathy. No pneumonia, pulmonary edema or pleural disease Minor atelectasis in the lingular segment Fatty infiltration throughout the liver No gallstones No pancreatic or adrenal mass No renal or ureteral calculi Visualized abdominal aorta intact Prominent osteopenia IMPRESSION: No thoracic aortic aneurysmal dilatation Negative for pulmonary artery emboli. No mediastinal lymphadenopathy No pneumonia or pulmonary edema or pulmonary mass lesion
--- NOTE | 2024-11-23 12:05 | ESPR_ITS ---
<Statement entered by Anni Garcia MD - 12/07/24 17:15> I reviewed above note and agree with findings and plans. I have also personally examined the patient with medicine team and went over assessment and plan with medical team including geotechnical intern and resident physician. Documentation for date of: 11/23/24 No overnight events. Patient continues to present with symptomatic hyponatremia with hyperosmolarity. This is concerning as patient has been fluid restricted for several days with minimal change in sodium levels despite fluid restrictions and salt tablets. Patient was started on Tolvaptan. Urine Na >20 which would indicate etiology such as SIADH, patient has still not corrected which may indicate underlying process. Cortisol levels ordered for AM. CT chest ordered to rule out mass. Continue to follow Na checks a6hrs. - The patient's plan was discussed with attending Dr. Jose Randolph MD PGY2 Internal Medicine Subjective Subjective Interval history: No overnight events. Patient was examined at bedside; she appears A&Ox4 and in NAD. She reports that she is no longer experiencing the nausea and headache that she initially presented with. Labs today significant for Hgb 9.3, sodium 122 -> 124 (then 123), and calculated osmolality 246. Patient's hyponatremia remains refractory to fluid restriction of 1000 cc per day and PO NaCl tablet 1 g BID. This is likely due to SIADH but the underlying etiology of this remains elusive. Plan Updates: -Per Nephrology recommendations, continue tolvaptan to see if it improves patient's hyponatremia (since patient did not receive it yesterday) -Ordered chest CT w/ contrast to evalute for occult causes of SIADH (i.e. small cell lung cancer) Exam Vital Signs Temp Pulse Resp BP Pulse Ox O2 Del Method 97.4 F 83 19 119/71 96 Room Air 11/23/24 08:00 11/23/24 08:00 11/23/24 08:00 11/23/24 08:00 11/23/24 08:00 11/23/24 08:00 Narrative Exam General: A/O x4 obese, elderly female NAD Skin: Warm, dry, intact, no obvious rash. Head: Normocephalic, atraumatic. Eyes: EOMI. Anicteric, vision grossly intact. Ears: No ear pain, no ear discharge, Hearing grossly intact. Nose: No nasal discharge. Mouth/Throat: Oral mucosa moist. No obvious lesions in oropharynx. Neck: Neck supple, non-tender, no cervical lymphadenopathy. Cardiovascular: Slightly tachycardic rate and normal rhythm, no murmur, no JVD or carotid bruits. +S1/S2. Respiratory: Bilateral lungs are clear to auscultation, respirations unlabored, no crackles, no wheezing. No accessory muscle use. Gastrointestinal: Soft, nontender, non-distended, no palpable masses. No guarding or rebound tenderness. Peristalsis present. Extremities: Symmetrical, no significant deformities. Trace pedal edema no cyanosis, no clubbing. 2+ radial pulse bilaterally, 2+ posterior tibial pulse bilaterally. Neuro: No focal deficits observed. Conversant, moving all extremities. No overt cerebellar signs/incoordination. Psychiatric: Cooperative, appropriate affect. Objective Labs 11/23/24 04:58 11/23/24 16:50 Labs: Laboratory Results - last 24 hr 11/22/24 11/22/24 11/22/24 14:08 17:38 21:02 WBC RBC Hgb Hct MCV MCH MCHC RDW Std Deviation Plt Count Neut % (Auto) Lymph % (Auto) [place] % (Auto) Eos % (Auto) Baso % (Auto) Neut # (Auto) Lymph # (Auto) [place] # (Auto) Eos # (Auto) Baso # (Auto) Immature Gran # (Auto) Absolute Nucleated RBC Immature Gran % Nucleated RBC % Sodium 123 L 123 L 122 L Potassium Chloride Carbon Dioxide Anion Gap BUN Creatinine Estim Creat Clear Calc eGFR BUN/Creatinine Ratio Glucose Calculated Osmolality Calcium Corrected Calcium Phosphorus Magnesium Total Bilirubin AST ALT Alkaline Phosphatase Total Protein Albumin Globulin Albumin/Globulin Ratio 11/23/24 11/23/24 11/23/24 01:10 04:58 09:10 WBC 4.6 RBC 3.00 L Hgb 9.3 L Hct 25.9 L MCV 86 MCH 31.0 MCHC 35.9 RDW Std Deviation 38.9 Plt Count 321 Neut % (Auto) 58 Lymph % (Auto) 24 [place] % (Auto) 12 Eos % (Auto) 5 Baso % (Auto) 1 Neut # (Auto) 2.7 Lymph # (Auto) 1.1 [place] # (Auto) 0.6 Eos # (Auto) 0.2 Baso # (Auto) 0.0 Immature Gran # (Auto) 0.01 H Absolute Nucleated RBC 0.00 Immature Gran % 0 Nucleated RBC % 0 Sodium 123 L 124 L 123 L Potassium 4.0 Chloride 91 L Carbon Dioxide 23.6 Anion Gap 9 BUN 5 L Creatinine 1.0 Estim Creat Clear Calc 48.0 L eGFR > 60 BUN/Creatinine Ratio 5 L Glucose 95 Calculated Osmolality 246 L Calcium 8.5 Corrected Calcium 9.1 Phosphorus 3.2 Magnesium 2.3 Total Bilirubin 0.4 AST 31 ALT 29 Alkaline Phosphatase 76 Total Protein 5.0 L Albumin 3.3 L Globulin 1.7 L Albumin/Globulin Ratio 1.9 Quality Measures Quality Measures none Advance care planning discussed with:: patient Assessment & Plan Assessment Current Active Medications: Generic Name Dose Route Start Last Admin Trade Name Freq PRN Reason Stop Dose Admin Acetaminophen 650 mg 11/21/24 07:57 11/22/24 17:04 Acetaminophen 325 Mg Tablet PO 12/20/24 19:42 650 mg Q6H PRN Administration Fever >100 or pain 1-3 Amlodipine Besylate 5 mg 11/20/24 21:00 11/22/24 20:21 Amlodipine Besylate 5 Mg Tablet PO 12/20/24 20:59 5 mg HS SHEN Administration Atorvastatin Calcium 10 mg 11/21/24 09:00 11/23/24 09:12 Atorvastatin Calcium 10 Mg Tablet PO 12/21/24 08:59 10 mg QDAY SHEN Administration Dextrose 25 ml 11/20/24 20:24 Dextrose 50%-Water Inj 50 Ml Syringe IV 12/20/24 20:23 Q15MIN PRN BG 50-70 responsive npo pt Dextrose 50 ml 11/20/24 20:24 Dextrose 50%-Water Inj 50 Ml Syringe IV 12/20/24 20:23 Q15MIN PRN BG <50 OR BG <70 & pt unresponsive Enoxaparin Sodium 40 mg 11/21/24 09:00 11/23/24 09:12 Enoxaparin Sod Inj 40 Mg/0.4 Ml Syringe SC 12/05/24 08:59 40 mg QDAY SHEN Administration Glucagon 1 mg 11/20/24 20:24 Glucagon Inj 1 Mg Vial IM Q15MIN PRN BG <70, and no IV access Insulin Human Lispro 0 unit 11/21/24 07:30 11/23/24 11:48 Insulin Lispro (Admelog) 1 Unit/0.01 Ml Unit SC 12/21/24 07:29 Not Given AC SHEN Protocol Levothyroxine Sodium 50 mcg 11/21/24 06:00 11/23/24 05:49 Levothyroxine Sodium 25 Mcg Tablet PO 12/21/24 05:59 50 mcg ACBR SHEN Administration Meclizine HCl 25 mg 11/22/24 14:00 11/23/24 05:49 Meclizine Hcl 25 Mg Tablet PO 12/22/24 13:59 25 mg TID SHEN Administration Ondansetron HCl 4 mg 11/20/24 19:43 11/22/24 08:34 Ondansetron Inj 2 Mg/Ml Inj 2 Ml IVP 12/20/24 19:42 4 mg Q6H PRN Administration NAUSEA OR VOMITING Protocol Pantoprazole Sodium 40 mg 11/21/24 09:00 11/23/24 09:12 Pantoprazole 40 Mg Tablet PO 12/21/24 08:59 40 mg QDAY SHEN Administration Sennosides 1 tab 11/20/24 19:43 11/22/24 08:55 Senna Tablet PO 12/20/24 19:42 1 tab QDAY PRN Administration constipation Protocol Sodium Chloride 1 gm 11/21/24 21:00 11/23/24 09:12 Sodium Chloride 1 Gm Tablet PO 12/21/24 20:59 1 gm BID SHEN Administration Tolvaptan 15 mg 11/23/24 11:00 11/23/24 10:03 Tolvaptan 15 Mg Tablet (Non-Formulary) PO 12/23/24 10:59 15 mg DAILY SHEN Administration Plan 69-year-old female with past medical history of hypertension, diabetes, arthritis, hypothyroidism, GERD, and hyperlipidemia who presented to the ED with headache and nausea and was admitted for severe, hypoosmolar hyponatremia. #Severe, symptomatic hypoosmolar hyponatremia #Acute on chronic hyponatremia #SIADH Patient presented with headache and nausea i/s/o sodium 121, calculated osmolality 242, and urine specific gravity 1.030 Received IV hypertonic saline 100 cc x 1 in ED which did not improve hyponatremia Fluid restriction of 0 cc for a few hours was also unsuccessful in improving hyponatremia Noted to have had sodium 128 on 11/19/24, just a day prior Thought to be 2/2 SIADH from pain or adverse medication effect (patient reportedly takes NSAIDs) but etiology remains unclear Rx: -Per Nephrology recommendations, continue tolvaptan to see if it improves patient's hyponatremia (since patient did not receive it yesterday) -Ordered chest CT w/ contrast to evalute for occult causes of SIADH (i.e. small cell lung cancer) -Per Nephrology recommendations, PO sodium chloride tablet 1 g BID -Fluid restriction 1000 cc -Sodium checks q4HR (increase sodium no more than 4-6 mEq per 24 hours, next goal sodium 127) -Ordered urine osmolality -Strict I's and O's #Intractable nausea and vomiting - resolved Reports nausea, vomiting, and headache that have been ongoing for 2 weeks with last episode of emesis occurring at 03:00 on 11/21 Afebrile, denies constipation or diarrhea, now resolved Rx: -CTM #Hypertension - resolved 11/20 admission BP 130-150s/60-80s, on home PO lisinopril 40 mg qD and PO amlodipine 5 mg HS Rx: -Continue home PO amlodipine 5 mg HS -Holding home PO lisinopril 40 mg qD #Hyperlipidemia On home PO atorvastatin 10 mg qD Rx: -Continue home PO atorvastatin 10 mg qD #Hypothyroidism 11/21/24 TSH WNL @ 2.93, on home PO levothyroxine 50 mcg ACBR Rx: -Continue home PO levothyroxine 50 mcg ACBR #T2DM Per chart review 11/21/24 HgbA1c 6.0 Rx: -Insulin sliding scale #GERD On home PO Protonix 40 mg qD Rx: -Continue home PO Protonix 40 mg qD Disposition: admitted to [facility] for severe, hypoosmolar hyponatremia Diet: Regular GI Prophylaxis: PO Protonix Bowel Prophylaxis: Senna DVT Prophylaxis: SC Lovenox CODE STATUS: Full Code I have examined the patient and conferred with my attending, Dr. Garcia, and my senior resident, Dr. Randolph, regarding them. Bennett Landin, DO Internal Medicine, PGY-1
[2024-11-23] MEDS: ACETAMINOPHEN 325 MG TABLET 650 MG PO (12:44)
[2024-11-23] MEDS: INSULIN LISPRO (AdmeLOG) 1 UNIT/0.01 ML UNIT SC (16:50)
[2024-11-23 17:36] LABS: Sodium 124 mMol/L (136-145)
[2024-11-23 22:59] LABS: Sodium 126 mMol/L (136-145)
--- NOTE | 2024-11-23 23:45 | ESPR_ITS ---
RE: JADE DIAZ : 1955 DATE OF SERVICE: 11/23/2024 HISTORY OF PRESENT ILLNESS: Briefly she is a 69-year-old Somali speaking only woman with history of chronic hyponatremia which seems to be secondary to SIADH, type 2 diabetes, hypertension and hypothyroidism whose serum sodium has been in the 120s despite receiving 3% of hypertonic solution and being on salt tablets 1 g b.i.d. Her urine osmolality is still pending. CURRENT MEDICATIONS: 1. Acetaminophen. 2. Amlodipine. 3. Atorvastatin. 4. Enoxaparin. 5. Ketorolac p.r.n. 6. Levothyroxine. 7. Ondansetron. 8. Protonix. 9. Meclizine. 10. Salt tablets 1 g p.o. b.i.d. 11. Tolvaptan 15 mg daily. PHYSICAL EXAMINATION: General: She is awake, alert, oriented, family by the bedside. Vital Signs: Blood pressure of 111/69, heart rate of 88. HEENT: Anicteric sclerae. Normocephalic. Neck: Supple. No JVD. Chest and Lungs: Symmetric expansion. Clear breath sounds. Cardiac: Without murmur. Abdomen: Soft and nontender. Extremities: No edema. LABORATORY DATA: Hemoglobin 9.8, WBC 4600, platelet count 321,000. Sodium 123, potassium 4, chloride 91, CO2 of 23.6, BUN 5, creatinine 1, calcium 8.5. ASSESSMENT: 1. Acute on chronic hyponatremia most likely secondary to syndrome of inappropriate antidiuretic hormone which is resistant to salt tablets. 2. Type 2 diabetes. 3. Hypertension. 4. Nausea most likely secondary to gastroparesis due to diabetes. 5. Hypothyroidism. PLAN: The patient received tolvaptan 15 mg today. We will continue tolvaptan until serum sodium reaches around 128 to 130s. We will continue salt tablets 1 g p.o. b.i.d. and she should be sent home with salt tabs.. Tolvaptan can be discontinued once serum sodium reaches 130's. Continue serum sodium level as you are doing. DT: 22:50:34 TT: 23:19:00 Ref: [id number] - TID: [id number] [facility]
[2024-11-24] VITALS: BP 113/62; PULSE 81; PULSE 86; RESP 25; TEMP 36.3; O2SAT 95
[2024-11-24 04:00] VITALS: BP 109/78; PULSE 102; PULSE 85; RESP 17; TEMP 36.3; O2SAT 95
[2024-11-24 05:22] VITALS: BMI 31.7
[2024-11-24] MEDS: LEVOTHYROXINE SODIUM 25 MCG TABLET 50 MCG PO (05:32)
[2024-11-24] MEDS: MECLIZINE HCL 25 MG TABLET PO (05:32)
[2024-11-24 07:15] LABS: Basophils # (Auto) 0.0 Thou/mm3 (0.0-0.2); Basophils % (Auto) 1 % (0-2.5); Eosinophils # (Auto) 0.3 Thou/mm3 (0.0-0.5); Eosinophils % (Auto) 5 % (0-10); Hematocrit 29.3 % (36.0-46.0); Hemoglobin 10.3 g/dL (12.0-16.0); Immature Granulocytes Auto 0.02 Thou/mm3 (0.00-0.00); Lymphocytes # (Auto) 1.3 Thou/mm3 (1.0-4.8); Lymphocytes % (Auto) 27 % (10-50); Mean Corpuscular HGB Conc 35.2 g/dl (31.0-37.0); Mean Corpuscular Hemoglobin 30.7 pg (25.0-35.0); Mean Corpuscular Volume 88 fL (80-100); Monocytes # (Auto) 0.7 Thou/mm3 (0.0-0.8); Monocytes % (Auto) 14 % (0-12); Neutrophils # (Auto) 2.5 Thou/mm3 (1.8-7.7); Neutrophils % (Auto) 53 % (37-80); Nucleated Red Blood Cell # 0.00 Thou/mm3 (0.00-0.00); Nucleated Red Blood Cell % 0 /100 WBC (0); Platelet Count 378 Thou/mm3 (140-440); RDW Standard Deviation 40.5 fL (36.4-46.3); Red Blood Count 3.35 Miln/mm3 (4.00-5.20); White Blood Count 4.8 Thou/mm3 (3.6-11.0)
[2024-11-24 07:17] LABS: Collection Type, Urine Voided; RBC,Urine 0 /hpf (0-3)
[2024-11-24 07:34] LABS: Bilirubin,Urine Negative (Negative); Blood,Urine Negative (Negative); Clarity,Urine Clear (Clear/Hazy); Color,Urine Colorless (Lt Yel-Yel); Glucose, Urine Negative (Negative); Ketones,Urine Negative (Negative); Leukocyte Esterase,Urine Negative (Negative); Nitrite,Urine Negative (Negative); PH,Urine 5.0 (5.0-7.0); Protein,Urine Negative (Neg - Trace); Specific Gravity,Urine 1.012 (1.001-1.035); Squamous Epithelial Cell,Urine < 1 /hpf (0-5); Urobilinogen,Urine Negative mg/dL (0.0-1.0); WBC,Urine < 1 /hpf (0-5)
[2024-11-24 07:47] VITALS: PULSE 98
[2024-11-24 07:49] LABS: Alanine Aminotransferase 43 U/L (10-49); Albumin, Serum 3.7 gm/dL (3.4-4.8); Albumin/Globulin Ratio 1.9 (1.2-2.2); Alkaline Phosphatase 95 U/L (46-116); Anion Gap 11 (7-16); Aspartate Amino Transferase 49 U/L (0-34); BUN/Creatinine Ratio 5 Ratio (12-20); Bilirubin,Total 0.2 mg/dL (0.3-1.2); Blood Urea Nitrogen < 5 mg/dL (9-23); Calcium 8.9 mg/dL (8.3-10.6); Calcium (Corrected) 9.1 mg/dL (8.5-10.1); Carbon Dioxide 23.3 mMol/L (20.0-31.0); Chloride 97 mMol/L (98-107); Creatinine (Component) 1.1 mg/dL (0.6-1.3); Estimated Creatinine Clearance 43.3 mL/min (>60); Globulin 1.9 gm/dL (2.3-3.5); Glucose 142 mg/dL (74-106); Magnesium 2.1 mg/dL (1.6-2.6); Osmolality,Calculated 261 (275-295); Phosphorous 3.2 mg/dL (2.4-5.1); Potassium 4.6 mMol/L (3.4-5.1); Sodium 131 mMol/L (136-145); Total Protein 5.6 gm/dL (5.7-8.2); eGFR 54 See Note
[2024-11-24 07:52] VITALS: PULSE 98; RESP 16; RESP 98
[2024-11-24 08:00] VITALS: BP 111/65; PULSE 99; RESP 20; TEMP 36.5; O2SAT 95
[2024-11-24] MEDS: SODIUM CHLORIDE 1 GM TABLET PO (08:27)
[2024-11-24] MEDS: PANTOPRAZOLE 40 MG TABLET PO (08:27)
[2024-11-24] MEDS: ATORVASTATIN CALCIUM 10 MG TABLET PO (08:27)
[2024-11-24] MEDS: ENOXAPARIN SOD INJ 40 MG/0.4 ML SYRINGE SC (08:28)
[2024-11-24] MEDS: TOLVAPTAN 15 MG PO (08:28)
[2024-11-24 12:00] VITALS: BP 110/62; PULSE 100; RESP 16; TEMP 36.2; O2SAT 95
--- NOTE | 2024-11-24 12:34 | ESDS_ITS ---
<Statement entered by Anni Gracia MD - 12/07/24 17:16> I reviewed above note and agree with findings and plans. I have also personally examined the patient with medicine team and went over assessment and plan with medical team including product development intern and resident physician. Planned Discharge Date 11/24/24 DS: Providers Provider Date of admission: 11/20/24 18:34 Primary care physician: Xena Li MD Admitting Provider: Gabe Huffman DO Attending Provider on Admission: Anni Garcia MD Consults: 11/21/24 10:01 Consult to Nephrology Routine Comment: Consulting Provider: Sarah Zuniga Attending Provider on DC: Bennett Landin MD Discharging Provider: Bennett Landin MD DS: Diagnosis Problem List Completed Was Problem List Reviewed/Reconciled?: Yes Hospital Course Hospital Course Hospital course: Summary: 69-year-old female with past medical history of hypertension, diabetes, arthritis, hypothyroidism, GERD, and hyperlipidemia who presented to the ED on 11/20/24 with headache and nausea and was admitted for severe, hypoosmolar hyponatremia. ER: BP 147/81, HR 98, saturating 96% on room air, respiratory rate 18, lab sign ificant for normocytic anemia with hemoglobin 10.7, sodium 121, potassium 4.1, chloride 87, BUN 5, creatinine 1.0, osmolality 242 glucose 114, UA pending at this time. EKG shows normal sinus rhythm. With no QTc prolongation. In the ED patient received Ketorolac, hypertonic saline, zofran, benadryl. Hospital: During patient's hospital course, she was trialed on fluid restriction and salt tablets at first but this failed to correct her hyponatremia. The decision was then made to start the patient on tolvaptan for suspected SIADH which ultimately was successful in bringing her sodium levels back up worker to normal ranges. By 11/24, her sodium level had been brought up to 131 (from 121 upon admission) and she was deemed clinically stabilized for discharge home. Recommending patient follow up with endocrinology as an outpatient for further work up. Patient is safe to discharge to home. Further discharge instructions below. Instructions: -Continue all medication as prescribed. -Requires endocrinology referral -Please follow up with your primary care provider within one week of discharge -If your symptoms worsen,please seek immediate medical attention and return to your nearest emergency room -If you do not have a primary care provider, you may follow up at the [facility] at [facility] [address], [place] [address], #Severe, symptomatic hypoosmolar hyponatremia, resolved #Acute on chronic hyponatremia #SIADH #Intractable nausea and vomiting #Hypertension #Hyperlipidemia #Hypothyroidism #T2DM #GERD Status at Discharge Cognitive/Behavioral Status at Discharge: stable Functional Status at Discharge: independent ambulation Overall Status at Discharge: patient is back to baseline Patient's care plan was discussed with my attending, Dr. Garcia, and senior resident, Dr. Randolph. Bennett Landin DO Internal Medicine, PGY-1 Resident Attestation: I have discussed the case with supervising physician and product development intern physician involved in the care of patient. I personally saw and examined patient and discussed the assessment and plan with the entire medical team, including attending. I agree with assessment and plan as documented above. Kim Randolph MD PGY-2 Internal Medicine Time Spent with Patient Time attestation: Total time spent providing and/or coordinating discharge services: Time spent: Greater than 30 minutes Exam Vital Signs Temp Pulse Resp BP Pulse Ox O2 Del Method 97.2 F 100 16 110/62 95 Room Air 11/24/24 12:00 11/24/24 12:00 11/24/24 12:00 11/24/24 12:00 11/24/24 12:00 11/24/24 12:00 Narrative Exam General: A/O x4 obese, elderly female NAD Skin: Warm, dry, intact, no obvious rash. Head: Normocephalic, atraumatic. Eyes: EOMI. Anicteric, vision grossly intact. Ears: No ear pain, no ear discharge, Hearing grossly intact. Nose: No nasal discharge. Mouth/Throat: Oral mucosa moist. No obvious lesions in oropharynx. Neck: Neck supple, non-tender, no cervical lymphadenopathy. Cardiovascular: Slightly tachycardic rate and normal rhythm, no murmur, no JVD or carotid bruits. +S1/S2. Respiratory: Bilateral lungs are clear to auscultation, respirations unlabored, no crackles, no wheezing. No accessory muscle use. Gastrointestinal: Soft, nontender, non-distended, no palpable masses. No guarding or rebound tenderness. Peristalsis present. Extremities: Symmetrical, no significant deformities. Trace pedal edema no cyanosis, no clubbing. 2+ radial pulse bilaterally, 2+ posterior tibial pulse bilaterally. Neuro: No focal deficits observed. Conversant, moving all extremities. No overt cerebellar signs/incoordination. Psychiatric: Cooperative, appropriate affect. Discharge Plan Plan Patient Disposition: HOME (Self Care) Patient condition on transfer: Stable Care Plan Goals: Instructions: -Continue all medication as prescribed. -Requires endocrinology referral -Please follow up with your primary care provider within one week of discharge -If your symptoms worsen,please seek immediate medical attention and return to your nearest emergency room -If you do not have a primary care provider, you [facility] [address], [place] [address], Prescriptions/Referrals Prescriptions/Med Rec: New sodium chloride 1,000 mg Tablet,Soluble 1,000 mg PO BID 30 Days Qty: 60 0RF Continued metformin 500 mg Tablet 500 mg PO QDAY levothyroxine 50 mcg Tablet 50 mcg PO QDAY atorvastatin 10 mg Tablet 10 mg PO QDAY ferrous sulfate 325 mg (65 mg iron) Tablet 325 mg PO BID pantoprazole [Protonix] 40 mg tablet,delayed release (DR/EC) 40 mg PO QDAY Qty: 14 0RF metoclopramide HCl 5 mg tablet 5 mg PO TIDWM 30 Days Qty: 90 0RF Discontinued amlodipine 5 mg tablet 5 mg PO HS lisinopril 40 mg tablet 40 mg PO QDAY meloxicam 7.5 mg tablet 7.5 mg PO BID Referrals: Xena Li MD [Primary Care Provider, Family Practice] Patient/Caregiver Discharge Instructions Print Language: Romanian Stand Alone Forms: Kay Award Info., Patient Portal Info Letter Discharge Order Discharge Orders: Discharge (Routine); Ordered 11/24/24 Ordered By: Kim Randolph Quality Discharge Quality Measures VTE prophylaxis (SC Lovenox)
[2024-11-27 06:48] LABS: Osmolality, Urine* 198 mOsm/kg (50-1200)
[2024-12-03 06:40] LABS: Cortisol,total,LC/MS/MS* 4.0 mcg/dL
== END 2024-11-24 12:25 | disposition home or self-care (01) | DRG 644 ==
LOC: SERX 18:42 → SERHOLD 20:23 → S2NX 11-21 00:02
PROVIDERS: Internal Medicine Nephrology; Physician Assistant; Registered Nurse General Practice; Student in an Organized Health Care Education/Training Program; Admitting Provider Student in an Organized Health Care Education/Training Program; Emergency Provider Emergency Medicine; PCP Family Medicine; Visit Provider Internal Medicine
DX: E22.2 Syndrome of inappropriate secretion of antidiuretic hormone (principal); E87.0 Hyperosmolality and hypernatremia; R11.2 Nausea with vomiting, unspecified; E11.43 Type 2 diabetes mellitus with diabetic autonomic (poly)neuropathy; R51.9 Headache, unspecified; G89.29 Other chronic pain; I10 Essential (primary) hypertension; K31.84 Gastroparesis; E03.9 Hypothyroidism, unspecified; K21.9 Gastro-esophageal reflux disease without esophagitis; E78.5 Hyperlipidemia, unspecified; Z79.899 Other long term (current) drug therapy
CPT/HCPCS: 36415; 71260; 80053; 80069; 81001; 82436; 82533; 83036; 83735; 83935; 84100; 84133; 84295; 84300; 84443; 85025; 87081; 93005; 96361; 96374; 96375; 96376; 99285; A4649; J1200; J1650; J1815; J1885; J2405; J3475; J7131; Q9967; A9270; J8499

== ENCOUNTER 2024-12-04 14:31 | Emergency (ER) | payer OTHER, SELFPAY ==
[2024-12-04 14:32] VITALS: BMI 30.4
[2024-12-04 14:38] VITALS: BP 128/82; PULSE 89; RESP 20; TEMP 37.1; O2SAT 96
--- NOTE | 2024-12-04 14:50 | EKG_ITS ---
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: : 1955 Requested By: Oswaldo Johnson Order Number: [id number] Reading MD: Oswaldo Johnson Measurements Intervals [place] Rate: 87 P: 30 NH: 189 QRS: -45 QRSD: 68 T: 9 QT: 347 QTc: 419 Interpretive Statements SINUS RHYTHM LEFT ANTERIOR FASCICULAR BLOCK [QRS AXIS <= -45, QR IN I, RS IN II] POSSIBLE ANTERIOR MYOCARDIAL INFARCTION , OF INDETERMINATE AGE [30 ms Q WAVE IN V3/V4, OR R < 0.2 mV IN V4] Compared to ECG 11/20/2024 18:37:11 Left anterior fascicular block now present Myocardial infarct finding now present Left-axis deviation no longer present /store/S0/[id number]/[id number].pdf
--- NOTE | 2024-12-04 14:51 | PD.EDRME ---
Rapid Medical Screening Exam RME Arrival date/time: 12/04/24 14:31 69-year-old female with a history of hyperlipidemia, hypothyroidism, type 2 diabetes, presents to the emergency room with a chief complaint of chest tightness, weakness, headache, and nausea x 3 days I have greeted and performed a focused initial assessment of this patient. A comprehensive ED assessment and evaluation of the patient, analysis of all test results, and completion of the medical decision making process will be conducted by additional ED providers. Chief Complaint: Nausea/Vomiting/Diarrhea Time Seen by Provider: 12/04/24 14:41 Vital signs: Vital Signs Temperature 98.7 F 12/04/24 14:38 Pulse Rate 89 12/04/24 14:38 Respiratory Rate 20 12/04/24 14:38 Blood Pressure 128/82 12/04/24 14:38 Pulse Oximetry (%) 96 12/04/24 14:38 Oxygen Delivery Method Room Air 12/04/24 14:38 Vital signs reviewed by provider: Yes
[2024-12-04] MEDS: ONDANSETRON ODT 4 MG TABRAP PO (15:01)
[2024-12-04 15:11] LABS: Basophils # (Auto) 0.0 Thou/mm3 (0.0-0.2); Basophils % (Auto) 1 % (0-2.5); Eosinophils # (Auto) 0.1 Thou/mm3 (0.0-0.5); Eosinophils % (Auto) 2 % (0-10); Hematocrit 34.7 % (36.0-46.0); Hemoglobin 11.5 g/dL (12.0-16.0); Immature Granulocytes Auto 0.01 Thou/mm3 (0.00-0.00); Lymphocytes # (Auto) 1.3 Thou/mm3 (1.0-4.8); Lymphocytes % (Auto) 26 % (10-50); Mean Corpuscular HGB Conc 33.1 g/dl (31.0-37.0); Mean Corpuscular Hemoglobin 30.1 pg (25.0-35.0); Mean Corpuscular Volume 91 fL (80-100); Monocytes # (Auto) 0.5 Thou/mm3 (0.0-0.8); Monocytes % (Auto) 10 % (0-12); Neutrophils # (Auto) 3.2 Thou/mm3 (1.8-7.7); Neutrophils % (Auto) 61 % (37-80); Nucleated Red Blood Cell # 0.00 Thou/mm3 (0.00-0.00); Nucleated Red Blood Cell % 0 /100 WBC (0); Platelet Count 403 Thou/mm3 (140-440); RDW Standard Deviation 42.4 fL (36.4-46.3); Red Blood Count 3.82 Miln/mm3 (4.00-5.20); White Blood Count 5.1 Thou/mm3 (3.6-11.0)
[2024-12-04 15:29] LABS: B-Type Natriuretic Peptide < 20 pg/mL (0-100)
[2024-12-04 15:30] LABS: Alanine Aminotransferase 27 U/L (10-49); Albumin, Serum 5.0 gm/dL (3.4-4.8); Albumin/Globulin Ratio 2.5 (1.2-2.2); Alkaline Phosphatase 92 U/L (46-116); Anion Gap 11 (7-16); Aspartate Amino Transferase 41 U/L (0-34); BUN/Creatinine Ratio 5 Ratio (12-20); Bilirubin,Total 0.5 mg/dL (0.3-1.2); Blood Urea Nitrogen < 5 mg/dL (9-23); Calcium 9.9 mg/dL (8.3-10.6); Calcium (Corrected) 9.9 mg/dL (8.5-10.1); Carbon Dioxide 23.0 mMol/L (20.0-31.0); Chloride 99 mMol/L (98-107); Creatinine (Component) 1.0 mg/dL (0.6-1.3); Estimated Creatinine Clearance 46.6 mL/min (>60); Globulin 2.0 gm/dL (2.3-3.5); Glucose 131 mg/dL (74-106); INR 1.0 (0.9-1.3); Lipase 24 U/L (12-53); Magnesium 1.3 mg/dL (1.6-2.6); Osmolality,Calculated 265 (275-295); Partial Thromboplastin Time 27.1 Seconds (22.0-36.0); Potassium 4.4 mMol/L (3.4-5.1); Prothrombin Time 10.5 Seconds (9.0-12.2); Sodium 133 mMol/L (136-145); Total Protein 7.0 gm/dL (5.7-8.2); Troponin I < 0.020 ng/mL (0.0-0.045); eGFR > 60 See Note
[2024-12-04 15:59] LABS: Collection Type, Urine Clean Catch
[2024-12-04 16:10] LABS: Bilirubin,Urine Negative (Negative); Blood,Urine Negative (Negative); Clarity,Urine Clear (Clear/Hazy); Color,Urine Yellow (Lt Yel-Yel); Culture Indicated,Urine Not Indicated; Glucose, Urine Negative (Negative); Hyaline Casts,Urine < 1 /hpf (0-1); Ketones,Urine Negative (Negative); Leukocyte Esterase,Urine Positive (Negative); Nitrite,Urine Negative (Negative); PH,Urine 5.5 (5.0-7.0); Protein,Urine Trace (Neg - Trace); RBC,Urine 3 /hpf (0-3); Specific Gravity,Urine 1.021 (1.001-1.035); Squamous Epithelial Cell,Urine 4 /hpf (0-5); Urobilinogen,Urine Negative mg/dL (0.0-1.0); WBC,Urine 8 /hpf (0-5)
[2024-12-04 16:11] LABS: Amphetamine/Methamp Scrn,U Negative (Negative); Barbiturate Screen,Urine Negative (Negative); Benzodiazepines Screen,Urine Negative (Negative); Benzoylecgonine Screen, Ur Negative (Negative); Fentanyl Screen,Urine Negative (Negative); Opiate Screen,Urine Negative (Negative); THC Screen,Urine Negative (Negative)
--- NOTE | 2024-12-04 18:51 | EDNOTE_ITS ---
Nausea/Vomit./Diarrhea-RME/HPI General Chief complaint: Nausea/Vomiting/Diarrhea Stated complaint: NAUSEA, NOT ABLE TO EAT Time Seen by Provider: 12/04/24 14:41 Arrival date/time: 12/04/24 14:31 Limitations: no limitations RME / HPI RME / HPI Narrative: 12/04/24 14:31 69-year-old female with a history of hyperlipidemia, hypothyroidism, type 2 diabetes, presents to the emergency room with a chief complaint of chest tightness, weakness, headache, and nausea x 3 days I have greeted and performed a focused initial assessment of this patient. A comprehensive ED assessment and evaluation of the patient, analysis of all test results, and completion of the medical decision making process will be conducted by additional ED providers. Dr. Paulino evaluation. Patient is a 69-year-old female with medical history no table for hyperlipidemia, hypothyroidism, diabetes, GERD this in the emergency department with concerns for chest tightness headache nausea for the last 2 days. Patient does not have any allergies to medications. No drugs no alcohol no smoking. Patient states that her symptoms seem to coincide with when she was started on salt tabs for hyponatremia. Symptoms have been present for about 2 weeks. She has been trialed on Zofran and Reglan without symptom improvement. Patient takes multiple medications at home. Related Data Home Medications ?Medication ?Instructions ?Recorded ?Confirmed atorvastatin 10 mg tablet 10 mg PO QDAY 03/05/2411/20 ferrous sulfate 325 mg (65 mg 325 mg PO BID 03/05/24 1 iron) tablet levothyroxine 50 mcg tablet 50 mcg PO QDAY 03/12/24 metformin 500 mg tablet 500 mg PO QDAY 03/12/2409/07 Previous Rx's ?Medication ?Instructions ?Recorded pantoprazole 40 mg tablet,delayed 40 mg PO QDAY #14 ta bs 03/06/24 release (Protonix) metoclopramide HCl 5 mg tablet 5 mg PO TIDWM 1 month # 90 tabs 11/10/24 sodium chloride 1,000 mg soluble 1,000 mg PO BID 1 tue #60 tabs 11/24/24 tablet Allergies Allergy/AdvReac Type Severity Reaction Status Date / Time No Known Allergies Allergy Verified 12/04/24 14:35 ED Exam General Limitations: Present no limitations General appearance: Present alert and in no apparent distress Head Head exam: Present atraumatic and normocephalic Eye Eye exam: Present normal appearance, PERRL and EOMI ENT ENT exam: Present normal exam Neck Neck exam: Present normal inspection Chest Chest inspection: Present normal inspection and symmetric chest wall rise Respiratory Respiratory exam: Present normal lung sounds bilaterally; Absent respiratory distress Cardiovascular Cardiovascular exam: Present regular rate and normal rhythm Abdominal Exam Abdominal exam: Present soft; Absent distention, tenderness, guarding or rebound Extremities Exam Extremities exam: Present normal inspection Neurological Exam Neurological exam: Present alert and other (No gross focal deficits) Psychiatric Psychiatric exam: Present normal affect and normal mood Skin Skin exam: Present warm, dry and intact Course Quality Measures none Orders Category Date Time Status EKG (ED ONLY) *Do not use* NOW Care 12/04/24 14:50 Completed EKG (ED Only) Stat Exams 12/04/24 14:50 Draft B-Type Natriuretic Peptide Stat Lab 12/04/24 15:00 Completed CBC Stat Lab 12/04/24 15:00 Completed Comprehensive Metabolic Panel Stat Lab 12/04/24 15:00 Completed Drug Screen,Urine Stat Lab 12/04/24 15:47 Completed Lipase Stat Lab 12/04/24 15:00 Completed Magnesium Stat Lab 12/04/24 15:00 Completed Partial Thromboplastin Time Stat Lab 12/04/24 15:00 Completed Prothrombin Time with INR Stat Lab 12/04/24 15:00 Completed Troponin I Stat Lab 12/04/24 15:00 Completed Urinalysis, C/S if Indicated Stat Lab 12/04/24 15:47 Completed Magnesium Oxide [Mag-Ox 400] Med 12/04/24 19:09 Once 400 mg PO X1 ONE Ondansetron Odt [Zofran Odt] Med 12/04/24 14:51 Discontinued 4 mg PO X1 ONE Prochlorperazine Maleate [Compazine] Med 12/04/24 19:08 Once 5 mg PO X1 ONE Vital Signs Vital signs: Vital Signs Temperature 98.7 F 12/04/24 14:38 Pulse Rate 89 12/04/24 14:38 Respiratory Rate 20 12/04/24 14:38 Blood Pressure 128/82 12/04/24 14:38 Pulse Oximetry (%) 96 12/04/24 14:38 Oxygen Delivery Method Room Air 10/21/25 14:38 Nausea/Vomiting/Diarrhea MDM Narrative MDM Narrative:: Patient is a 68-year-old female seen emerged primary concerns for chest tightness and vomiting. Vital signs and exam as listed. Concern for ACS arrhythmia electrolyte abnormality viral syndrome pneumonia among others. Prior provider evaluated patient. Ordered labs EKG. Offer medication for symptom relief. Labs with hemoglobin 11.5, this at patient's baseline. Patient with hyponatremia sodium 133, no other electrolyte abnormalities, no other significant derangements except for hypomanic which will replete in the emergenc y department. No transaminitis troponin not elevated BNP normal. Lipase not elevated urinalysis leuk esterase positive nitrate -8 white blood cells 3 red blood cells 4 squames. Urine drug screen negative. EKG performed today at 1453 notable for sinus rhythm, normal intervals, nonspecific T wave changes, not a cardiac alert. Ordered repeat troponin. On my evaluation patient hemodynamically stable not in distress, abdomen soft nondistended nontender. Patient denies any headache, chest pain, dysuria, hematuria, melena bloody stools. Given patient does not have any dysuria send patient's urine for culture. Patient states that she has had this nausea for about 2 weeks. She is on multiple medications. She has been trialed on Zofran, and Reglan her symptoms are not improved. It seems like her symptoms got worse after she was started on sodium tabs for hyponatremia. Patient sodium today does not need to be corrected. Advised her to continue taking her sodium tabs however to follow-up with her primary care doctor and discuss alternative treatments and further workup and management of her ongoing nausea. I also offered patient repeat troponin as well as a CT abdomen and pelvis with contrast to look for other causes of her nausea however patient declined at this time. Patient is GCS 15, able to make her own decisions has capacity. Will discharge to home with close return precautions follow-up with primary care doctor. Patient data External records reviewed:: [facility] previous records Clinical information provided by:: patient Social determinants that could affect healthcare access:: none Patient has the following chronic illnesses:: None How is presenting disease/condition affected by chronic disease/condition?: exacerbated by Evaluation data The following diagnostics were reviewed and interpreted by me:: lab results, radiology exam(s) and EKG tracing(s) Lab and/or radiology exams considered but not ordered:: None Interpretation Summary: Centimeters Medications / Prescriptions Medications / Prescriptions considered but not ordered:: None Medication administrations:: Medication Administration History Magnesium Oxide (Magnesium Oxide 400 Mg Tablet) 400 mg PO X1 ONE Stop: 12/04/24 19:10 Prochlorperazine Maleate (Prochlorperazine Maleate 5 Mg Tablet) 5 mg PO X1 ONE Stop: 12/04/24 19:09 Discontinued Medications Ondansetron HCl (Ondansetron Odt 4 Mg Tabrap) 4 mg PO X1 ONE; Protocol Stop: 12/04/24 14:52 Last Admin: 12/04/24 15:01 Dose: 4 mg Documented By: OA See above Consultations Consultation(s) initiated? (list below): No Diagnosis Nausea Differential Diagnosis: other Most likely diagnosis given after review of the tests above:: Vomiting, chest pain Admission Indicated Admission indicated?: not indicated Admission Request Was there a request for admission?: No Disposition Plan Disposition Plan: Discharge Discharge Attestation Discharge Attestation: The patient and all family members were given an opportunity to ask questions and understood the discharge instructions. Discharge instructions specifically effects, indications for sooner follow up or return to the emergency department, and the expected course of current diagnosis. Patient condition: Stable Discharge Plan Plan Patient Disposition: HOME (Self Care) Prescriptions/Referrals Prescriptions/Med Rec: No Action metformin 500 mg Tablet 500 mg PO QDAY levothyroxine 50 mcg Tablet 50 mcg PO QDAY atorvastatin 10 mg Tablet 10 mg PO QDAY ferrous sulfate 325 mg (65 mg iron) Tablet 325 mg PO BID pantoprazole [Protonix] 40 mg tablet,delayed release (DR/EC) 40 mg PO QDAY Qty: 14 0RF metoclopramide HCl 5 mg tablet 5 mg PO TIDWM 30 Days Qty: 90 0RF sodium chloride 1,000 mg Tablet,Soluble 1,000 mg PO BID 30 Days Qty: 60 0RF Referrals: Xena Li MD [Primary Care Provider, Family Practice] - In 1 week Problem List Clinical Impression: Nausea & vomiting Patient/Caregiver Discharge Instructions Education Materials: ED Vomiting and Diarrhea ... Additional Instructions: .Hidr?tese indira y flip un seguimiento con mcleod m?dico de atenci?n primaria dentro de 1 a 2 d?as. Por favor discutir mcleod nausea que shaver tenido por varias semanas. Si quiere que continuemos con mcleod estudio de nas tomografia del abdomen, por favor regresar en cualquier momento. Regrese inmediatamente si tiene s?ntomas que empeoran o s?ntomas preocupantes. Print Language: Barbadian Stand Alone Forms: Kay Award Info., Patient Portal Info Letter
[2024-12-04] MEDS: MAGNESIUM OXIDE 400 MG TABLET PO (19:35)
== END 2024-12-04 19:38 | disposition home or self-care (01) ==
PROVIDERS: Nurse Practitioner Family; Emergency Provider Emergency Medicine; PCP Family Medicine
DX: R11.2 Nausea with vomiting, unspecified (principal); E03.9 Hypothyroidism, unspecified; E11.9 Type 2 diabetes mellitus without complications; E78.5 Hyperlipidemia, unspecified
CPT/HCPCS: 36415; 80053; 80307; 81001; 83690; 83735; 83880; 84484; 85025; 85610; 85730; 87086; 93005; 99281; Q0162; A9270

== ENCOUNTER → 2024-12-07 | Outpatient (CLI) | payer OTHER, SELFPAY ==
--- NOTE | 2024-12-07 15:59 | XR_ITS ---
Examination: Abdomen AP single view Technique: AP portable supine abdomen, single view Exam date and time: December 07, 2024, 1604 hours INDICATIONS: Nausea vomiting beginning 3 weeks ago. FINDINGS: Moderate to large amounts of stool throughout the colon. No obstruction. No free air. The osseous factors are intact IMPRESSION: Moderate to large amount of stool throughout the colon
== END | disposition home or self-care (01) ==
PROVIDERS: PCP Family Medicine; Referring Provider Family Medicine; Visit Provider Family Medicine
DX: K59.00 Constipation, unspecified (principal)
CPT/HCPCS: 74018

== ENCOUNTER → 2024-12-31 | Outpatient (CLI) | payer OTHER, SELFPAY ==
[2024-12-31 11:41] LABS: Anion Gap 11 (7-16); BUN/Creatinine Ratio 18 Ratio (12-20); Blood Urea Nitrogen 18 mg/dL (9-23); Calcium 9.9 mg/dL (8.3-10.6); Carbon Dioxide 23.6 mMol/L (20.0-31.0); Chloride 110 mMol/L (98-107); Creatinine (Component) 1.0 mg/dL (0.6-1.3); Glucose 82 mg/dL (74-106); Osmolality,Calculated 289 (275-295); Potassium 3.6 mMol/L (3.4-5.1); Sodium 145 mMol/L (136-145); eGFR > 60 See Note
[2024-12-31 11:54] LABS: Glucose Estimated Average 120 mg/dL (80-131); Hemoglobin A1C 5.8 % Hgb (4.8-6.0)
== END | disposition home or self-care (01) ==
PROVIDERS: PCP Family Medicine; Referring Provider Family Medicine; Visit Provider Family Medicine
DX: E11.9 Type 2 diabetes mellitus without complications (principal)
CPT/HCPCS: 36415; 80048; 83036

== ENCOUNTER → 2025-01-02 | Outpatient (CLI) | payer OTHER, SELFPAY ==
--- NOTE | 2025-01-02 14:15 | XR_ITS ---
Examination: Screening digital mammography, bilateral Computer aided detection 3-D breast Tomosynthesis, bilateral Date and time of exam: January 02, 2025, 1414 hours, compared to mammograms dating to January 12, 2018 Indication: Screening Technique: Nonmagnified MLO, CC views of the breasts to been obtained, reconstructed from 3-D Tomosynthesis images. R2 computer aided detection program utilized for evaluation of suspicious masses and/or abnormal calcifications. 3-D Tomosynthesis images obtained. Findings: Scattered areas of fibroglandular density. Benign calcifications. No interval suspicious masses Impression: BI-RADS category II: Benign Findings. Recommend 1 year follow-up mammogram.
--- NOTE | 2025-01-02 14:30 | XR_ITS ---
Examination: Bone densitometry Date and time of exam: January 02, 2025, 1448 hours INDICATIONS: Hysterectomy age 31 Technique: Lumbar spine and hip total bone mineralization values of an calculated. Peak reference and age match control results have been displayed. Findings: Lumbar spine total bone mineralization is 0.903 gm/cm2. This is 1.3 standard deviations below peak reference. This is .8 standard deviations above age-matched controls. Hip total bone mineralization is 0.847 gm/cm2 This is 0.9 standard deviations below peak reference. This is 0.6 standard deviations above age-matched controls Impression: There is osteopenia based on lumbar spine measurements. There is osteopenia based on hip measurements Lumbarization is decreased 0.5% compared with October 30, 2020 Hip mineralization is increased 1.1% compared with October 30, 2020
== END | disposition home or self-care (01) ==
PROVIDERS: Referring Provider Family Medicine; Visit Provider Family Medicine
DX: Z12.31 Encounter for screening mammogram for malignant neoplasm of breast (principal); R92.323 Mammographic fibroglandular density, bilateral breasts; R92.1 Mammographic calcification found on diagnostic imaging of breast; M85.89 Other specified disorders of bone density and structure, multiple sites
CPT/HCPCS: 77063; 77067; 77080